=== PATIENT | male | born 1975 | race Caucasian/White ===

== ENCOUNTER 2021-02-13 12:45 | Outpatient (REF) | payer MEDICAID, SELFPAY ==
[2021-02-13 13:20] VITALS: BP 121/62; PULSE 74; RESP 16; TEMP 36.4; O2SAT 99
[2021-02-13 13:32] VITALS: BMI 30.4
[2021-02-13 14:06] VITALS: BP 120/64; PULSE 72; RESP 16; O2SAT 99
== END 2021-02-13 12:46 | disposition home or self-care (01) ==
LOC: HO.MS 12:45
PROVIDERS: PCP Internal Medicine; Visit Provider Ophthalmology
PROC: (CPT 67840; principal; 2021-02-13 17:40)
DX: D23.112 Other benign neoplasm of skin of right lower eyelid, including canthus (principal); H40.013 Open angle with borderline findings, low risk, bilateral; H44.23 Degenerative myopia, bilateral; Q12.0 Congenital cataract; Z79.899 Other long term (current) drug therapy
CPT/HCPCS: 67840; 88305

== ENCOUNTER → 2021-03-20 14:50 | Outpatient (BNVA) | payer MEDICAID, SELFPAY | PROVIDERS: PCP Internal Medicine; Referring Provider Internal Medicine; Visit Provider Nurse Practitioner Family | DX: K58.9 Irritable bowel syndrome, unspecified (principal); K21.9 Gastro-esophageal reflux disease without esophagitis | CPT/HCPCS: 99212 ==

== ENCOUNTER → 2021-12-22 10:18 | Outpatient (BNVA) | payer MEDICAID, SELFPAY | PROVIDERS: PCP Internal Medicine; Referring Provider Internal Medicine; Visit Provider Nurse Practitioner Family | DX: K58.2 Mixed irritable bowel syndrome (principal); K21.9 Gastro-esophageal reflux disease without esophagitis | CPT/HCPCS: 99212 ==

== ENCOUNTER → 2022-08-15 13:28 | Outpatient (BNVA) | payer MEDICAID, SELFPAY | PROVIDERS: PCP Internal Medicine; Visit Provider Nurse Practitioner Family | DX: K21.9 Gastro-esophageal reflux disease without esophagitis (principal); K58.2 Mixed irritable bowel syndrome | CPT/HCPCS: 99212 ==

== ENCOUNTER 2023-01-04 12:42 | Outpatient (REF) | payer MEDICAID, SELFPAY ==
[2023-01-04 14:36] LABS: Estimated Average Glucose 126 mg/dL
[2023-01-04 14:58] LABS: Lipase 38 U/L (8-78)
== END 2023-01-04 12:43 | disposition home or self-care (01) ==
LOC: HO.LAB 12:42
PROVIDERS: PCP Internal Medicine; Visit Provider Nurse Practitioner Family
DX: K21.9 Gastro-esophageal reflux disease without esophagitis (principal); K58.2 Mixed irritable bowel syndrome; K61.1 Rectal abscess; R10.9 Unspecified abdominal pain; E11.9 Type 2 diabetes mellitus without complications
CPT/HCPCS: 36415; 83036; 83690; 99212

== ENCOUNTER 2023-01-09 20:51 | Outpatient (REF) | payer MEDICAID, SELFPAY ==
[2023-01-20 01:23] LABS: Pancreatic Elastase-1 >500 mcg/g
== END 2023-01-09 20:52 | disposition home or self-care (01) ==
LOC: HO.LNP 20:51
PROVIDERS: Visit Provider Nurse Practitioner Family
DX: R10.9 Unspecified abdominal pain (principal)
CPT/HCPCS: 82656

== ENCOUNTER → 2023-02-15 09:44 | Outpatient (BNVA) | payer MEDICAID, SELFPAY | PROVIDERS: PCP Internal Medicine; Referring Provider Nurse Practitioner Family; Visit Provider Surgery | DX: L05.91 Pilonidal cyst without abscess (principal) | CPT/HCPCS: 99202 ==

== ENCOUNTER 2023-02-27 05:49 | Day surgery (SDC) | payer MEDICAID, SELFPAY ==
[2023-02-25 10:15] VITALS: BMI 23.6
--- NOTE | 2023-02-26 10:12 | HO.ANESPROP2 ---
HPI - Anesthesia Eval Consult details Narrative: 47yo M for Pilonidal Cystectomy PMFSH Active Problems Active Problems: All Active Problems (Updated 02/15/23 @ 10:46 by Kevin Tafoya MD) Pilonidal cyst of blessing cleft (Acute) Irritable bowel syndrome (Acute) Gastroesophageal reflux disease (Acute) Past Medical History Medical History Gastroesophageal reflux disease Hemiplegic migraine Interstitial cystitis Irritable bowel syndrome Family History Family History Father COPD (chronic obstructive pulmonary disease) Stroke COVID-19 Paternal Grandmother Cancer of unknown origin Surgical History Surgical History H/O colonoscopy H/O removal of cyst History of esophagogastroduodenoscopy (EGD) History of excision of pilonidal cyst (02/27/23) History of vasectomy Hx of cystoscopy Social History Social History Household Members: Family Alcohol intake: current Alcohol intake frequency: holidays/special occasions only Patient Tobacco Use Status: Current everyday Tobacco user Tobacco use type: Cigarette Cigarettes Per Day: 30 Meds Allergies Allergy/AdvReac Type Severity Reaction Status Date / Time esomeprazole Allergy Mild urinating Verified 02/27/23 06:04 trouble Home Medications Medication Instructions Recorded Confirmed Last Taken Type pentosan polysulfate sodium 100 mg 100 mg PO TID 03/20/21 02/25/23 Unknown History capsule (Elmiron) verapamil 80 mg tablet 80 mg PO DAILY 03/20/21 02/27/23 02/27/23 05:15 History dutasteride 0.5 mg capsule 0.5 mg PO DAILY 02/27/23 02/27/23 02/27/23 05:15 History (Avodart) Exam Exam Date and Time: February 26, 2023 1012 Height,Weight and Vital Signs: Height 5 ft 8 in Weight 70.307 kg Assessment and Plan Assessment Anesthesia Assessment: Chart Reviewed
[2023-02-27 06:09] VITALS: BMI 23.9
[2023-02-27 06:27] VITALS: BP 113/70; PULSE 75; RESP 15; TEMP 36.6; O2SAT 97
[2023-02-27] MEDS: Lactated Ringers 1,000 ML 100 ML IVCONT (06:41)
--- NOTE | 2023-02-27 07:17 | P.CONAN_ITS ---
[facility], [facility] Active Problems Active Problems: All Active Problems (Updated 02/27/23 @ 06:07 by Ghislaine Monreal RN) Pilonidal cyst of blessing cleft (Acute) Irritable bowel syndrome (Acute) Gastroesophageal reflux disease (Acute) Past Medical History Medical History Gastroesophageal reflux disease Hemiplegic migraine Interstitial cystitis Irritable bowel syndrome Family History Family History Father COPD (chronic obstructive pulmonary disease) Stroke COVID-19 Paternal Grandmother Cancer of unknown origin Family history of problems with anesthesia: No Surgical History Surgical History H/O colonoscopy H/O removal of cyst History of esophagogastroduodenoscopy (EGD) History of vasectomy Hx of cystoscopy Social History Social History Household Members: Family Alcohol intake: current Alcohol intake frequency: holidays/special occasions only Patient Tobacco Use Status: Current everyday Tobacco user Tobacco use type: Cigarette Cigarettes Per Day: 30 Use of substances other than those prescribed or required for medical reasons: No Are you DNR?: No Advance Directives: No Advance Directives Information Provided: Yes Meds Allergies Allergy/AdvReac Type Severity Reaction Status Date / Time esomeprazole Allergy Mild urinating Verified 02/27/23 06:04 trouble Active Medications: Current Medications Lactated Ringer's (Lr) 1,000 mls @ 100 mls/hr IVCONT .Q10H ARCHANA Last Admin: 02/27/23 06:41 Dose: 100 mls/hr Home Medications Medication Instructions Recorded Confirmed Last Taken Type pentosan polysulfate sodium 100 mg 100 mg PO TID 03/20/21 02/25/23 Unknown History capsule (Elmiron) verapamil 80 mg tablet 80 mg PO DAILY 03/20/21 02/25/23 Unknown History dutasteride 0.5 mg capsule 0.5 mg PO DAILY 02/27/23 02/27/23 02/27/23 05:15 History (Avodart) Exam Exam Date and Time: February 27, [id number] Height,Weight and Vital Signs: Height 5 ft 8 in Weight 71.214 kg Last Vital Signs Temp 97.9 F 02/27/23 06:27 Pulse 75 02/27/23 06:27 Resp 15 02/27/23 06:27 BP 113/70 02/27/23 06:27 Pulse Ox 97 02/27/23 06:27 O2 Del Method Room Air 02/27/23 06:27 Airway Mallampati Class: II TM Dist: >3cm Neck ROM: Full Heart: RRR Lungs: CTA Assessment and Plan Final Anesthetic Review Family History of Problems with Anesthesia: No ASA Class: II Final Preanesthetic Review: Meds/Allgs Chart Reviewed, Consent Obtained/Reviewed and Anes Risks/Benef Reviewed Patient Risk: Intermediate Procedure Risk: Low Anesthetic Plan Anesthetic Plan: GA Disposition: Standard PACU
--- NOTE | 2023-02-27 07:18 | MHC.SHP ---
Pre-Procedural Eval Section A Date of Service: 02/27/23 The patient is an INPATIENT: No Changes since office visit: Yes Patient answered all questions; No Cold of Flu in the past 2 weeks, No New Medical Problems and No Changes in Medication The History & Physical has been completed within 30 days and I have reviewed it.: Yes Section B Chief Complaint: Pilonidal cyst without abscess Allergies: Allergies Allergy/AdvReac Type Severity Reaction Status Date / Time esomeprazole Allergy Mild urinating Verified 02/27/23 06:04 trouble Plan Diagnosis/Plan: Unchanged I have reviewed the history and physical and performed a pertinent physical examination on my patient. No changes have occurred unless specified. Time Spent With Patient Time: Total time managing care of this patient today ____ minutes.
--- NOTE | 2023-02-27 07:21 | P.OP_ITS ---
Operative Note Operative Note Date of Service: 02/27/23 Narrative: Preoperative diagnosis: pilonidal cyst Postoperative diagnosis: same Procedure: pilonidal cystectomy Surgeon: Kevin Tafoya MD [employer]form[employer] Developer: Layne Dumont PA-C Anesthesia: general endotracheal Indications for procedure: 47-year-old male patient with history of multiple infections of pilonidal cyst with previous drainage procedures presenting today for final cystectomy Operative findings: pilonidal cyst without active infection Specimen: pilonidal cyst Estimated blood loss: less than 2 mL Complications: none Procedure details: patient was brought to the OR placed in a supine position. After administering general anesthesia he was placed in a prone position. Patient's perianal skin was prepped with Betadine and draped in a sterile fashion. A surgical time-out was called and the consent confirmed. Patient received preoperative antibiotics and Venodyne boots were in place. Local anesthesia was infiltrated around the pilonidal cyst. A pilonidal cyst excision was then performed using a 15 blade scalpel. The area of excision measured approximately 4 cm x 2 cm. Elliptical incision was created in the midline carried out through subcutaneous tissue presacral fascia. This was then excised off the fascia with the scalpel. Hemostasis was assured using electrocautery. The specimen was passed off the table and sent to pathology for further examination. Deep fascial tissue was then reapproximated using interrupted 3-0 Polysorb sutures. Superficial subcutaneous tissue was reapproximated using interrupted 3-0 Polysorb sutures. Dermis was reapproximated using interrupted 3-0 Polysorb sutures. Skin was closed using interrupted 2-0 nylon sutures in a mattress formation. Sterile dressings consisting of 4 x 4 gauze and paper tape were then applied. The patient was returned to a supine position and awoken from anesthesia. Patient tolerated procedure well. Sponge, instrument, and needle counts reported as correct. Patient was transferred to PACU in stable condition.
[2023-02-27 08:32] VITALS: BP 128/76; PULSE 91; RESP 16; TEMP 36.4; O2SAT 99
[2023-02-27 08:37] VITALS: BP 121/70; PULSE 85; RESP 20; O2SAT 100
[2023-02-27] MEDS: ondansetron HCL 4 MG/2 ML VIAL IVPUSH (08:41)
[2023-02-27 08:42] VITALS: BP 153/53; PULSE 87; RESP 17; O2SAT 100
[2023-02-27 08:47] VITALS: BP 135/88; PULSE 79; RESP 17; O2SAT 99
[2023-02-27 09:02] VITALS: BP 128/78; PULSE 88; RESP 19; TEMP 36.4; O2SAT 99
== END 2023-02-27 09:51 | disposition home or self-care (01) ==
PROVIDERS: PCP Internal Medicine; Visit Provider Surgery
PROC: (CPT 11771; principal; 2023-02-27 07:30)
DX: L05.91 Pilonidal cyst without abscess (principal); K58.9 Irritable bowel syndrome, unspecified; K21.9 Gastro-esophageal reflux disease without esophagitis; N30.10 Interstitial cystitis (chronic) without hematuria; Z79.899 Other long term (current) drug therapy; Z88.8 Allergy status to other drugs, medicaments and biological substances; F17.210 Nicotine dependence, cigarettes, uncomplicated
CPT/HCPCS: 11771; 88304; J1100; J2250; J2405; J3010

== ENCOUNTER → 2023-03-08 10:25 | Outpatient (BNVA) | payer MEDICAID, SELFPAY | PROVIDERS: PCP Internal Medicine; Visit Provider Surgery | DX: Z48.817 Encounter for surgical aftercare following surgery on the skin and subcutaneous tissue (principal); Z87.2 Personal history of diseases of the skin and subcutaneous tissue | CPT/HCPCS: 99212 ==

== ENCOUNTER → 2023-03-20 08:45 | Outpatient (BNVA) | payer MEDICAID, SELFPAY | PROVIDERS: PCP Internal Medicine; Visit Provider Surgery | DX: Z48.02 Encounter for removal of sutures (principal); L05.91 Pilonidal cyst without abscess | CPT/HCPCS: 99211 ==

== ENCOUNTER → 2023-05-24 15:37 | Outpatient (AMB) | payer OTHER, SELFPAY ==
--- NOTE | 2023-05-24 15:43 | A.OFFVIS_ITS ---
Intake Vital Signs 05/24/23 15:44 Height 5 ft 8 in Weight 152 lb 8.958 oz BMI 23.2 BP 113/59 L Blood Pressure Location Lt brachial Position Sitting Pulse 79 Intake Visit Reasons: abdominal pain Intake Note: Rosas presents in office as a est.patient for a f/u for abdominal pain. 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 Patient states that he change lot of the food that he is eating and he is feeling better. Occasional flare ups with cramping and loose stools. Patient states that he is trying to control that with loperamide. Symptoms do not last long only couple days. Gastroesophageal reflux disease Continue current treatment with Nexium. Patient was encouraged to avoid dietary triggers and late night snacking. Staying upright for minimal 3 hours after meals discussed with patient. Rectal abscess 2.5 cm rectal abscess with 0.4 mm open c enter area that is draining. Area examined with storekeeper helper in the room. There is no erythema induration about 2.5 cm,o no tenderness to palpation, no fluctuance. Lateral right of the open center hard to touch without pain. No signs and symptoms of cellulitis. Patient was encouraged to soak in warm water and Epsom salts, apply warm compresses to help drain. Patient would like to get refer to get this abscess removed. Patient was referred to general surgery. Patient was also encouraged to go to ER if he will have fever, increase in size, redness or tenderness. I will see him in 6 months, sooner on as needed basis. Patient is agreeable to this plan and verbalizes understanding of instructions. He was given the opportunity to ask questions and all questions answered. Plan Orders Orders Pancreatic Elastase-1 Today R10.9 Lipase Today R10.9 Hemoglobin A1c Today E11.9 Referrals General Surgery Referral K61.1 Medications Changed From Nexium (esomeprazole magnesium) Take one capsule by mouth twice a day, dispense BRAND NAME ONLY 40 mg PO BID 30 days 180 caps 3RF NS K21.9 To Nexium (esomeprazole magnesium) Take one capsule by mouth twice a day, dispense BRAND NAME ONLY 40 mg PO BID 90 days 180 caps 3RF NS K21.9 From sucralfate (Carafate) Take one tablet on an empty stomach by mouth twice a day 1 g PO BID 30 days 180 tabs 2RF K58.9 To sucralfate (Carafate) Take one tablet on an empty stomach by mouth twice a day 1 g PO BID 90 days 180 tabs 2RF K58.9 TODAY'S VISIT Patient is here today for follow-up. Patient reports that he had hard time getting Nexium. States that genetics will work for him. Long history of taking Nexium and nothing of works. Patient changed his insurance and was unable to get medications for sometimes. Patient reports that he had suffered with epigastric discomfort dyspepsia with occasional dysphagia without odynophagia. Patient states that he has postprandial abdominal bloating. Left lower quadrant cramping. Patient denies melena, hematochezia, unintentional weight loss or ribbon like stools. Patient denies any nausea or vomiting. [facility] Medical History Gastroesophageal reflux disease Hemiplegic migraine Interstitial cystitis Irritable bowel syndrome Surgical History H/O colonoscopy H/O removal of cyst History of esophagogastroduodenoscopy (EGD) History of excision of pilonidal cyst (02/27/23) History of vasectomy Hx of cystoscopy Family History Father COPD (chronic obstructive pulmonary disease) Stroke COVID-19 Paternal Grandmother Cancer of unknown origin Social History Household Members: Family Alcohol intake: current Alcohol intake frequency: holidays/special occasions only Patient Tobacco Use Status: Current everyday Tobacco user Tobacco use type: Cigarette Cigarettes Per Day: 30 Review of Systems Const Denies weight gain and Denies weight loss ENT Reports no additional complaints, Denies dysphagia and Denies odynophagia Card Reports no additional complaints Resp Reports no additional complaints GI Denies abdominal pain, Denies belching, Denies melena, Denies bloating, Denies change in bowel habits, Denies dysphagia, Denies excessive flatus, Denies dyspepsia, Reports heartburn, Denies diarrhea, Reports loose stools, Denies nausea, Denies odynophagia and Denies vomiting Reports no additional complaints Musc Reports no additional complaints Neuro Reports no additional complaints Psych Reports no additional complaints Endo Reports no additional complaints Physical Exam Vital Signs: Last Vital Signs Pulse 79 05/24/23 15:44 BP 113/59 L 05/24/23 15:44 BMI result Body Mass Index 23.2 Const General: healthy appearing, no acute distress and well developed Nutritional Appearance: well nourished Orientation/consciousness: patient oriented x3 HEENT Head: Yes normal to inspection, Yes normocephalic and Yes atraumatic Face and sinus: Yes normal facial exam Mouth: Normal oral and palatal mucosa present Throat: Yes posterior oropharynx normal, Yes tonsils normal and Yes uvula midline Eyes General: appearance normal, both eyes and all related structures Neck Neck: Yes normal visual inspection, Yes full ROM and Yes trachea midline Thyroid: Thyroid normal Resp Effort & Inspection: normal respiratory effort, able to speak in complete sen tences, no tracheal deviation and symmetric chest movement Auscultation: clear to auscultation bilaterally Cardio Jugular venous distension: no JVD Rate: regular rate Heart sounds: S1 normal heart sound present, S2 normal heart sound present, no gallops and no murmurs GI Inspection: Yes normal to inspection and No distended Palpation (GI): Soft to palpation, not firm, nontender and No hepatosplenomegaly present Auscultation: normal bowel sounds General: Yes no CVA tenderness Back/Spine/Pelvis Back: no CVA tenderness Skin General skin exam: elasticity normal, turgor normal and dry skin Neuro General: patient oriented x3 Psych Appearance: grossly normal Mental Status: mental status grossly normal Speech and movement: Normal speech and movement present Assessment & Plan Assessment & Plan (1) Irritable bowel syndrome: Code(s): K58.9 - Irritable bowel syndrome without diarrhea Qualifiers: Irritable bowel syndrome type: with both diarrhea and constipation Qualified Code(s): K58.2 - Mixed irritable bowel syndrome Plan: Discussed with patient will FODMAP diet. List of food recommended as well as is the food to avoid given to patient (2) Gastroesophageal reflux disease: Code(s): K21.9 - Gastro-esophageal reflux disease without esophagitis Qualifiers: Esophagitis presence: esophagitis presence not specified Qualified Code(s): K21.9 - Gastro-esophageal reflux disease without esophagitis Plan: Patient was encouraged to continue Nexium and sucralfate. Avoid dietary triggers in late night snacking. Staying upright for minimum 3 hours after meals discussed with patient. I will see patient in 3 months so we can discuss colonoscopy and possible upper endoscopy. Patient is agreeable to this plan and verbalizes understanding of instructions. He was given the opportunity to ask questions and all questions answered. Thank you for allowing me to participate in his care Coding Level of Care Code Est Pt Level 3 (85383) Diagnoses Irritable bowel syndrome with both constipation and diarrhea K58.2 Irritable bowel syndrome type: with both diarrhea and constipation Gastroesophageal reflux disease, unspecified whether esophagitis present K21.9 Esophagitis presence: esophagitis presence not specified Time Spent (min) 30 Comment 20 minutes spent with patient and additional 10 minutes spent reviewing his records
[2023-05-24 15:44] VITALS: BP 113/59; PULSE 79; BMI 23.2
== END ==
PROVIDERS: PCP Internal Medicine; Visit Provider Nurse Practitioner Family
DX: K58.2 Mixed irritable bowel syndrome (principal); K21.9 Gastro-esophageal reflux disease without esophagitis
CPT/HCPCS: 99213

== ENCOUNTER → 2023-05-24 15:37 | Outpatient (BNVA) | payer OTHER, SELFPAY | PROVIDERS: PCP Internal Medicine; Visit Provider Nurse Practitioner Family ==

== ENCOUNTER 2023-05-31 10:42 | Outpatient (AMB) | payer OTHER, SELFPAY ==
--- NOTE | 2023-05-31 10:45 | MHC.OFFVIS ---
Intake Vital Signs 05/31/23 10:52 Height 5 ft 8 in Weight 154 lb 6 oz BMI 23.5 BP 135/62 Blood Pressure Location Lt brachial Position Sitting Pulse 77 Intake Visit Reasons: pain at yasmeen exc site (s/p exc in February Intake Note: Patient is seen in office for wound check, post excision of pilonidal cyst in February. 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 Accompanied by: Self / Same As Patient Allergies esomeprazole Allergy (Mild, Verified 05/31/23 10:52) urinating trouble Medication List - Last Reconciled 05/31/23 by Kevin Tafoya MD dutasteride (Avodart) 0.5 mg PO DAILY loperamide 2 mg PO Q6H PRN Nexium (esomeprazole magnesium) 40 mg PO BID 90 days NS pentosan polysulfate sodium (Elmiron) 100 mg PO TID sucralfate (Carafate) 1 g PO BID 90 days verapamil 80 mg PO DAILY HPI HPI Comments History of Present Illness Details 48-year-old male patient status post pilonidal cystectomy in February 2023 returning today with complaints of pain from the site over the past week. He denied any redness or discharge from the wound was concerned about a recurrent infection. He also reports a hard lump at the upper portion of the incision. He returns today for wound examination. He denies fever or chills. PFSH Medical History Gastroesophageal reflux disease Hemiplegic migraine Interstitial cystitis Irritable bowel syndrome Surgical History H/O colonoscopy H/O removal of cyst History of esophagogastroduodenoscopy (EGD) History of excision of pilonidal cyst (02/27/23) History of vasectomy Hx of cystoscopy Family History Father COPD (chronic obstructive pulmonary disease) Stroke COVID-19 Paternal Grandmother Cancer of unknown origin Social History Household Members: Family Alcohol intake: current Alcohol intake frequency: holidays/special occasions only Patient Tobacco Use Status: Current everyday Tobacco user Tobacco use type: Cigarette Cigarettes Per Day: 30 Review of Systems Const All systems reviewed & are unremarkable except as noted in HPI and below Physical Exam Vital Signs: Last Vital Signs Pulse 77 05/31/23 10:52 BP 135/62 05/31/23 10:52 BMI result Body Mass Index 23.5 Const General: no acute distress and well developed Nutritional Appearance: well nourished Orientation/consciousness: patient oriented x3 Resp Effort & Inspection: normal respiratory effort GI Inspection: Yes normal to inspection Palpation (GI): Soft to palpation, nontender and no guarding Back/Spine/Pelvis Other: Well-healed pilonidal cyst incision in the midline with no bleeding, discharge, abscess, erythema, or wound separation. Scar tissue is noted in the midline incision which is normal. No evidence of a recurrent pilonidal cyst. Neuro General: patient oriented x3 Extrem General: Yes normal to inspection Assessment & Plan Assessment & Plan (1) Pilonidal cyst of blessing cleft: Code(s): L05.91 - Pilonidal cyst without abscess Plan Patient returns for a wound check of his pilonidal cystectomy incision. Wounds are found to be clean and intact without evidence of recurrent infections. He should follow up as needed. Coding Level of Care Code Est Pt Level 3 (10897) Diagnoses Pilonidal cyst of cleft L05.91
[2023-05-31 10:52] VITALS: BP 135/62; PULSE 77; BMI 23.5
== END 2023-05-31 11:18 | disposition home or self-care (01) ==
PROVIDERS: PCP Internal Medicine; Visit Provider Surgery
DX: L05.91 Pilonidal cyst without abscess (principal)
CPT/HCPCS: 99213

== ENCOUNTER → 2023-05-31 10:42 | Outpatient (BNVA) | payer OTHER, SELFPAY | PROVIDERS: PCP Internal Medicine; Visit Provider Surgery ==

== ENCOUNTER 2023-08-09 10:37 | Outpatient (AMB) | payer OTHER, SELFPAY ==
--- NOTE | 2023-08-09 10:51 | A.OFFVIS_ITS ---
Intake Vital Signs 08/09/23 10:55 Height 5 ft 8 in Weight 154 lb BMI 23.4 BP 100/55 L Blood Pressure Location Lt brachial Position Sitting Pulse 71 Pulse Oximetry (%) 97 Oxygen Delivery Method Room Air Intake Visit Reasons: pre-procedure visit Intake Note: Patient follow up for 2nd pre colonoscopy and EGD screening. Patient denies any GI issues. Phlebotomy Coordinator Required: No Accompanied by: Self / Same As Patient Allergies esomeprazole Allergy (Mild, Verified 08/09/23 10:51) urinating trouble HPI pre-procedure visit HPI Details LAST VISIT Irritable bowel syndrome Discussed with patient will FODMAP diet. List of food recommended as well as is the food to avoid given to patient Gastroesophageal reflux disease Patient was encouraged to continue Nexium and sucralfate. Avoid dietary triggers in late night snacking. Staying upright for minimum 3 hours after meals discussed with patient. I will see patient in 3 months so we can discuss colonoscopy and possible upper endoscopy. Patient is agreeable to this plan and verbalizes understanding of instructions. He was given the opportunity to ask questions and all questions answered. ? TODAY'S VISIT Patient is here today for follow-up and to discuss going for colonoscopy. Patient had colonoscopy in 2010 in May for symptoms of rectal bleed. He had normal colonoscopy then. Patient currently denies any melena, hematochezia, unintentional weight loss or ribbon like stools. Denies any issues with anesthesia in the past. No history of sleep apnea. Denies any infectious diseases in the past or present. Not on any anticoagulation therapy. Patient reports that he is taking Nexium and sucralfate and symptoms of acid reflux are suppressed. Patient reports that he is trying to avoid dietary triggers. Patient also has a history of interstitial cystitis so he is on a restricted diet. [facility], [facility] Medical History Gastroesophageal reflux disease Hemiplegic migraine Interstitial cystitis Irritable bowel syndrome Surgical History History of excision of pilonidal cyst (02/27/23) History of esophagogastroduodenoscopy (EGD) H/O colonoscopy Hx of cystoscopy History of vasectomy H/O removal of cyst Family History Father COPD (chronic obstructive pulmonary disease) Stroke COVID-19 Paternal Grandmother Cancer of unknown origin Household Members: Family Alcohol intake: current Alcohol intake frequency: holidays/special occasions only Patient Tobacco Use Status: Current everyday Tobacco user Tobacco use type: Cigarette Cigarettes Per Day: 30 Review of Systems Const Denies weight gain and Denies weight loss ENT Reports no additional complaints, Denies dysphagia and Denies odynophagia Card Reports no additional complaints Resp Reports no additional complaints GI Denies abdominal pain, Denies belching, Denies melena, Denies bloating, Denies change in bowel habits, Denies dysphagia, Denies excessive flatus, Denies dyspepsia, Denies heartburn, Denies diarrhea, Denies loose stools, Denies nausea, Denies odynophagia and Denies vomiting Reports no additional complaints Musc Reports no additional complaints Neuro Reports no additional complaints Psych Reports no additional complaints Endo Reports no additional complaints Physical Exam Vital Signs: Last Vital Signs Pulse 71 08/09/23 10:55 BP 100/55 L 08/09/23 10:55 Pulse Ox 97 08/09/23 10:55 Oxygen Delivery Method Room Air 08/09/23 10:55 BMI result Body Mass Index 23.4 Const General: healthy appearing, no acute distress and well developed Nutritional Appearance: well nourished Orientation/consciousness: patient oriented x3 HEENT Head: Yes normal to inspection, Yes normocephalic and Yes atraumatic Face and sinus: Yes normal facial exam Mouth: Normal oral and palatal mucosa present Throat: Yes posterior oropharynx normal, Yes tonsils normal and Yes uvula midline Eyes General: appearance normal, both eyes and all related structures Neck Neck: Yes normal visual inspection, Yes full ROM and Yes trachea midline Thyroid: Thyroid normal Resp Effort & Inspection: normal respiratory effort, able to speak in complete sentences, no tracheal deviation and symmetric chest movement Auscultation: clear to auscultation bilaterally Cardio Rate: regular rate Heart sounds: S1 normal heart sound present and S2 normal heart sound present GI Inspection: Yes normal to inspection and No distended Palpation (GI): Soft to palpation, not firm, nontender and No hepatosplenomegaly present Auscultation: normal bowel sounds General: Yes no CVA tenderness Back/Spine/Pelvis Back: no CVA tenderness Skin General skin exam: elasticity normal, turgor normal and dry skin Neuro General: patient oriented x3 Psych Appearance: grossly normal Mental Status: mental status grossly normal Affect: normal affect Assessment & Plan Assessment & Plan (1) Irritable bowel syndrome: Code(s): K58.9 - Irritable bowel syndrome without diarrhea Qualifiers: Irritable bowel syndrome type: with both diarrhea and constipation Qualified Code(s): K58.2 - Mixed irritable bowel syndrome (2) Gastroesophageal reflux disease: Code(s): K21.9 - Gastro-esophageal reflux disease without esophagitis Qualifiers: Esophagitis presence: esophagitis presence not specified Qualified Code(s): K21.9 - Gastro-esophageal reflux disease without esophagitis (3) Screen for colon cancer: Code(s): Z12.11 - Encounter for screening for malignant neoplasm of colon Plan Continue current treatment with Nexium and sucralfate. Discussed with patient to continue avoiding dietary triggers in late night snacking. Patient will be scheduled today for colonoscopy and upper endoscopy. Patient denies any issues with anesthesia in the past. No history of sleep apnea. Not on any anticoagulation medication. Patient denies any family history of colorectal cancer. What to expect before during and after the procedure discussed with patient. The importance of clear liquid diet and good bowel prep day before procedure discussed with patient. I will see patient after the procedure, sooner on as needed basis. Patient is agreeable to this plan and verbalizes understanding of instructions. He was given the opportunity to ask questions and all questions answered. Thank you for allowing me to participate in his care Medications: New bisacodyl (Dulcolax (bisacodyl)) take 4 tabs at noon the day before your colonoscopy 20 mg (4 x 5 mg) PO ONCE 4 tabs 0RF 1 day Z12.11 - Encounter for screening for malignant neoplasm of colon polyethylene glycol 3350 (Miralax) As directed by gastroenterology department at [facility] 238 grams PO ONCE 238 grams 0RF Z12.11 - Encounter for screening for malignant neoplasm of colon Coding Level of Care Code Est Pt Level 3 (68826) Diagnoses Irritable bowel syndrome with both constipation and diarrhea K58.2 Irritable bowel syndrome type: with both diarrhea and constipation Gastroesophageal reflux disease, unspecified whether esophagitis present K21.9 Esophagitis presence: esophagitis presence not specified Screen for colon cancer Z12.11 Time Spent (min) 30 Comment 20 minutes spent with patient and additional 10 minutes spent reviewing his records
[2023-08-09 10:55] VITALS: BP 100/55; PULSE 71; O2SAT 97; BMI 23.4
== END 2023-08-09 11:20 | disposition home or self-care (01) ==
PROVIDERS: PCP Internal Medicine; Visit Provider Nurse Practitioner Family
DX: K58.2 Mixed irritable bowel syndrome (principal); K21.9 Gastro-esophageal reflux disease without esophagitis; Z12.11 Encounter for screening for malignant neoplasm of colon
CPT/HCPCS: 99213

== ENCOUNTER → 2023-08-09 10:37 | Outpatient (BNVA) | payer OTHER, SELFPAY | PROVIDERS: PCP Internal Medicine; Visit Provider Nurse Practitioner Family ==

== ENCOUNTER 2023-09-06 07:31 | Day surgery (SDC) | payer OTHER, SELFPAY ==
--- NOTE | 2023-09-05 14:04 | HO.ANESPROP2 ---
Documented by User: Estefanía López NP 09/05/23 14:05 HPI - Anesthesia Eval Consult details Narrative: 48yo M for Upper Endoscopy and Colonoscopy PMF Active Problems Active Problems: All Active Problems (Updated 02/27/23 @ 06:07 by Ghislaine Monreal RN) Pilonidal cyst of cleft (Acute) Irritable bowel syndrome (Acute) Gastroesophageal reflux disease (Acute) Past Medical History Medical History Gastroesophageal reflux disease Hemiplegic migraine Interstitial cystitis Irritable bowel syndrome Family History Family History Father COPD (chronic obstructive pulmonary disease) Stroke COVID-19 Paternal Grandmother Cancer of unknown origin Family history of problems with anesthesia: No Surgical History Surgical History History of excision of pilonidal cyst (02/27/23) History of esophagogastroduodenoscopy (EGD) H/O colonoscopy Hx of cystoscopy History of vasectomy H/O removal of cyst Social History Social History Household Members: Family Alcohol intake: current Alcohol intake frequency: 0-2 drinks per day Patient Tobacco Use Status: Current everyday Tobacco user Tobacco use type: Cigarette Cigarettes Per Day: 10 Use of substances other than those prescribed or required for medical reasons: No Are you DNR?: No Advance Directives: No Advance Directives Information Provided: Yes Meds Allergies Allergy/AdvReac Type Severity Reaction Status Date / Time esomeprazole Allergy Mild urinating Verified 08/09/23 10:51 trouble Home Medications Medication Instructions Recorded Confirmed Last Taken Type pentosan polysulfate sodium 100 mg 100 mg PO TID 03/20/21 05/31/23 Unknown History capsule (Elmiron) verapamil 80 mg tablet 80 mg PO DAILY 03/20/21 05/31/23 02/27/23 05:15 History dutasteride 0.5 mg capsule 0.5 mg PO DAILY 02/27/23 05/31/23 02/27/23 05:15 History (Avodart) Assessment and Plan Assessment Anesthesia Assessment: Chart Reviewed Final Anesthetic Review Family History of Problems with Anesthesia: No Documented by User: Jeri Silva MD 09/06/23 07:54 PMFSH Past Medical History Medical History Gastroesophageal reflux disease Hemiplegic migraine Interstitial cystitis Irritable bowel syndrome Functional capacity: uses cane/walker Family History Family History Father COPD (chronic obstructive pulmonary disease) Stroke COVID-19 Paternal Grandmother Cancer of unknown origin Surgical History Surgical History History of excision of pilonidal cyst (02/27/23) History of esophagogastroduodenoscopy (EGD) H/O colonoscopy Hx of cystoscopy History of vasectomy H/O removal of cyst History of Problems with Anesthesia: No Social History Social History Household Members: Family Alcohol intake: current Alcohol intake frequency: 0-2 drinks per day Patient Tobacco Use Status: Current everyday Tobacco user Tobacco use type: Cigarette Cigarettes Per Day: 10 Use of substances other than those prescribed or required for medical reasons: No Are you DNR?: No Advance Directives: No Advance Directives Information Provided: Yes Meds Allergies Allergy/AdvReac Type Severity Reaction Status Date / Time esomeprazole Allergy Mild urinating Verified 08/09/23 10:51 trouble Home Medications Medication Instructions Recorded Confirmed Last Taken Type pentosan polysulfate sodium 100 mg 100 mg PO TID 03/20/21 05/31/23 Unknown History capsule (Elmiron) verapamil 80 mg tablet 80 mg PO DAILY 03/20/21 05/31/23 02/27/23 05:15 History dutasteride 0.5 mg capsule 0.5 mg PO DAILY 02/27/23 05/31/23 02/27/23 05:15 History (Avodart) Exam Airway Mallampati Class: II (missing multiple teeth) TM Dist: >3cm Neck ROM: Full Heart: rrr Lungs: cta Assessment and Plan Assessment Anesthesia Assessment: Anesthesia Plan Discussed Final Anesthetic Review History of Problems with Anesthesia: No NPO: Yes ASA Class: III Final Preanesthetic Review: No Changes in Pt Med Stat, Meds/Allgs Chart Reviewed and Consent Obtained/Reviewed Patient Risk: Intermediate Procedure Risk: Intermediate Anesthetic Plan Anesthetic Plan: MAC: Disposition: Standard PACU
[2023-09-06 07:40] VITALS: BMI 23.7
--- NOTE | 2023-09-06 07:47 | MHC.SHP ---
Pre-Procedural Eval Section A Date of Service: 09/06/23 The patient is an INPATIENT: No Changes since office visit: Yes Patient answered all questions; No Cold of Flu in the past 2 weeks, No New Medical Problems and No Changes in Medication The History & Physical has been completed within 30 days and I have reviewed it.: Yes Section B Chief Complaint: IBS with diarrhea and constipation, GERD Present Medications: see Short Stay Collaborative assessment Allergies: Allergies Allergy/AdvReac Type Severity Reaction Status Date / Time esomeprazole Allergy Mild urinating Verified 08/09/23 10:51 trouble Exam Surgical H&P Exam: Normal: Heart, Normal: Lungs, Normal: Extremities and Normal: Abdomen Plan Diagnosis/Plan: Unchanged I have reviewed the history and physical and performed a pertinent physical examination on my patient. No changes have occurred unless specified. Time Spent With Patient Time: Total time managing care of this patient today ____ minutes.
[2023-09-06 07:58] VITALS: BP 127/70; PULSE 83; RESP 16; TEMP 36.2; O2SAT 98
[2023-09-06 08:01] VITALS: BMI 23.7
[2023-09-06] MEDS: Lactated Ringers 1,000 ML 100 ML IVCONT (08:03)
--- NOTE | 2023-09-06 08:31 | W.PM.OPN ---
Operative Note Operative Note Date of Service: 09/06/23 Narrative: FLEXIBLE TRANSORAL UPPER GASTROINTESTINAL ENDOSCOPY WITH BIOPSIES AND COLONOSCOPY TILL CECUM WITH BIOPSIES, SNARE POLYPECTOMY, SUBMUCOSAL INJECTION AND HEMOCLIP PLACEMENT Pre-op diagnosis: Colon cancer screening, IBS with diarrhea and constipation, GERD Post-op diagnosis: GERD, Gastritis, gastric ulcer,?Gastric Polyps, Colon Polyps, Hemorrhoids Endoscopist:? Stefanie Draper MD Anesthesia:?MAC UPPER ENDOSCOPY Consent: Indications for the procedure and potential complications of bleeding, perforation, reaction to medications and missed diagnosis were discussed with the patient and informed consent was obtained. Instrument: Olympus GIF H 190 mid size upper endoscope Monitoring: Vital signs and clinical assessment, continuous EKG monitoring, Pulse oximetry, Carbon Dioxide monitoring and blood pressure monitoring were done throughout the procedure. Procedure: The patient was placed in the left lateral decubitis position and pre-procedure medications were administered and a bite block was placed. The endoscope was inserted into the mouth and advanced under direct vision to the third part of duodenum. A careful inspection was made as the upper endoscope was withdrawn including a retroflexed examination of the proximal stomach; Findings and interventions are described below. Findings: Larynx: Edema of arytenoid cartilages Esophagus: GE junction at 40 cms. No esophagitis or Marks's. Stomach: Moderate diffuse gastric erythema with nodular appearing gastric mucosa in the body. Biopsies were obtained from the body and antrum. A focal area of edema, erythema and ulcerations in the distal stomach from 45 to 48 cms - biopsies were obtained. Grade 2 flap valve on retroflexed examination of the cardia. Duodenum: Normal bulb and descending duodenum. Biopsies were obtained from 3rd part of duodenum to check for celiac sprue Intervention: Biopsies as noted above COLONOSCOPY PROCEDURE NOTE Consent: Indications for the procedure and potential complications of bleeding, perforation, reaction to medications and missed diagnosis were discussed with the patient and informed consent was obtained. Instrument: Olympus CF H 190 L variable stiffness adult colonoscope Monitoring: Vital signs and clinical assessment, intermittent blood pressure monitoring, continuous EKG monitoring, Pulse oximetry and Carbon Dioxide monitoring were done throughout the procedure. Colon withdrawl time was 21 minutes. Procedure: The patient was placed in the left lateral decubitis position and pre-procedure medications were administered. After a digital rectal examination of the ano-rectum, the video colonoscope was inserted into the rectum and advanced through the colon to the cecum. The colonoscope was slowly withdrawn in a retrograde panoramic fashion and the colon mucosa was carefully examined including a retroflexed view of the rectum. Findings and interventions are described below. Procedure Difficulty: : Without difficulty Findings: Terminal Ileum: Not evaluated Cecum: Normal Ascending Colon: A 2 x 2 cms flat polyp in mid AC at 80 cms. Polyp was raised with 6 cc of Eleview and removed with a hot stiff snare. Polypectomy site was closed with 2 hemoclips and marked with Candice ink Friable mucosa with focal areas of nodularity throughout the colon Transverse Colon: Two 4-5 mm sessile polyps in the proximal transverse colon- removed with a cold biopsy Friable mucosa with focal areas of nodularity throughout the colon Descending Colon: Friable mucosa with focal areas of nodularity throughout the colon Sigmoid Colon: Friable mucosa with focal areas of nodularity throughout the colon Rectum: Normal Ano-rectum: Small internal hemorrhoids Colon preparation: Good Impression and Post Procedure Diagnosis: Endoscopy Findings: STOMACH: Moderate diffuse gastric erythema with nodular appearing gastric mucosa in the body. Biopsies were obtained from the body and antrum. A focal area of edema, erythema and ulcerations in the distal stomach - likely related to NSAID use DUODENUM: Normal - biopsies were obtained from 3rd part of the duodenum to check for celiac sprue Colonoscopy Findings: Two small and one medium sized polyps removed Friable mucosa with focal areas of nodularity throughout the colon - random biopsies were obtained from right and left colon Small hemorrhoids on retroflexed exam. Plan: Await pathology results Patient has an appointment on 09/20/23 in the GI Clinic with Mary Harrison FNP-BC. Repeat Colonoscopy interval based on path results - in 1 year if AC polyps is adenomatous and 10 years if polyps are hyperplastic. Above findings were reviewed with the patient and his sister and colon polyps and handouts were given in the discharge area. Pt admitted to taking NSAIDS daily and was advised to switch to acetaminophen.
[2023-09-06 09:20] VITALS: BP 115/69; PULSE 97; RESP 16; TEMP 36.6; O2SAT 99
[2023-09-06 09:35] VITALS: BP 106/72; PULSE 97; RESP 16; O2SAT 99
[2023-09-06 09:50] VITALS: BP 120/72; PULSE 77; RESP 16; TEMP 36.7; O2SAT 99
== END 2023-09-06 10:30 | disposition home or self-care (01) ==
PROVIDERS: PCP Internal Medicine; Visit Provider Internal Medicine Gastroenterology
PROC: (CPT 45385; principal; 2023-09-06 08:30)
DX: Z12.11 Encounter for screening for malignant neoplasm of colon (principal); K58.2 Mixed irritable bowel syndrome; D12.2 Benign neoplasm of ascending colon; D12.3 Benign neoplasm of transverse colon; K64.8 Other hemorrhoids; K21.9 Gastro-esophageal reflux disease without esophagitis; K31.7 Polyp of stomach and duodenum; K29.70 Gastritis, unspecified, without bleeding; K25.9 Gastric ulcer, unspecified as acute or chronic, without hemorrhage or perforation; G43.409 Hemiplegic migraine, not intractable, without status migrainosus; N30.10 Interstitial cystitis (chronic) without hematuria; Z79.1 Long term (current) use of non-steroidal anti-inflammatories (NSAID); Z79.899 Other long term (current) drug therapy; Z88.8 Allergy status to other drugs, medicaments and biological substances; Z98.52 Vasectomy status; F17.210 Nicotine dependence, cigarettes, uncomplicated
CPT/HCPCS: 45385; 45380; 45381; 43239; 88305; 88342; J2704

== ENCOUNTER → 2023-09-06 07:31 | Outpatient (BNV) | payer OTHER, SELFPAY | PROVIDERS: PCP Internal Medicine; Visit Provider Internal Medicine Gastroenterology | DX: Z12.11 Encounter for screening for malignant neoplasm of colon (principal); K58.2 Mixed irritable bowel syndrome; D12.3 Benign neoplasm of transverse colon; D12.2 Benign neoplasm of ascending colon; K21.9 Gastro-esophageal reflux disease without esophagitis; K29.70 Gastritis, unspecified, without bleeding; K31.7 Polyp of stomach and duodenum; K25.9 Gastric ulcer, unspecified as acute or chronic, without hemorrhage or perforation | CPT/HCPCS: 43239; 45380; 45381; 45385 ==

== ENCOUNTER 2023-09-20 10:35 | Outpatient (AMB) | payer OTHER, SELFPAY ==
[2023-09-20 10:43] VITALS: BP 121/73; PULSE 77; BMI 24.9
--- NOTE | 2023-09-20 10:43 | A.OFFVIS_ITS ---
Intake Vital Signs 09/20/23 10:43 Height 5 ft 8 in Weight 163 lb 9.328 oz BMI 24.9 BP 121/73 Blood Pressure Location Rt brachial Position Sitting Pulse 77 Pulse Source Pulse Oximeter Intake Visit Reasons: S/P Double; Dr. Draper Intake Note: Pt presents to the office today for a S/P colonoscopy, EGD. Pt states he is feeling okay. Pt states he did have blood in his stool and in the toilet after his procedure that same day. Since then pt has not had any more issues with that. Pt denies any throat pain, N/V/D. Allergies esomeprazole Allergy (Mild, Verified 09/20/23 10:43) urinating trouble HPI S/P Double; Dr. Draper HPI Details LAST VISIT: Irritable bowel syndrome Gastroesophageal reflux disease Screen for colon cancer Plan Continue current treatment with Nexium and sucralfate. Discussed with patient to continue avoiding dietary triggers in late night snacking. Patient will be scheduled today for colonoscopy and upper endoscopy. Patient denies any issues with anesthesia in the past. No history of sleep apnea. Not on any anticoagulation medication. Patient denies any family history of colorectal cancer. What to expect before during and after the procedure discussed with patient. The importance of clear liquid diet and good bowel prep day before procedure discussed with patient. I will see patient after the procedure, sooner on as needed basis. Patient is agreeable to this plan and verbalizes understanding of instructions. He was given the opportunity to ask questions and all questions answered. ? Thank you for allowing me to participate in his care Medications New bisacodyl (Dulcolax (bisacodyl)) take 4 tabs at noon the day before your colonoscopy 20 mg (4 x 5 mg) PO ONCE 4 tabs 0RF 1 da y Z12.11 polyethylene glycol 3350 (Miralax) As directed by gastroenterology department at [facility] 238 grams PO ONCE 238 grams 0RF Z12.11 UPPER ENDOSCOPY AND COLONOSCOPY Endoscopy Findings: Larynx: Edema of arytenoid cartilages Esophagus: GE junction at 40 cms. No esophagitis or Marks's. Stomach: Moderate diffuse gastric erythema with nodular appearing gastric mucosa in the body. Biopsies were obtained from the body and antrum. A focal area of edema, erythema and ulcerations in the distal stomach from 45 to 48 cms - biopsies were obtained. Grade 2 flap valve on retroflexed examination of the cardia. Duodenum: Normal bulb and descending duodenum. Biopsies were obtained from 3rd part of duodenum to check for celiac sprue Intervention: Biopsies as noted above Colonoscopy Findings: Terminal Ileum: Not evaluated Cecum: Normal Ascending Colon: A 2 x 2 cms flat polyp in mid AC at 80 cms. Polyp was raised with 6 cc of Eleview and removed with a hot stiff snare. Polypectomy site was closed with 2 hemoclips and marked with Candice ink Friable mucosa with focal areas of nodularity throughout the colon Transverse Colon: Two 4-5 mm sessile polyps in the proximal transverse colon- removed with a cold biopsy Friable mucosa with focal areas of nodularity throughout the colon Descending Colon: Friable mucosa with focal areas of nodularity throughout the colon Sigmoid Colon: Friable mucosa with focal areas of nodularity throughout the colon Rectum: Normal Ano-rectum: Small internal hemorrhoids Colon preparation: Good Impression and Post Procedure Diagnosis: Endoscopy Findings: STOMACH: Moderate diffuse gastric erythema with nodular appearing gastric mucosa in the body. Biopsies were obtained from the body and antrum. A focal area of edema, erythema and ulcerations in the distal stomach - likely related to NSAID use DUODENUM: Normal - biopsies were obtained from 3rd part of the duodenum to check for celiac sprue Colonoscopy Findings: Two small and one medium sized polyps removed Friable mucosa with focal areas of nodularity throughout the colon - random biopsies were obtained from right and left colon Small hemorrhoids on retroflexed exam. Plan: Repeat Colonoscopy interval based on path results - in 1 year if AC polyps is adenomatous and 10 years if polyps are hyperplastic. Above findings were reviewed with the patient and his sister and colon polyps and handouts were given in the discharge area. Pt admitted to taking NSAIDS daily and was advised to switch to acetaminophen. PATHOLOGY RESULTS Diagnosis A. Small bowel, biopsy: Duodenal mucosa within normal limits; preserved villous architecture and no increase in intraepithelial lymphocytes. B. Stomach, antrum, biopsy: Gastric antral mucosa within normal limits; negative for Helicobacter pylori, intestinal metaplasia and dysplasia. C. Stomach, ulcer, biopsy: Gastric antral mucosa with reactive gastropathy and surface hyperplastic changes in keeping with changes adjacent to ulcer; negative for Helicobacter pylori, intestinal metaplasia and dysplasia. D. Stomach, body, biopsy: Gastric body mucosa with mild PPI effect; negative for Helicobacter pylori, intestinal metaplasia and dysplasia. E. Colon, transverse, polypectomy x2: Tubular adenoma (1); negative for high- grade dysplasia. F. Colon, ascending, 85 cm, polypectomy: Tubular adenoma, multiple fragments; negative for high- grade dysplasia. G. Colon, random right, biopsy: Colonic mucosa with mild architectural distortion, foamy histiocytes and reactive changes; separate fragment with tubular adenoma (may represent carryov er from prior specimen) (see comment). H. Colon, random left, biopsy: Colonic mucosa with mild architectural distortion, foamy histiocytes and reactive changes (see comment). COMMENT (G & H): The histologic findings are suggestive of chronic resolving injury. No granulomas are seen. No evidence of active inflammation or microscopic colitis are identified. Clinical correlation is advised TODAY'S VISIT Patient is here today for follow-up and to discuss colonoscopy and upper endos copy results. Patient was found to have 3 polyps one 2 x 2 cm polyps retrieved in pieces from ascending colon. Tubular adenoma found in all polyps retrieved on colonoscopy and recommendation was made to repeat colonoscopy in 1 year. Upper endoscopy results discussed with patient as well as colonoscopy results. Patient reports that he has been doing well after the procedure. Denies any ill effects from the prep, anesthesia or procedure itself, however mild bleeding after colonoscopy the same day. No bleeding since. Patient denies any melena, hematochezia, unintentional weight loss or ribbon like stools. Patient denies any dyspepsia, dysphagia or odynophagia. Occasional postprandial loose stools. Reports that Imodium helps. Patient is taking Nexium twice a day and sucralfate twice a day and reports that his symptoms are suppressed. [facility] Medical History (Updated 10/06/23 @ 16:35 by SINA Johnson-GERMAINE) Tubular adenoma Hemiplegic migraine Interstitial cystitis Irritable bowel syndrome Gastroesophageal reflux disease Surgical History History of excision of pilonidal cyst (02/27/23) History of esophagogastroduodenoscopy (EGD) H/O colonoscopy Hx of cystoscopy History of vasectomy H/O removal of cyst Family History Father COPD (chronic obstructive pulmonary disease) Stroke COVID-19 Paternal Grandmother Cancer of unknown origin Social History (Updated 09/20/23 @ 10:55 by Apple Will MA) Household Members: Family Alcohol intake: current Alcohol intake frequency: a few times a week Patient Tobacco Use Status: Current everyday Tobacco user Tobacco use type: Cigarette Cigarettes Per Day: 10 Review of Systems Const Denies weight gain and Denies weight loss ENT Reports no additional complaints, Denies dysphagia and Denies odynophagia Card Reports no additional complaints Resp Reports no additional complaints GI Denies abdominal pain, Denies belching, Denies melena, Denies bloating, Denies change in bowel habits, Denies dysphagia, Denies excessive flatus, Denies dyspepsia, Denies heartburn, Denies diarrhea, Denies loose stools, Denies nausea, Denies odynophagia and Denies vomiting Reports no additional complaints Musc Reports no additional complaints Neuro Reports no additional complaints Psych Reports no additional complaints Endo Reports no additional complaints Physical Exam Vital Signs: Last Vital Signs Pulse 77 09/20/23 10:43 BP 121/73 09/20/23 10:43 BMI result Body Mass Index 24.9 Const General: healthy appearing, no acute distress and well developed Nutritional Appearance: well nourished Orientation/consciousness: patient oriented x3 HEENT Head: Yes normal to inspection, Yes normocephalic and Yes atraumatic Face and sinus: Yes normal facial exam Mouth: Normal oral and palatal mucosa present Throat: Yes posterior oropharynx normal, Yes tonsils normal and Yes uvula midline Eyes General: appearance normal, both eyes and all related structures Neck Neck: Yes normal visual inspection, Yes full ROM and Yes trachea midline Thyroid: Thyroid normal Resp Effort & Inspection: normal respiratory effort, able to speak in complete sentences, no tracheal deviation and symmetric chest movement Auscultation: clear to auscultation bilaterally Cardio Rate: regular rate GI Inspection: Yes normal to inspection and No distended Palpation (GI): Soft to palpation, not firm, nontender and No hepatosplenomegaly present Auscultation: normal bowel sounds General: Yes no CVA tenderness Back/Spine/Pelvis Back: no CVA tenderness Skin General skin exam: elasticity normal, turgor normal and dry skin Neuro General: patient oriented x3 Psych Appearance: grossly normal Mental Status: mental status grossly normal Affect: normal affect Assessment & Plan Assessment & Plan (1) Irritable bowel syndrome: Code(s): K58.9 - Irritable bowel syndrome without diarrhea Qualifiers: Irritable bowel syndrome type: with both diarrhea and constipation Qualified Code(s): K58.2 - Mixed irritable bowel syndrome (2) Gastroesophageal reflux disease: Code(s): K21.9 - Gastro-esophageal reflux disease without esophagitis Qualifiers: Esophagitis presence: esophagitis presence not specified Qualified Code(s): K21.9 - Gastro-esophageal reflux disease without esophagitis (3) Tubular adenoma: Code(s): D36.9 - Benign neoplasm, unspecified site Plan Continue Nexium twice a day. Continue avoiding dietary triggers. Sucralfate as ordered once or twice a day. Avoid NSAIDs. May use Imodium on as needed basis, however patient should try to avoid if constipated. Increase fiber. Patient would return in 8 months so we can discuss going for colonoscopy again and re- evaluate. Patient will call us sooner if he will have any GI concerning symptoms. Patient is agreeable to this plan and verbalizes understanding of instructions. He was given the opportunity to ask questions and all questions answered. Thank you for allowing me to participate in his care Medications: New Nexium (esomeprazole magnesium) 40 mg PO BID 180 caps 3RF NS Refilled loperamide 2 mg PO Q6H PRN 120 caps 3RF for diarrhea K58.9 - Irritable bowel syndrome without diarrhea sucralfate (Carafate) Take one tablet on an empty stomach by mouth twice a day 1 g PO BID 180 tabs 2RF 90 days K58.9 - Irritable bowel syndrome without diarrhea Coding Level of Care Code Est Pt Level 3 (61820) Diagnoses Irritable bowel syndrome with both constipation and diarrhea K58.2 Irritable bowel syndrome type: with both diarrhea and constipation Gastroesophageal reflux disease, unspecified whether esophagitis present K21.9 Esophagitis presence: esophagitis presence not specified Tubular adenoma D36.9 Time Spent (min) 30 Comment 20 minutes spent with patient and additional 10 minutes spent reviewing his records
== END 2023-09-20 13:05 | disposition home or self-care (01) ==
PROVIDERS: PCP Internal Medicine; Visit Provider Nurse Practitioner Family
DX: K58.2 Mixed irritable bowel syndrome (principal); K21.9 Gastro-esophageal reflux disease without esophagitis; D36.9 Benign neoplasm, unspecified site
CPT/HCPCS: 99213

== ENCOUNTER → 2023-09-20 10:35 | Outpatient (BNVA) | payer OTHER, SELFPAY | PROVIDERS: PCP Internal Medicine; Visit Provider Nurse Practitioner Family ==

== ENCOUNTER 2023-11-12 14:50 | Outpatient (AMB) | payer OTHER, SELFPAY ==
--- NOTE | 2023-11-12 15:59 | MHC.OFFVIS ---
Intake Vital Signs 11/12/23 16:02 Height 5 ft 8 in Weight 161 lb BMI 24.5 BP 129/58 L Blood Pressure Location Lt brachial Position Sitting Pulse 81 Intake Visit Reasons: Abdominal Pain, Diarrhea Intake Note: Patient follow up for diarrhea, abdominal discomfort Patient cc: sound on his left side of abdominal, abdominal pain with bloating and discomfort, and change of color of stool. Windows Systems Administrator Required: No Accompanied by: Self / Same As Patient Allergies esomeprazole Allergy (Mild, Verified 11/12/23 15:59) urinating trouble HPI Abdominal Pain, Diarrhea HPI Details LAST VISIT: Irritable bowel syndrome Gastroesophageal reflux disease Tubular adenoma Plan Continue Nexium twice a day. Continue avoiding dietary triggers. Sucralfate as ordered once or twice a day. Avoid NSAIDs. May use Imodium on as needed basis, however patient should try to avoid if constipated. Increase fiber. Patient would return in 8 months so we can discuss going for colonoscopy again and re-evaluate. Patient will call us sooner if he will have any GI concerning symptoms. Patient is agreeable to this plan and verbalizes understanding of instructions. He was given the opportunity to ask questions and all questions answered. ? Thank you for allowing me to participate in his care Medications New Nexium (esomeprazole magnesium) 40 mg PO BID 180 caps 3RF NS Refilled loperamide 2 mg PO Q6H PRN 120 caps 3RF for diarrhea K58.9 sucralfate (Carafate) Take one tablet on an empty stomach by mouth twice a day 1 g PO BID 180 tabs 2RF 90 days K58.9 TODAY'S VISIT: Patient is here today for requested visit. Patient reports postprandial abdominal bloating and epigastric discomfort. Patient also reports postprandial loose stools. Patient spoke to a nurse couple days ago, was given low FODMAP diet information. Patient reports that he was not aware of this. Patient does admit that sometimes what he eats may not agree with him and now that had aggravate his system it will take time for him to get better. Patient denies any nausea or vomiting. Denies any melena, hematochezia, unintentional weight loss or ribbon like stools. Patient reports upper abdominal pain and sometimes left upper quadrant pain. Patient denies any fever or chills. Denies watery stools. His stools are usually soft sometimes he noticed mucus. Patient does not believe being around someone who had similar symptoms. Symptoms started couple weeks ago. [facility] Medical History (Updated 10/06/23 @ 16:35 by Mary Harrison [facility]) Tubular adenoma Hemiplegic migraine Interstitial cystitis Irritable bowel syndrome Gastroesophageal reflux disease Surgical History History of excision of pilonidal cyst (02/27/23) History of esophagogastroduodenoscopy (EGD) H/O colonoscopy Hx of cystoscopy History of vasectomy H/O removal of cyst Family History Father COPD (chronic obstructive pulmonary disease) Stroke COVID-19 Paternal Grandmother Cancer of unknown origin Social History Household Members: Family Alcohol intake: current Alcohol intake frequency: a few times a week Patient Tobacco Use Status: Current everyday Tobacco user Tobacco use type: Cigarette Cigarettes Per Day: 10 Review of Systems Const Denies weight gain and Denies weight loss ENT Reports no additional complaints, Denies dysphagia and Denies odynophagia Card Reports no additional complaints Resp Reports no additional complaints GI Reports abdominal pain, Denies belching, Denies melena, Reports bloating, Denies change in bowel habits, Denies dysphagia, Denies excessive flatus, Reports dyspepsia, Reports heartburn, Denies diarrhea, Reports loose stools, Denies nausea, Denies odynophagia and Denies vomiting Reports no additional complaints Musc Reports no additional complaints Neuro Reports no additional complaints Psych Reports no additional complaints Endo Reports no additional complaints Physical Exam Vital Signs: Last Vital Signs Pulse 81 11/12/23 16:02 BP 129/58 L 11/12/23 16:02 BMI result Body Mass Index 24.5 Const General: healthy appearing, no acute distress and well developed Nutritional Appearance: well nourished Orientation/consciousness: patient oriented x3 Resp Effort & Inspection: normal respiratory effort, able to speak in complete sentences, no tracheal deviation and symmetric chest movement Auscultation: clear to auscultation bilaterally Cardio Rate: regular rate GI Inspection: Yes normal to inspection and No distended Palpation (GI): Soft to palpation, not firm, nontender and No hepatosplenomegaly present Auscultation: normal bowel sounds General: Yes no CVA tenderness Back/Spine/Pelvis Back: no CVA tenderness Skin General skin exam: elasticity normal, turgor normal and dry skin Neuro General: patient oriented x3 Psych Appearance: grossly normal Mental Status: mental status grossly normal Assessment & Plan Assessment & Plan (1) Irritable bowel syndrome: Code(s): K58.9 - Irritable bowel syndrome without diarrhea Qualifiers: Irritable bowel syndrome type: with both diarrhea and constipation Qualified Code(s): K58.2 - Mixed irritable bowel syndrome (2) Gastroesophageal reflux disease: Code(s): K21.9 - Gastro-esophageal reflux disease without esophagitis Qualifiers: Esophagitis presence: esophagitis presence not specified Qualified Code(s): K21.9 - Gastro-esophageal reflux disease without esophagitis (3) Postprandial abdominal bloating: Code(s): R14.0 - Abdominal distension (gaseous) Plan Will check lipase, liver panel. Will send him to check GI peroneal to lower viral component. Patient was not on any antibiotics will hold off on checking for C diff. His stools are formed for the most part. We will send him for CT scan to rule out diverticulitis versus colitis. Patient will continue taking Nexium as ordered. Low FODMAP diet stressed with patient. List of food recommended and list of food to avoid discussed with patient. Patient can also do elimination diet. I will see patient in 2 months, sooner on as needed basis. Patient is agreeable to this plan and verbalizes understanding of instructions. He was given the opportunity to ask questions all questions answered. Orders: Orders Lipase 11/12/23 R10.9 - Unspecified abdominal pain GI Panel 11/12/23 R19.7 - Diarrhea, unspecified Blood Urea Nitrogen 11/12/23 R10.11 - Right upper quadrant pain Liver Panel 11/12/23 R74.01 - Elevation of levels of liver transaminase levels CT abdomen pelvis w IV con 11/12/23 R10.9 - Unspecified abdominal pain Creatinine 11/12/23 R10.11 - Right upper quadrant pain Coding Level of Care Code Est Pt Level 4 (65669) Diagnoses Irritable bowel syndrome with both constipation and diarrhea K58.2 Irritable bowel syndrome type: with both diarrhea and constipation Gastroesophageal reflux disease, unspecified whether esophagitis present K21.9 Esophagitis presence: esophagitis presence not specified Postprandial abdominal bloating R14.0 Time Spent (min) 35 Comment 25 minutes spent with patient and additional 10 minutes spent reviewing his records
[2023-11-12 16:02] VITALS: BP 129/58; PULSE 81; BMI 24.5
== END 2023-11-12 16:36 | disposition home or self-care (01) ==
PROVIDERS: PCP Internal Medicine; Visit Provider Nurse Practitioner Family
DX: K58.2 Mixed irritable bowel syndrome (principal); K21.9 Gastro-esophageal reflux disease without esophagitis; R14.0 Abdominal distension (gaseous)
CPT/HCPCS: 99214

== ENCOUNTER → 2023-11-12 14:50 | Outpatient (BNVA) | payer OTHER, SELFPAY | PROVIDERS: PCP Internal Medicine; Visit Provider Nurse Practitioner Family ==

== ENCOUNTER 2023-11-27 16:00 | Outpatient (REF) | payer OTHER, SELFPAY ==
[2023-11-27 17:26] LABS: Alanine Aminotransferase 30 U/L (0-40); Albumin Level 4.1 g/dL (3.5-5.0); Alkaline Phosphatase 57 U/L (39-117); Aspartate Amino Transferase 20 U/L (5-37); Bilirubin Direct 0.2 mg/dL (0.0-0.5); Bilirubin Total 0.4 mg/dL (0.0-1.0); Blood Urea Nitrogen 8 mg/dL (9-16); Estimated Glomerular Filt Rate > 60; Lipase 44 U/L (8-78); Total Protein 6.7 g/dL (6.5-8.0)
== END 2023-11-27 16:01 | disposition home or self-care (01) ==
LOC: HO.LAB 16:00
PROVIDERS: PCP Internal Medicine; Visit Provider Nurse Practitioner Family
DX: R10.11 Right upper quadrant pain (principal); R74.01 Elevation of levels of liver transaminase levels
CPT/HCPCS: 36415; 80076; 82565; 83690; 84520

== ENCOUNTER 2023-12-26 08:20 | Outpatient (REF) | payer OTHER, SELFPAY ==
--- NOTE | ~2023-12-26 | CT_ITS ---
EXAMINATION: CT ABDOMEN AND PELVIS WITH CONTRAST CLINICAL INFORMATION: Unspecified abdominal pain. COMPARISON: None available. TECHNIQUE: Multidetector volumetric images were obtained from the superior aspect of the liver through the pubic symphysis following administration 85 mL of Omnipaque 350 intravenous contrast. Sagittal and coronal reformatted images were obtained on the technologist's workstation. Oral contrast: No This CT examination was performed using dose optimization techniques as appropriate, variously including the following: *Automated exposure control *Adjustment of mA and/or kV according to patient size (this includes techniques or standardized protocols for targeted exams where dose is matched to indication/reason for exam; i.e. extremities or head) *Use of iterative reconstruction technique DLP: 466 mGy-cm FINDINGS: LUNG BASES: The lung bases are clear. LIVER, GALLBLADDER, AND BILIARY TREE: The liver is normal in size, shape, and attenuation. No focal hepatic lesion or biliary ductal dilatation is present. The gallbladder is unremarkable with no evidence of radiopaque gallstones, gallbladder wall thickening, or obvious pericholecystic inflammatory changes. PANCREAS: Unremarkable. SPLEEN: Unremarkable. ADRENAL GLANDS: Unremarkable. KIDNEYS AND URETERS: The kidneys are normal in size, shape, and attenuation. There is a 5 mm hypodensity likely cyst mid to lower pole cortex left kidney. No hydronephrosis, hydroureter, or calculi seen. No perinephric stranding. BLADDER: Unremarkable. GASTROINTESTINAL TRACT: There is a large amount of stool and oral contrast seen throughout the ascending and transverse colon with mild distention. The descending colon is of normal caliber. No pericolonic stranding seen. There is no pneumatosis. The small bowel loops are normal caliber. No free air or free fluid seen. ABDOMINAL WALL: No significant hernia is appreciated. LYMPH NODES: Normal. VASCULAR: Unremarkable. PELVIC VISCERA: Unremarkable. OSSEOUS STRUCTURES: No aggressive lytic or sclerotic process seen. As mild degenerative disc changes L5-S1 and L1-L2 disc levels. CT/CT abdomen pelvis w IV con IMPRESSION: 1. Moderate to significant distention of ascending and transverse colon, question colonic ileus. The descending colon is normal.. No pneumatosis, free air or free fluid seen. 2. No radiopaque urolith or hydroureteronephrosis. Fleischner guidelines were followed.
[2023-12-26] MEDS: iohexoL 350 MG/ML 100 ML INFUS..BTL IV (12:54)
== END 2023-12-26 08:21 | disposition home or self-care (01) ==
LOC: HO.CT 08:20
PROVIDERS: PCP Internal Medicine; Visit Provider Nurse Practitioner Family
DX: R10.9 Unspecified abdominal pain (principal)
CPT/HCPCS: 74177; Q9967

== ENCOUNTER 2024-01-16 10:34 | Outpatient (AMB) | payer OTHER, SELFPAY ==
--- NOTE | 2024-01-16 10:40 | MHC.OFFVIS ---
Intake Vital Signs 01/16/24 10:42 Height 5 ft 8 in Weight 171 lb 8.314 oz BMI 26.1 BP 135/64 Blood Pressure Location Lt brachial Position Sitting Pulse 75 Intake Visit Reasons: Follow up 2 months Intake Note: Rosas returns in 2 month follow up of labs and CT scan. CC: Patient reports that after doing the CT scan with IV contrast his gallbladder was acting up, because it was producing to much bile and he was having diarrhea that had a greenish color. He states he continues having abdominal discomfort and bloating. 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 Will send him to check GI peroneal to lower viral component. Patient was not on any antibiotics will hold off on checking for C diff. His stools are formed for the most part. We will send him for CT scan to rule out diverticulitis versus colitis. Patient will continue taking Nexium as ordered. Low FODMAP diet stressed with patient. List of food recommended and list of food to avoid discussed with patient. Patient can also do elimination diet. I will see patient in 2 months, sooner on as needed basis. Patient is agreeable to this plan and verbalizes understanding of instructions. He was given the opportunity to ask questions all questions answered. Orders Orders Lipase 11/12/23 R10.9 GI Panel 11/12/23 R19.7 Blood Urea Nitrogen 11/12/23 R10.11 Liver Panel 11/12/[address] abdomen pelvis w IV con 11/12/23 R10.9 Creatinine 11/12/23 R10.11 TODAY'S VISIT: Patient is here today for follow-up as well as to discuss lab results and CT scan results. Patient reports that after the test he had diarrhea. Lab results and CT scan results discussed with patient. Patient had large amount of stool that was seen in the colon. Patient reports that he is not constipated. He states that he moves his bowels well. Diarrhea had subsided however he is moving his bowels move regularly. Continues to be taking Nexium as ordered. Continues to have abdominal bloating. Patient describes as significant amount of GERD going in left upper quadrant and bloating. Patient denies having abdominal pain or discomfort. Patient reports that he does not eat too many vegetables or fiber. He continues to smoke cigarettes daily. Reports having history of anemia. States that he is feeling tired late be. Denies any nausea or vomiting. Denies any melena, hematochezia, unintentional weight loss or ribbon like stools. Patient denies any dyspepsia, dysphagia or odynophagia. [facility]LY [facility] Medical History Tubular adenoma Hemiplegic migraine Interstitial cystitis Irritable bowel syndrome Gastroesophageal reflux disease Surgical History History of excision of pilonidal cyst (02/27/23) History of esophagogastroduodenoscopy (EGD) H/O colonoscopy Hx of cystoscopy History of vasectomy H/O removal of cyst Family History Father COPD (chronic obstructive pulmonary disease) Stroke COVID-19 Paternal Grandmother Cancer of unknown origin Social History Household Members: Family Alcohol intake: current Alcohol intake frequency: a few times a week Patient Tobacco Use Status: Current everyday Tobacco user Tobacco use type: Cigarette Cigarettes Per Day: 10 Review of Systems Const Denies weight gain and Denies weight loss ENT Reports no additional complaints, Denies dysphagia and Denies odynophagia Card Reports no additional complaints Resp Reports no additional complaints GI Denies abdominal pain, Denies belching, Denies melena, Reports bloating, Denies change in bowel habits, Denies dysphagia, Denies excessive flatus, Denies dyspepsia, Denies heartburn, Denies diarrhea, Reports loose stools, Denies nausea, Denies odynophagia and Denies vomiting Reports no additional complaints Musc Reports no additional complaints Neuro Reports no additional complaints Psych Reports no additional complaints Endo Reports no additional complaints Physical Exam Vital Signs: Last Vital Signs Pulse 75 01/16/24 10:42 BP 135/64 01/16/24 10:42 BMI result Body Mass Index 26.1 Const General: healthy appearing, no acute distress and well developed Nutritional Appearance: well nourished Orientation/consciousness: patient oriented x3 Resp Effort & Inspection: normal respiratory effort, able to speak in complete sentences, no tracheal deviation and symmetric chest movement Auscultation: clear to auscultation bilaterally Cardio Rate: regular rate GI Inspection: Yes normal to inspection and No distended Palpation (GI): Soft to palpation, not firm, nontender and No hepatosplenomegaly present Auscultation: normal bowel sounds General: Yes no CVA tenderness Back/Spine/Pelvis Back: no CVA tenderness Skin General skin exam: elasticity normal, turgor normal and dry skin Neuro General: patient oriented x3 Psych Appearance: grossly normal Results Reviewed Results Reviewed: ABD. CT SCAN 11/27/2023 FINDINGS: LUNG BASES: The lung bases are clear. LIVER, GALLBLADDER, AND BILIARY TREE: The liver is normal in size, shape, and attenuation. No focal hepatic lesion or biliary ductal dilatation is present. The gallbladder is unremarkable with no evidence of radiopaque gallstones, gallbladder wall thickening, or obvious pericholecystic inflammatory changes. PANCREAS: Unremarkable. SPLEEN: Unremarkable. ADRENAL GLANDS: Unremarkable. KIDNEYS AND URETERS: The kidneys are normal in size, shape, and attenuation. There is a 5 mm hypodensity likely cyst mid to lower pole cortex left kidney. No hydronephrosis, hydroureter, or calculi seen. No perinephric stranding. BLADDER: Unremarkable. GASTROINTESTINAL TRACT: There is a large amount of stool and oral contrast seen throughout the ascending and transverse colon with mild distention. The descending colon is of normal caliber. No pericolonic stranding seen. There is no pneumatosis. The small bowel loops are normal caliber. No free air or free fluid seen. ABDOMINAL WALL: No significant hernia is appreciated. LYMPH NODES: Normal. VASCULAR: Unremarkable. PELVIC VISCERA: Unremarkable. OSSEOUS STRUCTURES: No aggressive lytic or sclerotic process seen. As mild degenerative disc changes L5-S1 and L1-L2 disc levels. CT/CT abdomen pelvis w IV con IMPRESSION: 1. Moderate to significant distention of ascending and transverse colon, question colonic ileus. The descending colon is normal.. No pneumatosis, free air or free fluid seen. 2. No radiopaque urolith or hydroureteronephrosis. Assessment & Plan Assessment & Plan (1) Gastroesophageal reflux disease: Code(s): K21.9 - Gastro-esophageal reflux disease without esophagitis Qualifiers: Esophagitis presence: esophagitis presence not specified Qualified Code(s): K21.9 - Gastro-esophageal reflux disease without esophagitis (2) Irritable bowel syndrome: Code(s): K58.9 - Irritable bowel syndrome without diarrhea Qualifiers: Irritable bowel syndrome type: with both diarrhea and constipation Qualified Code(s): K58.2 - Mixed irritable bowel syndrome (3) Postprandial abdominal bloating: Code(s): R14.0 - Abdominal distension (gaseous) Plan Continue current treatment with Nexium. Discussed with patient avoiding dietary triggers and late night snacking. Patient will try to follow FODMAP diet. Continues with abdominal bloating. Patient denies being constipated advised him to take fiber. Will check vitamin D, B12 and folate. Patient has a history of anemia in the past will recheck his blood work today check iron profile and ferritin. He will return in the office in 6 months, sooner on as needed basis. He is agreeable to this plan and verbalizes understanding of instructions. He was given the opportunity to ask questions and all questions answered Thank you for allowing me to participate in his care Orders: Orders Vitamin D 25-OH (D2 and D3) Today E55.9 - Vitamin D deficiency, unspecified Vitamin B12 and Folate Today R19.7 - Diarrhea, unspecified IRON PROFILE Today D64.9 - Anemia, unspecified Complete Blood Count no Diff Today K21.9 - Gastro-esophageal reflux disease without esophagitis Ferritin Today D64.9 - Anemia, unspecified, K21.9 - Gastro-esophageal reflux disease without esophagitis Coding Level of Care Code Est Pt Level 4 (63836) Diagnoses Gastroesophageal reflux disease, unspecified whether esophagitis present K21.9 Esophagitis presence: esophagitis presence not specified Irritable bowel syndrome with both constipation and diarrhea K58.2 Irritable bowel syndrome type: with both diarrhea and constipation Postprandial abdominal bloating R14.0 Time Spent (min) 35 Comment 20 minutes spent with patient and additional 15 minutes spent reviewing his records
[2024-01-16 10:42] VITALS: BP 135/64; PULSE 75; BMI 26.1
== END 2024-01-16 11:29 | disposition home or self-care (01) ==
PROVIDERS: PCP Internal Medicine; Visit Provider Nurse Practitioner Family
DX: K21.9 Gastro-esophageal reflux disease without esophagitis (principal); K58.2 Mixed irritable bowel syndrome; R14.0 Abdominal distension (gaseous)
CPT/HCPCS: 99214

== ENCOUNTER 2024-01-16 10:34 | Outpatient (REF) | payer OTHER, SELFPAY ==
[2024-01-16 11:51] LABS: Hematocrit 25.7 % (42.0-52.0); Mean Corpuscular HGB Conc 25.7 g/dl (31.0-36.0); Mean Corpuscular Hemoglobin 15.6 pg (27.0-33.0); Mean Platelet Volume 9.3 fL (9.4-12.4); PLT CLUMP 1; Red Blood Count 4.24 X10*6/uL (4.60-5.80); Red Cell Distribution Width 21.7 % (11.0-16.0)
[2024-01-16 11:56] LABS: Hemoglobin 6.6 g/dl (14.0-18.0); Mean Corpuscular Volume 60.6 fL (80.0-98.0)
[2024-01-16 12:12] LABS: White Blood Count 5.5 X10*3/uL (4.8-10.8)
[2024-01-16 12:13] LABS: Platelet Count 251 X10*3/uL (160-400)
[2024-01-16 12:30] LABS: Iron 13 mcg/dL (45-160); Percent Iron Saturation 3 % (15-50); Total Iron Binding Capacity 513 mcg/dL (228-428); Unsaturated Iron Binding > 500 ug/dL
[2024-01-16 12:39] LABS: Ferritin 7 ng/mL (20-250)
[2024-01-16 12:51] LABS: Folate 2.7 ng/mL (> or = 4.0); Vitamin B12 419 pg/mL (200-900)
[2024-01-20 15:18] LABS: Vitamin D 25-OH, D2 <4 ng/mL; Vitamin D 25-OH, D3 13 ng/mL; Vitamin D 25-OH, Total 13 ng/mL (30-100)
== END 2024-01-16 10:35 | disposition home or self-care (01) ==
LOC: HO.LAB 10:34
PROVIDERS: PCP Internal Medicine; Visit Provider Nurse Practitioner Family
DX: D64.9 Anemia, unspecified (principal); E55.9 Vitamin D deficiency, unspecified; R19.7 Diarrhea, unspecified; K21.9 Gastro-esophageal reflux disease without esophagitis
CPT/HCPCS: 36415; 82306; 82607; 82728; 82746; 83540; 85027

== ENCOUNTER 2024-01-16 12:11 | Emergency (ER) | payer OTHER, SELFPAY ==
[2024-01-16 12:19] VITALS: BP 146/59; PULSE 81; RESP 17; TEMP 36.6; O2SAT 100; BMI 25.2
--- NOTE | 2024-01-16 12:19 | ED.RECABL ---
HPI - Recheck/Abnormal Lab/Rx General Chief Complaint: General Medical Stated Complaint: Sent by for transfusion Time Seen by Provider: 01/16/24 14:53 Source: patient Mode of arrival: ambulatory History of Present Illness HPI narrative: 48-year-old male who was sent in for low hemoglobin. Patient denies any hematemesis and has stopped taking NSAIDs, he denies any melena or hematochezia, he is unclear about family history of bleeding disorders but states that his sister has had heavy menstrual cycles her whole life. Related Data Home Medications ?Medication ?Instructions ?Recorded ?Confirmed pentosan polysulfate sodium 100 mg 100 mg PO TID 03/20/21 05/31/23 capsule (Elmiron) verapamil 80 mg tablet 80 mg PO DAILY 03/20/21 05/31/23 dutasteride 0.5 mg capsule 0.5 mg PO DAILY 02/27/23 05/31/23 (Avodart) Previous Rx's ?Medication ?Instructions ?Recorded Nexium 40 mg capsule,delayed 40 mg PO BID #180 caps 09/20/23 release (esomeprazole magnesium) loperamide 2 mg capsule 2 mg PO Q6H PRN for diarrhea #120 09/20/23 caps sucralfate 1 gram tablet (Carafate) 1 g PO BID 90 days #180 tabs 09/20/23 Allergies Allergy/AdvReac Type Severity Reaction Status Date / Time esomeprazole Allergy Mild urinating Verified 01/16/24 12:22 trouble Review of Systems Review of Systems: Pertinent positives and negatives as stated in HPI [facility] Past Medical History Source: nursing notes reviewed Medical History Tubular adenoma Hemiplegic migraine Interstitial cystitis Irritable bowel syndrome Gastroesophageal reflux disease Surgical History History of excision of pilonidal cyst (02/27/23) History of esophagogastroduodenoscopy (EGD) H/O colonoscopy Hx of cystoscopy History of vasectomy H/O removal of cyst Family History Family History Father COPD (chronic obstructive pulmonary disease) Stroke COVID-19 Paternal Grandmother Cancer of unknown origin Social History Social History Household Members: Family Alcohol intake: current Alcohol intake frequency: a few times a week Patient Tobacco Use Status: Current everyday Tobacco user Tobacco use type: Cigarette Cigarettes Per Day: 10 Smoked in Last 30 Days: Yes Advance Directives: No Advance Directives Information Provided: No Physical Exam Vital Signs: Vital Signs: Last Vital Signs Temp 98.3 F 01/16/24 19:13 Pulse 68 01/16/24 19:13 Resp 16 01/16/24 19:13 BP 105/60 01/16/24 19:13 Pulse Ox 98 01/16/24 19:13 O2 Del Method Room Air 01/16/24 19:13 BMI result Body Mass Index 25.2 VITAL SIGNS: Reviewed. GENERAL: Well developed, well nourished, in no acute distress. HEAD: Normocephalic/atraumatic EYES: PERRLA, EOMI, pale sclera EARS: Ext canals without abnormality NOSE: Nares patent bilateral OROPHARYNX: no oral lesions noted, posterior pharynx clear NECK: Supple, no adenopathy LUNGS: Normal breath sounds. No adventitious sounds or accessory muscle use. SpO2<100> CARDIOVASCULAR: Regular rate and rhythm without noted murmurs, no JVD or lower extremity edema. ABDOMEN: Soft, non-tender, non-distended with bowel sounds. ANORECTAL: No obvious external or internal hemorrhoids, rectal vault essentially empty, there is insufficient sample and do not expect enough for appropriate guaiac. MUSCULOSKELETAL: No tenderness, deformities, or effusions noted on gross inspection. EXTREMITIES: No cyanosis, clubbing or edema. SKIN: Inspection of the skin reveals no rashes NEUROLOGIC: Alert and oriented x 4. Strength and sensation to light touch were grossly intact x 4. Course Course Course Narrative: This is a Rapid Medical Examination (RME) in triage, full HPI, ROS, assessment and plan per primary provider in the Main ED. 48 yo male with history of irritable bowel syndrome, GERD adn interstitial cystitis presents to the ER for evaluation of hemoglobin of 6.6 on routine labs today. He reports history of mild anemia in the past where his counts were 7 or 9 but he never needed a blood transfusion. Denies melena, BRBPR, hematuria. No SOB, chest pain, dizziness or weakness. Plan: repeat labs, type and screen, stool occult Medications Administered Discontinued Medications Generic Name Dose Route Start Last Admin Trade Name Homero PRN Reason Stop Dose Admin Sodium Chloride 100 mls @ 100 mls/hr 01/16/24 15:28 01/16/24 18:42 Ns IV 01/16/24 16:27 Infused ONCE ONE Infusion Omeprazole 40 mg 01/16/24 16:43 01/16/24 17:13 Omeprazole 40 Mg Capsule.Dr TATE 01/16/24 16:44 Not Given ONCE ONE Medical Decision Making Medical Decision Making MDM Narrative: 48-year-old male with history and clinical presentation consistent with microcytic anemia that on comparison to labs from 2018 is a significant change but since that time patient is also had bleeding secondary to NSAID use. Patient has had a recent colonoscopy in which 3 polyps were removed, he denies any melena/hematochezia and has had intermittent abdominal discomfort which he has attributed to his underlying IBS diagnosis. Patient denies any dizziness/shortness of breath or palpitations so is otherwise asymptomatic. Urinalysis negative for UTI. Guaiac is negative. I reviewed all repeat investigations and hematologic indices confirm the absence of leukocytosis but obvious microcytic anemia without thrombocytopenia. Chemistry indices are negative for SABI or electrolyte/liver enzyme derangements. 1643: Patient placed in physician observation because the patient needed more time for medication to work and to see be H and be evaluated for the need for psych admission. At the time observation was started the patient's vital signs were stable, patient is alert and oriented, neuro: Nonfocal, CV RRR, lungs clear 194: Physician observation has ended, dispo is home, patient is otherwise hemodynamically stable, lungs are clear, 1 unit of PRBCs has been transfused without adverse reaction, patient states feeling improved. Differential Diagnosis Differential Diagnoses: The differential diagnosis associated with the presentation includes Please see the discussion above Admission/Observation Consideration of admission/observation: Escalation of care including admission/observation considered Please see the discussion above Lab Data [facility] Lab Attestation statement: I reviewed the patient's lab results. Please see the discussion above 01/16/24 13:39 01/16/24 13:39 Labs: Lab Results 01/16/24 01/16/24 01/16/24 Range/Units 13:39 15:16 15:21 WBC 5.7 (4.8-10.8) X10*3/uL RBC 4.19 L (4.60-5.80) X10*6/uL Hgb 6.6 L* (14.0-18.0) g/dl Hct 25.5 L (42.0-52.0) % MCV 60.9 L (80.0-98.0) fL MCH 15.8 L (27.0-33.0) pg MCHC 25.9 L (31.0-36.0) g/dl RDW 21.7 H (11.0-16.0) % Plt Count 258 (160-400) X10*3/uL MPV 9.7 (9.4-12.4) fL Immature Gran % (Auto) 0.2 (0.0-0.4) % Neut % (Auto) 47.2 (45-73) % Lymph % (Auto) 40.5 H (20-40) % [place] % (Auto) 8.2 (2-11) % Eos % (Auto) 2.3 (0-4) % Baso % (Auto) 1.6 (0-2) % Lymph # (Auto) 2.3 (1.2-4.9) X10*3/uL [place] # (Auto) 0.5 (0.1-1.2) X10*3/uL Eos # (Auto) 0.1 (0.0-0.4) X10*3/uL Baso # (Auto) 0.1 (0.0-0.2) X10*3/uL Abs Immat Gran (auto) 0.01 (0.00-0.03) X10*3/uL Absolute Neuts (auto) 2.7 (2.0-8.3) x10*3/uL Absolute Nucleated RBC 0.000 (0.0-0.012) X10*3/uL Nucleated RBC % (auto) 0.0 (0.0-0.2) /100WBC Smear Tech's Comments VERIFIED Absolute Retic 0.031 (0.026-0.095) X10*6/uL Percent Retic 0.8 (0.5-1.8) % Immature Retic Fraction 18.3 H (2.3-13.4) % Retic Hgb Equivalent 14.2 L (30.0-35.0) pg Sodium 138 (135-145) mmol/L Potassium 4.6 (3.3-5.1) mmol/L Chloride 108 (96-108) mmol/L Carbon Dioxide 25 (22-29) mmol/L Anion Gap 10 L (12-20) BUN 7 L (9-16) mg/dL Creatinine 0.80 (0.5-1.4) mg/dL Estim Creat Clear Calc 112.9 Estimated GFR > 60 Random Glucose 97 (60-115) mg/dL Calcium 9.3 (8.4-10.2) mg/dL Magnesium 1.8 (1.6-2.6) mg/dL Total Bilirubin 0.4 (0.0-1.0) mg/dL Direct Bilirubin 0.2 (0.0-0.5) mg/dL AST 19 (5-37) U/L ALT 43 H (0-40) U/L Alkaline Phosphatase 72 (39-117) U/L Lactate Dehydrogenase 139 (118-273) U/L Total Protein 7.0 (6.5-8.0) g/dL Albumin 4.2 (3.5-5.0) g/dL Urine Color Yellow Urine Appearance Clear Urine pH 6.5 (5.0-9.0) Ur Specific [place] 1.010 (1.005-1.025) Urine Protein Negative (Neg-Trace) mg/dL Urine Glucose (UA) Negative (Negative) mg/dL Urine Ketones Negative (Negative) mg/dL Urine Blood Negative (Negative) Urine Nitrite Negative (Negative) Ur Leukocyte Esterase Small (1+) H (Negative) Urine RBC 0-2 (0-2) /HPF Urine WBC 11-20 H (0-5) /HPF Ur Squamous Epith Cells 0-2 (0-2) /HPF Urine Bacteria None Seen (None Seen) Hyaline Casts 0-2 (0-2) /LPF Stool Occult Blood NEGATIVE (NEGATIVE) Blood Type A Positive Antibody Screen NEGATIVE Crossmatch See Detail External Record Review External record reviewed: Outpatient record, Prior outpatient labs and Prior outpatient radiology Critical Care Time Critical Care Time Critical Care Time: Yes Total Critical Care Time: 60 Attestation: I personally attest to this time spent taking care of the patient. Discharge Plan Discharge Clinical Impression: Microcytic anemia Patient Disposition: Home, Self-Care Instructions: Iron Rich Diet (ED), Anemia (ED) Additional Instructions: 1. Resume all home medications as prescribed. 2. Please call the office of Hematology in the morning and set up an appointment for re-evaluation. Return to the ER for any worsening symptoms. Prescriptions: No Action dutasteride [Avodart] 0.5 mg capsule 0.5 mg PO DAILY verapamil 80 mg tablet 80 mg PO DAILY Elmiron 100 mg capsule 100 mg PO TID loperamide 2 mg capsule 2 mg PO Q6H PRN (Reason: for diarrhea) Qty: 120 3RF esomeprazole magnesium [Nexium] 40 mg capsule,delayed release(DR/EC) 40 mg PO BID Qty: 180 3RF sucralfate [Carafate] 1 gram tablet 1 g PO BID 90 Days Qty: 180 2RF Rx Instructions: Take one tablet on an empty stomach by mouth twice a day Referrals: Patricia Damon MD [Primary Care Provider] - Giulia Mendoza MD [Physician] - Print Language: Armenian
[2024-01-16 13:53] LABS: Basophils Absolute Auto 0.1 X10*3/uL (0.0-0.2); Basophils Percent Auto 1.6 % (0-2); Eosinophils Absolute Auto 0.1 X10*3/uL (0.0-0.4); Eosinophils Percent Auto 2.3 % (0-4); Hematocrit 25.5 % (42.0-52.0); Imm Gran Abs Auto 0.01 X10*3/uL (0.00-0.03); Imm Gran Pct Auto 0.2 % (0.0-0.4); Immature Retic Fraction 18.3 % (2.3-13.4); Lymphocytes Absolute Auto 2.3 X10*3/uL (1.2-4.9); Lymphocytes Percent Auto 40.5 % (20-40); MANUAL DIFF FLAG SCAN; Mean Corpuscular HGB Conc 25.9 g/dl (31.0-36.0); Mean Corpuscular Hemoglobin 15.8 pg (27.0-33.0); Mean Platelet Volume 9.7 fL (9.4-12.4); Monocytes Absolute Auto 0.5 X10*3/uL (0.1-1.2); Monocytes Percent Auto 8.2 % (2-11); Neutrophils Absolute Auto 2.7 x10*3/uL (2.0-8.3); Neutrophils Percent Auto 47.2 % (45-73); PLT CLUMP 1; Red Blood Count 4.19 X10*6/uL (4.60-5.80); Red Cell Distribution Width 21.7 % (11.0-16.0); Retic HGB Equivalent 14.2 pg (30.0-35.0); Reticulocyte Percent 0.8 % (0.5-1.8); Reticulocytes Absolute 0.031 X10*6/uL (0.026-0.095); SCAN SMEAR FLAG 1
[2024-01-16 13:55] LABS: Hemoglobin 6.6 g/dl (14.0-18.0); Mean Corpuscular Volume 60.9 fL (80.0-98.0); White Blood Count 5.7 X10*3/uL (4.8-10.8)
[2024-01-16 14:07] LABS: Alanine Aminotransferase 43 U/L (0-40); Albumin Level 4.2 g/dL (3.5-5.0); Alkaline Phosphatase 72 U/L (39-117); Anion Gap 10 (12-20); Aspartate Amino Transferase 19 U/L (5-37); Bilirubin Direct 0.2 mg/dL (0.0-0.5); Bilirubin Total 0.4 mg/dL (0.0-1.0); Blood Urea Nitrogen 7 mg/dL (9-16); Calcium 9.3 mg/dL (8.4-10.2); Carbon Dioxide 25 mmol/L (22-29); Chloride 108 mmol/L (96-108); Creatinine Clr Calc Pharmacy 112.9; Estimated Glomerular Filt Rate > 60; Glucose Random 97 mg/dL (60-115); Lactate Dehydrogenase 139 U/L (118-273); Magnesium 1.8 mg/dL (1.6-2.6); Potassium 4.6 mmol/L (3.3-5.1); Sodium 138 mmol/L (135-145)
[2024-01-16 14:22] LABS: Platelet Count 258 X10*3/uL (160-400); SLIDE REVIEW VERIFIED
--- NOTE | 2024-01-16 15:20 | PC.NURSE ---
IV established, type and screen obtained and sent. provider at bedside for rectal exam
[2024-01-16 15:28] VITALS: BP 120/68; PULSE 82; RESP 16; TEMP 36.6; O2SAT 100
[2024-01-16 15:30] LABS: Appearance Urine Clear; Color Urine Yellow; Glucose Urine UA Negative (Negative); Leukocyte Esterase Urine Small (1+) (Negative); Nitrite Urine Negative (Negative); OBS Int Ctl Valid YES; OBS1 NEGATIVE (NEGATIVE); PH 6.5 (5.0-9.0); UMIC TRIGGER UACC YES; Urine Blood Negative (Negative); Urine Ketones Negative (Negative); Urine Protein Negative (Neg-Trace)
[2024-01-16 15:33] LABS: Bacteria Urine None Seen (None Seen); Hyaline Casts Urine 0-2 /LPF (0-2); RBC Urine 0-2 /HPF (0-2); Squamous Epithelial Cell Urine 0-2 /HPF (0-2); UACC Culture Trigger YES
[2024-01-16 16:37] VITALS: BP 108/50; PULSE 88; RESP 16; TEMP 36.8
--- NOTE | 2024-01-16 16:45 | PC.NURSE ---
patient receiving first unit of blood at this time. plan for transfusion and discharge pending patient's dispo.
[2024-01-16 16:58] VITALS: BP 102/53; PULSE 77; RESP 16; TEMP 36.7
[2024-01-16 19:13] VITALS: BP 105/60; PULSE 68; RESP 16; TEMP 36.8; O2SAT 98
[2024-01-16 19:53] VITALS: BP 116/72; PULSE 74; RESP 16; TEMP 36.8; O2SAT 100
== END 2024-01-16 19:55 | disposition home or self-care (01) ==
PROVIDERS: Physician Assistant; Emergency Provider Student in an Organized Health Care Education/Training Program; PCP Internal Medicine
DX: D50.9 Iron deficiency anemia, unspecified (principal); R79.89 Other specified abnormal findings of blood chemistry; R11.0 Nausea; F17.210 Nicotine dependence, cigarettes, uncomplicated; Z79.899 Other long term (current) drug therapy
CPT/HCPCS: 36415; 51798; 80048; 80076; 81001; 82272; 83615; 83735; 85025; 85045; 86850; 86900; 86901; 86923; 87086; 96360; 96361; 99284; 99285; P9016

== ENCOUNTER → 2024-01-23 14:37 | Outpatient (BNV) | payer OTHER, SELFPAY | PROVIDERS: PCP Internal Medicine; Referring Provider Nurse Practitioner Family; Visit Provider Internal Medicine Medical Oncology | DX: D64.9 Anemia, unspecified (principal) | CPT/HCPCS: 99204; 99213 ==

== ENCOUNTER 2024-01-28 14:18 | Outpatient (AMB) | payer OTHER, SELFPAY ==
[2024-01-28 14:31] VITALS: BP 137/64; PULSE 82; BMI 25.8
--- NOTE | 2024-01-28 14:31 | A.OFFVIS_ITS ---
Vital Signs 01/28/24 14:31 Height 5 ft 8 in Weight 169 lb 12.095 oz BMI 25.8 BP 137/64 Blood Pressure Location Rt brachial Position Sitting Pulse 82 Intake Visit Reasons: f/u ED Intake Note: Patient in office today in follow up of labs. CC: Patient was seen in the ED on 01/15 for low hemoglobin and underwent blood transfussion. 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 Discussed with patient avoiding dietary triggers and late night snacking. Patient will try to follow FODMAP diet. Continues with abdominal bloating. Patient denies being constipated advised him to take fiber. Will check vitamin D, B12 and folate. Patient has a history of anemia in the past will recheck his blood work today check iron profile and ferritin. He will return in the office in 6 months, sooner on as needed basis. He is agreeable to this plan and verbalizes understanding of instructions. He was given the opportunity to ask questions and all questions answered ? Thank you for allowing me to participate in his care Orders Orders Vitamin D 25-OH (D2 and D3) Today E55.9 Vitamin B12 and Folate Today R19.7 IRON PROFILE Today D64.9 Complete Blood Count no Diff Today K21.9 Ferritin Today D64.9, K21.9 TODAY'S VISIT: Patient is here today for follow-up after ED visit. Patient was seen on the by me, CBC showed significant anemia and patient was sent to ED. in the ED patient received 1 unit of packed RBCs. Send home. I have ordered additional blood work, ferritin and iron profile. Patient's iron level and ferritin very low. Referral was made to oncologist. Patient had upper endoscopy and colonoscopy in September of 2023. Was found to have erosions in his stomach due to frequent use of ibuprofen. Patient since stopped the ibuprofen and has not been taking any. Patient denies melena, hematochezia, unintentional weight loss or ribbon like stools. Patient has postprandial diarrhea which he has been using loperamide from time to time. Patient was placed on oral iron supplements and will be going for iron infusions. Patient will need to go for capsule to rule out small bleed in the small intestine, ulcer, AVM. Patient denies any nausea or vomiting. [facility] Medical History Tubular adenoma Hemiplegic migraine Interstitial cystitis Irritable bowel syndrome Gastroesophageal reflux disease Surgical History History of excision of pilonidal cyst (02/27/23) History of esophagogastroduodenoscopy (EGD) H/O colonoscopy Hx of cystoscopy History of vasectomy H/O removal of cyst Family History Father COPD (chronic obstructive pulmonary disease) Stroke COVID-19 Paternal Grandmother Cancer of unknown origin Social History Household Members: Family Alcohol intake: current Alcohol intake frequency: a few times a week Patient Tobacco Use Status: Current everyday Tobacco user Tobacco use type: Cigarette service: No Current occupational status: employed Review of Systems Const Denies weight gain and Denies weight loss ENT Reports no additional complaints, Denies dysphagia and Denies odynophagia Card Reports no additional complaints Resp Reports no additional complaints GI Denies abdominal pain, Denies belching, Denies melena, Denies bloating, Denies change in bowel habits, Denies dysphagia, Denies excessive flatus, Denies dyspepsia, Denies heartburn, Denies diarrhea, Denies loose stools, Denies nausea, Denies odynophagia and Denies vomiting Reports no additional complaints Musc Reports no additional complaints Neuro Reports no additional complaints Psych Reports no additional complaints Endo Reports no additional complaints Physical Exam Vital Signs: BMI result Body Mass Index 25.8 Const General: healthy appearing, no acute distress and well developed Nutritional Appearance: well nourished Orientation/consciousness: patient oriented x3 Resp Effort & Inspection: normal respiratory effort, able to speak in complete sentences, no tracheal deviation and symmetric chest movement Auscultation: clear to auscultation bilaterally Cardio Rate: regular rate GI Inspection: Yes normal to inspection and No distended Palpation (GI): Soft to palpation, not firm, nontender and No hepatosplenomegaly present Auscultation: normal bowel sounds General: Yes no CVA tenderness Back/Spine/Pelvis Back: no CVA tenderness Skin General skin exam: elasticity normal, turgor normal and dry skin Neuro General: patient oriented x3 Psych Appearance: grossly normal Mental Status: mental status grossly normal Results Reviewed Results Reviewed: Laboratory Tests 01/16/24 01/16/24 01/23/24 11:41 13:39 15:31 RBC 4.19 L Hgb 6.6 L* Vitamin B12 419 25-OH Vitamin D Total 13 L Folate 2.7 L Tiss Transglutamin IgA <1.0 Assessment & Plan Assessment & Plan (1) Microcytic anemia: Code(s): D50.9 - Iron deficiency anemia, unspecified Category: Medical (2) Tubular adenoma: Code(s): D36.9 - Benign neoplasm, unspecified site Category: Medical (3) Gastroesophageal reflux disease: Code(s): K21.9 - Gastro-esophageal reflux disease without esophagitis Category: Medical Qualifiers: Esophagitis presence: esophagitis presence not specified Qualified Code(s): K21.9 - Gastro-esophageal reflux disease without esophagitis (4) Irritable bowel syndrome: Code(s): K58.9 - Irritable bowel syndrome without diarrhea Category: Medical Qualifiers: Irritable bowel syndrome type: with both diarrhea and constipation Qualified Code(s): K58.2 - Mixed irritable bowel syndrome (5) Postprandial abdominal bloating: Code(s): R14.0 - Abdominal distension (gaseous) Plan Most likely might prostatic anemia due to iron deficiency, however patient will need to rule out any bleed. Will be set up for capsule. Will repeat CBC is. Patient is following up with oncologist. Set up for iron infusions starting next week. Patient will call the office if he will have any GI concerning symptoms. Patient will return in the office in 3 months, sooner on as needed basis. Patient is agreeable to this plan and verbalizes understanding of instructions. He was given the opportunity to ask questions and all questions answered. Thank you for allowing me to participate in his care Coding Level of Care Code Est Pt Level 4 (26585) Diagnoses Microcytic anemia D50.9 Tubular adenoma D36.9 Gastroesophageal reflux disease, unspecified whether esophagitis present K21.9 Esophagitis presence: esophagitis presence not specified Irritable bowel syndrome with both constipation and diarrhea K58.2 Irritable bowel syndrome type: with both diarrhea and constipation Postprandial abdominal bloating R14.0 Time Spent (min) 35 Comment 20 minutes spent with patient and additional 15 minutes spent reviewing his records
== END 2024-01-28 15:06 | disposition home or self-care (01) ==
PROVIDERS: PCP Internal Medicine; Visit Provider Nurse Practitioner Family
DX: D50.9 Iron deficiency anemia, unspecified (principal); D36.9 Benign neoplasm, unspecified site; K21.9 Gastro-esophageal reflux disease without esophagitis; K58.2 Mixed irritable bowel syndrome; R14.0 Abdominal distension (gaseous)
CPT/HCPCS: 99214

== ENCOUNTER → 2024-01-28 14:18 | Outpatient (BNVA) | payer OTHER, SELFPAY | PROVIDERS: PCP Internal Medicine; Visit Provider Nurse Practitioner Family ==

== ENCOUNTER 2024-04-07 11:28 | Outpatient (AMB) | payer OTHER, SELFPAY ==
--- NOTE | 2024-04-07 11:40 | MHC.OFFVIS ---
Intake Visit Reasons: pilonidal cyst recurrence Intake Note: Patient is seen in office for recurrent pilonidal cyst. Pt c/o: reports he had irritation and he put a cream and it went away, reports pain. 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 Accompanied by: Self / Same As Patient Allergies esomeprazole Allergy (Mild, Verified 04/07/24 11:44) urinating trouble Medication List - Last Reconciled 04/07/24 by Kevin Tafoya MD ascorbic acid (vitamin C) (Vitamin C) 500 mg (2 x 250 mg) PO DAILY dutasteride (Avodart) 0.5 mg PO DAILY ferrous sulfate 325 mg PO BID loperamide 2 mg PO Q6H PRN Nexium (esomeprazole magnesium) 40 mg PO BID NS pentosan polysulfate sodium (Elmiron) 100 mg PO TID sucralfate (Carafate) 1 g PO BID 90 days verapamil 80 mg PO DAILY HPI Comments Details: 49-year-old male patient with a prior history of a pilonidal cyst abscess, status post pilonidal cystectomy on 02/27/2023. He noted some irritation a proximally 1 month ago with associated pain and subsequently applied a topical antibiotic. This has subsequently subsided a denies any pain but presents today for wound check. He denies any fever, chills, bleeding or discharge. He does have back pain which shoots up from his leg the left side. He was told he had a bunion but does not feel the pain is coming from the bunion. He is also being treated for iron deficiency anemia and underwent an iron infusion today. He is being followed by Dr. Mesa for this. [facility] Medical History Tubular adenoma Hemiplegic migraine Interstitial cystitis Irritable bowel syndrome Gastroesophageal reflux disease Surgical History History of excision of pilonidal cyst (02/27/23) History of esophagogastroduodenoscopy (EGD) H/O colonoscopy Hx of cystoscopy History of vasectomy H/O removal of cyst Family History Father COPD (chronic obstructive pulmonary disease) Stroke COVID-19 Paternal Grandmother Cancer of unknown origin Social History Household Members: Family Alcohol intake: current Alcohol intake frequency: a few times a week Patient Tobacco Use Status: Current everyday Tobacco user Tobacco use type: Cigarette service: No Current occupational status: employed Review of Systems Const All systems reviewed & are unremarkable except as noted in HPI and below Physical Exam Const General: no acute distress and well developed Nutritional Appearance: well nourished Orientation/consciousness: patient oriented x3 Resp Effort & Inspection: normal respiratory effort GI Inspection: Yes normal to inspection Palpation (GI): Soft to palpation, nontender and no guarding Back/Spine/Pelvis Other: Well-healed pilonidal cyst incision in the midline with no bleeding, discharge, abscess, erythema, or wound separation. Scar tissue is noted in the midline incision which is normal. No evidence of a recurrent pilonidal cyst. Neuro General: patient oriented x3 Extrem General: Yes normal to inspection Assessment & Plan Assessment & Plan (1) Pilonidal cyst of blsesing cleft: Code(s): L05.91 - Pilonidal cyst without abscess Category: Medical Plan Patient returns for a wound check of his pilonidal cystectomy incision. Wounds are found to be clean and intact without evidence of recurrent infections. He should follow up as needed. Coding Level of Care Code Est Pt Level 3 (87376) Diagnoses Pilonidal cyst of cleft L05.91
== END 2024-04-07 11:52 | disposition home or self-care (01) ==
PROVIDERS: PCP Internal Medicine; Visit Provider Surgery
DX: L05.91 Pilonidal cyst without abscess (principal)
CPT/HCPCS: 99213

== ENCOUNTER → 2024-04-07 11:28 | Outpatient (BNVA) | payer OTHER, SELFPAY | PROVIDERS: PCP Internal Medicine; Visit Provider Surgery ==

== ENCOUNTER 2024-04-14 10:30 | Outpatient (RCR) | payer OTHER, SELFPAY ==
[2024-02-04 08:58] VITALS: BP 126/61; PULSE 79; RESP 16; TEMP 37.3; O2SAT 98
[2024-02-04] MEDS: 0.9 % Sodium Chloride Flush 10 ML SYRINGE 5 ML IVFLUSH (09:14)
[2024-02-04] MEDS: Iron Sucrose Complex 200 MG in 0.9 % Sodium Chloride 100 ML 440 MG IV (09:14)
[2024-02-11 09:39] VITALS: BMI 25.8
[2024-02-11 09:55] VITALS: BP 122/55; PULSE 74; RESP 16; TEMP 36.9; O2SAT 99
[2024-02-11] MEDS: Iron Sucrose Complex 200 MG in 0.9 % Sodium Chloride 100 ML 440 MG IV (10:02)
[2024-02-11] MEDS: 0.9 % Sodium Chloride Flush 10 ML SYRINGE 5 ML IVFLUSH (10:03)
[2024-02-18 10:45] VITALS: BP 117/61; PULSE 78; RESP 16; TEMP 36.8; O2SAT 99
[2024-02-18] MEDS: Iron Sucrose Complex 200 MG in 0.9 % Sodium Chloride 100 ML 440 MG IV (10:59)
[2024-02-25 10:34] VITALS: BP 110/65; PULSE 71; RESP 16; TEMP 36.9; O2SAT 98
[2024-02-25] MEDS: 0.9 % Sodium Chloride Flush 10 ML SYRINGE 5 ML IVFLUSH (10:40)
[2024-02-25] MEDS: Iron Sucrose Complex 200 MG in 0.9 % Sodium Chloride 100 ML 440 MG IV (10:42)
--- NOTE | 2024-02-25 11:00 | HO.INF ---
phlebotomy at bedside
[2024-02-25 11:04] LABS: MANUAL DIFF FLAG NO
[2024-02-25 11:17] LABS: Basophils Absolute Auto 0.1 X10*3/uL (0.0-0.2); Basophils Percent Auto 1.3 % (0-2); Eosinophils Absolute Auto 0.1 X10*3/uL (0.0-0.4); Eosinophils Percent Auto 1.9 % (0-4); Hematocrit 34.8 % (42.0-52.0); Hemoglobin 9.6 g/dl (14.0-18.0); Imm Gran Abs Auto 0.01 X10*3/uL (0.00-0.03); Imm Gran Pct Auto 0.2 % (0.0-0.4); Lymphocytes Absolute Auto 1.2 X10*3/uL (1.2-4.9); Lymphocytes Percent Auto 25.5 % (20-40); Mean Corpuscular HGB Conc 27.6 g/dl (31.0-36.0); Mean Corpuscular Hemoglobin 19.5 pg (27.0-33.0); Mean Corpuscular Volume 70.6 fL (80.0-98.0); Monocytes Absolute Auto 0.3 X10*3/uL (0.1-1.2); Monocytes Percent Auto 6.8 % (2-11); Neutrophils Percent Auto 64.3 % (45-73); Platelet Count 224 X10*3/uL (160-400); Red Blood Count 4.93 X10*6/uL (4.60-5.80); Red Cell Distribution Width 30.5 % (11.0-16.0); White Blood Count 4.7 X10*3/uL (4.8-10.8)
[2024-02-25 11:55] LABS: Ferritin 84 ng/mL (20-250)
[2024-02-25 12:09] LABS: TSH reflex Free T4 0.13 uIU/mL (0.32-4.0)
[2024-02-25 13:07] LABS: Free T4 (Free Thyroxine) 0.82 ng/dL (0.71-1.85)
[2024-03-03 10:41] VITALS: BP 104/69; PULSE 70; RESP 16; TEMP 37.1; O2SAT 98
[2024-03-03] MEDS: Iron Sucrose Complex 200 MG in 0.9 % Sodium Chloride 100 ML 440 MG IV (10:47)
[2024-03-17 10:38] VITALS: BP 110/64; PULSE 67; RESP 16; TEMP 36.6; O2SAT 97
[2024-03-17] MEDS: Iron Sucrose Complex 200 MG in 0.9 % Sodium Chloride 100 ML 440 MG IV (10:47)
[2024-03-17] MEDS: 0.9 % Sodium Chloride Flush 10 ML SYRINGE 5 ML IVFLUSH (11:04)
[2024-04-07 10:44] VITALS: BP 112/75; PULSE 70; RESP 16; TEMP 36.6; O2SAT 98
[2024-04-07] MEDS: Iron Sucrose Complex 200 MG in 0.9 % Sodium Chloride 100 ML 440 MG IV (10:59)
[2024-04-14 11:41] VITALS: BP 118/68; PULSE 64; RESP 16; TEMP 36.8; O2SAT 96
[2024-04-14] MEDS: Iron Sucrose Complex 200 MG in 0.9 % Sodium Chloride 100 ML 440 MG IV (12:01)
[2024-04-14] MEDS: 0.9 % Sodium Chloride Flush 10 ML SYRINGE 5 ML IVFLUSH (12:23)
== END 2024-04-21 07:57 | disposition home or self-care (01) ==
LOC: HO.INF 10:30
PROVIDERS: Visit Provider Internal Medicine Medical Oncology
DX: D50.9 Iron deficiency anemia, unspecified (principal)
CPT/HCPCS: 36415; 82728; 84439; 84443; 85025; 96365; 96374; J1756

== ENCOUNTER 2024-04-28 12:35 | Outpatient (AMB) | payer OTHER, SELFPAY ==
--- NOTE | 2024-04-28 13:07 | MHC.OFFVIS ---
Vital Signs 04/28/24 13:13 Height 5 ft 8 in Weight 175 lb 0.752 oz BMI 26.6 BP 136/78 Blood Pressure Location Rt brachial Position Sitting Pulse 80 Pulse Source Pulse Oximeter Pulse Oximetry (%) 98 Oxygen Delivery Method Room Air Intake Visit Reasons: 3 month follow up Intake Note: Rosas presents in office today for a scheduled 3 mos FUV. CC; Pt has a NM Study scheduled for 05/08/2024. No new meds or labs at last visit. Pt reports that they are still dealing with chronic sx, no new changes or concerns. 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 Will be set up for capsule. Will repeat CBC is. Patient is following up with oncologist. Set up for iron infusions starting next week. Patient will call the office if he will have any GI concerning symptoms. Patient will return in the office in 3 months, sooner on as needed basis. Patient is agreeable to this plan and verbalizes understanding of instructions. He was given the opportunity to ask questions and all questions answered. ? TODAY'S VISIT: Patient is here today for follow-up. Patient reports that he has been feeling the same. Continues to have occasional loose stools postprandially. Depending on what he eats. Patient denies any nausea or vomiting. Denies any melena, hematochezia, unintentional weight loss or ribbon like stools. Patient reports that he has 1 more iron infusion and should be all done with them. Patient still does not want to go for colonoscopy. States that last time he did colonoscopy it really messed up his system. He is talking about the prep. Currently he has loose stools sometimes green. Has HIDA scan scheduled for the beginning of May. Patient is taking sucralfate in the afternoon and at bedtime and Nexium twice a day. [facility] Medical History Tubular adenoma Hemiplegic migraine Interstitial cystitis Irritable bowel syndrome Gastroesophageal reflux disease Surgical History History of excision of pilonidal cyst (02/27/23) History of esophagogastroduodenoscopy (EGD) H/O colonoscopy Hx of cystoscopy History of vasectomy H/O removal of cyst Family History Father COPD (chronic obstructive pulmonary disease) Stroke COVID-19 Paternal Grandmother Cancer of unknown origin Social History Household Members: Family Alcohol intake: current Alcohol intake frequency: a few times a week Patient Tobacco Use Status: Current everyday Tobacco user Tobacco use type: Cigarette service: No Current occupational status: employed Review of Systems Const Denies weight gain and Denies weight loss ENT Reports no additional complaints, Denies dysphagia and Denies odynophagia Card Reports no additional complaints Resp Reports no additional complaints GI Denies abdominal pain, Denies belching, Denies melena, Reports bloating, Denies change in bowel habits, Denies dysphagia, Denies excessive flatus, Denies dyspepsia, Reports heartburn (Occasional), Denies diarrhea, Reports loose stools, Denies nausea, Denies odynophagia and Denies vomiting Reports no additional complaints Musc Reports no additional complaints Neuro Reports no additional complaints Psych Reports no additional complaints Endo Reports no additional complaints Physical Exam Vital Signs: Last Vital Signs Pulse 80 04/28/24 13:13 BP 136/78 04/28/24 13:13 Pulse Ox 98 04/28/24 13:13 Oxygen Delivery Method Room Air 04/28/24 13:13 BMI result Body Mass Index 26.6 Const General: healthy appearing, no acute distress and well developed Nutritional Appearance: well nourished Orientation/consciousness: patient oriented x3 Resp Effort & Inspection: normal respiratory effort, able to speak in complete sentences, no tracheal deviation and symmetric chest movement Auscultation: clear to auscultation bilaterally Cardio Rate: regular rate GI Inspection: Yes normal to inspection and No distended Palpation (GI): Soft to palpation, not firm, nontender and No hepatosplenomegaly present Auscultation: normal bowel sounds General: Yes no CVA tenderness Back/Spine/Pelvis Back: no CVA tenderness Skin General skin exam: elasticity normal, turgor normal and dry skin Neuro General: patient oriented x3 Psych Appearance: grossly normal Mental Status: mental status grossly normal Assessment & Plan Assessment & Plan (1) Gastroesophageal reflux disease: Code(s): K21.9 - Gastro-esophageal reflux disease without esophagitis Category: Medical Qualifiers: Esophagitis presence: esophagitis presence not specified Qualified Code(s): K21.9 - Gastro-esophageal reflux disease without esophagitis (2) Irritable bowel syndrome: Code(s): K58.9 - Irritable bowel syndrome without diarrhea Category: Medical Qualifiers: Irritable bowel syndrome type: with both diarrhea and constipation Qualified Code(s): K58.2 - Mixed irritable bowel syndrome (3) Postprandial abdominal bloating: Code(s): R14.0 - Abdominal distension (gaseous) (4) Postprandial diarrhea: Code(s): K52.9 - Noninfective gastroenteritis and colitis, unspecified Plan Continue Nexium twice a day. Avoid dietary triggers and late night snacking. Continue sucralfate. Patient can take Imodium to help him with diarrhea. Will call patient after his results from HIDA scan are back. Patient has an appointment in July. Patient will call our office if he will continue to have loose stools or will develop any other GI concerning symptoms. Patient is agreeable to this plan and verbalizes understanding of instructions. He was given the opportunity to ask questions and all questions answered. Thank you for allowing me to participate in his care Medications: Refilled Nexium (esomeprazole magnesium) 40 mg PO BID 180 caps 3RF NS loperamide 2 mg PO Q6H PRN 120 caps 3RF for diarrhea K58.9 - Irritable bowel syndrome without diarrhea sucralfate (Carafate) Take one tablet on an empty stomach by mouth twice a day 1 g PO BID 180 tabs 2RF 90 days K58.9 - Irritable bowel syndrome without diarrhea Coding Level of Care Code Est Pt Level 3 (75797) Diagnoses Gastroesophageal reflux disease, unspecified whether esophagitis present K21.9 Esophagitis presence: esophagitis presence not specified Irritable bowel syndrome with both constipation and diarrhea K58.2 Irritable bowel syndrome type: with both diarrhea and constipation Postprandial abdominal bloating R14.0 Postprandial diarrhea K52.9 Time Spent (min) 30 Comment 20 minutes spent with patient and additional 10 minutes spent reviewing his records
[2024-04-28 13:13] VITALS: BP 136/78; PULSE 80; O2SAT 98; BMI 26.6
== END 2024-04-28 14:35 | disposition home or self-care (01) ==
PROVIDERS: PCP Internal Medicine; Visit Provider Nurse Practitioner Family
DX: K21.9 Gastro-esophageal reflux disease without esophagitis (principal); K58.2 Mixed irritable bowel syndrome; R14.0 Abdominal distension (gaseous)
CPT/HCPCS: 99213

== ENCOUNTER → 2024-04-28 12:35 | Outpatient (BNVA) | payer OTHER, SELFPAY | PROVIDERS: PCP Internal Medicine; Visit Provider Nurse Practitioner Family ==

== ENCOUNTER → 2024-05-08 10:28 | Outpatient (REF) | payer OTHER, SELFPAY ==
--- NOTE | ~2024-05-08 | NM_ITS ---
EXAMINATION: BILIARY TRACT IMAGING STUDY WITH CCK CLINICAL INFORMATION: Right upper quadrant abdominal pain. COMPARISON: CT of the abdomen and pelvis done on 12/26/2023 and HIDA scan done on 04/20/2013.. TECHNIQUE: Serial gamma scintillation camera images were obtained over the abdomen for a total observation period of 60 minutes following the intravenous administration of 5.0 mCi Tc-99m mebrofenin. FINDINGS: There is good concentration of activity in the liver by 5 minutes post injection. Biliary activity is visualized by 10 minutes. The gallbladder is well visualized by 30 minutes. Small bowel is well visualized by 70 minutes. At 60 minutes post radiopharmaceutical injection, a 30-minute infusion of 1.6 micrograms Sincalide was then begun and an additional 40 minutes of images were obtained. There is rapid emptying of the gallbladder. By the end of the study there is good clearance of activity from the liver and visualization of diffuse small bowel activity. The calculated gallbladder ejection fraction is 92%, previously 99% on the study dated 04/20/2013. (Normal range of gallbladder ejection fraction is between 35-80%; GBEF <35% is considered biliary hypokinesia and >80% is considered biliary hyperkinesia; Ref. #1-Clinical Journal of Gastroenterology (2020) 14:1308?1317; Ref.#2-[email or web address]). NM/NM hepatobiliary w pharm IMPRESSION: 1. Visualization of the gallbladder is evidence of a patent cystic duct and strong evidence against the diagnosis of acute cholecystitis. The common bile duct is patent. Gallbladder emptying and ejection fraction are abnormal. Liver function appears normal. 2. No significant change since the prior HIDA scan done on 04/20/2013.
== END ==
LOC: HO.NUCMED 10:28
PROVIDERS: PCP Internal Medicine; Visit Provider Nurse Practitioner Family
DX: R10.11 Right upper quadrant pain (principal)
CPT/HCPCS: 78227; A9537; J2805

== ENCOUNTER 2024-06-14 10:23 | Emergency (ER) | payer OTHER, SELFPAY ==
[2024-06-14 10:28] VITALS: BP 141/75; PULSE 85; RESP 18; TEMP 36.6; O2SAT 97; BMI 26.6
--- NOTE | 2024-06-14 11:17 | ED.GENADULT ---
HPI - General Adult General Chief complaint: Wound/Laceration Stated complaint: Swollen finger Time Seen by Provider: 06/14/24 10:44 Source: patient, RN notes reviewed and old records reviewed Mode of arrival: ambulatory History of Present Illness ED Provider: Idania Dumont PA-C HPI narrative: 49-year-old male with a past medical history of IBS, pilonidal cyst, anemia, GERD, presenting to the ED complaining of right middle finger erythema, swelling, and pus accumulation x few days. Denies known injury/trauma or fall, drainage, fever, hang nail Related Data Home Medications ?Medication ?Instructions ?Recorded ?Confirmed pentosan polysulfate sodium 100 mg 100 mg PO TID 03/20/21 04/23/24 capsule (Elmiron) verapamil 80 mg tablet 80 mg PO DAILY 03/20/21 04/23/24 dutasteride 0.5 mg capsule 0.5 mg PO DAILY 02/27/23 04/23/24 (Avodart) Previous Rx's ?Medication ?Instructions ?Recorded ascorbic acid (vitamin C) 250 mg 500 mg (2 x 250 mg) PO DAILY #90 01/23/24 tablet (Vitamin C) tabs ferrous sulfate 325 mg (65 mg 325 mg PO BID #60 tabs 01/23/24 iron) tablet Nexium 40 mg capsule,delayed 40 mg PO BID #180 caps 04/28/24 release (esomeprazole magnesium) loperamide 2 mg capsule 2 mg PO Q6H PRN for diarrhea #120 04/28/24 caps sucralfate 1 gram tablet (Carafate) 1 g PO BID 90 days #180 tabs 04/28/24 cholecalciferol (vitamin D3) 50 50 mcg PO DAILY #90 caps 05/08/24 mcg (2,000 unit) capsule Allergies Allergy/AdvReac Type Severity Reaction Status Date / Time esomeprazole Allergy Mild urinating Verified 06/14/24 10:31 trouble Review of Systems Review of Systems: Yes all other systems are reviewed and are negative Constitutional: Constitutional: Reports as per [facility] Past Medical History Attestation statement: The following information was validated with the patient. Source: old records reviewed Medical History Tubular adenoma Hemiplegic migraine Interstitial cystitis Irritable bowel syndrome Gastroesophageal reflux disease Surgical History History of excision of pilonidal cyst (02/27/23) History of esophagogastroduodenoscopy (EGD) H/O colonoscopy Hx of cystoscopy History of vasectomy H/O removal of cyst Family History Family History Father COPD (chronic obstructive pulmonary disease) Stroke COVID-19 Paternal Grandmother Cancer of unknown origin Social History Social History Household Members: Family Alcohol intake: current Alcohol intake frequency: a few times a week Patient Tobacco Use Status: Current everyday Tobacco user Tobacco use type: Cigarette Advance Directives: No Advance Directives Information Provided: Yes Do you have a plan to hurt others: No Plan service: No Current occupational status: employed Physical Exam ED Vital Signs: Vital Signs - 24 hr 06/14/24 10:28 06/14/24 11:34 Temperature 97.8 F 97.8 F Pulse Rate 85 85 Respiratory Rate 18 18 Blood Pressure 141/75 H 141/75 H Pulse Oximetry 97 97 Oxygen Delivery Method Room Air Room Air BMI result Body Mass Index 26.6 Const General: cooperative, healthy appearing and no acute distress Orientation/consciousness: patient oriented x3 Limitations: no limitations HENMT Head: Yes normal to inspection and Yes atraumatic Ears: hearing grossly normal bilaterally General nose exam: Normal external nose present Face and sinus: Yes normal facial exam Eyes General: appearance normal, both eyes and all related structures EOM: EOMs intact bilaterally Neck Neck: Yes normal visual inspection and Yes no meningeal signs Resp Effort & Inspection: normal respiratory effort and no respiratory distress Cardio Rate: regular rate Skin Rashes: no rashes Wounds: no wounds Neuro General: patient oriented x3, tone normal and no meningeal signs Cranial nerves: Yes CN's II-XII intact bilaterally Gait exam (Neuro): Normal gait present Extrem Other: + paronychia noted to right distal 3rd digit with fluctuance and erythema. Tender to palpation. Medications Administered Discontinued Medications Generic Name Dose Route Start Last Admin Trade Name Freq PRN Reason Stop Dose Admin Acetaminophen 975 mg 06/14/24 11:13 06/14/24 11:19 Acetaminophen 325 Mg Tablet PO 06/14/24 11:14 975 mg ONCE ONE Administration Procedures Abscess I/D Site: hand Side (if applicable): right Technique: incised with blade Sent for culture/gram staining?: No Irrigation: No Packing used?: none Medical Decision Making Medical Decision Making MDM Narrative: 49-year-old male with a past medical history of IBS, pilonidal cyst, anemia, GERD, presenting to the ED complaining of right middle finger erythema, swelling, and pus accumulation x few days. On exam vital signs stable, NAD, paronychia noted to right middle finger. I&D performed in the ED with moderate pus drainage. Antibiotics recommended/offered however patient declined. Recommended warm soaks and gentle massage at home with close follow-up. No evidence of septic joint. Low suspicion for fracture or osteo Please refer to course for remaining clinical decision making, interpretation of labs/imaging results, and discussions with consultants and/or family members. Results discussed with patient including worrisome signs and symptoms and strict return precautions, and when to return to the emergency department. They verbalized understanding and feel safe for discharge at this time. Differential Diagnosis Differential Diagnoses: The differential diagnosis associated with the presentation includes As above External Record Review External record reviewed: Inpatient record, Office record, Outpatient record, Prior outpatient labs, Prior outpatient radiology, Primary care record and Outside ED record Tests considered The following testing was considered but not selected: As above Prescription Management I considered prescription management with: Pain Medication and Antibiotic Chronic Conditions Patient?s care impacted by: Other (IBS) Discharge Plan Discharge Clinical Impression: Acute paronychia of finger Patient Disposition: Home, Self-Care Instructions: Paronychia (ED) Additional Instructions: Your paronychia was drained in the emergency department Please practice warm soaks at home 3 times daily as discussed Gentle massage to express more pus/blood Follow-up with her doctor If redness, pus drainage, swelling persists or worsens or you develop fever, decreased range of motion return to the ED immediately Prescriptions: No Action cholecalciferol (vitamin D3) 50 mcg (2,000 unit) capsule 50 mcg PO DAILY Qty: 90 3RF dutasteride [Avodart] 0.5 mg capsule 0.5 mg PO DAILY ferrous sulfate 325 mg (65 mg iron) Tablet 325 mg PO BID Qty: 60 3RF ascorbic acid (vitamin C) [Vitamin C] 250 mg Tablet 500 mg PO DAILY Qty: 90 3RF verapamil 80 mg tablet 80 mg PO DAILY Elmiron 100 mg capsule 100 mg PO TID esomeprazole magnesium [Nexium] 40 mg capsule,delayed release(DR/EC) 40 mg PO BID Qty: 180 3RF sucralfate [Carafate] 1 gram tablet 1 g PO BID 90 Days Qty: 180 2RF Rx Instructions: Take one tablet on an empty stomach by mouth twice a day loperamide 2 mg capsule 2 mg PO Q6H PRN (Reason: for diarrhea) Qty: 120 3RF Referrals: Patricia Damon MD [Primary Care Provider] - 5 days Stand Alone Forms: Work/School Release Interventions: ED Discharge Assessment Last Done: 06/14/24 11:34 Discharge Date/Time: 06/14/24 11:35 Print Language: Georgian
[2024-06-14] MEDS: Acetaminophen 325 MG TABLET 975 MG PO (11:19)
[2024-06-14 11:34] VITALS: BP 141/75; PULSE 85; RESP 18; TEMP 36.6; O2SAT 97
== END 2024-06-14 11:35 | disposition home or self-care (01) ==
PROVIDERS: Emergency Provider Emergency Medicine Emergency Medical Services; PCP Internal Medicine
DX: L03.011 Cellulitis of right finger (principal); F17.210 Nicotine dependence, cigarettes, uncomplicated; Z79.899 Other long term (current) drug therapy
CPT/HCPCS: 10060; 99283; 99284

== ENCOUNTER 2024-06-30 08:21 | Outpatient (AMB) | payer OTHER, SELFPAY ==
[2024-06-30 08:22] VITALS: BP 128/76; PULSE 80; O2SAT 97; BMI 26.9
--- NOTE | 2024-06-30 08:22 | MHC.OFFVIS ---
Vital Signs 06/30/24 08:22 Height 5 ft 8 in Weight 176 lb 12.972 oz BMI 26.9 BP 128/76 Blood Pressure Location Rt brachial Position Sitting Pulse 80 Pulse Source Pulse Oximeter Pulse Oximetry (%) 97 Oxygen Delivery Method Room Air Intake Visit Reasons: 2 mos FUV, discuss gallbladder concerns Intake Note: Rosas presents in office today for a scheduled 2 mos FUV. CC; Pt is also here today to discuss gallbladder concerns. Pt reports that they have remained stable since their last visit. Pt did have some concerns regarding their gallbladder. Pt denies any pain, however; pt was concerned with the color of their stool. Pt also had some constipation recently which they believed to be a result of their recent diet changes. Pt states that this has since resolved. Clinical Services Consultant Required: No Allergies esomeprazole Allergy (Mild, Verified 06/30/24 08:23) urinating trouble HPI HPI 2 mos FUV, discuss gallbladder concerns: Details: LAST VISIT Gastroesophageal reflux disease Irritable bowel syndrome Postprandial abdominal bloating Postprandial diarrhea Plan Continue Nexium twice a day. Avoid dietary triggers and late night snacking. Continue sucralfate. Patient can take Imodium to help him with diarrhea. Will call patient after his results from HIDA scan are back. Patient has an appointment in July. Patient will call our office if he will continue to have loose stools or will develop any other GI concerning symptoms. Patient is agreeable to this plan and verbalizes understanding of instructions. He was given the opportunity to ask questions and all questions answered. ? Thank you for allowing me to participate in his care Medications Refilled Nexium (esomeprazole magnesium) 40 mg PO BID 180 caps 3RF NS loperamide 2 mg PO Q6H PRN 120 caps 3RF for diarrhea K58.9 sucralfate (Carafate) Take one tablet on an empty stomach by mouth twice a day 1 g PO BID 180 tabs 2RF 90 days K58.9 TODAY'S VISIT Patient is here today for follow-up and to discuss ultrasound results. Hyperkinetic gallbladder, otherwise normal. No real change since the study in 2012. Patient continues to have occasional postprandial diarrhea. Couple episodes of constipation. Patient is using loperamide on as-needed basis. Patient is taking Nexium and sucralfate. Offered patient cholestyramine to see if that will help. Patient is not taking fiber. Patient is not following up any particular diet. Patient admits to eating lactose and spicy food. Denies any melena, hematochezia. We did discussed last visit patient going for capsule, however patient does not want to do the prep and still wants to think about it. [facility] Medical History Tubular adenoma Hemiplegic migraine Interstitial cystitis Irritable bowel syndrome Gastroesophageal reflux disease Surgical History History of excision of pilonidal cyst (02/27/23) History of esophagogastroduodenoscopy (EGD) H/O colonoscopy Hx of cystoscopy History of vasectomy H/O removal of cyst Family History Father COPD (chronic obstructive pulmonary disease) Stroke COVID-19 Paternal Grandmother Cancer of unknown origin Social History Household Members: Family Alcohol intake: current Alcohol intake frequency: a few times a week Patient Tobacco Use Status: Current everyday Tobacco user Tobacco use type: Cigarette service: No Current occupational status: employed Review of Systems Const Denies weight gain and Denies weight loss ENT Reports no additional complaints, Denies dysphagia and Denies odynophagia Card Reports no additional complaints Resp Reports no additional complaints GI Denies abdominal pain, Denies belching, Denies melena, Reports bloating, Denies change in bowel habits, Reports constipation, Denies dysphagia, Denies excessive flatus, Denies dyspepsia, Reports heartburn (Occasional), Denies diarrhea, Reports loose stools, Denies nausea, Denies odynophagia and Denies vomiting Reports no additional complaints Musc Reports no additional complaints Neuro Reports no additional complaints Psych Reports no additional complaints Endo Reports no additional complaints Physical Exam Vital Signs: Last Vital Signs Pulse 80 06/30/24 08:22 BP 128/76 09/24/24 08:22 Pulse Ox 97 06/30/24 08:22 Oxygen Delivery Method Room Air 06/30/24 08:22 BMI result Body Mass Index 26.9 Const General: healthy appearing, no acute distress and well developed Nutritional Appearance: well nourished Orientation/consciousness: patient oriented x3 Resp Effort & Inspection: normal respiratory effort, able to speak in complete sentences, no tracheal deviation and symmetric chest movement Auscultation: clear to auscultation bilaterally Cardio Rate: regular rate GI Inspection: Yes normal to inspection and No distended Palpation (GI): Soft to palpation, not firm, nontender and No hepatosplenomegaly present Auscultation: normal bowel sounds General: Yes no CVA tenderness Back/Spine/Pelvis Back: no CVA tenderness Skin General skin exam: elasticity normal, turgor normal and dry skin Neuro General: patient oriented x3 Psych Appearance: grossly normal Mental Status: mental status grossly normal Results Reviewed Results Reviewed: HIDA SCAN FINDINGS: There is good concentration of activity in the liver by 5 minutes post injection. Biliary activity is visualized by 10 minutes. The gallbladder is well visualized by 30 minutes. Small bowel is well visualized by 70 minutes. At 60 minutes post radiopharmaceutical injection, a 30-minute infusion of 1.6 micrograms Sincalide was then begun and an additional 40 minutes of images were obtained. There is rapid emptying of the gallbladder. By the end of the study there is good clearance of activity from the liver and visualization of diffuse small bowel activity. The calculated gallbladder ejection fraction is 92%, previously 99% on the study dated 04/20/2013. (Normal range of gallbladder ejection fraction is between 35-80%; GBEF <35% is considered biliary hypokinesia and >80% is considered biliary hyperkinesia; Ref. #1-Clinical Journal of Gastroenterology (2020) 14:1308?1317; Ref.#2-[email or web address]). NM/NM hepatobiliary w pharm IMPRESSION: 1. Visualization of the gallbladder is evidence of a patent cystic duct and strong evidence against the diagnosis of acute cholecystitis. The common bile duct is patent. Gallbladder emptying and ejection fraction are abnormal. Liver function appears normal. 2. No significant change since the prior HIDA scan done on 04/20/2013. Assessment & Plan Assessment & Plan (1) Gastroesophageal reflux disease: Code(s): K21.9 - Gastro-esophageal reflux disease without esophagitis Category: Medical Qualifiers: Esophagitis presence: esophagitis presence not specified Qualified Code(s): K21.9 - Gastro-esophageal reflux disease without esophagitis (2) Irritable bowel syndrome: Code(s): K58.9 - Irritable bowel syndrome without diarrhea Category: Medical Qualifiers: Irritable bowel syndrome type: with both diarrhea and constipation Qualified Code(s): K58.2 - Mixed irritable bowel syndrome (3) Postprandial abdominal bloating: Code(s): R14.0 - Abdominal distension (gaseous) (4) Postprandial diarrhea: Code(s): K52.9 - Noninfective gastroenteritis and colitis, unspecified Plan Long discussion with patient about changing his diet. List of food recommended as well as list of food to avoid given to patient. Avoid lactose. Patient has been having those symptoms for very long time, feels like more frequent after colonoscopy. Patient was encouraged to increase fiber. Wants to stay on sucralfate for now, does not want to switch to cholestyramine. Wants to hold off on taking Citrucel even though discussed with patient the importance of fiber in his diet. Patient will follow-up in 2-3 months, sooner on as needed basis. He is agreeable to this plan and verbalizes understanding of instructions. He was given the opportunity to ask questions and all questions answered. Thank you for allowing me to participate in his care Medications: Refilled loperamide 2 mg PO Q6H PRN 120 caps 3RF for diarrhea K58.9 - Irritable bowel syndrome without diarrhea Nexium (esomeprazole magnesium) 40 mg PO BID 180 caps 3RF NS sucralfate (Carafate) Take one tablet on an empty stomach by mouth twice a day 1 g PO BID 180 tabs 2RF 90 days K58.9 - Irritable bowel syndrome without diarrhea Coding Level of Care Code Est Pt Level 4 (80350) Diagnoses Gastroesophageal reflux disease, unspecified whether esophagitis present K21.9 Esophagitis presence: esophagitis presence not specified Irritable bowel syndrome with both constipation and diarrhea K58.2 Irritable bowel syndrome type: with both diarrhea and constipation Postprandial abdominal bloating R14.0 Postprandial diarrhea K52.9 Time Spent (min) 35 Comment 20 minutes spent with patient and additional 15 minutes spent reviewing his records
== END 2024-06-30 09:16 | disposition home or self-care (01) ==
PROVIDERS: PCP Internal Medicine; Visit Provider Nurse Practitioner Family
DX: K21.9 Gastro-esophageal reflux disease without esophagitis (principal); K58.2 Mixed irritable bowel syndrome
CPT/HCPCS: 99214

== ENCOUNTER → 2024-06-30 08:21 | Outpatient (BNVA) | payer OTHER, SELFPAY | PROVIDERS: PCP Internal Medicine; Visit Provider Nurse Practitioner Family ==

== ENCOUNTER 2024-08-25 10:54 | Outpatient (AMB) | payer OTHER, SELFPAY ==
[2024-08-25 11:13] VITALS: BP 142/84; PULSE 86; O2SAT 97; BMI 28.0
--- NOTE | 2024-08-25 11:13 | A.OFFVIS_ITS ---
Vital Signs 08/25/24 11:13 Height 5 ft 8 in Weight 183 lb 13.848 oz BMI 28.0 BP 142/84 H Blood Pressure Location Rt brachial Position Sitting Pulse 86 Pulse Source Pulse Oximeter Pulse Oximetry (%) 97 Oxygen Delivery Method Room Air Intake Visit Reasons: 2 month follow up Intake Note: PRESCRIPTIONS LAST GENERATED loperamide 2 mg capsule?2 mg PO Q6H PRN 120 caps 3RF Hunter,Mary D 06/30/24 09:06 (Transmitted) sucralfate 1 gram tablet?(Carafate)?1 g PO BID 180 tabs 2RF 90 days Hunter,Mary D 06/30/24 09:06 (Transmitted) Nexium 40 mg capsule,delayed release?(esomeprazole magnesium)?40 mg PO BID 180 caps 3RF NS Hunter,Mary D 06/30/24 09:06 (Transmitted) Pt still taking all of the above medications. Relevant Flags or Indicators ? Requires Flight Engineer Inspector? Swetha Pillai presents in office today for a scheduled 2 mos FUV. CC; No recent labs, diagnostics placed. ?Pt reports that they received labs per Dr. Mesa. Relevant GI Sx as reported per pt? * Bloody sputum * Epistaxis (idiopathic) ? Nausea ? Bloating * Pt having difficulties with gas pockets and passing gas. Pt has been monitoring dietary intake in hopes of mitigating sx without much success. ? Hx of any recent surgeries? None Flight Engineer Inspector Required: No Allergies esomeprazole Allergy (Mild, Verified 08/25/24 11:13) urinating trouble HPI HPI 2 month follow up: Details: LAST VISIT: Gastroesophageal reflux disease Irritable bowel syndrome Postprandial abdominal bloating Postprandial diarrhea Plan Long discussion with patient about changing his diet. List of food recommended as well as list of food to avoid given to patient. Avoid lactose. Patient has been having those symptoms for very long time, feels like more frequent after colonoscopy. Patient was encouraged to increase fiber. Wants to stay on sucralfate for now, does not want to switch to cholestyramine. Wants to hold off on taking Citrucel even though discussed with patient the importance of fiber in his diet. Patient will follow-up in 2-3 months, sooner on as needed basis. He is agreeable to this plan and verbalizes understanding of instructions. He was given the opportunity to ask questions and all questions answered. ? Thank you for allowing me to participate in his care Medications Refilled loperamide 2 mg PO Q6H PRN 120 caps 3RF for diarrhea K58.9 Nexium (esomeprazole magnesium) 40 mg PO BID 180 caps 3RF NS sucralfate (Carafate) Take one tablet on an empty stomach by mouth twice a day 1 g PO BID 180 tabs 2RF 90 days K58.9 * TODAY'S VISIT Patient is here today for follow-up. Patient states that he continues to take Nexium twice a day as well as sucralfate. Patient continues to have postprandial abdominal bloating and loose stools. Uses loperamide as needed. Patient denies being constipated. Denies any melena, hematochezia. Patient had his blood work done yesterday and no anemia. Patient is not taking any iron at this time. He is not taking any vitamin-D supplements. Patient reports that he ate hot dog last week and vomited with blood. Patient was feeling little nauseous with some epigastric discomfort. Patient continues to voice concerned that he went for colonoscopy and since then his symptoms have been worse. Mickie ent is not following any diet. Does not follow low FODMAP diet. Currently patient denies any nausea or vomiting. Denies any unintentional weight loss. Besides having postprandial loose stools, patient is moving his bowels without any issues. He does not believe that he is constipated. [facility] Medical History Tubular adenoma Hemiplegic migraine Interstitial cystitis Irritable bowel syndrome Gastroesophageal reflux disease Surgical History History of excision of pilonidal cyst (02/27/23) History of esophagogastroduodenoscopy (EGD) H/O colonoscopy Hx of cystoscopy History of vasectomy H/O removal of cyst Family History Father COPD (chronic obstructive pulmonary disease) Stroke COVID-19 Paternal Grandmother Cancer of unknown origin Social History Household Members: Family Alcohol intake: current Alcohol intake frequency: a few times a week Patient Tobacco Use Status: Current everyday Tobacco user Tobacco use type: Cigarette service: No Current occupational status: employed Review of Systems Const Denies weight gain and Denies weight loss ENT Reports no additional complaints, Denies dysphagia and Denies odynophagia Card Reports no additional complaints Resp Reports no additional complaints GI Denies abdominal pain, Denies belching, Denies melena, Reports bloating, Denies change in bowel habits, Denies constipation, Denies dysphagia, Denies excessive flatus, Denies dyspepsia, Reports heartburn (Occasional), Denies diarrhea, Reports loose stools, Denies nausea, Denies odynophagia and Denies vomiting Reports no additional complaints Musc Reports no additional complaints Neuro Reports no additional complaints Psych Reports no additional complaints Endo Reports no additional complaints Physical Exam Vital Signs: Last Vital Signs Pulse 86 08/25/24 11:13 BP 142/84 H 08/25/24 11:13 Pulse Ox 97 08/25/24 11:13 Oxygen Delivery Method Room Air 08/25/24 11:13 BMI result Body Mass Index 28.0 Const General: healthy appearing, no acute distress and well developed Nutritional Appearance: well nourished Orientation/consciousness: patient oriented x3 Resp Effort & Inspection: normal respiratory effort, able to speak in complete sentences, no tracheal deviation and symmetric chest movement Auscultation: clear to auscultation bilaterally Cardio Rate: regular rate GI Inspection: Yes normal to inspection and No distended Palpation (GI): Soft to palpation, not firm, nontender and No hepatosplenomegaly present Auscultation: normal bowel sounds General: Yes no CVA tenderness Back/Spine/Pelvis Back: no CVA tenderness Skin General skin exam: elasticity normal, turgor normal and dry skin Neuro General: patient oriented x3 Psych Appearance: grossly normal Mental Status: mental status grossly normal Assessment & Plan Assessment & Plan (1) Gastroesophageal reflux disease: Code(s): K21.9 - Gastro-esophageal reflux disease without esophagitis Category: Medical Qualifiers: Esophagitis presence: esophagitis presence not specified Qualified Code(s): K21.9 - Gastro-esophageal reflux disease without esophagitis (2) Irritable bowel syndrome: Code(s): K58.9 - Irritable bowel syndrome, unspecified Category: Medical Qualifiers: Irritable bowel syndrome type: with both diarrhea and constipation Qualified Code(s): K58.2 - Mixed irritable bowel syndrome (3) Postprandial abdominal bloating: Code(s): R14.0 - Abdominal distension (gaseous) (4) Postprandial diarrhea: Code(s): K52.9 - Noninfective gastroenteritis and colitis, unspecified Plan We will recheck vitamin levels. Patient was encouraged to take PPI as prescribed. Patient was also encouraged to follow low FODMAP diet. Take probiotic and fiber daily. Increase fluid intake and activity to promote better bowel motility. Patient will follow-up in the office in 6 months. He will call us if he will have any GI concerning symptoms. Patient is agreeable to current plan of care and verbalizes understanding of instructions. He was given the opportunity to ask questions and all questions answered. Thank you for allowing me participate in his care Orders: Orders Vitamin D 25-OH (D2 and D3) 08/25/24 E55.9 - Vitamin D deficiency, unspecified Vitamin B12 and Folate 08/25/24 R19.7 - Diarrhea, unspecified TSH reflex Free T4 08/25/24 K59.00 - Constipation, unspecified Coding Level of Care Code Est Pt Level 4 (66940) Complex EM visit Add On G2211 Diagnoses Gastroesophageal reflux disease, unspecified whether esophagitis present K21.9 Esophagitis presence: esophagitis presence not specified Irritable bowel syndrome with both constipation and diarrhea K58.2 Irritable bowel syndrome type: with both diarrhea and constipation Postprandial abdominal bloating R14.0 Postprandial diarrhea K52.9 Time Spent (min) 35 Comment 25 minutes spent with patient and additional 10 minutes spent reviewing his records
== END 2024-08-25 11:44 | disposition home or self-care (01) ==
PROVIDERS: PCP Internal Medicine; Visit Provider Nurse Practitioner Family
DX: K21.9 Gastro-esophageal reflux disease without esophagitis (principal); K58.2 Mixed irritable bowel syndrome
CPT/HCPCS: 99214; G2211

== ENCOUNTER 2024-08-25 10:54 | Outpatient (REF) | payer OTHER, SELFPAY ==
[2024-08-25 14:34] LABS: TSH reflex Free T4 0.28 uIU/mL (0.32-4.0)
[2024-08-25 14:50] LABS: Folate 5.2 ng/mL (> or = 4.0); Vitamin B12 365 pg/mL (200-900)
[2024-08-30 16:28] LABS: Vitamin D 25-OH, D2 <4 ng/mL; Vitamin D 25-OH, D3 20 ng/mL; Vitamin D 25-OH, Total 20 ng/mL (30-100)
== END 2024-08-25 10:55 | disposition home or self-care (01) ==
LOC: HO.LAB 10:54
PROVIDERS: PCP Internal Medicine; Visit Provider Nurse Practitioner Family
DX: E55.9 Vitamin D deficiency, unspecified (principal); R19.7 Diarrhea, unspecified; K59.00 Constipation, unspecified
CPT/HCPCS: 36415; 82306; 82607; 82746; 84439; 84443

== ENCOUNTER 2024-10-10 15:07 | Emergency (ER) | payer OTHER, SELFPAY ==
[2024-10-10 15:29] VITALS: BP 115/67; PULSE 73; RESP 16; TEMP 36.4; O2SAT 98; BMI 27.3
--- NOTE | 2024-10-10 15:29 | ED_ITS ---
HPI - General Adult General Chief complaint: General Medical Stated complaint: tiredness,? abnormal labs Time Seen by Provider: 10/10/24 16:16 Related Data Home Medications ?Medication ?Instructions ?Recorded ?Confirmed pentosan polysulfate sodium 100 mg 100 mg PO TID 03/20/21 08/24/24 capsule (Elmiron) verapamil 80 mg tablet 80 mg PO DAILY 03/20/21 08/24/24 dutasteride 0.5 mg capsule 0.5 mg PO DAILY 02/27/23 08/24/24 (Avodart) Previous Rx's ?Medication ?Instructions ?Recorded ascorbic acid (vitamin C) 250 mg 500 mg (2 x 250 mg) PO DAILY #90 01/23/24 tablet (Vitamin C) tabs ferrous sulfate 325 mg (65 mg 325 mg PO BID #60 tabs 01/23/24 iron) tablet cholecalciferol (vitamin D3) 50 50 mcg PO DAILY #90 caps 05/08/24 mcg (2,000 unit) capsule Nexium 40 mg capsule,delayed 40 mg PO BID #180 caps 06/30/24 release (esomeprazole magnesium) loperamide 2 mg capsule 2 mg PO Q6H PRN for diarrhea #120 06/30/24 caps sucralfate 1 gram tablet (Carafate) 1 g PO BID 90 days #180 tabs 06/30/24 Allergies Allergy/AdvReac Type Severity Reaction Status Date / Time esomeprazole Allergy Mild urinating Verified 10/10/24 15:30 trouble PMFSH Past Medical History Medical History Tubular adenoma Hemiplegic migraine Interstitial cystitis Irritable bowel syndrome Gastroesophageal reflux disease Surgical History History of excision of pilonidal cyst (02/27/23) History of esophagogastroduodenoscopy (EGD) H/O colonoscopy Hx of cystoscopy History of vasectomy H/O removal of cyst Family History Family History Father COPD (chronic obstructive pulmonary disease) Stroke COVID-19 Paternal Grandmother Cancer of unknown origin Social History Social History Household Members: Family Alcohol intake: current Alcohol intake frequency: a few times a week Patient Tobacco Use Status: Current everyday Tobacco user Tobacco use type: Cigarette Smoked in Last 30 Days: Yes Use of substances other than those prescribed or required for medical reasons: No Advance Directives: No Advance Directives Information Provided: No Do you have a plan to hurt others: No Plan service: No Current occupational status: employed Physical Exam ED Vital Signs: Vital Signs - 24 hr 10/10/24 15:29 10/10/24 16:18 10/10/24 16:32 Temperature 97.6 F 97.6 F 97.7 F Pulse Rate 73 68 68 Respiratory Rate 16 14 18 Blood Pressure 115/67 114/68 118/66 Pulse Oximetry 98 97 97 Oxygen Delivery Method Room Air Room Air Room Air 10/10/24 18:00 Temperature 97.9 F Pulse Rate 84 Respiratory Rate 16 Blood Pressure 130/84 Pulse Oximetry 98 Oxygen Delivery Method Room Air BMI result Body Mass Index 27.3 Course Course Course Narrative: This is a Rapid Medical Exam performed in triage by Idania Dumont PA-C. Full HPI, ROS and PE to be performed by primary ED provider. 49 yo M w/PMHx IBS, GERD, Microcytic anemia presenting to the ED c/o I think my iron levels are low again, c/o fatigue, shakiness x today. Admits to iron infusions in the past, last was in ?July, w/Dr. Mesa PE: mildly pale, nontoxic appearing Plan: Labs, viral testing Medical Decision Making Lab Data 10/10/24 15:53 10/10/24 15:53 Labs: Lab Results 10/10/24 Range/Units 15:53 WBC 6.2 (4.8-10.8) X10*3/uL RBC 4.75 (4.60-5.80) X10*6/uL Hgb 12.8 L (14.0-18.0) g/dl Hct 38.6 L (42.0-52.0) % MCV 81.3 (80.0-98.0) fL MCH 26.9 L (27.0-33.0) pg MCHC 33.2 (31.0-36.0) g/dl RDW 14.5 (11.0-16.0) % Plt Count 168 (160-400) X10*3/uL MPV 10.7 (9.4-12.4) fL Immature Gran % (Auto) 0.2 (0.0-0.4) % Neut % (Auto) 54.2 (45-73) % Lymph % (Auto) 36.0 (20-40) % [place] % (Auto) 7.7 (2-11) % Eos % (Auto) 1.4 (0-4) % Baso % (Auto) 0.5 (0-2) % Lymph # (Auto) 2.2 (1.2-4.9) X10*3/uL [place] # (Auto) 0.5 (0.1-1.2) X10*3/uL Eos # (Auto) 0.1 (0.0-0.4) X10*3/uL Baso # (Auto) 0.0 (0.0-0.2) X10*3/uL Abs Immat Gran (auto) 0.01 (0.00-0.03) X10*3/uL Absolute Neuts (auto) 3.4 (2.0-8.3) x10*3/uL Absolute Nucleated RBC 0.000 (0.0-0.012) X10*3/uL Nucleated RBC % (auto) 0.0 (0.0-0.2) /100WBC PT 11.2 (10.9-12.4) SEC INR 1.0 (0.9-1.1) Sodium 139 (135-145) mmol/L Potassium 4.4 (3.3-5.1) mmol/L Chloride 109 H (96-108) mmol/L Carbon Dioxide 24 (22-29) mmol/L Anion Gap 10 L (12-20) BUN 8 L (9-16) mg/dL Creatinine 0.83 (0.5-1.4) mg/dL Estim Creat Clear Calc 107.6 Estimated GFR > 60 Random Glucose 101 (60-115) mg/dL Calcium 8.9 (8.4-10.2) mg/dL Magnesium 1.8 (1.6-2.6) mg/dL Total Bilirubin 0.3 (0.0-1.0) mg/dL Direct Bilirubin 0.1 (0.0-0.5) mg/dL AST 38 H (5-37) U/L ALT 44 H (0-40) U/L Alkaline Phosphatase 87 (39-117) U/L Total Protein 6.7 (6.5-8.0) g/dL Albumin 3.8 (3.5-5.0) g/dL TSH 0.18 L (0.32-4.0) uIU/mL Influenza Type A (PCR) NEGATIVE (Negative) Influenza Type B (PCR) NEGATIVE (Negative) RSV RNA Qual (PCR) NEGATIVE (Negative) SARS-CoV-2 RNA (RT-PCR) NEGATIVE (Negative) Discharge Plan Discharge Clinical Impression: Feeling tired Patient Disposition: Home, Self-Care Instructions: Fatigue (ED) Prescriptions: No Action cholecalciferol (vitamin D3) 50 mcg (2,000 unit) capsule 50 mcg PO DAILY Qty: 90 3RF dutasteride [Avodart] 0.5 mg capsule 0.5 mg PO DAILY ferrous sulfate 325 mg (65 mg iron) Tablet 325 mg PO BID Qty: 60 3RF ascorbic acid (vitamin C) [Vitamin C] 250 mg Tablet 500 mg PO DAILY Qty: 90 3RF verapamil 80 mg tablet 80 mg PO DAILY Elmiron 100 mg capsule 100 mg PO TID esomeprazole magnesium [Nexium] 40 mg capsule,delayed release(DR/EC) 40 mg PO BID Qty: 180 3RF loperamide 2 mg capsule 2 mg PO Q6H PRN (Reason: for diarrhea) Qty: 120 3RF sucralfate [Carafate] 1 gram tablet 1 g PO BID 90 Days Qty: 180 2RF Rx Instructions: Take one tablet on an empty stomach by mouth twice a day Referrals: Patricia Damon MD [Primary Care Provider] - 10/13/24 Print Language: Sami
[2024-10-10 15:59] LABS: Basophils Percent Auto 0.5 % (0-2); Eosinophils Absolute Auto 0.1 X10*3/uL (0.0-0.4); Eosinophils Percent Auto 1.4 % (0-4); Hematocrit 38.6 % (42.0-52.0); Hemoglobin 12.8 g/dl (14.0-18.0); Imm Gran Abs Auto 0.01 X10*3/uL (0.00-0.03); Imm Gran Pct Auto 0.2 % (0.0-0.4); Lymphocytes Absolute Auto 2.2 X10*3/uL (1.2-4.9); MANUAL DIFF FLAG NO; Mean Corpuscular HGB Conc 33.2 g/dl (31.0-36.0); Mean Corpuscular Hemoglobin 26.9 pg (27.0-33.0); Mean Corpuscular Volume 81.3 fL (80.0-98.0); Mean Platelet Volume 10.7 fL (9.4-12.4); Monocytes Absolute Auto 0.5 X10*3/uL (0.1-1.2); Monocytes Percent Auto 7.7 % (2-11); Neutrophils Absolute Auto 3.4 x10*3/uL (2.0-8.3); Neutrophils Percent Auto 54.2 % (45-73); Platelet Count 168 X10*3/uL (160-400); Red Blood Count 4.75 X10*6/uL (4.60-5.80); Red Cell Distribution Width 14.5 % (11.0-16.0); White Blood Count 6.2 X10*3/uL (4.8-10.8)
[2024-10-10 16:05] LABS: Prothrombin Time 11.2 SEC (10.9-12.4)
[2024-10-10 16:18] VITALS: BP 114/68; PULSE 68; RESP 14; TEMP 36.4; O2SAT 97
[2024-10-10 16:20] LABS: Alanine Aminotransferase 44 U/L (0-40); Albumin Level 3.8 g/dL (3.5-5.0); Anion Gap 10 (12-20); Aspartate Amino Transferase 38 U/L (5-37); Bilirubin Direct 0.1 mg/dL (0.0-0.5); Bilirubin Total 0.3 mg/dL (0.0-1.0); Blood Urea Nitrogen 8 mg/dL (9-16); Calcium 8.9 mg/dL (8.4-10.2); Carbon Dioxide 24 mmol/L (22-29); Chloride 109 mmol/L (96-108); Creatinine Clr Calc Pharmacy 107.6; Estimated Glomerular Filt Rate > 60; Glucose Random 101 mg/dL (60-115); Magnesium 1.8 mg/dL (1.6-2.6); Potassium 4.4 mmol/L (3.3-5.1); Sodium 139 mmol/L (135-145); Total Protein 6.7 g/dL (6.5-8.0)
[2024-10-10 16:32] VITALS: BP 118/66; PULSE 68; RESP 18; TEMP 36.5; O2SAT 97
[2024-10-10 16:35] LABS: Influenza A PCR NEGATIVE (Negative); Influenza B PCR NEGATIVE (Negative); Resp Syncy Virus RNA Qual PCR NEGATIVE (Negative); SARS COV2 PCR INHOUSE NEGATIVE (Negative)
[2024-10-10 16:36] LABS: Alkaline Phosphatase 87 U/L (39-117)
--- NOTE | 2024-10-10 17:41 | ECG_ITS ---
Test Reason : WEAKNESS Blood Pressure : / mmHG Vent. Rate : 067 BPM Atrial Rate : 067 BPM P-R Int : 182 ms QRS Dur : 090 ms QT Int : 380 ms P-R-T Axes : 067 053 050 degrees QTc Int : 401 ms Normal sinus rhythm Normal ECG When compared with ECG of 03-AUG-2008 20:55, No significant change was found Referred By: Beata Simmons Electronically Signed By:KRISTINA ACOSTA MD
--- NOTE | 2024-10-10 17:43 | ED_ITS ---
HPI - General Adult General Chief complaint: General Medical Stated complaint: tiredness,? abnormal labs Time Seen by Provider: 10/10/24 16:16 History of Present Illness HPI narrative: Patient is a 49-year-old male presents today with a history of iron deficiency anemia. Patient felt generalized malaise. It has been ongoing. There is no chest pain is no diaphoresis. It had iron infusions in the past. There is no bloody stool. There was no coughing or congestion or upper respiratory symptoms. There is no fever there is no abdominal pain. There is no vomiting. Is no diarrhea. Patient is from home. Generally feels weak. Sleeping a little more than usual. Did not notice any bloody stool. Related Data Home Medications ?Medication ?Instructions ?Recorded ?Confirmed pentosan polysulfate sodium 100 mg 100 mg PO TID 03/20/21 08/24/24 capsule (Elmiron) verapamil 80 mg tablet 80 mg PO DAILY 03/20/21 08/24/24 dutasteride 0.5 mg capsule 0.5 mg PO DAILY 02/27/23 08/24/24 (Avodart) Previous Rx's ?Medication ?Instructions ?Recorded ascorbic acid (vitamin C) 250 mg 500 mg (2 x 250 mg) PO DAILY #90 01/23/24 tablet (Vitamin C) tabs ferrous sulfate 325 mg (65 mg 325 mg PO BID #60 tabs 01/23/24 iron) tablet cholecalciferol (vitamin D3) 50 50 mcg PO DAILY #90 caps 05/08/24 mcg (2,000 unit) capsule Nexium 40 mg capsule,delayed 40 mg PO BID #180 caps 06/30/24 release (esomeprazole magnesium) loperamide 2 mg capsule 2 mg PO Q6H PRN for diarrhea #120 06/30/24 caps sucralfate 1 gram tablet (Carafate) 1 g PO BID 90 days #180 tabs 06/30/24 Allergies Allergy/AdvReac Type Severity Reaction Status Date / Time esomeprazole Allergy Mild urinating Verified 10/10/24 15:30 trouble Review of Systems 2 Review of Systems: Positive history of anemia Yes all other systems are reviewed and are negative PMFSH Past Medical History Attestation statement: The following information was validated with the patient. Medical History Tubular adenoma Hemiplegic migraine Interstitial cystitis Irritable bowel syndrome Gastroesophageal reflux disease Surgical History History of excision of pilonidal cyst (02/27/23) History of esophagogastroduodenoscopy (EGD) H/O colonoscopy Hx of cystoscopy History of vasectomy H/O removal of cyst Family History Family History Father COPD (chronic obstructive pulmonary disease) Stroke COVID-19 Paternal Grandmother Cancer of unknown origin Social History Social History Household Members: Family Alcohol intake: current Alcohol intake frequency: a few times a week Patient Tobacco Use Status: Current everyday Tobacco user Tobacco use type: Cigarette Smoked in Last 30 Days: Yes Use of substances other than those prescribed or required for medical reasons: No Advance Directives: No Advance Directives Information Provided: No Do you have a plan to hurt others: No Plan service: No Current occupational status: employed Physical Exam ED Vital Signs: Vital Signs - 24 hr 10/10/24 15:29 10/10/24 16:18 10/10/24 16:32 Temperature 97.6 F 97.6 F 97.7 F Pulse Rate 73 68 68 Respiratory Rate 16 14 18 Blood Pressure 115/67 114/68 118/66 Pulse Oximetry 98 97 97 Oxygen Delivery Method Room Air Room Air Room Air 10/10/24 18:00 Temperature 97.9 F Pulse Rate 84 Respiratory Rate 16 Blood Pressure 130/84 Pulse Oximetry 98 Oxygen Delivery Method Room Air BMI result Body Mass Index 27.3 Appearance: Alert. Oriented X3. No acute distress. Eyes: Pupils equal, round and reactive to light. ENT: Pharynx normal. Neck: Normal inspection. Neck supple. No lymph nodes noted. No crepitus CVS: Normal heart rate and rhythm. Pulses normal. Normal S1 and S2 Respiratory: No respiratory distress. Breath sounds normal. No Wheezing. No rales Abdomen: Soft and nontender. No rigidity. No distention. good BS x4 Skin: Skin warm and dry. Normal skin color. Normal skin turgor. Extremities: No lower extremity edema. Neurovascular intact to all extremities. No Lacerations. No Rash Neuro: Oriented X 3. No motor deficit. No sensory deficit. Moving all extermities. No slurred speech Medical Decision Making Medical Decision Making [facility] Narrative: Patient well appearing no acute distress. Hemoglobin is actually 12. Patient's MCV was normal. There is no evidence for gross iron deficiency anemia at this time. Will require follow-up on an outpatient basis. We will get an EKG and also check thyroid prior to discharge. Patient's TSH is slightly low most likely patient has T4 is normal but will have patient follow-up on an outpatient basis. There is no evidence for anemia. He is well-appearing. Differential Diagnosis Differential Diagnoses: The differential diagnosis associated with the presentation includes Hypothyroid, arrhythmia, anemia, infection Admission/Observation Consideration of admission/observation: Escalation of care including admission/observation considered Lab Data [facility] Lab Attestation statement: I reviewed the patient's lab results. 10/10/24 15:53 10/10/24 15:53 Labs: Lab Results 10/10/24 Range/Units 15:53 WBC 6.2 (4.8-10.8) X10*3/uL RBC 4.75 (4.60-5.80) X10*6/uL Hgb 12.8 L (14.0-18.0) g/dl Hct 38.6 L (42.0-52.0) % MCV 81.3 (80.0-98.0) fL MCH 26.9 L (27.0-33.0) pg MCHC 33.2 (31.0-36.0) g/dl RDW 14.5 (11.0-16.0) % Plt Count 168 (160-400) X10*3/uL MPV 10.7 (9.4-12.4) fL Immature Gran % (Auto) 0.2 (0.0-0.4) % Neut % (Auto) 54.2 (45-73) % Lymph % (Auto) 36.0 (20-40) % [place] % (Auto) 7.7 (2-11) % Eos % (Auto) 1.4 (0-4) % Baso % (Auto) 0.5 (0-2) % Lymph # (Auto) 2.2 (1.2-4.9) X10*3/uL [place] # (Auto) 0.5 (0.1-1.2) X10*3/uL Eos # (Auto) 0.1 (0.0-0.4) X10*3/uL Baso # (Auto) 0.0 (0.0-0.2) X10*3/uL Abs Immat Gran (auto) 0.01 (0.00-0.03) X10*3/uL Absolute Neuts (auto) 3.4 (2.0-8.3) x10*3/uL Absolute Nucleated RBC 0.000 (0.0-0.012) X10*3/uL Nucleated RBC % (auto) 0.0 (0.0-0.2) /100WBC PT 11.2 (10.9-12.4) SEC INR 1.0 (0.9-1.1) Sodium 139 (135-145) mmol/L Potassium 4.4 (3.3-5.1) mmol/L Chloride 109 H (96-108) mmol/L Carbon Dioxide 24 (22-29) mmol/L Anion Gap 10 L (12-20) BUN 8 L (9-16) mg/dL Creatinine 0.83 (0.5-1.4) mg/dL Estim Creat Clear Calc 107.6 Estimated GFR > 60 Random Glucose 101 (60-115) mg/dL Calcium 8.9 (8.4-10.2) mg/dL Magnesium 1.8 (1.6-2.6) mg/dL Total Bilirubin 0.3 (0.0-1.0) mg/dL Direct Bilirubin 0.1 (0.0-0.5) mg/dL AST 38 H (5-37) U/L ALT 44 H (0-40) U/L Alkaline Phosphatase 87 (39-117) U/L Total Protein 6.7 (6.5-8.0) g/dL Albumin 3.8 (3.5-5.0) g/dL TSH 0.18 L (0.32-4.0) uIU/mL Influenza Type A (PCR) NEGATIVE (Negative) Influenza Type B (PCR) NEGATIVE (Negative) RSV RNA Qual (PCR) NEGATIVE (Negative) SARS-CoV-2 RNA (RT-PCR) NEGATIVE (Negative) Independent Interpretation I performed an independent interpretation of an: EKG (My interpretation of patient's EKG showed a sinus rhythm heart rate was 70 [place] QRS QTC normal there is significant evidence for LVH.) Chronic Conditions History of anemia Discharge Plan Discharge Clinical Impression: Feeling tired Patient Disposition: Home, Self-Care Instructions: Fatigue (ED) Prescriptions: No Action cholecalciferol (vitamin D3) 50 mcg (2,000 unit) capsule 50 mcg PO DAILY Qty: 90 3RF dutasteride [Avodart] 0.5 mg capsule 0.5 mg PO DAILY ferrous sulfate 325 mg (65 mg iron) Tablet 325 mg PO BID Qty: 60 3RF ascorbic acid (vitamin C) [Vitamin C] 250 mg Tablet 500 mg PO DAILY Qty: 90 3RF verapamil 80 mg tablet 80 mg PO DAILY Elmiron 100 mg capsule 100 mg PO TID esomeprazole magnesium [Nexium] 40 mg capsule,delayed release(DR/EC) 40 mg PO BID Qty: 180 3RF loperamide 2 mg capsule 2 mg PO Q6H PRN (Reason: for diarrhea) Qty: 120 3RF sucralfate [Carafate] 1 gram tablet 1 g PO BID 90 Days Qty: 180 2RF Rx Instructions: Take one tablet on an empty stomach by mouth twice a day Referrals: Patricia Damon MD [Primary Care Provider] - 10/13/24 Print Language: British
[2024-10-10 18:00] VITALS: BP 130/84; PULSE 84; RESP 16; TEMP 36.6; O2SAT 98
[2024-10-10 18:35] LABS: Thyroid Stimulating Hormone 0.18 uIU/mL (0.32-4.0)
--- NOTE | 2024-10-10 19:36 | PC.NURSE ---
Took over care from KEVIN Nixon at 19:00, plan is for pt to discharge home.
[2024-10-10 19:38] VITALS: BP 132/75; PULSE 75; RESP 16; TEMP 36.8; O2SAT 97
[2024-10-10 19:41] VITALS: BP 132/75; PULSE 75; RESP 16; TEMP 36.8; O2SAT 97
--- NOTE | 2024-10-10 19:42 | PC.NURSE ---
Reviewed discharge instruction with pt, pt verbalized understanding, no sign of distress, steady gait upon discharge.
== END 2024-10-10 19:43 | disposition home or self-care (01) ==
PROVIDERS: Physician Assistant; Emergency Provider Emergency Medicine Emergency Medical Services; PCP Internal Medicine
DX: R53.83 Other fatigue (principal); R53.1 Weakness; D50.9 Iron deficiency anemia, unspecified; F17.210 Nicotine dependence, cigarettes, uncomplicated; Z03.818 Encounter for observation for suspected exposure to other biological agents ruled out
CPT/HCPCS: 0241U; 36415; 80048; 80076; 83735; 84443; 85025; 85610; 93005; 99283; 99284

== ENCOUNTER → 2024-10-10 17:41 | Outpatient (BNV) | payer OTHER, SELFPAY | PROVIDERS: Emergency Provider Emergency Medicine Emergency Medical Services; PCP Internal Medicine; Visit Provider Internal Medicine Cardiovascular Disease | DX: R53.1 Weakness (principal) | CPT/HCPCS: 93010 ==

== ENCOUNTER 2024-11-02 15:14 | Outpatient (REF) | payer OTHER, SELFPAY ==
[2024-11-02 16:46] LABS: Estimated Average Glucose 120 mg/dL; Hemoglobin A1C 135.9293 umol/L; Hemoglobin A1c % 5.8 % (<6.0); Total Hemoglobin (HGBA1C) 3374.5025 umol/L
[2024-11-02 16:57] LABS: Alanine Aminotransferase 82 U/L (0-40); Albumin Level 3.9 g/dL (3.5-5.0); Alkaline Phosphatase 91 U/L (39-117); Anion Gap 9 (12-20); Aspartate Amino Transferase 68 U/L (5-37); Bilirubin Total 0.3 mg/dL (0.0-1.0); Blood Urea Nitrogen 6 mg/dL (9-16); Calcium 8.9 mg/dL (8.4-10.2); Carbon Dioxide 21 mmol/L (22-29); Chloride 111 mmol/L (96-108); Cholesterol 209 mg/dL (<200); Estimated Glomerular Filt Rate > 60; Glucose Random 121 mg/dL (60-115); HDL Cholesterol 43 mg/dL (>40); LDL Cholesterol Calculated 139 mg/dL (<100); Potassium 4.2 mmol/L (3.3-5.1); Sodium 137 mmol/L (135-145); Triglycerides 139 mg/dL (<150)
[2024-11-02 17:06] LABS: TSH reflex Free T4 0.21 uIU/mL (0.32-4.0); Vitamin D 25-OH Total 30.8 ng/mL (>30)
[2024-11-02 17:28] LABS: Folate 6.8 ng/mL (> or = 4.0); Vitamin B12 275 pg/mL (200-900)
[2024-11-02 17:59] LABS: Free T4 (Free Thyroxine) 0.92 ng/dL (0.71-1.85)
--- OUTSIDE RECORDS SUMMARY | 2024-11-02 19:20 | XMS_ITS | Encounter Summary ---
Author Organization [employer] Address [address] [place] [address] [address] [place] [address] Care Team Providers Care Oim Consultant Name Role Phone Patricia Damon MD Primary Care Provide r Encounter Details Date Type Department Care Team (Late st Contact Info) Description 09/21/2022 Orders Only [facility] MEDICINE [address] [place] [address] [phone] Maya Hernandez MD [address] [place] [address] [phone] Bunion of left foot (Primary Dx) Social History Tobacco Use Types Packs/Day Years Used Date Smoking Tobacco: Never Assessed Sex and Gender Information Value Date Recorded Sex Assigned at Male 08/06/2022 10:15 AM EDT Legal Sex Male 10:15 AM EDT Gender Identity Male 08/06/2022 10:15 AM EDT Sexual Orientation Choose not to disclose 2021 10:15 AM EDT documented as of this encounter Plan of Treatment Upcoming Encounters Date Type Department Care Team (Late st Contact Info) Description 11/19/2024 1:00 PM EST Telemedicine [facility] MEDICINE [address] [place] [address] [phone] Patricia Damon MD [address] [place], [place] [phone] documented as of this encounter Procedures Procedure Name Priority Date/Time Associated Diagnosis Comments GROSS AND MICROSCOPIC LEVEL 3 Routine 02/27/2023 8:08 AM EDT Bunion of left foot PANCREATIC ELASTASE, FECAL Routine 01/09/2023 8:51 PM EDT Bunion of left foot LIPASE Routine 01/04/2023 2:04 PM EDT Bunion of left foot HEMOGLOBIN A1C Routine 01/04/2023 2:04 PM EDT Bunion of left foot documented in this encounter Results * Gross and Microscopic Level 3 (02/27/2023 8:08 AM EDT) 02/27/2023 8:08 AM EDT 02/27/2023 9:45 AM EDT [facility] - 03/01/2023 2:17 PM EDT ----- ------- Name: Rosas Francisco ?Age/Sex: 47/M ? : 1975 Unit#: [id number] ?? Attend Dr: Kevin Tafoya MD ?Re02/27/23 ?Status: DEP MIC ? Location: HO.SSS ?Disch: ? ----- ------- SPEC : [id number] ? RECD: 02/27/23 ? STATUS: ??SOUT ? REQ NUM: [id number] ? JAZMYN: 02/27/23 ? SUBM DR: Kevin Tafoya MD ? ENTERED: ??02/27/23 ?SP TYPE: Surgical ? OTHR DR: Patricia Damon MD ? ORDERED: ??Gross Micro L3 ? Diagnosis ?? Skin, pilonidal cyst , excision: ??Pilonidal cyst with abscess formation. ?Clinical History Pilonidal cyst without abscess ?Microscopic Description Microscopic sections reviewed. ? Material Received ?? Pilonidal cyst ? Gross Description Received in formalin labeled ?pilonidal cyst? is a 3.8 x 1.0 cm ellipse of puckered and retracted flower skin and subcutaneous tissue excised to a maximum depth of 0.9 cm. ??The skin surface displays a central 1.6 x 0.6 cm focally firm puckered and retracted flower- white linear crease. ??The margins are inked and the specimen is serially sectioned to reveal homogeneous, dense, preston-white fibrous dermal tissue with a 0.7 x 0.5 x 0.45 cm somewhat fleshy, pale, flower-pink focus which closely approaches the peripheral soft tissue margin and is located 0.6 cm from the nearest tip margin. ??Cross-sections through the width of the specimen, to include the entire lesion, are submitted in cassettes A1 and A2. ??The tip portions are retained in formalin. CEDS Copies To: ?? Patricia Damon MD ?? [address] [facility] ?? [place] [address] ?? [phone] ?? Kevin Tafoya MD ?? [address] [facility]. ?? [place] [address] ?? [phone] ? CONTINUED ON NEXT PAGE ----- ------- Name: Rosas Francisco ?Age/Sex: 47/M ? : 1975 Unit#: [id number] ?? Attend Dr: Kevin Tafoya MD ?Re02/27/23 ?Status: DEP SDC ? Location: HO.SSS ?Disch: ? ----- ------- SPEC : [id number] ? RECD: 02/27/23 ? STATUS: ??SOUT ? REQ NUM: [id number] ? JAZMYN: 02/27/23 ? SUBM DR: Kevin Tafoya MD ? ENTERED: ??02/27/23 ?SP TYPE: Surgical ? OTHR : Patricia Damon MD ? ORDERED: ??Gross Micro L3 ? ----- ------- Signed (signature on file) Tereso Mejias MD 03/01/23 1417 ? ----- ------- ? END OF REPORT ? us [facility] External Provider LAB CYT OLOGY ORDERABLES Final Result Performing Organization Address [facility]/ZIP Co de Phone Number [facility] [address] [place] [address] [phone] * Pancreatic elastase, fecal (01/09/2023 8:51 PM EDT) Pancreatic Elastase 1 >500 mcg/g [facility] Comment:Adult and Pediatric Reference Ranges for Pancreatic Elastase-1: Normal: >200 mcg/gModerate Pancreatic Insufficiency: 100-200 mcg/g Severe Pancreatic Insufficiency: <100 mcg/gElastase-1 (E-1) assay results are expressedin mcg/g, which represent mcg E1/g feces.It is not necessary to interrupt enzymesubstitution therapy.THIS TEST WAS PERFORMED AT:[employer] [id number] [facility] [place] [phone] SHERIDAN MD,PHD,MACHELLE 01/09/2023 8:51 PM EDT 01/11/2023 8:52 AM EDT [facility] Exter nal Provider LAB BODY FLUIDS AND STOOLS ORDERABLES Final Result Performing Organization Address [facility] Co de Phone Number [facility] [address] [place] [phone] * Lipase (01/04/2023 2:04 PM EDT) Lipase 38 8 - 78 U/L [facility] 01/04/2023 2:04 PM EDT 01/04/2023 2:04 PM EDT [facility] External Provider LAB BLO OD ORDERABLES Final Result Performing Organization Address City/[facility]/ZIP Co de Phone Number [facility] [address] [place] [address] [phone] * Hemoglobin A1c (01/04/2023 2:04 PM EDT) Hemoglobin A1c 6.0 % [facility] Comment:Hemoglobin A1C Refer ence Range Adults: 4.8 - 6.0 % Non diabetic: < 6.0 % Goal: < 7.0 %Additional Action Suggested: > 8.0 %Note: Hemoglobin A1c results are invalid for patients with abnormal amounts of HbF. Blood transfusions may impact the HbA1c concentration in the patient sample. Estimated Average Glucose 126 mg/dL [facility] Comment:eAG = Estimated ave rage glucose which is %A1C expressed asaverage glucose, using the formula of the W1T-KrsdouxPtlclha Glucose study (ADAG), Diabetes Care, Vol.31,#8,May. 2007 01/04/2023 2:04 PM EDT 01/04/2023 2:04 PM EDT [facility] External Provider LAB BLO OD ORDERABLES Final Result Performing Organization Address City/State/[facility] Co de Phone Number [facility] [address] [place] [phone] documented in this encounter Visit Diagnoses Diagnosis Bunion of left foot- Primary Bunion documented in this encounter Care Teams Oim Consultant Relationship Specialty Start Date End Date Patricia Damon MD [address] [place] [phone] PCP - General Family Medicine 05/24/20 documented as of this encounter
--- OUTSIDE RECORDS SUMMARY | 2024-11-02 19:20 | XMS_ITS | Clinical Summary ---
Author Organization [address] [facility] Address [address] [place] [address] Phone Care Team Providers Care Finance And Administration Manager Name Role Phone Patricia Damon MD Primary Care Provide r Social History Tobacco Use Types Packs/Day Years Used Date Smoking Tobacco: Never Assessed Sex and Gender Information Value Date Recorded Sex Assigned at Not on file Gender Identity Not on file Sexual Orientation Not on file Job Start Date Occupation Industry Not on file Not on file Not on file Plan of Treatment Upcoming Encounters Date Type Department Care Team ([facility] Contact Info) Description 12/17/2024 10:45 AM EDT Consult Orthopedic Surgery - [place] [address] [phone] Jose Luis Phelps, DPM [address] [phone] Health Maintenance Due Date Last Done Comments DTaP,Tdap,and Td Vaccines (1 - Tdap) 1994 Hepatitis B Vaccines (1 of 3 - 19+ 3-dose series) 1994 COVID-19 Vaccine ( - 2023-2 5 season) 2024 Influenza Vaccine (#1) 2024 Cholesterol Screening (Lipid Panel) 10/30/2024 Colorectal Cancer Screening: Colonoscopy 10/30/2024 Depression Screening 10/30/2024 HIV Screening 10/30/2024 Hepatitis C Screening 10/30/2024 Social Influencers of Health Screening 10/30/2024 HIB Vaccines Aged Out No longer eligi ble based on patient's age to complete this topic HPV Vaccines Aged Out No longer eligi ble based on patient's age to complete this topic Hepatitis A Vaccines Aged Out No long er eligible based on patient's age to complete this topic IPV Vaccines Aged Out No longer eligi ble based on patient's age to complete this topic MMR Vaccines Aged Out No longer eligi ble based on patient's age to complete this topic Meningococcal ACWY Vaccine Aged Out N o longer eligible based on patient's age to complete this topic Pneumococcal Vaccine: Pediat rics (0 to 5 Years) and At-Risk Patients (6 to 64 Years) Aged Out No longer eligible b ased on patient's age to complete this topic RSV Immunization Patients Un maninder 20 months Aged Out No longer eligible b ased on patient's age to complete this topic Varicella Vaccines Aged Out No longer eligible based on patient's age to complete this topic Care Teams Finance And Administration Manager Relationship Specialty Start Date End Date Patricia Damon MD [address] [place] [phone] PCP - General Internal Medicine 10/29/24
--- OUTSIDE RECORDS SUMMARY | 2024-11-02 19:20 | XMS_ITS | Clinical Summary ---
Author Organization [employer] Address [address] [place] [address] [address] [place] [address] Care Team Providers Care Air Intercept Controller Supervisor Name Role Phone Patricia Damon MD Primary Care Provide r Allergies No known active allergies Medications esomeprazole (NexIUM) [address] capsuleIndicati ons:Gastroesoph ageal reflux disease, unspecified whether esophagitis present Take 1 capsule (40 mg) by mouth 2 times daily. Do not open capsule. 60 capsule 1 3 Active NexIUM 40 MG packetIndicatio ns:Gastroesopha geal reflux disease, unspecified whether esophagitis present Take 40 mg by mouth 2 times daily. Nexium only. No substitutions 7200 mg 3 Active pentosan polysulfate (Elmiron) 100 MG capsuleIndicati ons:Bladder pain TAKE 2 CAPSULES BY MOUTH TWICE DAILY 120 capsule 3 4 Active Avodart 0.5 MG capsuleIndicati ons:Benign prostatic hyperplasia, unspecified whether lower urinary tract symptoms present TAKE 1 CAPSULE BY MOUTH EVERY DAY IN THE MORNING 30 capsule 5 4 Active verapamil (Calan) 80 MG tablet TAKE 1 TABLET BY MOUTH AT BEDTIME 90 tablet 4 Active Active Problems Problem Noted Date Diagnosed Date Bunion of left foot 09/29/2024 Numbness and tingling of foot 09/29/2024 Chronic pain of left knee 09/29/2024 Dysfunction of right eustachian tube 05/05/2024 Assessment & Plan (05/05/2024 7:24 PM EDT): No visible infection, however symptoms suggest either resolving infection, eustatian tube dysfunction or other etiology, referral to ent Bunion 10/11/2023 10/11/2023 Folliculitis 10/11/2023 10/11/2023 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 10/11/19 Foot pain 10/11/2023 10/11/2023 Iron deficiency anemia 10/11/2023 Assessment & Plan (09/29/2024 2:07 PM EST): He is now being follow by hematology, he is receiving session of IV iron Hypercholesterolemia 09/24/2018 10/11/2023 Subclinical hyperthyroidism 09/24/201802/2024 Vitamin D deficiency 09/24/2018 10/11/2023 Benign prostatic hyperplasia 07/29/201802/2024 OAB (overactive bladder) 07/29/2018 024 Chronic interstitial cystitis 10/14/2012 Allergic rhinitis 03/25/2012 10/11/2023 Assessment & Plan (05/05/2024 7:24 PM EDT): Trial topical nasal spray, may discontinue for side effects Gastroesophageal reflux disease 03/25/2012 10/11/2023 Assessment & Plan (09/29/2024 2:07 PM EST): I advise patient to avoid NSAIDs, spicy and acid food, I advise to eat at the same time every day, I advise to elevate the head of the bed and take medications as prescribe Continue to follow with GI, he had recently EGD done work up for severe iron deficiency anemia done Tobacco dependence syndrome 03/25/201202/2024 Encounters Date Type Department Care Team Description 11/02/2024 Orders Only [facility] [address] [place] [address] Patricia Damon MD 10/10/2024 Orders Only GENERIC EXTERNAL DATA DEPARTMENT Provider, Generic External Data 09/29/2024 11:45 AM EST Office Visit [facility] [address] [place] [address] Patricia Damon MD Subclinical hyperthyroidism (Primary Dx); Iron deficiency anemia, unspecified iron deficiency anemia type; Gastroesophageal reflux disease, unspecified whether esophagitis present; Bunion of left foot; Numbness and tingling of foot; Chronic pain of left knee 09/29/[address] [address] Patricia Damon MD insurance 09/29/2024 Travel 09/28/[address] [address] Patricia Damon MD 09/18/2024 Patient Outreach [address] [address] Patricia Damon MD Pre-visit Planning ((Unable to reach for PVP screening, LVM)) 08/25/2024 Orders Only GENERIC EXTERNAL DATA DEPARTMENT Provider, Generic External Data 08/14/[address] [phone] Patricia Damon MD telephone call from Last 3 Months Social History Tobacco Use Types Packs/Day Years Used Date Smoking Tobacco: Every Day Cigarettes Passive Smoke Exposure: Current Smokeless Tobacco: Never Tobacco Cessation:Ready to Q uit: Not Asked; Counseling Given: Not Answered Alcohol Use Standard Drinks/Week Comments Yes 1 (1 standard drink = 0.6 oz pur e alcohol) oc once a week Depression Answer Date Recorded Patient Health Questionnaire-9 Score 0 09/29/2024 Patient Health Questionnaire-9 Score 0 09/29/2024 Last PHQ-9: Questionnaire Data Not on file 1 11/30/2023 Depression Answer Date Recorded Patient Health Questionnaire-2 Score 0 09/29/2024 Sex and Gender Information Value Date Recorded Sex Assigned at Male 08/06/2022 10:15 AM EDT Legal Sex Male 10:15 AM EDT Gender Identity Male 08/06/2022 10:15 AM EDT Sexual Orientation Choose not to disclose 2021 10:15 AM EDT Last Filed Vital Signs Vital Sign Reading Time Taken Comments Blood Pressure 136/77 09/29/2024 11:49 AM EST Pulse 87 09/29/2024 11:49 AM EST Temperature 36.3 ??C (97.4 ??F) 09/29/2024 11:[address] Respiratory Rate 20 09/29/2024 11:49 AM EST Oxygen Saturation 98% 09/29/2024 11:49 AM EST Inhaled Oxygen Concentration - - Weight 85.5 kg (188 lb 9.6 oz) 09/29/2024 11:49 AM EST Height 172.7 cm (5' 8 ) 09/29/2024 11:49 AM EST Body Mass Index 28.68 09/29/2024 11:49 AM EST Plan of Treatment Upcoming Encounters Date Type Department Care Team (Late st Contact Info) Description 11/19/2024 1:00 PM EST Telemedicine [facility] [address] [place], [place] [phone] Patricia Damon MD [address] [place] [address] Health Maintenance Due Date Last Done Comments CT Colonography 1975 Colonoscopy 1975 Colorectal Cancer Screening 1975 FIT DNA/Cologuard 1975 FIT 1975 FOBT 1975 HIV Screening 1975 SDOH Screening 1975 Sigmoidoscopy 1975 Alcohol/Substance Use Screening 1987 Family Planning (PISQ) 1990 Hepatitis C Screening 1993 DTaP/Tdap/Td Vaccines (1 - Tdap) 1994 Hepatitis A Vaccines (1 of 2 - Risk 2-dose series) 1994 Hepatitis B Vaccines (1 of 3 - 19+ 3-dose series) 1994 Influenza Vaccine (#1) 2024 07/19/2023, 2021 Zoster Vaccines (1 of 2) 2025 Depression Screening 09/29/2025 09/29/2024, 09/29/20 Tobacco Screening 09/29/2025 09/29/2024 Diabetes: Hemoglobin A1C 11/02/2025 025, 01/04/2023, 08/09/2020 Lipid Panel 11/02/2029 11/02/2024 RSV Patients and Patients Aged 60 years or older (1 - 1-dose 75+ series) 2050 COVID-19 Vaccine Completed 08/01/2024, 07/2023, 07/18/2022, Additional history exists Pneumococcal Vaccine: Pediatrics (0 to 5 Years) and At-Risk Patients (6 to 64 Years) Completed 08/01/2024 HIB Vaccines Aged Out No longer eligi ble based on patient's age to complete this topic HPV Vaccines Aged Out No longer eligi ble based on patient's age to complete this topic IPV Vaccines Aged Out No longer eligi ble based on patient's age to complete this topic Meningococcal Vaccine Aged Out No phong trice eligible based on patient's age to complete this topic RSV under 20 months Aged Out No longe r eligible based on patient's age to complete this topic Rotavirus Vaccines Aged Out No longer eligible based on patient's age to complete this topic Procedures Procedure Name Priority Date/Time Associated Diagnosis Comments T4, FREE Routine 11/02/2024 3:18 PM EST VITAMIN B12/FOLATE, SERUM PANEL Routine 11/02/2024 3:18 PM EST Numbness and tingling of foot TSH W/REFLEX TO FT4 Routine 11/02/2024 3 :18 PM EST Subclinical hyperthyroidism VITAMIN D,25-OH,TOTAL,IA Routine 11/02/2024 3:18 PM EST Subclinical hyperthyroidism LIPID PANEL, STANDARD Routine 11/02/2024 3:18 PM EST Subclinical hyperthyroidism HEMOGLOBIN A1C Routine 11/02/2024 3:18 PM EST Subclinical hyperthyroidism COMPREHENSIVE METABOLIC PANEL Routine 11/02/2024 3:18 PM EST Subclinical hyperthyroidism TSH Routine 10/10/2024 3:53 PM EST MAGNESIUM Routine 10/10/2024 3:53 PM EST BASIC METABOLIC PANEL Routine 10/10/2024 3:53 PM EST HEPATIC FUNCTION PANEL Routine 10/10/2024 3:53 PM EST PROTHROMBIN TIME-INR Routine 10/10/2024 3:53 PM EST CBC WITH AUTO DIFFERENTIAL Routine 10/10/2024 3:53 PM EST SARS COV2/INFLUENZA A/B AND RSV RNA QL NAAT Routine 10/10/2024 3:53 PM EST VITAMIN D 25-OH (D2 AND D3) Routine 08/25/2024 12:09 PM EST T4, FREE Routine 08/25/2024 12:09 PM EST VITAMIN B12/FOLATE, SERUM PANEL Routine 08/25/2024 12:09 PM EST TSH W/REFLEX TO FT4 Routine 08/25/2024 1 2:09 PM EST from Last 3 Months Results * Vitamin D, 25-Hydroxy, Total, Immunoassay (11/02/2024 3:18 PM EST) [facility] Vitamin D 25-OH Total 30.8 >30 ng/mL [facility] Comment:Health Based Referen ce Values*< 20 ng/mL [id number] ng/mL Insufficient> 30 ng/mL Sufficient*Artur MAS. N Engl J Med. 2007;357:266-280Care must be taken in interpreting Vitamin D results fromdifferent laboratories and methodologies. Published datademonstrated that results from patients undergoinghemodialysis may show a negative bias when tested withvarious automated 25-OH vitamin D assays when compared toLC-MS/MS.When testing samples from patients whose predominant form ofVitamin D is Vitamin D2, such as patients receiving VitaminD2 supplementation, results that are subtherapeutic shouldbe confirmed with another method such as LC-MS/MS. Blood Venous blood specimen / Unknown 11/02/2024 3:18 PM EST 11/02/2024 4:23 PM EST Patricia Storm MD LAB BLOOD ORDERABLES Final Result Performing Organization Address City/[facility]/ZIP Co de Phone Number [facility] [address] [place] [address] [phone] * Vitamin B12/Folate, Serum Panel (11/02/2024 3:18 PM EST) Only the most recent of2 resultswithin the time period is included. Vitamin B12 275 200 - 900 pg/mL [facility] Comment:NORMAL 200-900 PG/ML INDETERMINATE 160-199 PG/ML DEFICIENT < 160 PG/ML Folate 6.8 > or = 4.0 ng/mL [facility] Comment:Reference Values:> o r = 4.0 ng/mL< 4.0 ng/mL suggests folate deficiency Methotrexate, aminopterin and folinic acid(leucovorin) are chemotherapeutic agents whose molecularstructures are similar to folate; therefore, the Architectfolate assay cannot be used for patients using these drugs. Blood Venous blood specimen / Unknown 11/02/2024 3:18 PM EST 11/02/2024 4:23 PM EST Patricia Storm MD LAB BLOOD ORDERABLES Final Result Performing Organization Address [facility] Co de Phone Number [facility] [address] [place] [phone] * (ABNORMAL) TSH with Reflex to Free T4 (11/02/2024 3:18 PM EST) Only the most recent of2 resultswithin the time period is included. TSH reflex Free T4 0.21(L) 0.32 - 4.0 uIU/mL [facility] Blood Venous blood specimen / Unknown 11/02/2024 3:18 PM EST 11/02/2024 4:23 PM EST Patricia Storm MD LAB BLOOD ORDERABLES Final Result Performing Organization Address City/[facility]/ZIP Co de Phone Number [facility] [address] [place] [phone] * T4, Free (11/02/2024 3:18 PM EST) Only the most recent of2 resultswithin the time period is included. Free T4 (Free Thyroxine) 0.92 0.71 - 1.85 ng/dL [facility] 11/02/2024 3:18 PM EST 11/02/2024 4:23 PM EST Patricia Storm MD LAB BLOOD ORDERABLES Final Result Performing Organization Address [facility] Co de Phone Number [facility] [address] [place] [phone] * Hemoglobin A1c (11/02/2024 3:18 PM EST) Hemoglobin A1c 5.8 <6.0 % [facility] Comment:Hemoglobin A1C Refer ence Range Adults: 4.8 - 6.0 % Non diabetic: < 6.0 % Goal: < 7.0 %Additional Action Suggested: > 8.0 %Note: Hemoglobin A1c results are invalid for patients with abnormal amounts of HbF. Blood transfusions may impact the HbA1c concentration in the patient sample. Estimated Average Glucose 120 mg/dL [facility] Comment:eAG = Estimated ave rage glucose which is %A1C expressed asaverage glucose, using the formula of the [id number] Glucose study (ADAG), Diabetes Care, Vol.31,#8,May. 2007 Blood Venous blood specimen / Unknown 11/02/2024 3:18 PM EST 11/02/2024 4:23 PM EST Patricia Storm MD LAB BLOOD ORDERABLES Final Result [facility] [address] [place] [phone] * (ABNORMAL) Lipid Panel, Standard (11/02/2024 3:18 PM EST) Triglycerides 139 <150 mg/dL [facility] Comment:Desirable Triglyceri de: less than 150 mg/dLBorderline High Triglyceride 150-199 mg/dLHigh Triglyceride: 200-499 mg/dLVery High Triglyceride: greater than or equal to 5OO mg/dL Cholesterol 209(H) <200 mg/dL [facility] Comment:Desirable Cholestero l: less than 200 mg/dLBorderline High Cholesterol: 200-239 mg/dLHigh Cholesterol: greater than 239 mg/dL LDL Cholesterol Calculated 139(H) <100 mg/dL [facility] Comment:Desirable LDL: less than 100 mg/dLNear Optimal/Above Optimal LDL: 110- 129 mg/dLBorderline High LDL: 130-159 mg/dLHigh LDL: 160-189 mg/dLVery High LDL: greater than or equal to 190 mg/dL HDL Cholesterol 43 >40 mg/dL [facility] Comment:Desirable HDL: great er than 40 mg/dL Note: This HDL assay may give artificially low results in patients with liver disease. Blood Venous blood specimen / Unknown 11/02/2024 3:18 PM EST 11/02/2024 4:23 PM EST Patricia Storm MD LAB BLOOD ORDERABLES Final Result [facility] [address], [place] [phone] * (ABNORMAL) Comprehensive Metabolic Panel (11/02/2024 3:18 PM EST) Sodium 137 135 - 145 mmol/L [facility] Potassium 4.2 3.3 - 5.1 mmol/L [facility] Chloride 111(H) 96 - 108 mmol/L [facility] Carbon Dioxide 21(L) 22 - 29 mmol/L [facility] Anion Gap 9(L) 12 - 20 [facility] Urea Nitrogen (BUN) 6(L) 9 - 16 mg/dL [facility] Creatinine, Serum 0.79 0.5 - 1.4 mg/dL [facility] Estimated Glomerular Filt Rate >60 [facility] Comment:Chronic Kidney Disea se: Estimated GFR < 60 mL/min/[id number] Kidney Disease: Estimated GFR < 15 mL/min/1.73m2 Glucose 121(H) 60 - 115 mg/dL [facility] Calcium 8.9 8.4 - 10.2 mg/dL [facility] Bilirubin, Total 0.3 0.0 - 1.0 mg/dL [facility] Aspartate Amino Transferase 68(H) 5 - 37 U/L [facility] Alanine Aminotransferase 82(H) 0 - 40 U/L [facility] Total Protein 7.0 6.5 - 8.0 g/dL [facility] Albumin Level 3.9 3.5 - 5.0 g/dL [facility] Alkaline Phosphatase 91 39 - 117 U/L [facility] Blood Venous blood specimen / Unknown 11/02/2024 3:18 PM EST 11/02/2024 4:23 PM EST us Patricia Storm MD LAB BLOOD ORDERABLES Final Result [facility] [address] [place] [phone] * SARS-CoV-2 RNA, Influenza A/B, and RSV RNA, Ql NAAT (10/10/2024 3:53 PM EST) Influenza A PCR NEGATIVE Negative [facility] Influenza B PCR NEGATIVE Negative [facility] Resp Syncy Virus RNA Qual PCR NEGATIVE Negative [facility] SARS COV2 PCR NEGATIVE Negative [facility] Comment:All test results mus t be correlated with clinical findings.Negative results do not preclude SARS-CoV2, influenza Avirus, influenza B virus and/or RSV infectionand should not be used as the sole basis for treatment orother patient management decisions. Negative results must becombined with clinical observations, patient history, andepidemiological information.This test has not been evaluated for monitoring treatment ofinfection.This test has been authorized by the FDA under an EmergencyUse Authorization (EUA) for use by authorized laboratories.Testing performed on the [employer] GeneXpert utilizingreal-time RT-PCR.All SARS CoV2 and positive influenza A/B results arereported to [facility]. 10/10/2024 3:53 PM EST 10/10/2024 3:56 PM EST us Generic External Data Provider LAB MICROBIOLOGY - GENERAL ORDERABLES Final Result [facility] [address] [place] [phone] * (ABNORMAL) CBC auto differential (10/10/2024 3:53 PM EST) White Blood Count 6.2 4.8 - 10.8 X10*3/uL [facility] Red Blood Count 4.75 4.60 - 5.80 X10*6/uL [facility] Hemoglobin 12.8(L) 14.0 - 18.0 g/dl [facility] Hematocrit 38.6(L) 42.0 - 52.0 % [facility] Mean Corpuscular Volume 81.3 80.0 - 98.0 fL [facility] Mean Corpuscular Hemoglobin 26.9(L) 27.0 - 33.0 pg [facility] Mean Corpuscular HGB Conc 33.2 31.0 - 36.0 g/dl [facility] Red Cell Distribution Width 14.5 11.0 - 16.0 % [facility] Platelet Count 168 160 - 400 X10*3/uL [facility] Mean Platelet Volume 10.7 9.4 - 12.4 fL [facility] Neutrophils Percent Auto 54.2 45 - 73 % [facility] Imm Gran Pct Auto 0.2 0.0 - 0.4 % [facility] Lymphocytes Percent Auto 36.0 20 - 40 % [facility] Monocytes Percent Auto 7.7 2 - 11 % [facility] Eosinophils Percent Auto 1.4 0 - 4 % [facility] Basophils Percent Auto 0.5 0 - 2 % [facility] NRBC Pct Auto 0.0 0.0 - 0.2 /100WBC [facility] Neutrophils Absolute Auto 3.4 2.0 - 8.3 x10*3/uL [facility] Imm Gran Abs Auto 0.01 0.00 - 0.03 X10*3/uL [facility] Lymphocytes Absolute Auto 2.2 1.2 - 4.9 X10*3/uL [facility] Monocytes Absolute Auto 0.5 0.1 - 1.2 X10*3/uL [facility] Eosinophils Absolute Auto 0.1 0.0 - 0.4 X10*3/uL [facility] Basophils Absolute Auto 0.0 0.0 - 0.2 X10*3/uL [facility] NRBC Abs Auto 0.000 0.0 - 0.012 X10*3/uL [facility] 10/10/2024 3:53 PM EST 10/10/2024 3:56 PM EST us Generic External Data Provider LAB BLOOD ORDERAB LES Final Result Performing Organization Address City/State/[facility] Co de Phone Number [facility] [address] [place] [phone] * Prothrombin Time-INR (10/10/2024 3:53 PM EST) Prothrombin Time 11.2 10.9 - 12.4 SEC [facility] INTERNATIONAL NORM RATIO 1.0 0.9 - 1.1 [facility] Comment:INTERNATIONAL NORMAL IZED RATIO (INR) REFERENCE RANGES Reference RangeFor patients not on anticoagulant therapy: 0.9 - 1.1INR ranges for oral anticoagulanttherapy:For prevention and treatment of venous thrombosis and pulmonary embolism: 2.0 - 3.0For acute myocardial infarction with aspirin therapy: 2.0 - 3.0For acute myocardial infarction without aspirin therapy: 3.0 - 4.0For patients with mechanical prosthetic heart valves: 2.5 - 3.5 10/10/2024 3:53 PM EST 10/10/2024 3:56 PM EST us Generic External Data Provider LAB BLOOD ORDERAB LES Final Result Performing Organization Address [facility] Co de Phone Number [facility] [address] [place] [phone] * (ABNORMAL) TSH (10/10/2024 3:53 PM EST) Thyroid Stimulating Hormone 0.18(L) 0.32 - 4.0 uIU/mL [facility] Comment:TSH 3rd Generation ( [facility]) 10/10/2024 3:53 PM EST 10/10/2024 3:56 PM EST us Generic External Data Provider LAB BLOOD ORDERAB LES Final Result Performing Organization Address [facility] Co ri Phone Number [facility] [address] [place] [phone] * Magnesium (10/10/2024 3:53 PM EST) Magnesium 1.8 1.6 - 2.6 mg/dL [facility] 10/10/2024 3:53 PM EST 10/10/2024 3:56 PM EST us Generic External Data Provider LAB BLOOD ORDERAB LES Final Result Performing Organization Address [facility] Co de Phone Number [facility] [address] [place] [phone] * (ABNORMAL) Hepatic Function Panel (10/10/2024 3:53 PM EST) Bilirubin, Total 0.3 0.0 - 1.0 mg/dL [facility] Bilirubin, Direct 0.1 0.0 - 0.5 mg/dL [facility] Aspartate Amino Transferase 38(H) 5 - 37 U/L [facility] Alanine Aminotransferase 44(H) 0 - 40 U/L [facility] Total Protein 6.7 6.5 - 8.0 g/dL [facility] Albumin Level 3.8 3.5 - 5.0 g/dL [facility] Alkaline Phosphatase 87 39 - 117 U/L [facility] 10/10/2024 3:53 PM EST 10/10/2024 3:56 PM EST us Generic External Data Provider LAB BLOOD ORDERAB LES Final Result [facility] [address] [place] [phone] * (ABNORMAL) Basic Metabolic Panel (10/10/2024 3:53 PM EST) Sodium 139 135 - 145 mmol/L [facility] Potassium 4.4 3.3 - 5.1 mmol/L [facility] Chloride 109(H) 96 - 108 mmol/L [facility] Carbon Dioxide 24 22 - 29 mmol/L [facility] Anion Gap 10(L) 12 - 20 [facility] Urea Nitrogen (BUN) 8(L) 9 - 16 mg/dL [facility] Creatinine, Serum 0.83 0.5 - 1.4 mg/dL [facility] Creatinine Clr Calc Pharmacy 107.6 [facility] Comment:eGFR (calculated fro m the MDRD study equation) and eCrCl(calculated from the Cockcroft-Gault equation) are based ondifferent parameters and may not yield comparable results.If eCrCl result is absurd, please check patient'sheight/weight. Estimated Glomerular Filt Rate >60 [facility] Comment:Chronic Kidney Disea se: Estimated GFR < 60 mL/min/[id number] Kidney Disease: Estimated GFR < 15 mL/min/1.73m2 Glucose 101 60 - 115 mg/dL [facility] Calcium 8.9 8.4 - 10.2 mg/dL [facility] 10/10/2024 3:53 PM EST 10/10/2024 3:56 PM EST us Generic External Data Provider LAB BLOOD ORDERAB LES Final Result [facility] [address] [place] [phone] * (ABNORMAL) VITAMIN D 25-OH (D2 AND D3) (08/25/2024 12:09 PM EST) Vitamin D, 25-OH, D2 <4 ng/mL [facility] Comment:This test was develo ped and its analytical performancecharacteristics have been determined by [employer] [place], [place]. It hasnot been cleared or approved by the U.S. Food and DrugAdministration. This assay has been validated pursuantto the CLIA regulations and is used for clinicalpurposes.THIS TEST WAS PERFORMED AT:[facility] [id number] [place] [id number] RIBERA MD,PHD Vitamin D, 25-OH, D3 20 ng/mL [facility] Comment:This test was develo ped and its analytical performancecharacteristics have been determined by [employer] [place], [place]. It hasnot been cleared or approved by the U.S. Food and DrugAdministration. This assay has been validated pursuantto the CLIA regulations and is used for clinicalpurposes. Vitamin D, 25-OH, Total 20(A) 30 - 100 ng/mL [facility] Comment:Vitamin D, 25-Hydrox y reports concentrations of twocommon forms, 25-OHD2 and 25-OHD3. 25-OHD3 indicatesboth endogenous production and supplementation.25-OHD2 is an indicator of exogenous sources such asdiet or supplementation. Therapy is based onmeasurement of Total 25-OHD, with levels <20 ng/mLindicative of Vitamin D deficiency, while levelsbetween 20 ng/mL and 30 ng/mL suggest insufficiency.Optimal levels are > or = 30 ng/mL.For additional information, please refer tohttp://education.[employer]/faq/KLX384(This link is being provided for informational/educational purposes only.) 08/25/2024 12:0 9 PM EST 08/25/2024 12:09 PM EST us Generic External Data Provider LAB BLOOD ORDERAB LES Final Result Performing Organization Address City/State/[facility] Co de Phone Number [facility] [address] [place] [phone] [phone] from Last 3 Months Insurance Care Teams Air Intercept Controller Supervisor Relationship Specialty Start Date End Date Patricia Damon MD [address] [place] [phone] PCP - General Family Medicine 05/24/20
--- OUTSIDE RECORDS SUMMARY | 2024-11-02 19:20 | XMS_ITS | Encounter Summary ---
Author Organization [employer] Address [address] [place] [address] [place] [address] Care Team Providers Care Stoneworking Belt Sander Name Role Phone Patricia Damon MD Primary Care Provide r Encounter Details Date Type Department Care Team (Late st Contact Info) Description 10/10/2024 Orders Only GENERIC EXTERNAL DATA DEPARTMENT Provider, Generic External Data Social History Tobacco Use Types Packs/Day Years Used Date Smoking Tobacco: Every Day Cigarettes Passive Smoke Exposure: Current Smokeless Tobacco: Never Alcohol Use Standard Drinks/Week Comments Yes 1 [...] Info) Description 11/19/2024 1:00 PM EST Telemedicine [facility] [address], [place] [phone] Patricia Damon MD [address], [place] [phone] documented as of this encounter Procedures Procedure Name Priority Date/Time Associated Diagnosis Comments SARS COV2/INFLUENZA A/B AND RSV RNA QL NAAT Routine 10/10/2024 3:53 PM EST CBC WITH AUTO DIFFERENTIAL Routine 10/10/2024 3:53 PM EST PROTHROMBIN TIME-INR Routine 10/10/2024 3:53 PM EST TSH Routine 10/10/2024 3:53 PM EST MAGNESIUM Routine 10/10/2024 3:53 PM EST HEPATIC FUNCTION PANEL Routine 10/10/2024 3:53 PM EST BASIC METABOLIC PANEL Routine 10/10/2024 3:53 PM EST documented in this encounter Results * (ABNORMAL) TSH (10/10/2024 3:53 PM EST) Thyroid Stimulating Hormone 0.18(L) 0.32 - 4.0 uIU/mL [facility] Comment:TSH 3rd Generation ( [facility]) 10/10/2024 3:53 PM EST 10/10/2024 3:56 PM EST us Generic External Data Provider LAB BLOOD ORDERAB LES Final Result [facility] [address] [place] [phone] * SARS-CoV-2 RNA, Influenza A/B, and RSV RNA, Ql NAAT (10/10/2024 3:53 PM EST) Pathologist [facility] Influenza A PCR NEGATIVE Negative [facility] Influenza B PCR NEGATIVE Negative [facility] Resp Syncy Virus RNA Qual PCR NEGATIVE Negative [facility] SARS COV2 PCR NEGATIVE Negative [facility] Comment:All test results mus t be [...] use by authorized laboratories.Testing performed on the [employer] GeneXpert utilizingreal-time RT-PCR.All SARS CoV2 and positive influenza A/B results arereported to [facility]. 10/10/2024 3:53 PM EST 10/10/2024 3:56 PM EST Generic External Data Provider LAB MICROBIOLOGY - GENERAL ORDERABLES Final Result Performing Organization Address [facility]/ZIP Co de Phone Number [facility] [address] [place] [phone] * Magnesium (10/10/2024 3:53 PM EST) Pathologist [facility] Magnesium 1.8 1.6 - 2.6 mg/dL [facility] 10/10/2024 3:53 PM EST 10/10/2024 3:56 PM EST Generic External Data Provider LAB BLOOD ORDERAB LES Final Result Performing Organization Address [facility] de Phone Number [facility] [address] [place] [phone] * (ABNORMAL) Basic Metabolic Panel (10/10/2024 3:53 PM EST) Sodium 139 135 - 145 mmol/L [facility] Potassium 4.4 3.3 - 5.1 mmol/L [facility] Chloride 109(H) 96 - 108 mmol/L [facility] Carbon Dioxide 24 22 - 29 mmol/L [facility] Anion Gap 10(L) 12 - 20 [facility] Urea Nitrogen (BUN) 8(L) 9 - 16 mg/dL [facility] Creatinine, Serum 0.83 0.5 - 1.4 mg/dL [facility] Creatinine Clr Calc Pharmacy 107.6 [facility] Comment:eGFR (calculated fro m the MDRD study equation) and eCrCl(calculated from the Cockcroft-Gault equation) are based ondifferent parameters and may not yield comparable results.If eCrCl result is absurd, please check patient'sheight/weight. Estimated Glomerular Filt Rate >60 [facility] Comment:Chronic Kidney Disea se: Estimated GFR < 60 mL/min/1.06v5Vvnrza Kidney Disease: Estimated GFR < 15 mL/min/1.73m2 Glucose 101 60 - 115 mg/dL [facility] Calcium 8.9 8.4 - 10.2 mg/dL [facility] 10/10/2024 3:53 PM EST 10/10/2024 3:56 PM EST us Generic External Data Provider LAB BLOOD ORDERAB LES Final Result Performing Organization Address [facility] Co de Phone Number [facility] [address] [place] [phone] * (ABNORMAL) Hepatic Function Panel (10/10/2024 3:53 PM EST) Bilirubin, Total 0.3 0.0 - 1.0 mg/dL [facility] Bilirubin, Direct 0.1 0.0 - 0.5 mg/dL [facility] Aspartate Amino Transferase 38(H) 5 - 37 U/L [facility] Alanine Aminotransferase 44(H) 0 - 40 U/L [facility] Total Protein 6.7 6.5 - 8.0 g/dL [facility] Albumin Level 3.8 3.5 - 5.0 g/dL [facility] Alkaline Phosphatase 87 39 - 117 U/L [facility] 10/10/2024 3:53 PM EST 10/10/2024 3:56 PM EST us Generic External Data Provider LAB BLOOD ORDERAB LES Final Result Performing Organization Address [facility] Co de Phone Number [facility] [address] [place] [address] [phone] * Prothrombin Time-INR (10/10/2024 3:53 PM EST) [facility] Prothrombin Time 11.2 10.9 - 12.4 SEC [facility] INTERNATIONAL NORM RATIO 1.0 0.9 - 1.1 [facility] Comment:INTERNATIONAL NORMAL IZED RATIO (INR) [...] 3:53 PM EST 10/10/2024 3:56 PM EST Generic External Data Provider LAB BLOOD ORDERAB LES Final Result Performing Organization Address [facility] de Phone Number [facility] [address] [place] [phone] * (ABNORMAL) CBC auto differential (10/10/2024 3:53 PM EST) [facility] White Blood Count 6.2 4.8 - 10.8 X10*3/uL [facility] Red Blood Count 4.75 4.60 - 5.80 X10*6/uL [facility] Hemoglobin 12.8(L) 14.0 - 18.0 g/dl [facility] Hematocrit 38.6(L) 42.0 - 52.0 % [facility] Mean Corpuscular Volume 81.3 80.0 - 98.0 fL [facility] Mean Corpuscular Hemoglobin 26.9(L) 27.0 - 33.0 pg [facility] Mean Corpuscular HGB Conc 33.2 31.0 - 36.0 g/dl [facility] Red Cell Distribution Width 14.5 11.0 - 16.0 % [facility] Platelet Count 168 160 - 400 X10*3/uL [facility] Mean Platelet Volume 10.7 9.4 - 12.4 fL [facility] Neutrophils Percent Auto 54.2 45 - 73 % [facility] Imm Gran Pct Auto 0.2 0.0 - 0.4 % [facility] Lymphocytes Percent Auto 36.0 20 - 40 % [facility] Monocytes Percent Auto 7.7 2 - 11 % [facility] Eosinophils Percent Auto 1.4 0 - 4 % [facility] Basophils Percent Auto 0.5 0 - 2 % [facility] NRBC Pct Auto 0.0 0.0 - 0.2 /100WBC [facility] Neutrophils Absolute Auto 3.4 2.0 - 8.3 x10*3/uL [facility] Imm Gran Abs Auto 0.01 0.00 - 0.03 X10*3/uL [facility] Lymphocytes Absolute Auto 2.2 1.2 - 4.9 X10*3/uL [facility] Monocytes Absolute Auto 0.5 0.1 - 1.2 X10*3/uL [facility] Eosinophils Absolute Auto 0.1 0.0 - 0.4 X10*3/uL [facility] Basophils Absolute Auto 0.0 0.0 - 0.2 X10*3/uL [facility] NRBC Abs Auto 0.000 0.0 - 0.012 X10*3/uL [facility] 10/10/2024 3:53 PM EST 10/10/2024 3:56 PM EST us Generic External Data Provider LAB BLOOD ORDERAB LES Final Result [facility] [address] [place] [phone] documented in this encounter Visit Diagnoses Not on filedocumented in this encounter Additional Health Concerns Assessment Noted Time PHQ-9 Depression Total Score: 0 09/29/20 24 11:50 AM EST documented as of this encounter Care Teams Stoneworking Belt Sander Relationship Specialty Start Date End Date Patricia Damon MD [address] [place] [phone] PCP - General Family Medicine 05/24/20 documented as of this encounter
[2024-11-03 08:23] LABS: HIV AB/AG Nonreactive (Nonreactive); ~HepC Num1 0.15 S/CO (0.00-0.79); ~Hepatitis C Antibody Nonreactive (Nonreactive)
== END 2024-11-02 15:15 | disposition home or self-care (01) ==
LOC: HO.HHCL 15:14
PROVIDERS: Visit Provider Internal Medicine
DX: Z11.4 Encounter for screening for human immunodeficiency virus [HIV] (principal); E05.90 Thyrotoxicosis, unspecified without thyrotoxic crisis or storm; R20.0 Anesthesia of skin; R20.2 Paresthesia of skin
CPT/HCPCS: 36415; 80053; 80061; 82306; 82607; 82746; 83036; 84439; 84443; 86803; 87389

== ENCOUNTER 2024-11-03 12:36 | Outpatient (AMB) | payer OTHER, SELFPAY ==
[2024-11-03 12:50] VITALS: BP 140/78; PULSE 76; O2SAT 97; BMI 28.0
--- NOTE | 2024-11-03 12:50 | A.OFFVIS_ITS ---
Vital Signs 11/03/24 12:50 Height 5 ft 8 in Weight 184 lb 4.903 oz BMI 28.0 BP 140/78 H Blood Pressure Location Rt brachial Position Sitting Pulse 76 Pulse Source Pulse Oximeter Pulse Oximetry (%) 97 Oxygen Delivery Method Room Air Intake Visit Reasons: f/u gallbladder concern Intake Note: ESTABLISHED PATIENT, Reason; 2 mos FUV. Changes/concerns? Difficulties following diet with regard to interstitial cystitis. Also reports mucus in stool, loose stools, bloating + nausea. Pt would like to discuss gallbladder function. No other GI concerns. Artist Mannequin Coloring Required: No Accompanied by: Self / Same As Patient Allergies esomeprazole Adverse Reaction (Mild, Verified 11/03/24 13:02) urinating trouble HPI HPI f/u gallbladder concern: Details: LAST VISIT Gastroesophageal reflux disease Irritable bowel syndrome Postprandial abdominal bloating Postprandial diarrhea Plan We will recheck vitamin levels. Patient was encouraged to take PPI as prescribed. Patient was also encouraged to follow low FODMAP diet. Take probiotic and fiber daily. Increase fluid intake and activity to promote better bowel motility. Patient will follow-up in the office in 6 months. He will call us if he will have any GI concerning symptoms. Patient is agreeable to current plan of care and verbalizes understanding of instructions. He was given the opportunity to ask questions and all questions answered. ? Thank you for allowing me participate in his care Orders Orders Vitamin D 25-OH (D2 and D3) 08/25/24 E55.9 Vitamin B12 and Folate 08/25/24 R19.7 TSH reflex Free T4 08/25/24 K59.00 TODAY'S VISIT Patient is here today for follow-up. Patient continues to have frequent bowel movements and abdominal bloating. Patient has not followed low FODMAP diet. Patient reports that he needs visual. Patient is frustrated and upset. Patient just recently found out that his uncle was diagnosed with leukemia. Patient is scared and nervous and will check with his admission specialist on his next appointment. Patient continues to refuse to take fiber as he believes that that will make him go more. Long discussion with patient about fiber therapy and working as a bulking agent versus causing diarrhea. Patient is upset that he had to go for colonoscopy and had to do the prep to clean out and he is insisting that that is because of this patient is feeling that way. Patient denies any melena, h ematochezia. Symptoms of acid reflux are currently suppressed with PPI and sucralfate. COUNT INCLUDES [facility] Medical History Tubular adenoma Hemiplegic migraine Interstitial cystitis Irritable bowel syndrome Gastroesophageal reflux disease Surgical History History of excision of pilonidal cyst (02/27/23) History of esophagogastroduodenoscopy (EGD) H/O colonoscopy Hx of cystoscopy History of vasectomy H/O removal of cyst Family History Father COPD (chronic obstructive pulmonary disease) Stroke COVID-19 Paternal Grandmother Cancer of unknown origin Social History Household Members: Family Alcohol intake: current Alcohol intake frequency: a few times a week Patient Tobacco Use Status: Current everyday Tobacco user Tobacco use type: Cigarette service: No Current occupational status: employed Review of Systems Const Denies weight gain and Denies weight loss ENT Reports no additional complaints, Denies dysphagia and Denies odynophagia Card Reports no additional complaints Resp Reports no additional complaints GI Denies abdominal pain, Denies belching, Denies melena, Reports bloating, Denies change in bowel habits, Denies dysphagia, Denies excessive flatus, Denies dyspepsia, Denies heartburn, Denies diarrhea, Reports loose stools, Denies nausea, Denies odynophagia and Denies vomiting Reports no additional complaints Musc Reports no additional complaints Neuro Reports no additional complaints Psych Reports no additional complaints Endo Reports no additional complaints Physical Exam Vital Signs: Last Vital Signs Pulse 76 11/03/24 12:50 BP 140/78 H 11/03/24 12:50 Pulse Ox 97 11/03/24 12:50 Oxygen Delivery Method Room Air 11/03/24 12:50 BMI result Body Mass Index 28.0 Const General: healthy appearing, no acute distress and well developed Nutritional Appearance: well nourished Orientation/consciousness: patient oriented x3 Resp Effort & Inspection: normal respiratory effort, able to speak in complete sentences, no tracheal deviation and symmetric chest movement Auscultation: clear to auscultation bilaterally Cardio Rate: regular rate GI Inspection: Yes normal to inspection and No distended Palpation (GI): Soft to palpation, not firm, nontender and No hepatosplenomegaly present Auscultation: normal bowel sounds General: Yes no CVA tenderness Back/Spine/Pelvis Back: no CVA tenderness Skin General skin exam: elasticity normal, turgor normal and dry skin Neuro General: patient oriented x3 Psych Appearance: grossly normal Mental Status: mental status grossly normal Assessment & Plan Assessment & Plan (1) Gastroesophageal reflux disease: Code(s): K21.9 - Gastro-esophageal reflux disease without esophagitis Category: Medical Qualifiers: Esophagitis presence: esophagitis presence not specified Qualified Code(s): K21.9 - Gastro-esophageal reflux disease without esophagitis (2) Irritable bowel syndrome: Code(s): K58.9 - Irritable bowel syndrome, unspecified Category: Medical Qualifiers: Irritable bowel syndrome type: with both diarrhea and constipation Qualified Code(s): K58.2 - Mixed irritable bowel syndrome (3) Postprandial abdominal bloating: Code(s): R14.0 - Abdominal distension (gaseous) (4) Postprandial diarrhea: Code(s): K52.9 - Noninfective gastroenteritis and colitis, unspecified Plan Long discussion with patient about fiber, education provided. Increase fluid intake and activity to promote better bowel motility. Emotional support given to patient. Continue low FODMAP diet. The list that patient was recommended last visit. Patient will follow-up in 3 months, sooner on as needed basis. He is agreeable to this plan and verbalizes understanding of instructions he was given the opportunity to ask questions and all questions answered. Thank you for allowing me to participate in his care Coding Level of Care Code Est Pt Level 4 (55040) Complex EM visit Add On G2211 Diagnoses Gastroesophageal reflux disease, unspecified whether esophagitis present K21.9 Esophagitis presence: esophagitis presence not specified Irritable bowel syndrome with both constipation and diarrhea K58.2 Irritable bowel syndrome type: with both diarrhea and constipation Postprandial abdominal bloating R14.0 Postprandial diarrhea K52.9 Time Spent (min) 35 Comment 25 minutes spent with patient and additional 10 minutes spent reviewing his records
--- OUTSIDE RECORDS SUMMARY | 2024-11-03 13:30 | XMS_ITS | Encounter Summary ---
Author Organization [employer] Address [address] [place] [address] 7 [place] [address] Care Team Providers Care Section Supervisor Name Role Phone Patricia Damon MD Primary Care Provide r Encounter Details Date Type Department Care Team (Late Contact Info) Description 11/02/2024 Orders Only [facility] [address] [place] [address] [phone] Patricia Damon MD [address] [place] [address] [phone] Social History Tobacco Use Types Packs/Day Years [...] Info) Description 11/19/2024 1:00 PM EST Telemedicine [facility] [address] [place] [phone] Patricia Damon MD [address] [place] [address] documented as of this encounter Procedures Procedure Name Priority Date/Time Associated Diagnosis Comments T4, FREE Routine 11/02/2024 3:18 PM EST documented in this encounter Results * T4, Free (11/02/2024 3:18 PM EST) Free T4 (Free Thyroxine) 0.92 0.71 - 1.85 ng/dL [facility] 11/02/2024 3:1 8 PM EST 11/02/2024 4:23 PM EST us Patricia Storm MD LAB BLOOD ORDERABLES Final Result [facility] [address] [place] [phone] documented in this encounter Visit Diagnoses Not on filedocumented in this encounter Additional Health Concerns Assessment Noted Time PHQ-9 Depression Total Score: 0 09/29/20 24 11:50 AM EST documented as of this encounter Care Teams Section Supervisor Relationship Specialty Start Date End Date Patricia Damon MD [address] [place] [address] PCP - General Family Medicine 05/24/20 documented as of this encounter
--- OUTSIDE RECORDS SUMMARY | 2024-11-03 13:31 | XMS_ITS | Clinical Summary ---
Author Organization [employer] Address [address] [place] [address] [address] [place] [address] Care Team Providers Care Tube Backer Name Role Phone Patricia Damon MD Primary [...] Department Care Team Description 11/02/2024 Orders Only [facility] MEDICINE [address] [place] [address] Patricia Damon MD 10/10/2024 Orders Only GENERIC EXTERNAL DATA DEPARTMENT Provider, Generic External Data 09/29/2024 11:45 AM EST Office Visit [facility] MEDICINE [address] [place] [address] Patricia Damon MD Subclinical hyperthyroidism (Primary Dx); Iron deficiency anemia, unspecified iron deficiency anemia type; Gastroesophageal reflux disease, unspecified whether esophagitis present; Bunion of left foot; Numbness and tingling of foot; Chronic pain of left knee 09/29/[address] [address] Patricia Damon MD insurance 09/29/2024 Travel 09/28/[address] [address] Patricia Damon MD 09/18/2024 Patient Outreach [address] [address] Patricia Damon MD Pre-visit Planning ((Unable to reach for PVP screening, LVM)) 08/25/2024 Orders Only GENERIC EXTERNAL DATA DEPARTMENT Provider, Generic External Data 08/14/[address] [phone] Patricia Damon MD telephone call from Last [...] 11/19/2024 1:00 PM EST Telemedicine [facility] MEDICINE [address], [place] [phone] Patricia Damon MD [address] [place], [place] [phone] Health Maintenance Due Date Last Done Comments CT Colonography 1975 Colonoscopy 1975 Colorectal Cancer Screening 1975 FIT DNA/Cologuard 1975 FIT 1975 FOBT 1975 SDOH Screening 1975 Sigmoidoscopy 1975 Alcohol/Substance Use Screening 1987 Family Planning (PISQ) 1990 DTaP/Tdap/Td Vaccines (1 - Tdap) 1994 Hepatitis [...] Patients (6 to 64 Years) Completed 08/01/2024 HIV Screening Completed 11/02/2024 Hepatitis C Screening Completed 11/02/2024 HIB Vaccines Aged Out No longer eligi [...] Routine 11/02/2024 3:18 PM EST Subclinical hyperthyroidism HEPATITIS C AB W/REFL TO HCV RNA, QN, PCR Routine 11/02/2024 3:18 PM EST Subclinical hyperthyroidism HIV 1/2 ANTIGEN/ANTIBODY, FOURTH GENERATION W/RFL Routine 11/02/2024 3:18 PM EST Subclinical hyperthyroidism [...] 25-Hydroxy, Total, Immunoassay (11/02/2024 3:18 PM EST) Vitamin D 25-OH Total 30.8 >30 ng/mL [facility] Comment:Health Based Referen ce Values*< 20 ng/mL Thqazenxo16-28 ng/mL Insufficient> 30 ng/mL Sufficient*Artur MAS. N [...] BLOOD ORDERABLES Final Result Performing Organization Address City/[facility]/ZIP Co de Phone Number [facility] [address] [place] [phone] * Vitamin B12/Folate, Serum Panel (11/02/2024 3:18 PM EST) Only the most recent of2 resultswithin the time period is included. Vitamin B12 275 200 - 900 pg/mL [facility] Comment:NORMAL 200-900 PG/ML INDETERMINATE 160-199 PG/ML DEFICIENT < 160 PG/ML Folate 6.8 > or = 4.0 ng/mL [facility] Comment:Reference Values:> o r = 4.0 [...] BLOOD ORDERABLES Final Result Performing Organization Address [facility] Co de Phone Number [facility] [address] [place] [phone] * (ABNORMAL) TSH with Reflex to Free T4 (11/02/2024 3:18 PM EST) Only the most recent of2 resultswithin the time period is included. TSH reflex Free T4 0.21(L) 0.32 - 4.0 uIU/mL [facility] Blood Venous blood specimen / Unknown 11/02/2024 3:18 PM EST 11/02/2024 4:23 PM EST Patricia Storm MD LAB BLOOD ORDERABLES Final Result Performing Organization Address [facility]/ZIP Co de Phone Number [facility] [address] [place] [address] [phone] * Hepatitis C Antibody with Reflex to HCV, RNA, Quantitative, Real-Time PCR (11/02/2024 3:18 PM EST) Hepatitis C Antibody Nonreactive Nonreactive [facility] Comment:Antibodies to HCV no t detected; does not exclude early acuteHCV infection. Blood Venous blood specimen / Unknown 11/02/2024 3:18 PM EST 11/02/2024 4:23 PM EST Patricia Storm MD LAB BLOOD ORDERABLES Final Result Performing Organization Address [facility] Co de Phone Number [facility] [address] [place] [phone] * HIV-1/2 Antigen and Antibodies, Fourth Generation, with Reflexes (11/02/2024 3:18 PM EST) HIV AB/AG Nonreactive Nonreactive [facility] Comment:HIV-1 p24 Ag and/or HIV-1/HIV-2 Ab not detected.A test result that is nonreactive does not exclude thepossibility of exposure to or infection with HIV-1 and/orHIV-2. Nonreactive results in this assay for individualswith prior exposure to HIV-1 and/or HIV-2 may be due toantigen and antibody levels that are below the limit ofdetection of this assay.The [employer] HIV Ag/Ab Combo assay result andsupplemental assay results should be interpreted inconjunction with the patient's clinical presentation,history and other laboratory results. If the results areinconsistent with clinical evidence, additional testing issuggested to confirm the result. Blood Venous blood specimen / Unknown 11/02/2024 3:18 PM EST 11/02/2024 4:23 PM EST us Patricia Storm MD LAB BLOOD ORDERABLES Final Result Performing Organization Address [facility] Co de Phone Number [facility] [address] [place] [phone] * T4, Free (11/02/2024 3:18 PM EST) Only the most recent of2 resultswithin the time period is included. Free T4 (Free Thyroxine) 0.92 0.71 - 1.85 ng/dL [facility] 11/02/2024 3:18 PM EST 11/02/2024 4:23 PM EST Patricia Storm MD LAB BLOOD ORDERABLES Final Result Performing Organization Address [facility] de Phone Number [facility] [address] [place] [phone] * Hemoglobin A1c (11/02/2024 3:18 PM EST) Hemoglobin A1c 5.8 <6.0 % [facility] Comment:Hemoglobin A1C Refer ence Range Adults: 4.8 - 6.0 % Non diabetic: < 6.0 % Goal: < 7.0 %Additional Action Suggested: > 8.0 %Note: Hemoglobin A1c results are invalid for patients with abnormal amounts of HbF. Blood transfusions may impact the HbA1c concentration in the patient sample. Estimated Average Glucose 120 mg/dL [facility] Comment:eAG = Estimated ave rage glucose which is %A1C expressed asaverage glucose, using the formula of the [id number]-AjfsjxmDexlmuy Glucose study (ADAG), Diabetes Care, Vol.31,#8,May. 2007 Blood Venous blood specimen / Unknown 11/02/2024 3:18 PM EST 11/02/2024 4:23 PM EST us Patricia Storm MD LAB BLOOD ORDERABLES Final Result [facility] [address] [place] [phone] * (ABNORMAL) Lipid Panel, Standard (11/02/2024 3:18 PM EST) Triglycerides 139 <150 mg/dL [facility] Comment:Desirable Triglyceri de: less than 150 mg/dLBorderline High Triglyceride 150-199 mg/dLHigh Triglyceride: 200-499 mg/dLVery High Triglyceride: greater than or equal to 5OO mg/dL Cholesterol 209(H) <200 mg/dL [facility] Comment:Desirable Cholestero l: less than 200 mg/dLBorderline High Cholesterol: 200-239 mg/dLHigh Cholesterol: greater than 239 mg/dL LDL Cholesterol Calculated 139(H) <100 mg/dL [facility] Comment:Desirable LDL: less than 100 mg/dLNear Optimal/Above Optimal LDL: 110- 129 mg/dLBorderline High LDL: 130-159 mg/dLHigh LDL: 160-189 mg/dLVery High LDL: greater than or equal to 190 mg/dL HDL Cholesterol 43 >40 mg/dL [facility] Comment:Desirable HDL: great er than 40 mg/dL Note: This HDL assay may give artificially low results in patients with liver disease. Blood Venous blood specimen / Unknown 11/02/2024 3:18 PM EST 11/02/2024 4:23 PM EST us Patricia Storm MD LAB BLOOD ORDERABLES Final Result [facility] [address] [place] [phone] * (ABNORMAL) Comprehensive Metabolic Panel (11/02/2024 3:18 PM EST) Sodium 137 135 - 145 mmol/L [facility] Potassium 4.2 3.3 - 5.1 mmol/L [facility] Chloride 111(H) 96 - 108 mmol/L [facility] Carbon Dioxide 21(L) 22 - 29 mmol/L [facility] Anion Gap 9(L) 12 - 20 [facility] Urea Nitrogen (BUN) 6(L) 9 - 16 mg/dL [facility] Creatinine, Serum 0.79 0.5 - 1.4 mg/dL [facility] Estimated Glomerular Filt Rate >60 [facility] Comment:Chronic Kidney Disea se: Estimated GFR < 60 mL/min/1.50d2Adoplu Kidney Disease: Estimated GFR < 15 mL/min/1.73m2 Glucose 121(H) 60 - 115 mg/dL [facility] Calcium 8.9 8.4 - 10.2 mg/dL [facility] Bilirubin, Total 0.3 0.0 - 1.0 mg/dL [facility] Aspartate Amino Transferase 68(H) 5 - 37 U/L [facility] Alanine Aminotransferase 82(H) 0 - 40 U/L [facility] Total Protein 7.0 6.5 - 8.0 g/dL [facility] Albumin Level 3.9 3.5 - 5.0 g/dL [facility] Alkaline Phosphatase 91 39 - 117 U/L [facility] Blood Venous blood specimen / Unknown 11/02/2024 3:18 PM EST 11/02/2024 4:23 PM EST us Patricia Storm MD LAB BLOOD ORDERABLES Final Result [facility] [address] [place] [phone] * SARS-CoV-2 RNA, Influenza A/B, and RSV RNA, Ql NAAT (10/10/2024 3:53 PM EST) Influenza A PCR NEGATIVE Negative [facility] Influenza B PCR NEGATIVE Negative [facility] Resp Syncy Virus RNA Qual PCR NEGATIVE Negative [facility] SARS COV2 PCR NEGATIVE Negative [facility] Comment:All test results mus t [...] use by authorized laboratories.Testing performed on the [employer] GeneXpert utilizingreal-time RT-PCR.All SARS CoV2 and positive influenza A/B results arereported to [facility]. 10/10/2024 3:53 PM EST 10/10/2024 3:56 PM EST us Generic External Data Provider LAB MICROBIOLOGY - GENERAL ORDERABLES Final Result [facility] [address] [place] [phone] * (ABNORMAL) CBC auto differential (10/10/2024 3:53 PM EST) White Blood Count 6.2 4.8 - 10.8 X10*3/uL [facility] Red Blood Count 4.75 4.60 - 5.80 X10*6/uL [facility] Hemoglobin 12.8(L) 14.0 - 18.0 g/dl [facility] Hematocrit 38.6(L) 42.0 - 52.0 % [facility] Mean Corpuscular Volume 81.3 80.0 - 98.0 fL [facility] Mean Corpuscular Hemoglobin 26.9(L) 27.0 - 33.0 pg [facility] Mean Corpuscular HGB Conc 33.2 31.0 - 36.0 g/dl [facility] Red Cell Distribution Width 14.5 11.0 - 16.0 % [facility] Platelet Count 168 160 - 400 X10*3/uL [facility] Mean Platelet Volume 10.7 9.4 - 12.4 fL [facility] Neutrophils Percent Auto 54.2 45 - 73 % [facility] Imm Gran Pct Auto 0.2 0.0 - 0.4 % [facility] Lymphocytes Percent Auto 36.0 20 - 40 % [facility] Monocytes Percent Auto 7.7 2 - 11 % [facility] Eosinophils Percent Auto 1.4 0 - 4 % [facility] Basophils Percent Auto 0.5 0 - 2 % [facility] NRBC Pct Auto 0.0 0.0 - 0.2 /100WBC [facility] Neutrophils Absolute Auto 3.4 2.0 - 8.3 x10*3/uL [facility] Imm Gran Abs Auto 0.01 0.00 - 0.03 X10*3/uL [facility] Lymphocytes Absolute Auto 2.2 1.2 - 4.9 X10*3/uL [facility] Monocytes Absolute Auto 0.5 0.1 - 1.2 X10*3/uL [facility] Eosinophils Absolute Auto 0.1 0.0 - 0.4 X10*3/uL [facility] Basophils Absolute Auto 0.0 0.0 - 0.2 X10*3/uL [facility] NRBC Abs Auto 0.000 0.0 - 0.012 X10*3/uL [facility] 10/10/2024 3:53 PM EST 10/10/2024 3:56 PM EST us Generic External Data Provider LAB BLOOD ORDERAB LES Final Result Performing Organization Address City/State/[facility] Co de Phone Number [facility] [address] [place] [phone] * Prothrombin Time-INR (10/10/2024 3:53 PM EST) Prothrombin Time 11.2 10.9 - 12.4 SEC [facility] INTERNATIONAL NORM RATIO 1.0 0.9 - 1.1 [facility] Comment:INTERNATIONAL NORMAL IZED RATIO (INR) REFERENCE [...] ORDERAB LES Final Result Performing Organization Address [facility] Co de Phone Number [facility] [address] [place] [phone] * (ABNORMAL) TSH (10/10/2024 3:53 PM EST) Thyroid Stimulating Hormone 0.18(L) 0.32 - 4.0 uIU/mL [facility] Comment:TSH 3rd Generation ( [facility]) 10/10/2024 3:53 PM EST 10/10/2024 3:56 PM EST Generic External Data Provider LAB BLOOD ORDERAB LES Final Result Performing Organization Address [facility] de Phone Number [facility] [address] [place] [phone] * Magnesium (10/10/2024 3:53 PM EST) Magnesium 1.8 1.6 - 2.6 mg/dL [facility] 10/10/2024 3:53 PM EST 10/10/2024 3:56 PM EST Generic External Data Provider LAB BLOOD ORDERAB LES Final Result Performing Organization Address [facility] Phone Number [facility] [address] [place] [phone] * (ABNORMAL) Hepatic Function Panel (10/10/2024 3:53 PM EST) Bilirubin, Total 0.3 0.0 - 1.0 mg/dL [facility] Bilirubin, Direct 0.1 0.0 - 0.5 mg/dL [facility] Aspartate Amino Transferase 38(H) 5 - 37 U/L [facility] Alanine Aminotransferase 44(H) 0 - 40 U/L [facility] Total Protein 6.7 6.5 - 8.0 g/dL [facility] Albumin Level 3.8 3.5 - 5.0 g/dL [facility] Alkaline Phosphatase 87 39 - 117 U/L [facility] 10/10/2024 3:53 PM EST 10/10/2024 3:56 PM EST us Generic External Data Provider LAB BLOOD ORDERAB LES Final Result Performing Organization Address City/State/[facility] Co de Phone Number [facility] [address] [place] [phone] * (ABNORMAL) Basic Metabolic Panel (10/10/2024 3:53 PM EST) Pathologist [facility] Sodium 139 135 - 145 mmol/L [facility] Potassium 4.4 3.3 - 5.1 mmol/L [facility] Chloride 109(H) 96 - 108 mmol/L [facility] Carbon Dioxide 24 22 - 29 mmol/L [facility] Anion Gap 10(L) 12 - 20 [facility] Urea Nitrogen (BUN) 8(L) 9 - 16 mg/dL [facility] Creatinine, Serum 0.83 0.5 - 1.4 mg/dL [facility] Creatinine Clr Calc Pharmacy 107.6 [facility] Comment:eGFR (calculated fro m the MDRD study equation) and eCrCl(calculated from the Cockcroft-Gault equation) are based ondifferent parameters and may not yield comparable results.If eCrCl result is absurd, please check patient'sheight/weight. Estimated Glomerular Filt Rate >60 [facility] Comment:Chronic Kidney Disea se: Estimated GFR < 60 mL/min/1.45e0Abdeja Kidney Disease: Estimated GFR < 15 mL/min/1.73m2 Glucose 101 60 - 115 mg/dL [facility] Calcium 8.9 8.4 - 10.2 mg/dL [facility] 10/10/2024 3:53 PM EST 10/10/2024 3:56 PM EST us Generic External Data Provider LAB BLOOD ORDERAB LES Final Result [facility] [address] [place] [phone] * (ABNORMAL) VITAMIN D 25-OH (D2 AND D3) (08/25/2024 12:09 PM EST) Vitamin D, 25-OH, D2 <4 ng/mL [facility] Comment:This test was develo ped and its analytical performancecharacteristics have been determined by [employer] [place], [place]. It hasnot been cleared or approved by the U.S. Food and DrugAdministration. This assay has been validated pursuantto the CLIA regulations and is used for clinicalpurposes.THIS TEST WAS PERFORMED AT:[id number] [place] [id number] RIBERA MD,PHD Vitamin D, 25-OH, D3 20 ng/mL [facility] Comment:This test was develo ped and its analytical performancecharacteristics have been determined by [employer] [place], [place]. It hasnot been cleared or approved by the U.S. Food and DrugAdministration. This assay has been validated pursuantto the CLIA regulations and is used for clinicalpurposes. Vitamin D, 25-OH, Total 20(A) 30 - 100 ng/mL [facility] Comment:Vitamin D, 25-Hydrox y reports concentrations [...] = 30 ng/mL.For additional information, please refer tohttp://education.[employer]/faq/PSX633(This link is being provided for informational/educational purposes only.) 08/25/2024 12:0 9 PM EST 08/25/2024 12:09 PM EST us Generic External Data Provider LAB BLOOD ORDERAB LES Final Result Performing Organization Address City/State/[facility] Co de Phone Number [facility] [address] [place] [phone] from Last 3 Months Insurance Care Teams Tube Backer Relationship Specialty Start Date End Date Patricia Damon MD [address] [place] [address] PCP - General Family Medicine 05/24/20
--- OUTSIDE RECORDS SUMMARY | 2024-11-03 13:31 | XMS_ITS | Encounter Summary ---
Author Organization [employer] Address [address] [place] [address] [place] [address] Care Team Providers Care Model And Pattern Supervisor Name Role Phone Patricia Damon MD [...] Info) Description 11/19/2024 1:00 PM EST Telemedicine [facility] [address] [place], [place] [phone] Patricia Damon MD [address] [place], [place] [phone] documented as of this encounter Procedures Procedure [...] Stimulating Hormone 0.18(L) 0.32 - 4.0 uIU/mL [facility] Comment:TSH 3rd Generation ( [facility]) 10/10/2024 3:53 PM EST 10/10/2024 3:56 PM EST us Generic External Data Provider LAB BLOOD ORDERAB LES Final Result [facility] [address] [place] [phone] * SARS-CoV-2 RNA, Influenza A/B, and RSV RNA, Ql NAAT (10/10/2024 3:53 PM EST) Pathologist [facility] Influenza A PCR NEGATIVE Negative [facility] Influenza B PCR NEGATIVE Negative [facility] Resp Syncy Virus RNA Qual PCR NEGATIVE Negative [facility] SARS COV2 PCR NEGATIVE Negative [facility] Comment:All test results mus t [...] use by authorized laboratories.Testing performed on the IActive GeneXpert utilizingreal-time RT-PCR.All SARS CoV2 and positive influenza A/B results arereported to [facility]. 10/10/2024 3:53 PM EST 10/10/2024 3:56 PM EST Generic External Data Provider LAB MICROBIOLOGY - GENERAL ORDERABLES Final Result Performing Organization Address [facility]/ZIP Co de Phone Number [facility] [address] [place] [phone] * Magnesium (10/10/2024 3:53 PM EST) Pathologist [facility] Magnesium 1.8 1.6 - 2.6 mg/dL [facility] 10/10/2024 3:53 PM EST 10/10/2024 3:56 PM EST Generic External Data Provider LAB BLOOD ORDERAB LES Final Result Performing Organization Address [facility] de Phone Number [facility] [address] [place] [phone] * (ABNORMAL) Basic Metabolic Panel (10/10/2024 3:53 PM EST) Sodium 139 135 - 145 mmol/L [facility] Potassium 4.4 3.3 - 5.1 mmol/L [facility] Chloride 109(H) 96 - 108 mmol/L [facility] Carbon Dioxide 24 22 - 29 mmol/L [facility] Anion Gap 10(L) 12 - 20 [facility] Urea Nitrogen (BUN) 8(L) 9 - 16 mg/dL [facility] Creatinine, Serum 0.83 0.5 - 1.4 mg/dL [facility] Creatinine Clr Calc Pharmacy 107.6 [facility] Comment:eGFR (calculated fro m the MDRD study equation) and eCrCl(calculated from the Cockcroft-Gault equation) are based ondifferent parameters and may not yield comparable results.If eCrCl result is absurd, please check patient'sheight/weight. Estimated Glomerular Filt Rate >60 [facility] Comment:Chronic Kidney Disea se: Estimated GFR < 60 mL/min/1.34y7Rcgttb Kidney Disease: Estimated GFR < 15 mL/min/1.73m2 Glucose 101 60 - 115 mg/dL [facility] Calcium 8.9 8.4 - 10.2 mg/dL [facility] 10/10/2024 3:53 PM EST 10/10/2024 3:56 PM EST us Generic External Data Provider LAB BLOOD ORDERAB LES Final Result Performing Organization Address [facility] Co de Phone Number [facility] [address] [place] [address] [phone] * (ABNORMAL) Hepatic Function Panel (10/10/2024 3:53 PM EST) Bilirubin, Total 0.3 0.0 - 1.0 mg/dL [facility] Bilirubin, Direct 0.1 0.0 - 0.5 mg/dL [facility] Aspartate Amino Transferase 38(H) 5 - 37 U/L [facility] Alanine Aminotransferase 44(H) 0 - 40 U/L [facility] Total Protein 6.7 6.5 - 8.0 g/dL [facility] Albumin Level 3.8 3.5 - 5.0 g/dL [facility] Alkaline Phosphatase 87 39 - 117 U/L [facility] 10/10/2024 3:53 PM EST 10/10/2024 3:56 PM EST us Generic External Data Provider LAB BLOOD ORDERAB LES Final Result Performing Organization Address [facility] Co de Phone Number [facility] [address] [place] [phone] * Prothrombin Time-INR (10/10/2024 3:53 PM EST) [facility] Prothrombin Time 11.2 10.9 - 12.4 SEC [facility] INTERNATIONAL NORM RATIO 1.0 0.9 - 1.1 [facility] Comment:INTERNATIONAL NORMAL IZED RATIO (INR) [...] ORDERAB LES Final Result Performing Organization Address [facility] de Phone Number [facility] [address] [place] [phone] * (ABNORMAL) CBC auto differential (10/10/2024 3:53 PM EST) [facility] White Blood Count 6.2 4.8 - 10.8 X10*3/uL [facility] Red Blood Count 4.75 4.60 - 5.80 X10*6/uL [facility] Hemoglobin 12.8(L) 14.0 - 18.0 g/dl [facility] Hematocrit 38.6(L) 42.0 - 52.0 % [facility] Mean Corpuscular Volume 81.3 80.0 - 98.0 fL [facility] Mean Corpuscular Hemoglobin 26.9(L) 27.0 - 33.0 pg [facility] Mean Corpuscular HGB Conc 33.2 31.0 - 36.0 g/dl [facility] Red Cell Distribution Width 14.5 11.0 - 16.0 % [facility] Platelet Count 168 160 - 400 X10*3/uL [facility] Mean Platelet Volume 10.7 9.4 - 12.4 fL [facility] Neutrophils Percent Auto 54.2 45 - 73 % [facility] Imm Gran Pct Auto 0.2 0.0 - 0.4 % [facility] Lymphocytes Percent Auto 36.0 20 - 40 % [facility] Monocytes Percent Auto 7.7 2 - 11 % [facility] Eosinophils Percent Auto 1.4 0 - 4 % [facility] Basophils Percent Auto 0.5 0 - 2 % [facility] NRBC Pct Auto 0.0 0.0 - 0.2 /100WBC [facility] Neutrophils Absolute Auto 3.4 2.0 - 8.3 x10*3/uL [facility] Imm Gran Abs Auto 0.01 0.00 - 0.03 X10*3/uL [facility] Lymphocytes Absolute Auto 2.2 1.2 - 4.9 X10*3/uL [facility] Monocytes Absolute Auto 0.5 0.1 - 1.2 X10*3/uL [facility] Eosinophils Absolute Auto 0.1 0.0 - 0.4 X10*3/uL [facility] Basophils Absolute Auto 0.0 0.0 - 0.2 X10*3/uL [facility] NRBC Abs Auto 0.000 0.0 - 0.012 X10*3/uL [facility] 10/10/2024 3:53 PM EST 10/10/2024 3:56 PM EST us Generic External Data Provider LAB BLOOD ORDERAB LES Final Result [facility] [address] [place] [phone] documented in this encounter Visit Diagnoses Not on filedocumented in this encounter Additional Health Concerns Assessment Noted Time PHQ-9 Depression Total Score: 0 09/29/20 24 11:50 AM EST documented as of this encounter Care Teams Model And Pattern Supervisor Relationship Specialty Start Date End Date Patricia Damon MD [address] [place] [phone] PCP - General Family Medicine 05/24/20 documented as of this encounter
--- OUTSIDE RECORDS SUMMARY | 2024-11-03 13:31 | XMS_ITS | Clinical Summary ---
Author Organization [facility] Address [address] [place] [phone] Phone Care Team Providers Care Waxing Machine Operator Name Role Phone Patricia Damon MD Primary [...] Upcoming Encounters Date Type Department Care Team ([facility] Contact Info) Description 12/17/2024 10:45 AM EDT Consult Orthopedic Surgery - [place] [phone] [phone] Jose Luis Phelps, DPM [address] [address] Health Maintenance Due Date Last Done Comments [...] age to complete this topic Care Teams Waxing Machine Operator Relationship Specialty Start Date End Date Patricia Damon MD [address] [place] [phone] PCP - General Internal Medicine 10/29/24
--- OUTSIDE RECORDS SUMMARY | 2024-11-03 13:31 | XMS_ITS | Encounter Summary ---
Author Organization [employer] Address [address] [place] [address] [address] [place] [address] Care Team Providers Care Sleep Tech Name Role Phone Patricia Damon MD Primary Care Provide r Encounter Details Date Type Department Care Team (Late st Contact Info) Description 09/21/2022 Orders Only [facility] [address] [place] [address] [phone] Maya Hernandez MD [address] [place] [address] [phone] Bunion of left foot (Primary Dx) Social [...] Info) Description 11/19/2024 1:00 PM EST Telemedicine [facility] [address] [place] [address] [phone] Patricia Damon MD [address] [place], [place] [phone] documented as of this encounter Procedures Procedure [...] 8:08 AM EDT 02/27/2023 9:45 AM EDT [facility] - 03/01/2023 2:17 PM EDT ----- ------- Name: Rosas Francisco ?Age/Sex: 47/M ? : 1975 Unit#: [id number] ?? Attend Dr: Kevin Tafoya MD ?Re02/27/23 ?Status: DEP DEC ? Location: HO.SSS ?Disch: ? ----- ------- SPEC : [id number] ? RECD: 02/27/23 ? STATUS: ??SOUT ? REQ NUM: [id number] ? JAZMYN: 02/27/23 ? SUBM DR: Kevin [...] To: ?? Patricia Damon MD ?? [address] [facility] ?? [place] [address] ?? [phone] ?? Kevin Tafoya MD ?? [address] [facility]. ?? [place] [address] ?? [phone] ? CONTINUED ON NEXT PAGE ----- ------- Name: Rosas Francisco ?Age/Sex: 47/M ? : 1975 Unit#: [id number] ?? Attend Dr: Kevin Tafoya MD ?Re02/27/23 ?Status: DEP SDC ? Location: HO.SSS ?Disch: ? ----- ------- SPEC : [id number] ? RECD: 02/27/23 ? STATUS: ??SOUT ? REQ NUM: [id number] ? JAZMYN: 02/27/23 ? SUBM DR: Kevin Tafoya MD ? ENTERED: ??02/27/23 ?SP TYPE: Surgical ? OTHR : Patricia Damon MD ? ORDERED: ??G[employer] L3 ? ----- ------- Signed (signature on file) Tereso Mejias MD 03/01/23 1417 ? ----- ------- ? END OF REPORT ? us [facility] External Provider LAB CYT OLOGY ORDERABLES Final Result Performing Organization Address [facility]/ZIP Co de Phone Number [facility] [address] [place] [address] [phone] * Pancreatic elastase, fecal (01/09/2023 8:51 PM EDT) Pancreatic Elastase 1 >500 mcg/g [facility] Comment:Adult and Pediatric Reference Ranges for Pancreatic Elastase-1: Normal: >200 mcg/gModerate Pancreatic Insufficiency: 100-200 mcg/g Severe Pancreatic Insufficiency: <100 mcg/gElastase-1 (E-1) assay results are expressedin mcg/g, which represent mcg E1/g feces.It is not necessary to interrupt enzymesubstitution therapy.THIS TEST WAS PERFORMED AT:[facility]/[id number] [place] [phone] SHERIDAN MD,PHD,MACHELLE 01/09/2023 8:51 PM EDT 01/11/2023 8:52 AM EDT [facility] Exter nal Provider LAB BODY FLUIDS AND STOOLS ORDERABLES Final Result Performing Organization Address [facility] Co de Phone Number [facility] [address] [place] [phone] * Lipase (01/04/2023 2:04 PM EDT) Lipase 38 8 - 78 U/L [facility] 01/04/2023 2:04 PM EDT 01/04/2023 2:04 PM EDT [facility] External Provider LAB BLO OD ORDERABLES Final Result Performing Organization Address City/[facility]/ZIP Co de Phone Number [facility] [address] [place] [phone] [phone] * Hemoglobin A1c (01/04/2023 2:04 PM EDT) Hemoglobin A1c 6.0 % [facility] Comment:Hemoglobin A1C Refer ence Range Adults: 4.8 - 6.0 % Non diabetic: < 6.0 % Goal: < 7.0 %Additional Action Suggested: > 8.0 %Note: Hemoglobin A1c results are invalid for patients with abnormal amounts of HbF. Blood transfusions may impact the HbA1c concentration in the patient sample. Estimated Average Glucose 126 mg/dL [facility] Comment:eAG = Estimated ave rage glucose which is %A1C expressed asaverage glucose, using the formula of the Q4W-LppubyvJtmkbrk Glucose study (ADAG), Diabetes Care, Vol.31,#8,May. 2007 01/04/2023 2:04 PM EDT 01/04/2023 2:04 PM EDT [facility] External Provider LAB BLO OD ORDERABLES Final Result Performing Organization Address City/State/[facility] Co de Phone Number [facility] [address] [place] [phone] documented in this encounter Visit Diagnoses Diagnosis Bunion of left foot- Primary Bunion documented in this encounter Care Teams Sleep Tech Relationship Specialty Start Date End Date Patricia Damon MD [address] [place] [phone] PCP - General Family Medicine 05/24/20 documented as of this encounter
== END 2024-11-03 13:42 | disposition home or self-care (01) ==
PROVIDERS: PCP Internal Medicine; Visit Provider Nurse Practitioner Family
DX: K21.9 Gastro-esophageal reflux disease without esophagitis (principal); K58.2 Mixed irritable bowel syndrome; R14.0 Abdominal distension (gaseous)
CPT/HCPCS: 99214; G2211

== ENCOUNTER → 2024-11-03 12:36 | Outpatient (BNVA) | payer OTHER, SELFPAY | PROVIDERS: PCP Internal Medicine; Visit Provider Nurse Practitioner Family | DX: K58.2 Mixed irritable bowel syndrome (principal); R14.0 Abdominal distension (gaseous); K52.9 Noninfective gastroenteritis and colitis, unspecified; K21.9 Gastro-esophageal reflux disease without esophagitis | CPT/HCPCS: 99212 ==

== ENCOUNTER 2025-01-02 15:38 | Emergency (ER) | payer OTHER, SELFPAY ==
--- NOTE | ~2025-01-02 | XR_ITS ---
CLINICAL HISTORY: left sided chest pain Single view of the chest with left rib films. COMPARISON: None FINDINGS: Normal heart and mediastinal contours. No consolidation. Calcified granuloma in the left lung base. No pleural effusion or pneumothorax. No fracture identified. IMPRESSION: 1. No acute cardiopulmonary abnormality. 2. No rib fracture identified. This document has been electronically signed by: Martin Hobbs MD on 01/02/2025 16:39:22
--- NOTE | 2025-01-02 16:07 | ED_ITS ---
HPI - General Adult General Chief complaint: General Medical Stated complaint: rib pain Time Seen by Provider: 01/02/25 16:13 Source: patient History of Present Illness HPI narrative: 49-year-old male presents for evaluation of left-sided chest pain. Patient stat es several months ago he tripped over his ottaman and fell, landing on the left side of his chest. He reports having pain to an area of his ribs at that time. Over the past several months it has gradually improved. Yesterday, the patient got up out of his recliner quickly, twisted and felt a popping sensation to the left side of his chest. He denies any shortness of breath. He does worsening symptoms with movement and deep breathing. He has tried [id number] medication with minimal relief. His symptoms exacerbated today while working and therefore presents to the emergency department. He does repetitive movements and heavy lifting. No dyspnea on exertion or orthopnea. Related Data Home Medications ?Medication ?Instructions ?Recorded ?Confirmed pentosan polysulfate sodium 100 mg 100 mg PO TID 03/20/21 11/24/24 capsule (Elmiron) verapamil 80 mg tablet 80 mg PO DAILY 03/20/21 11/24/24 dutasteride 0.5 mg capsule 0.5 mg PO DAILY 02/27/23 11/24/24 (Avodart) Previous Rx's ?Medication ?Instructions ?Recorded ascorbic acid (vitamin C) 250 mg 500 mg (2 x 250 mg) PO DAILY #90 01/23/24 tablet (Vitamin C) tabs ferrous sulfate 325 mg (65 mg 325 mg PO BID #60 tabs 01/23/24 iron) tablet cholecalciferol (vitamin D3) 50 50 mcg PO DAILY #90 caps 05/08/24 mcg (2,000 unit) capsule Nexium 40 mg capsule,delayed 40 mg PO BID #180 caps 06/30/24 release (esomeprazole magnesium) sucralfate 1 gram tablet (Carafate) 1 g PO BID 90 days #180 tabs 06/30/24 loperamide 2 mg capsule 2 mg PO Q6H PRN for diarrhea #120 11/26/24 caps lidocaine 5 % topical patch 1 patch topical DAILY #15 ea 01/02/25 Allergies Allergy/AdvReac Type Severity Reaction Status Date / Time esomeprazole AdvReac Mild urinating Verified 01/02/25 16:10 trouble Review of Systems Cardiovascular: Cardiovascular: Reports chest pain Respiratory: Respiratory: Denies cough Gastrointestinal: Gastrointestinal: Denies abdominal pain [facility] Past Medical History Medical History Tubular adenoma Hemiplegic migraine Interstitial cystitis Irritable bowel syndrome Gastroesophageal reflux disease Surgical History History of excision of pilonidal cyst (02/27/23) History of esophagogastroduodenoscopy (EGD) H/O colonoscopy Hx of cystoscopy History of vasectomy H/O removal of cyst Family History Family History (Updated 11/24/24 @ 13:19 by Devora Barragan) Father COVID-19 COPD (chronic obstructive pulmonary disease) Stroke Paternal Grandmother Cancer of unknown origin Sister MGUS (monoclonal gammopathy of unknown significance) Social History Social History Household Members: Family Alcohol intake: current Alcohol intake frequency: a few times a week Patient Tobacco Use Status: Current everyday Tobacco user Tobacco use type: Cigarette Advance Directives: No Advance Directives Information Provided: No service: No Current occupational status: employed Physical Exam ED Vital Signs: Vital Signs - 24 hr 01/02/25 16:08 Temperature 97.8 F Pulse Rate 77 Respiratory Rate 18 Blood Pressure 120/62 Pulse Oximetry 98 Oxygen Delivery Method Room Air BMI result Body Mass Index 30.7 Const General: cooperative, alert and awake Chest Other: Mild diffuse tenderness along the left intercostal region between the areas of T4 without any crepitus or flail chest. No ecchymosis noted. Resp Effort & Inspection: normal respiratory effort and no cough Auscultation: clear to auscultation bilaterally Cardio Rate: regular rate Rhythm: regular rhythm Back/Spine/Pelvis Other: Full range of motion of the upper extremities. Mild left subscapular tenderness. No cervical muscle spasm. Course Course Course Narrative: Reviewed x-ray results with the patient, no acute process. Patient feels comfortable with discharge plan home. He will continue to take Tylenol and ibuprofen as directed, available [id number]. In addition he has declined any additional analgesia or muscle relaxers. He is agreeable to lidocaine patches. He expresses understanding of all discharge instructions and has no further questions at this time. Medical Decision Making Medical Decision Making MDM Narrative: 49-year-old male with left-sided rib, chest pain, status post quick movement. Lung sounds are clear at this time. Patient does not have risk factors for PE. Positive tobacco use. Check chest x-ray and ribs. Hemodynamically stable and afebrile. Differential Diagnosis Differential Diagnoses: The differential diagnosis associated with the presentation includes Pneumothorax Rib fracture Rib contusion Chest wall muscle strength Radiology Impression Discussion of test interpretation with radiology: I have reviewed the radiologist's reading. Radiologist Impression: [address] [address] XRay Report Signed Patient: Rosas Francisco MR#: [id number] : 1975 Acct:[id number] Age/Sex: 49 / M ADM Date: 01/02/25 Loc: .ED Attending Dr: Ordering Physician: Rosas Green Date of Service: 01/02/25 Procedure(s): XR ribs LT min 3V w CXR1V Accession Number(s): [id number] cc: Patricia Damon MD; Rosas Green~ CLINICAL HISTORY: left sided chest pain Single view of the chest with left rib films. COMPARISON: None FINDINGS: Normal heart and mediastinal contours. No consolidation. Calcified granuloma in the left lung base. No pleural effusion or pneumothorax. No fracture identified. IMPRESSION: 1. No acute cardiopulmonary abnormality. 2. No rib fracture identified. This document has been electronically signed by: Martin Hobbs MD on 01/02/2025 16:39:22 Dictated By: Martin Hobbs MD Signed By: <Electronically signed by Martin Hobbs MD in OV> 01/02/25 1639 DD/ 1639 TD/TT: 01/02/25 1639 Bowling Floor Desk Clerk: Discharge Plan Discharge Clinical Impression: Rib pain Patient Disposition: Home, Self-Care Instructions: Chest Wall Pain (ED) Additional Instructions: Rest. Avoid strenuous activity. Continue Tylenol or ibuprofen as directed for pain. Lidocaine patches to the affected area. Follow-up with your primary care provider. Call this week to schedule a follow- up appointment. Return to the emergency department if you have any worsening of symptoms, or any concerns. Get well soon! Prescriptions: New lidocaine 5 % adhesive patch,medicated 1 patch topical DAILY Qty: 15 0RF Rx Instructions: leave on most painful area for up to 12 hrs No Action cholecalciferol (vitamin D3) 50 mcg (2,000 unit) capsule 50 mcg PO DAILY Qty: 90 3RF loperamide 2 mg capsule 2 mg PO Q6H PRN (Reason: for diarrhea) Qty: 120 3RF dutasteride [Avodart] 0.5 mg capsule 0.5 mg PO DAILY ferrous sulfate 325 mg (65 mg iron) Tablet 325 mg PO BID Qty: 60 3RF ascorbic acid (vitamin C) [Vitamin C] 250 mg Tablet 500 mg PO DAILY Qty: 90 3RF verapamil 80 mg tablet 80 mg PO DAILY Elmiron 100 mg capsule 100 mg PO TID esomeprazole magnesium [Nexium] 40 mg capsule,delayed release(DR/EC) 40 mg PO BID Qty: 180 3RF sucralfate [Carafate] 1 gram tablet 1 g PO BID 90 Days Qty: 180 2RF Rx Instructions: Take one tablet on an empty stomach by mouth twice a day Stand Alone Forms: Work/School Release Print Language: Qatari
[2025-01-02 16:08] VITALS: BP 120/62; PULSE 77; RESP 18; TEMP 36.6; O2SAT 98; BMI 30.7
[2025-01-02 17:22] VITALS: BP 120/62; PULSE 77; RESP 18; TEMP 36.6; O2SAT 98
== END 2025-01-02 17:23 | disposition home or self-care (01) ==
PROVIDERS: Emergency Provider Internal Medicine; PCP Internal Medicine
DX: R07.81 Pleurodynia (principal); Z79.899 Other long term (current) drug therapy
CPT/HCPCS: 71101; 99282; 99283

== ENCOUNTER → 2025-01-02 16:08 | Outpatient (BNV) | payer OTHER, SELFPAY | PROVIDERS: PCP Internal Medicine; Visit Provider Radiology Diagnostic Radiology | DX: R07.9 Chest pain, unspecified (principal) | CPT/HCPCS: 71101 ==

== ENCOUNTER 2025-02-09 10:38 | Outpatient (REF) | payer OTHER, SELFPAY ==
--- NOTE | ~2025-02-09 | US_ITS ---
CLINICAL HISTORY: persistently elevated LFTS US abdomen complete with color Doppler Comparison: CT/AK/SR - CT ABDOMEN PELVIS W IV CON - 12/26/23 11:[address] - CT ABDOMEN PELVIS W IV CON - 12/26/23 11:53 EDT Findings: The visualized pancreas, aorta, and inferior vena cava are unremarkable. Liver normal size and echotexture. Right lobe 15.0 cm length. No focal hepatic masses. Common duct 6.0 mm diameter. Physiologic distention of the gallbladder. No gallstones or sludge. No gallbladder wall thickening. No pericholecystic fluid. No sonographic Diaz sign. Right kidney normal size, 11.4 cm in length. Normal cortical width and echotexture. No solid or cystic renal masses. No nephrolithiasis. No hydronephrosis. Left kidney normal, 10.1 cm in length. Normal cortical width and echotexture. No solid or cystic renal masses. No nephrolithiasis. No hydronephrosis. Spleen measures 12.0 cm. No splenic masses. No ascites. No lymphadenopathy. Impression: 1. Borderline splenomegaly no hepatomegaly or focal hepatic lesions. This document has been electronically signed by: Bimal Senior MD on 02/10/2025 06:44:17
--- OUTSIDE RECORDS SUMMARY | 2025-02-09 12:15 | XMS_ITS | Encounter Summary ---
Author Organization [employer] Address [address] [place] [address] [address] [place] [address] Care Team Providers Care Marketing Campaign Analyst Name Role Phone Patricia Damon MD Primary Care Provide r Encounter Details Date Type Department Care Team (Late st Contact Info) Description 09/21/2022 Orders Only [facility] [address] [place], [place] [phone] Maya Hernandez MD [address] [place] [address] Bunion of left foot (Primary Dx) Social [...] as of this encounter Plan of Treatment Not on file documented as of this encounter Procedures Procedure [...] 8:08 AM EDT 02/27/2023 9:45 AM EDT [facility] - 03/01/2023 2:17 PM EDT ----- ------- Name: Rosas Francisco ?Age/Sex: 47/M ? : 1975 Unit#: [id number] ?? Attend Dr: Kevin Tafoya MD ?Re02/27/23 ?Status: DEP SDC ? Location: HO.SSS ?Disch: ? ----- ------- SPEC : [id number] ? RECD: 02/27/23-944 ? STATUS: ??SOUT ? REQ NUM: [id number] ? JAZMYN: 02/27/23 ? SUBM DR: Kevin [...] To: ?? Patricia Damon MD ?? [address] ?? [place] [address] ?? [phone] ?? Kevin Tafoya MD ?? [address] [place] [address] Dr. ?? [place] [address] ?? [phone] ? CONTINUED ON NEXT PAGE ----- ------- Name: Rosas Francisco ?Age/Sex: 47/M ? : 1975 Unit#: [id number] ?? Attend Dr: Kevin Tafoya MD ?Re02/27/23 ?Status: DEP SDC ? Location: HO.SSS ?Disch: ? ----- ------- SPEC : [id number] ? RECD: 02/27/23 ? STATUS: ??SOUT ? REQ NUM: [id number] ? JAZMYN: 02/27/23 ? SUBM DR: Kevin Tafoya MD ? ENTERED: ??02/27/23-953 ?SP TYPE: Surgical ? OTHR DR: Patricia Damon MD ? ORDERED: ??Gross Micro L3 ? ----- ------- Signed (signature on file) Tereso Mejias MD 03/01/23 1417 ? ----- ------- ? END OF REPORT ? us [facility] External Provider LAB CYT OLOGY ORDERABLES Final Result [facility] [address] [place] [address] [phone] * Pancreatic elastase, fecal (01/09/2023 8:51 PM EDT) Pancreatic Elastase 1 >500 mcg/g [facility] Comment:Adult and Pediatric Reference Ranges for Pancreatic Elastase-1: Normal: >200 mcg/gModerate Pancreatic Insufficiency: 100-200 mcg/g Severe Pancreatic Insufficiency: <100 mcg/gElastase-1 (E-1) assay results are expressedin mcg/g, which represent mcg E1/g feces.It is not necessary to interrupt enzymesubstitution therapy.THIS TEST WAS PERFORMED AT:[employer] [id number] [place] [address]UPOMVJEANIE SHERIDAN MD,PHD,MACHELLE 01/09/2023 8:51 PM EDT 01/11/2023 8:52 AM EDT [facility] Exter nal Provider LAB BODY FLUIDS AND STOOLS ORDERABLES Final Result Performing Organization Address [facility] Co de Phone Number [facility] [address] [place] [phone] * Lipase (01/04/2023 2:04 PM EDT) Lipase 38 8 - 78 U/L [facility] 01/04/2023 2:04 PM EDT 01/04/2023 2:04 PM EDT [facility] External Provider LAB BLO OD ORDERABLES Final Result Performing Organization Address [facility] Co de Phone Number [facility] [address] [place] [phone] * Hemoglobin A1c (01/04/2023 2:04 PM EDT) Hemoglobin A1c 6.0 % [facility] Comment:Hemoglobin A1C Refer ence Range Adults: 4.8 - 6.0 % Non diabetic: < 6.0 % Goal: < 7.0 %Additional Action Suggested: > 8.0 %Note: Hemoglobin A1c results are invalid for patients with abnormal amounts of HbF. Blood transfusions may impact the HbA1c concentration in the patient sample. Estimated Average Glucose 126 mg/dL [facility] Comment:eAG = Estimated ave rage glucose which is %A1C expressed asaverage glucose, using the formula of the G8D-UaayywkMkygfxl Glucose study (ADAG), Diabetes Care, Vol.31,#8,May. 2007 01/04/2023 2:04 PM EDT 01/04/2023 2:04 PM EDT us [facility] External Provider LAB BLO OD ORDERABLES Final Result [facility] [address] [place] [phone] documented in this encounter Visit Diagnoses Diagnosis Bunion of left foot- Primary Bunion documented in this encounter Care Teams Marketing Campaign Analyst Relationship Specialty Start Date End Date Patricia Damon MD [address] [place] [address] PCP - General Family Medicine 05/24/20 documented as of this encounter
--- OUTSIDE RECORDS SUMMARY | 2025-02-09 12:15 | XMS_ITS | Clinical Summary ---
Author Organization [address] [facility] Address [address] [place] [address] Phone Care Team Providers Care Psychotherapist Social Worker Name Role Phone Patricia Damon MD Primary Care Provide r Allergies No known active allergies Medications Vitamin D3 50 mcg (2,000 unit) capsule Take 1 capsule (2,000 Units total) by mouth 1 (one) time each day. 09/14/2024 Active Avodart 0.5 mg capsule Take 1 capsule (0.5 mg total) by mouth 1 (one) time each day in the morning. 01/08/[address] capsule Take 1 capsule (40 mg total) by mouth 2 (two) times a day. 01/08/2025 Active loperamide (IMODIUM) 2 mg capsule TAKE 1 CAPSULE BY MOUTH EVERY 6 HOURS NEEDED FOR DIARRHEA 01/08/2025 Active neomycin-polymy marifer-hydrocortis one (CORTISPORIN) otic solution PLACE 3 DROPS IN THE RIGHT EAR THREE TIMES DAILY FOR 10 DAYS 05/05/2024 Active Elmiron 100 mg capsule Take 2 capsules (200 mg total) by mouth 2 (two) times a day. 01/08/2025 Active sucralfate (CARAFATE) 1 gram tablet TAKE 1 TABLET BY MOUTH TWICE DAILY ON AN EMPTY STOMACH 01/08/2025 Active verapamiL (CALAN) 80 mg tablet Take 1 tablet (80 mg total) by mouth. at bedtime. 10/01/2024 Active Active Problems Problem Noted Date Diagnosed Date Allergic rhinitis 02/04/2025 Benign prostatic hyperplasia 02/04/2025 Bunion 02/04/2025 Folliculitis 02/04/2025 Chronic interstitial cystitis 02/04/2025 Foot pain 02/04/2025 Hypercholesterolemia 02/04/2025 GERD (gastroesophageal reflux disease) Iron deficiency 02/04/2025 OAB (overactive bladder) 02/04/2025 Subclinical hyperthyroidism 02/04/2025 Vitamin D deficiency 02/04/2025 Dysfunction of right eustachian tube 02/04/2025 Neuropathy 02/04/2025 Chronic pain of left knee 02/04/2025 Bunion of left foot 02/04/2025 Encounters Date Type Department Care Team Description 02/04/2025 2:15 PM EDT Consult Orthopedic Surgery - [place] [address] [place] [phone] Jose Luis Phelps DPM Bunion of left foot (Primary Dx); Arthritis of first metatarsophalangeal (MTP) joint of left foot; Lumbosacral radiculopathy from Last 3 Months Social History Tobacco Use Types Packs/Day Years Used Date Smoking Tobacco: Never Assessed Sex and Gender Information Value Date Recorded Sex Assigned at Not on file Legal Sex Male 1:19 PM EST Gender Identity Not on file Sexual Orientation Not on file Last Filed Vital Signs Vital Sign Reading Time Taken Comments Blood Pressure - - Pulse - - Temperature - - Respiratory Rate - - Oxygen Saturation - - Inhaled Oxygen Concentration - - Weight 85.3 kg (188 lb) 02/04/2025 1:55 PM EDT Height 172.7 cm (5' 8 ) 02/04/2025 1:55 PM EDT Body Mass Index 28.59 02/04/2025 1:55 PM EDT Plan of Treatment Scheduled Procedures Name Priority Associated Diagnoses Date/Ti me BUNIONECTOMY Bunion of left foot Health Maintenance Due Date Last Done Comments DTaP,Tdap,and Td Vaccines (1 - Tdap) 1994 Hepatitis B Vaccines (1 of 3 - 19+ 3-dose series) 1994 Colorectal Cancer Screening: Colonoscopy 10/30/2024 Social Influencers of Health Screening 10/30/2024 Influenza Vaccine (Season Ended) 2025 07/19/2023, 07/18/2022 Depression Screening 09/29/2025 09/29/2024 Cholesterol Screening (Lipid Panel) 11/02/2029 11/02/2024 COVID-19 Vaccine Completed 08/01/2024, 07/2023, 07/18/2022, Additional history exists Pneumococcal Vaccine: Pediatrics (0 to 5 Years) and At-Risk Patients (6 to 64 Years) Aged Out 08/01/2024 No longer eligible based on patient's age to complete this topic HIV Screening Completed 11/02/2024 Hepatitis C Screening [...] patient's age to complete this topic Meningococcal B Vaccine Aged Out No l onger eligible based on patient's age to complete this topic RSV Immunization Patients Under 20 months Aged Out No longer eligible based on patient's age to complete this topic Varicella Vaccines Aged Out No longer eligible based on patient's age to complete this topic Insurance [facility] Care Teams Psychotherapist Social Worker Relationship Specialty Start Date End Date Patricia Damon MD [address] [place] [phone] PCP - General Internal Medicine 10/29/24
--- OUTSIDE RECORDS SUMMARY | 2025-02-09 12:15 | XMS_ITS | Encounter Summary ---
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 * Consultation (Routine) - Closed Specialty Diagnoses / Procedures Referred By Mildred padilla Referred To Contact Podiatry / Orthopaedic Surgery Diagnoses Bunion of left foot Anesthesia of skin Paresthesia of skin Patricia Damon MD [address] [phone] Phone: tel: fax: Jose Luis Phelps DPM [address] [address] Phone: tel: fax: Referral ID Status Reason Start Date Expiration Date V isits Requested Visits Authorized [id number] Closed Specialty Services Required 10/29/2024 10/29/2025 1 1 Encounter Details Date Type Department Care Team (Latest Contact Info) Description 02/04/2025 2:15 PM EDT Consult Orthopedic Surgery - [place] [address] [phone] Jose Luis Phelps DPM [address] [address] Bunion of left foot (Primary Dx); Arthritis of first metatarsophalangeal (MTP) joint of left foot; Lumbosacral radiculopathy Social History Tobacco Use Types Packs/Day Years Used Date Smoking Tobacco: Never Assessed Sex and Gender Information Value Date Recorded Sex Assigned at Not on file Legal Sex Male 1:19 PM EST Gender Identity Not on file Sexual Orientation Not on file documented as of this encounter Last Filed Vital Signs Vital Sign Reading Time Taken Comments Blood Pressure - - Pulse - - Temperature - - Respiratory Rate - - Oxygen Saturation - - Inhaled Oxygen Concentration - - Weight 85.3 kg (188 lb) 02/04/2025 1:55 PM EDT Height 172.7 cm (5' 8 ) 02/04/2025 1:55 PM EDT Body Mass Index 28.59 02/04/2025 1:55 PM EDT documented in this encounter Progress Notes * Jose Luis Phelps DPM - 02/04/2025 2:15 PM EDT Referring MD: Patricia Damon * Last PCP visit: 02/01/2025 IDENTIFIER: Maryam is a 49 y.o. year old male who presents for consultation. CC: Left foot pain HPI: 49-year-old male presents office chief complaint of left foot pain. Patient notes that he has a bony deformity which is causing increased pain in close toed shoes. Patient notes that he does have some redness and swelling from time to time. Patient notes that he has some pain radiating from the plantar aspect of the foot into the back of the leg and into his knee. Patient notes he has a history of lower back pathology. Patient is wearing proper shoe gear and offloading pads in order to limit pressure to the bony prominence. Patient is here for evaluation treatment ROS: GENERAL: Pt denies nausea, fever, vomiting, chills, or shortness of breath. Pt in NAD. CARDIOLOGY: pt denies chest pain, palpitations LUNGS: pt denies shortness of breath MUSCULOSKELETAL: See HPI, otherwise no joint pain or swelling, back pain, or muscle pain. SKIN: see HPI, otherwise no lesions, rash or itching NEURO: No persistent headache, weakness or numbness The remainder of the review of systems is noncontributory PAST MEDICAL HISTORY: Patient Active Problem List Diagnosis Allergic rhinitis Benign prostatic hyperplasia Bunion Folliculitis Chronic interstitial cystitis Foot pain Hypercholesterolemia GERD (gastroesophageal reflux disease) Iron deficiency OAB (overactive bladder) Subclinical hyperthyroidism Vitamin D deficiency Dysfunction of right eustachian tube Neuropathy Chronic pain of left knee SOCIAL HISTORY: Social History Tobacco Use Smoking status: Not on file Smokeless tobacco: Not on file Substance Use Topics Alcohol use: Not on file ACTIVE MEDICATIONS: Outpatient Medications Marked as Taking for the 02/04/25 encounter (Consult) with Jose Luis Phelps DPM Medication Sig Dispense Refill Avodart 0.5 mg capsule Take 1 capsule (0.5 mg total) by mouth 1 (one) time each day in the morning. Elmiron 100 mg capsule Take 2 capsules (200 mg total) by mouth 2 (two) times a day. loperamide (IMODIUM) 2 mg capsule TAKE 1 CAPSULE BY MOUTH EVERY 6 HOURS NEEDED FOR DIARRHEA grrmrtdq-svtrfyjai-oxcfccvfmslfee (CORTISPORIN) otic solution PLACE 3 DROPS IN THE RIGHT EAR THREE TIMES DAILY FOR 10 DAYS NexIUM [address] capsule Take 1 capsule (40 mg total) by mouth 2 (two) times a day. sucralfate (CARAFATE) 1 gram tablet TAKE 1 TABLET BY MOUTH TWICE DAILY ON AN EMPTY STOMACH verapamiL (CALAN) 80 mg tablet Take 1 tablet (80 mg total) by mouth. at bedtime. Vitamin D3 50 mcg (2,000 unit) capsule Take 1 capsule (2,000 Units total) by mouth 1 (one) time each day. ALLERGIES: @ALL@ PHYSICAL EXAM: Height 1.727 m (68 ), weight 85.3 kg (188 lb). PODIATRIC EXAMINATION: GENERAL: Patient appears well nourished, with NAD. VASCULAR: Dorsalis pedis pulses are 2/4 bilaterally and Posterior tibial pulses are 2/4 bilaterally. Capillary filling time within normal limits the digits. No pallor on elevation or rubor on dependency. Positive hair growth. No varicosities. Denies rest pain or claudication pain. NEUROLOGICAL: Sharp/dull sensation intact, protective sensation intact on [place]. Numbness throughout the left great toe to the touch. Radiating neuropathy throughout the feet bilaterally ORTHOPEDIC: Good muscle strength 5/5 of all flexors and extensors. Dorsi flexion of ankle ,10 degrees, plantar flexion WNL. No muscle atrophy. Moderate bunion deformity left foot with HAV deformity. Adequate range of motion of the first MPJ with pain range of motion pain. DERMATOLOGICAL:.No masses or skin lesions noted. Normal skin temperature, normal skin turgor. BIOMECHANICS: STJ ROM wnl, MTJ ROM wnl, 1st MPJ ROM wnl. IMAGING: No fractures or dislocations. HAV deformity with decrease in joint space of the first metatarsal phalangeal joint.. Increased 1-2 intermetatarsal angle. Increased talar head uncovering. Anterior break in the cyma line IMPRESSION: 1. Bunion of left foot 2. Arthritis of first metatarsophalangeal (MTP) joint of left foot 3. Lumbosacral radiculopathy PLAN: Pt was seen and examined, history reviewed. Patient was educated on conservative options to reduce the pain around the bunion deformity. Patient was educated on the use of proper shoe gear and wide set toe boxes. Patient was also educated on first metatarsal osteotomy versus first MPJ fusion based on possible arthritic changes of the first MTJ. Prolonged conversation was had with patient discussing his radiating pain within the foot and lowerback pathology. Patient was educated that fixing the bony deformity may not reduce the sharp shooting pain within the foot. Patient understands the difference between the 2 problems and noted that his biggest problem was the pain at the bony prominence at the medial aspect of the left foot. Patient would like to move forward with surgical intervention to the left foot. Surgical Planning visit: PLAN: During today???s visit we discussed at great length the etiology, prognosis, and treatment options for the patient???s condition. Risks and benefits of operative and non operative treatment options were discussed. Treatment options for left foot bunion correction were discussed, non-operative treatment would involve tapping, strapping, adjustments in shoe gear, orthotics insoles, rest, bracing and edema control. There is potential for the deformities to stabilize without surgery yet there may still be a needfor delayed surgery and joint distructive procedures. There is potential for non-union with surgery and non-operative care would avoid incision problems, fixation complications and anesthesia risks. Surgery has added risks including but not limited to infection, incision pain, neuritis or numbness reoccurance of deformity, scar tissue contracture, worsening of deformity and eventual need for removal of hardware. Left foot bunion versus first MPJ fusion healing was discussed in relation to operative treatment. Recovery and post operative immobilization was discussed based on the various treatment options. A decision was made to pursue left foot bunion versus first MPJ fusion surgery. Patient voices understanding of the risks and benefits and would like to proceed with surgery. Weight bearing status: Weightbearing as tolerated in surgical shoe for 6-12 weeks Work&Activity restrictions: Impact of undergoing surgery to work and daily activity was discussed today Pain management: Postoperative pain regiment were discussed in great detail with the patient. The patient was also encouraged to aggressively elevate and ice postoperatively to help with swelling andpain control. The patient was in agreement with this plan. The patient will be prescribed IbuprofenTylenol Oxycodone for postoperative pain management. VTE Risk assessment: Risk of DVT/ PE were discussed in relation to immobilization, inactivity, injury, surgery, medication and personal risk factors. Signs and symptoms of a blood clot were discussedincluding action plan if the patient experiences these signs or symptoms. Methods of prevention and risk reduction were explained. Mechanical prophylaxis including ROM and mobilization is encouraged as much as possible. The patient???s risk for deep vein thrombosis was also assessed today. In regards to major risk factors they: Do not have personal history of DVT Do not have known active cancer Do not have known clotting disorder Do not have family history of DVT Pending foot surgery and current level of immobilization are risk factors. Measure taken to decrease their risk of deep vein thrombosis will consist of detailed education, as well as lower extremity range of motion. Chemical prophylaxis is not recommended based on patients history, procedure and postoperative plan. We discussed ASA 325mg qd as a precautionary measure to further decrease potential for clot formation for as long as the postoperative offloading device is required Planned procedure(s): Left foot bunionectomy versus first MPJ fusion surgery WB status: Weightbearing as tolerated for 6 to 12 weeks in surgical shoe DVT Prophylaxis: 325 mg QD Pain medication: Ibuprofen Tylenol Oxycodone Jose Luis Phelps DPM cc: Patricia Damon * documented in this encounter Plan of Treatment Pending Results Name Type Priority Associated Diagnoses Date /Time XR Foot 3+ Views Left Imaging Routine Bunion of left foot 02/04/2025 2:25 PM EDT Scheduled Orders Name Type Priority Associated Diagnoses Orde r Schedule XR Foot 3+ Views Left Imaging Routine Bunion of left foot Expected: 02/04/2025, Expires: 02/04/2026 Scheduled Procedures Name Priority Associated Diagnoses Date/Ti me BUNIONECTOMY Bunion of left foot documented as of this encounter Visit Diagnoses Diagnosis Bunion of left foot- Primary Bunion Arthritis of first metatarsophalangeal (MTP) joint of left foot Lumbosacral radiculopathy Thoracic or lumbosacral neuritis or radiculitis, unspecified documented in this encounter Historical Medications * This list may reflect changes made after this encounter. verapamiL (CALAN) 80 mg tablet Take 1 tablet (80 mg total) by mouth. at bedtime. 10/01/2024 sucralfate (CARAFATE) 1 gram tablet TAKE 1 TABLET BY MOUTH TWICE DAILY ON AN EMPTY STOMACH 01/08/2025 Elmiron 100 mg capsule Take 2 capsules (200 mg total) by mouth 2 (two) times a day. 01/08/2025 neomycin-polymyxi n-hydrocortisone (CORTISPORIN) otic solution PLACE 3 DROPS IN THE RIGHT EAR THREE TIMES DAILY FOR 10 DAYS 05/05/2024 loperamide (IMODIUM) 2 mg capsule TAKE 1 CAPSULE BY MOUTH EVERY 6 HOURS NEEDED FOR DIARRHEA 01/08/[address] capsule Take 1 capsule (40 mg total) by mouth 2 (two) times a day. 01/08/2025 Avodart 0.5 mg capsule Take 1 capsule (0.5 mg total) by mouth 1 (one) time each day in the morning. 01/08/2025 Vitamin D3 50 mcg (2,000 unit) capsule Take 1 capsule (2,000 Units total) by mouth 1 (one) time each day. 09/14/2024 added in this encounter Orders Outpatient Referral Count Last Ordered Date Fir st Ordered Date AMB REFERRAL TO PODIATRY 1 02/04/2025 Case Request Count Last Ordered Date First Orde red Date CASE REQUEST OPERATING ROOM 1 02/04/2025 documented in this encounter Care Teams French Edge Operator Relationship Specialty Start Date End Date Patricia Damon MD [address] [place] [phone] PCP - General Internal Medicine 10/29/24 documented as of this encounter
--- OUTSIDE RECORDS SUMMARY | 2025-02-09 12:15 | XMS_ITS | Clinical Summary ---
Author Organization [employer] Address [address] [place] [address] [address] [place] [address] Care Team Providers Care Billing Services Manager Name Role Phone Patricia Damon MD Primary Care Provide r Allergies No known active allergies Medications esomeprazole (NexIUM) [address] capsuleIndicati ons:Gastroesoph ageal reflux disease, unspecified whether esophagitis present Take 1 capsule (40 mg) by mouth 2 times daily. Do not open capsule. 60 capsule 1 04/26/20 23 Active pentosan polysulfate (Elmiron) 100 MG capsuleIndicati ons:Bladder pain TAKE 2 CAPSULES BY MOUTH TWICE DAILY 120 capsule 3 11/06/19 25 Active verapamil (Calan) 80 MG tablet TAKE 1 TABLET BY MOUTH AT BEDTIME 90 tablet 1 12/24/19 25 Active Avodart 0.5 MG capsuleIndicati ons:Benign prostatic hyperplasia, unspecified whether lower urinary tract symptoms present TAKE 1 CAPSULE BY MOUTH EVERY MORNING 30 capsule 5 02/02/20 25 Active Avodart 0.5 MG capsuleIndicati ons:Benign prostatic hyperplasia, unspecified whether lower urinary tract symptoms present TAKE 1 CAPSULE BY MOUTH EVERY DAY IN THE MORNING 30 capsule 5 07/13/20 24 025 Discontinued Active Problems Problem Noted Date Diagnosed Date Low TSH level 11/19/2024 Elevated LFTs 11/19/2024 Assessment & Plan (11/19/2024 1:38 PM EST): Extensive counseling about healthy diet and cardiovascular exercise done today Abdominal ultrasound ordered, patient will be contacted with results Research And Development Technician referral done today Prediabetes 11/19/2024 Assessment & Plan (11/19/2024 1:39 PM EST): Extensive counseling about healthy diet, to avoid simple sugars and low quantities of carbs done today Weight reduction was advised Bunion of left foot 09/29/2024 Numbness and [...] iron Hypercholesterolemia 09/24/2018 10/11/2023 Subclinical hyperthyroidism 09/24/201802/2024 Assessment & Plan (11/19/2024 1:38 PM EST): I decided to refer patient to endocrinology for further evaluation and management Vitamin D deficiency 09/24/2018 10/11/2023 Benign prostatic [...] iron deficiency anemia done Tobacco dependence syndrome 03/25/20120 02/2024 Encounters Date Type Department Care Team Description 02/01/2025 Telephone [facility] [address] [place] [phone] Patricia Damon MD Prior Authorization ([facility] Request: Avodart 0.5 MG capsule) 01/31/2025 Refill [facility] [address] [place], [place] [phone] Patricia Damon MD Benign prostatic hyperplasia, unspecified whether lower urinary tract symptoms present 01/02/2025 Orders Only [facility] External Provider, [facility] 12/23/2024 Refill [facility] [address] [place], [place] [phone] Patricia Damon MD 11/20/2024 Telephone [facility] [address] [place] [phone] NUTRITION APPT REQUEST 11/19/2024 1:00 PM EST Telemedicine [facility] [address] [place], [place] [phone] Patricia Damon MD Low TSH level (Primary Dx); Subclinical hyperthyroidism; Elevated LFTs; Prediabetes 11/19/2024 Travel from Last 3 Months Social History Tobacco [...] 09/29/2024 11:49 AM EST Plan of Treatment Health Maintenance Due Date Last Done Comments CT Colonography 1975 Colonoscopy 1975 Colorectal Cancer Screening 1975 FIT DNA/Cologuard 1975 FIT 1975 FOBT 1975 SDOH Screening 1975 Sigmoidoscopy 1975 Alcohol/Substance Use Screening 1987 Family Planning (PISQ) 1990 DTaP/Tdap/Td Vaccines (1 - Tdap) 1994 Hepatitis B [...] 5 Years) and At-Risk Patients (6 to 49) Years) Completed 08/01/2024 HIV Screening Completed 11/02/2024 [...] Procedure Name Priority Date/Time Associated Diagnosis Comments XR RIBS 3 VIEWS LEFT W CHEST Routine 01/02/2025 4:39 PM EDT HEPATITIS C AB W/REFL TO HCV RNA, QN, PCR Routine 11/02/2024 3:18 PM EST Subclinical hyperthyroidism HIV 1/2 ANTIGEN/ANTIBODY, FOURTH GENERATION W/RFL Routine 11/02/2024 3:18 PM EST Subclinical hyperthyroidism HEMOGLOBIN A1C Routine 11/02/2024 3:18 PM EST Subclinical hyperthyroidism LIPID PANEL, STANDARD Routine 11/02/2024 3:18 PM EST Subclinical hyperthyroidism from Last 3 Months or Most Recently Relevant to Health Maintenance Results * XR Ribs 3 Views Left w/ Chest (01/02/2025 4:39 PM EDT) Anatomical Region Laterality Modality Radiographic Marcelle ging 01/02/2025 4:39 PM EDT Narrative 01/02/2025 4:40 PM EDT ? [facility] ?[address] ?[place] [address] ?XRay Report ? Signed ? Patient: Crochetiere,Rosas A ?MR#: [id number] ?? [id number] ? : 1975 ?Acct:[id number] ? Age/Sex: 49 / M ?ADM Date: 01/02/25 ? Loc: HO.ED ? Attending Dr: ? Ordering Physician: Rosas Green ?? Date of Service: 01/02/25 ?? Procedure(s): XR ribs LT min 3V w CXR1V ?? Accession Number(s): [id number] ? cc: Patricia Damon MD; Rosas Green ? CLINICAL HISTORY: left sided chest pain ? Single view of the chest with left rib films. ? COMPARISON: None ? FINDINGS: ?? Normal heart and mediastinal contours. ?? No consolidation. Calcified granuloma in the left lung base. ?? No pleural effusion or pneumothorax. ? No fracture identified. ? IMPRESSION: ?? 1. No acute cardiopulmonary abnormality. ?? 2. No rib fracture identified. ? This document has been electronically signed by: Martin Hobbs MD on ?? 01/02/2025 16:39:22 ? Dictated By: ?Martin Hobbs MD ? Signed By: ?<Electronically signed by Martin Hobbs MD in OV> ?01/02/25 1639 ? DD/ 1639 ? TD/TT: 01/02/251638 ? Job Site Superintendent: ? Procedure Note Terri, Shanelle - 01/02/2025 [place] [id number] XRay Report Signed Patient: Rosas Francisco [facility]#: [id number] : 1975Acct:[id number] Age/Sex: 49 / MADM Date: 01/02/25 Loc: HO.ED Attending Dr: Ordering Physician: Rosas Green Date of Service: 01/02/25 Procedure(s): XR ribs LT min 3V w CXR1V Accession Number(s): [id number] cc: Patricia Damon MD; Rosas Green CLINICAL HISTORY: left sided chest pain Single view of the chest with left rib films. COMPARISON: None FINDINGS: Normal heart and mediastinal contours. No consolidation. Calcified granuloma in the left lung base. No pleural effusion or pneumothorax. No fracture identified. IMPRESSION: 1. No acute cardiopulmonary abnormality. 2. No rib fracture identified. This document has been electronically signed by: Martin Hobbs MD on 01/02/2025 16:39:22 Dictated By: Martin Hobbs MD Signed By: <Electronically signed by Martin Hobbs MD in OV> 01/02/25 1639 DD/ 1639 TD/TT: 01/02/25 1639 Job Site Superintendent: [facility] External Provider IMG XR PROCEDURES Edited Result - Final * Hepatitis C Antibody with Reflex to HCV, RNA, Quantitative, Real-Time PCR (11/02/2024 3:18 PM EST) Pathologist [facility] Hepatitis C Antibody Nonreactive Nonreactive [facility] Comment:Antibodies to HCV no t detected; does not exclude early acuteHCV infection. Blood Venous blood specimen / Unknown 11/02/2024 3:18 PM EST 11/02/2024 4:23 PM EST Patricia Storm MD LAB BLOOD ORDERABLES Final Result [facility] [address] [place] [phone] * HIV-1/2 Antigen and Antibodies, Fourth Generation, with Reflexes (11/02/2024 3:18 PM EST) Pathologist [facility] HIV AB/AG Nonreactive Nonreactive [facility] Comment:HIV-1 p24 Ag and/or HIV-1/HIV-2 Ab not detected.A test result that is nonreactive does not exclude thepossibility of exposure to or infection with HIV-1 and/orHIV-2. Nonreactive results in this assay for individualswith prior exposure to HIV-1 and/or HIV-2 may be due toantigen and antibody levels that are below the limit ofdetection of this assay.The Mobeon HIV Ag/Ab Combo assay result andsupplemental assay results should be interpreted inconjunction with the patient's clinical presentation,history and other laboratory results. If the results areinconsistent with clinical evidence, additional testing issuggested to confirm the result. Blood Venous blood specimen / Unknown 11/02/2024 3:18 PM EST 11/02/2024 4:23 PM EST Patricia Storm MD LAB BLOOD ORDERABLES Final Result Performing Organization Address [facility] Co de Phone Number [facility] [address] [place] [phone] * Hemoglobin A1c (11/02/2024 3:18 PM EST) Hemoglobin A1c 5.8 <6.0 % [facility] Comment:Hemoglobin A1C Refer ence Range Adults: 4.8 - 6.0 % Non diabetic: < 6.0 % Goal: < 7.0 %Additional Action Suggested: > 8.0 %Note: Hemoglobin A1c results are invalid for patients with abnormal amounts of HbF. Blood transfusions may impact the HbA1c concentration in the patient sample. Estimated Average Glucose 120 mg/dL [facility] Comment:eAG = Estimated ave rage glucose which is %A1C expressed asaverage glucose, using the formula of the R0J-TigyclvNiggorm Glucose study (ADAG), Diabetes Care, Vol.31,#8,May. 2007 Blood Venous blood specimen / Unknown 11/02/2024 3:18 PM EST 11/02/2024 4:23 PM EST us Patricia Storm MD LAB BLOOD ORDERABLES Final Result Performing Organization Address [facility] Co de Phone Number [facility] [address] [place] [phone] * (ABNORMAL) Lipid Panel, Standard (11/02/2024 3:18 PM EST) Triglycerides 139 <150 mg/dL [facility] Comment:Desirable Triglyceri de: less than 150 mg/dLBorderline High Triglyceride 150-199 mg/dLHigh Triglyceride: 200-499 mg/dLVery High Triglyceride: greater than or equal to 5OO mg/dL Cholesterol 209(H) <200 mg/dL [facility] Comment:Desirable Cholestero l: less than 200 mg/dLBorderline High Cholesterol: 200-239 mg/dLHigh Cholesterol: greater than 239 mg/dL LDL Cholesterol Calculated 139(H) <100 mg/dL [facility] Comment:Desirable LDL: less than 100 mg/dLNear Optimal/Above Optimal LDL: 110- 129 mg/dLBorderline High LDL: 130-159 mg/dLHigh LDL: 160-189 mg/dLVery High LDL: greater than or equal to 190 mg/dL HDL Cholesterol 43 >40 mg/dL [facility] Comment:Desirable HDL: great er than 40 mg/dL Note: This HDL assay may give artificially low results in patients with liver disease. Blood Venous blood specimen / Unknown 11/02/2024 3:18 PM EST 11/02/2024 4:23 PM EST Patricia Storm MD LAB BLOOD ORDERABLES Final Result [facility] [address] [place] [phone] from Last 3 Months or Most Recently Relevant to Health Maintenance [place] [address] [place] [address] Care Teams Billing Services Manager Relationship Specialty Start Date End Date Patricia Damon MD [address] [place] [phone] PCP - General Family Medicine 05/24/20
== END 2025-02-09 10:39 | disposition home or self-care (01) ==
LOC: HO.US 10:38
PROVIDERS: PCP Internal Medicine; Visit Provider Internal Medicine
DX: R79.89 Other specified abnormal findings of blood chemistry (principal); R94.5 Abnormal results of liver function studies
CPT/HCPCS: 76700

== ENCOUNTER → 2025-02-09 10:41 | Outpatient (BNV) | payer OTHER, SELFPAY | PROVIDERS: PCP Internal Medicine; Visit Provider Radiology Diagnostic Radiology | DX: R74.01 Elevation of levels of liver transaminase levels (principal); R16.1 Splenomegaly, not elsewhere classified | CPT/HCPCS: 76700 ==

== ENCOUNTER 2025-03-23 09:21 | Outpatient (AMB) | payer OTHER, SELFPAY ==
[2025-03-23 09:25] VITALS: BP 124/64; PULSE 80; O2SAT 97; BMI 27.5
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
--- OUTSIDE RECORDS SUMMARY | 2025-03-23 10:03 | XMS_ITS | Clinical Summary ---
Author Organization [employer] Address [address] [place] [address] 7 [place] [address] Care Team Providers Care Test Kitchen Home Economist Name Role Phone Patricia Damon MD Primary Care Provide r Allergies No known active allergies Medications esomeprazole (NexIUM) [address] capsuleIndicati ons:Gastroesoph ageal reflux disease, unspecified whether esophagitis present Take 1 capsule (40 mg) by mouth 2 times daily. Do not open capsule. 60 capsule 1 04/26/20 23 Active verapamil (Calan) 80 MG tablet TAKE 1 TABLET BY MOUTH AT BEDTIME 90 tablet 1 12/24/19 25 Active Avodart 0.5 MG capsuleIndicati ons:Benign prostatic hyperplasia, unspecified whether lower urinary tract symptoms present TAKE 1 CAPSULE BY MOUTH EVERY MORNING 30 capsule 5 02/02/20 25 Active pentosan polysulfate (Elmiron) 100 MG capsuleIndicati ons:Bladder pain TAKE 2 CAPSULES BY MOUTH TWICE DAILY 120 capsule 3 02/23/20 25 Active pentosan polysulfate (Elmiron) 100 MG capsuleIndicati ons:Bladder pain TAKE 2 CAPSULES BY MOUTH TWICE DAILY 120 capsule 3 11/06/19 25 025 Discontinued Active Problems Problem Noted Date Diagnosed Date Low TSH level 11/19/2024 Elevated LFTs 11/19/2024 Assessment & Plan (11/19/2024 1:38 PM EST): Extensive counseling about healthy diet and cardiovascular exercise done today Abdominal ultrasound ordered, patient will be contacted with results Operations Vocational Instructor referral done today Prediabetes 11/19/2024 Assessment & [...] Encounters Date Type Department Care Team Description 03/12/2025 Telephone [facility] MEDICINE [address] [place] [phone] Patricia Damon MD 03/08/2025 Telephone [facility] MEDICINE [address] [place] [address] [phone] Patricia Damon MD telephone call 02/19/2025 Orders Only [facility] MEDICINE [address] [place] [phone] Patricia Damon MD 02/19/2025 Refill [facility] [address] [place], [place] [phone] Patricia Damon MD Bladder pain 02/12/2025 Telephone [facility] MEDICINE [address] [place] [phone] Patricia Damon MD Care Coordination; Medication Question 02/11/2025 Telephone [facility] MEDICINE [address] [place] [address] [phone] Patricia Damon MD Prior Authorization ([facility] Request: Avodart) 02/11/2025 Telephone [facility] MEDICINE [address] [place] [address] [phone] Patricia Damon MD Results 02/01/2025 Telephone [facility] MEDICINE [address] [place] [address] [phone] Patricia Damon MD Prior Authorization ([facility] Request: Avodart 0.5 MG capsule) 01/31/2025 Refill [facility] [address] [place], [place] [phone] Patricia Damon MD Benign prostatic hyperplasia, unspecified whether lower urinary tract symptoms present 01/02/2025 Orders Only [facility] External Provider, [facility] 12/23/2024 Refill [facility] MEDICINE [address] [place] [address] Patricia Damon MD from Last 3 Months Social History Tobacco [...] Care Team (Late st Contact Info) Description 04/13/2025 10:00 AM EDT Nutrition [facility] DIABETES/NUTRITION [address] [place] [address] Tata Woo, IAN [address] [place] [address] Health Maintenance Due Date Last Done Comments CT Colonography 1975 Colonoscopy 1975 Colorectal Cancer Screening 1975 FIT DNA/Cologuard 1975 FIT 1975 FOBT 1975 SDOH Screening 1975 Sigmoidoscopy 1975 Disability Screening 1975 Alcohol/Substance Use Screening 1987 Family Planning (PISQ) 1990 DTaP/Tdap/Td Vaccines (1 - Tdap) 1994 Hepatitis B Vaccines (1 of 3 - 19+ 3-dose series) 1994 Zoster Vaccines (1 of 2) 2025 Influenza Vaccine (Season Ended) 2025 07/19/2023, 07/18/2022 Depression Screening 09/29/2025 09/29/2024, 09/29/20 Tobacco Screening 09/29/2025 09/29/2024 Diabetes: Hemoglobin A1C 11/02/2025 025, 01/04/2023, 08/09/2020 Lipid Panel 11/02/2029 11/02/2024 RSV Patients and Patients Aged 60 years or older (1 - 1-dose 75+ series) 2050 COVID-19 Vaccine Completed 08/01/2024, 07/2023, 07/18/2022, Additional history exists Pneumococcal Vaccine: Pediatrics (0 to 5 Years) and At-Risk Patients (6 to 49) Years Completed 08/01/2024 HIV Screening Completed 11/02/2024 Hepatitis [...] Procedure Name Priority Date/Time Associated Diagnosis Comments US ABDOMEN COMPLETE Routine 02/10/2025 6:44 AM EDT Elevated LFTs XR RIBS 3 VIEWS LEFT W CHEST [...] Recently Relevant to Health Maintenance Results * US Abdomen Complete (02/10/2025 6:44 AM EDT) Anatomical Region Laterality Modality Abdomen Ultrasound 02/10/2025 6:44 AM EDT Narrative 02/10/2025 6:45 AM EDT ? [facility] ?[address] ?[place] [address] ? Ultrasound Report ? Signed ? Patient: Rosas Francisco ?MR#: [id number] ?? [id number] ? : 1975 ?Acct:[id number] ? Age/Sex: 49 / M ?ADM Date: 02/09/25 ? Loc: HO.US ? Attending Dr: Patricia Storm MD ? Ordering Physician: Patricia Damon MD ?? Date of Service: 02/09/25 ?? Procedure(s): US abdomen complete ?? Accession Number(s): [id number] ? cc: Patricia Damon MD ? CLINICAL HISTORY: persistently elevated LFTS ? US abdomen complete with color Doppler ? Comparison: CT/DE/SR - CT ABDOMEN PELVIS W IV CON - 12/26/23 11:55 EDT ?? CT - CT ABDOMEN PELVIS W IV CON - 12/26/23 11:53 EDT ? Findings: ?? The visualized pancreas, aorta, and inferior vena cava are unremarkable. ? Liver normal size and echotexture. Right lobe 15.0 cm length. No focal ?? hepatic masses. ?? Common duct 6.0 mm diameter. ?? Physiologic distention of the gallbladder. No gallstones or sludge. No ?? gallbladder wall thickening. No pericholecystic fluid. No sonographic ?? Diaz sign. ? Right kidney normal size, 11.4 cm in length. Normal cortical width and ?? echotexture. No solid or cystic renal masses. No nephrolithiasis. No ?? hydronephrosis. ?? Left kidney normal, 10.1 cm in length. Normal cortical width and ?? echotexture. No solid or cystic renal masses. No nephrolithiasis. No ?? hydronephrosis. ? Spleen measures 12.0 cm. No splenic masses. ? No ascites. No lymphadenopathy. ? Impression: ?? 1. Borderline splenomegaly no hepatomegaly or focal hepatic lesions. ? This document has been electronically signed by: Bimal Senior MD on ?? 02/10/2025 06:44:17 ? Dictated By: ?Bimal Senior MD ? Signed By: ?<Electronically signed by Bimal Senior MD in OV> ?02/10/2545 ? DD/ 3 ? TD/TT: 02/10/25643 ? Solar Applications Development Engineer: ? Procedure Note [place], Image - 02/10/2025 [place] [address] Ultrasound Report Signed Patient: Rosas Francisco AMR#: [id number] : 1975Acct:[id number] Age/Sex: 49 / MADM Date: 02/09/25 Loc: HO.US Attending Dr: Patricia Storm MD Ordering Physician: Patricia Damon MD Date of Service: 02/09/25 Procedure(s): US abdomen complete Accession Number(s): [id number] cc: Patricia Damon MD CLINICAL HISTORY: persistently elevated LFTS US abdomen complete with color Doppler Comparison: CT/DE/SR - CT ABDOMEN PELVIS W IV CON - 12/26/23 11:[address] - CT ABDOMEN PELVIS W IV CON - 12/26/23 11:53 EDT Findings: The visualized pancreas, aorta, and inferior vena cava are unremarkable. Liver normal size and echotexture. Right lobe 15.0 cm length. No focal hepatic masses. Common duct 6.0 mm diameter. Physiologic distention of the gallbladder. No gallstones or sludge. No gallbladder wall thickening. No pericholecystic fluid. No sonographic Diaz sign. Right kidney normal size, 11.4 cm in length. Normal cortical width and echotexture. No solid or cystic renal masses. No nephrolithiasis. No hydronephrosis. Left kidney normal, 10.1 cm in length. Normal cortical width and echotexture. No solid or cystic renal masses. No nephrolithiasis. No hydronephrosis. Spleen measures 12.0 cm. No splenic masses. No ascites. No lymphadenopathy. Impression: 1. Borderline splenomegaly no hepatomegaly or focal hepatic lesions. This document has been electronically signed by: Bimal Senior MD on 02/10/2025 06:44:17 Dictated By: Bimal Senior MD Signed By: <Electronically signed by Bimal Senior MD in OV> 02/10/25 0645 DD/ TD/TT: 02/10/2544 Solar Applications Development Engineer: us Patricia Storm MD IMG US PROCEDURES Fin al Result * XR Ribs 3 Views Left w/ Chest (01/02/2025 4:39 PM EDT) Anatomical Region Laterality Modality Radiographic Marcelle ging 01/02/2025 4:39 PM EDT Narrative 01/02/2025 4:40 PM EDT ? [facility] ?[address] ?[place] [address] ?XRay Report ? Signed ? Patient: Crochetiere,Rosas A ?MR#: [id number] ?? [id number] ? : 1975 ?Acct:[id number] ? Age/Sex: 49 / M ?ADM Date: 03/29/25 ? Loc: HO.ED ? Attending Dr: ? Ordering Physician: Rosas Green ?? Date of Service: 01/02/25 ?? Procedure(s): XR ribs LT min 3V w CXR1V ?? Accession Number(s): [id number] ? cc: Patricia Damon MD; Rosas Green [...] ?01/02/25 1639 ? DD/ 1639 ? TD/TT: 01/02/25 1639 ? Solar Applications Development Engineer: ? Procedure Note Shanelle Murray - 01/02/[address] [address] XRay Report Signed Patient: Rosas Francisco AMR#: [id number] : 1975Acct:[id number] Age/Sex: 49 / MADM Date: 01/02/25 Loc: HO.ED Attending Dr: Ordering Physician: Rosas Green Date of Service: 01/02/25 Procedure(s): XR ribs LT min 3V w CXR1V Accession Number(s): [id number] cc: Patricia Damon MD; Rosas Green CLINICAL [...] 01/02/25 1639 DD/ 1639 TD/TT: 01/02/25 1639 Solar Applications Development Engineer: [facility] External Provider IMG XR PROCEDURES Edited Result - Final * Hepatitis C Antibody with Reflex to HCV, RNA, Quantitative, Real-Time PCR (11/02/2024 3:18 PM EST) Hepatitis C Antibody Nonreactive Nonreactive [facility] Comment:Antibodies to HCV no t detected; does not exclude early acuteHCV infection. Blood Venous blood specimen / Unknown 11/02/2024 3:18 PM EST 11/02/2024 4:23 PM EST Patricia Storm MD LAB BLOOD ORDERABLES Final Result [facility] [address] [place] [phone] * HIV-1/2 Antigen and Antibodies, Fourth Generation, with Reflexes (11/02/2024 3:18 PM EST) HIV AB/AG Nonreactive Nonreactive [facility] Comment:HIV-1 p24 Ag and/or HIV-1/HIV-2 Ab not detected.A test result that is nonreactive does not exclude thepossibility of exposure to or infection with HIV-1 and/orHIV-2. Nonreactive results in this assay for individualswith prior exposure to HIV-1 and/or HIV-2 may be due toantigen and antibody levels that are below the limit ofdetection of this assay.The [employer] HIV Ag/Ab Combo assay result andsupplemental assay results should be interpreted inconjunction with the patient's clinical presentation,history and other laboratory results. If the results areinconsistent with clinical evidence, additional testing issuggested to confirm the result. Blood Venous blood specimen / Unknown 11/02/2024 3:18 PM EST 11/02/2024 4:23 PM EST us Patricia Storm MD LAB BLOOD ORDERABLES Final Result Performing Organization Address [facility]/ZIP Co de Phone Number [facility] [address] [place] [address] [phone] * Hemoglobin A1c (11/02/2024 3:18 PM EST) Hemoglobin A1c 5.8 <6.0 % [facility] Comment:Hemoglobin A1C Refer ence Range Adults: 4.8 - 6.0 % Non diabetic: < 6.0 % Goal: < 7.0 %Additional Action Suggested: > 8.0 %Note: Hemoglobin A1c results are invalid for patients with abnormal amounts of HbF. Blood transfusions may impact the HbA1c concentration in the patient sample. Estimated Average Glucose 120 mg/dL [facility] Comment:eAG = Estimated ave rage glucose which is %A1C expressed asaverage glucose, using the formula of the K5H-NghoywkNieyuwl Glucose study (ADAG), Diabetes Care, Vol.31,#8,May. 2007 Blood Venous blood specimen / Unknown 11/02/2024 3:18 PM EST 11/02/2024 4:23 PM EST us Patricia Storm MD LAB BLOOD ORDERABLES Final Result Performing Organization Address [facility] Co de Phone Number [facility] [address] [place] [phone] * (ABNORMAL) Lipid Panel, Standard (11/02/2024 3:18 PM EST) Triglycerides 139 <150 mg/dL [facility] Comment:Desirable Triglyceri de: less than 150 mg/dLBorderline High Triglyceride 150-199 mg/dLHigh Triglyceride: 200-499 mg/dLVery High Triglyceride: greater than or equal to 5OO mg/dL Cholesterol 209(H) <200 mg/dL [facility] Comment:Desirable Cholestero l: less than 200 mg/dLBorderline High Cholesterol: 200-239 mg/dLHigh Cholesterol: greater than 239 mg/dL LDL Cholesterol Calculated 139(H) <100 mg/dL [facility] Comment:Desirable LDL: less than 100 mg/dLNear Optimal/Above Optimal LDL: 110- 129 mg/dLBorderline High LDL: 130-159 mg/dLHigh LDL: 160-189 mg/dLVery High LDL: greater than or equal to 190 mg/dL HDL Cholesterol 43 >40 mg/dL [facility] Comment:Desirable HDL: great er than 40 mg/dL Note: This HDL assay may give artificially low results in patients with liver disease. Blood Venous blood specimen / Unknown 11/02/2024 3:18 PM EST 11/02/2024 4:23 PM EST us Patricia Storm MD LAB BLOOD ORDERABLES Final Result [facility] [address] [place] [phone] from Last 3 Months or Most Recently Relevant to Health Maintenance Insurance Care Teams Test Kitchen Home Economist Relationship Specialty Start Date End Date Patricia Damon MD [address] [place] [phone] PCP - General Family Medicine 05/24/20
== END 2025-03-23 10:14 | disposition home or self-care (01) ==
LOC: HO.ENCR 09:22
PROVIDERS: PCP Internal Medicine; Visit Provider Student in an Organized Health Care Education/Training Program
DX: E05.90 Thyrotoxicosis, unspecified without thyrotoxic crisis or storm (principal)
CPT/HCPCS: 99204

== ENCOUNTER 2025-03-23 09:21 | Outpatient (REF) | payer OTHER, SELFPAY ==
[2025-03-23 11:42] LABS: Free T4 (Free Thyroxine) 0.93 ng/dL (0.71-1.85); Thyroid Stimulating Hormone 0.24 uIU/mL (0.32-4.0)
[2025-03-24 07:08] LABS: Triiodothyronine T3 Total 139 ng/dL (76-181)
[2025-03-24 18:33] LABS: Thyroid Peroxidase Antibodies <1 IU/mL (<9)
[2025-03-26 21:53] LABS: Thyrotropin Receptor Antibody <1.00 IU/L (<=2.00)
[2025-03-29 15:43] LABS: Thyroid Stimulating Immunoglob <89 % baseline (<140)
== END 2025-03-23 09:22 | disposition home or self-care (01) ==
LOC: HO.LAB 09:21
PROVIDERS: PCP Internal Medicine; Visit Provider Student in an Organized Health Care Education/Training Program
DX: E05.90 Thyrotoxicosis, unspecified without thyrotoxic crisis or storm (principal)
CPT/HCPCS: 36415; 83520; 84439; 84443; 84445; 84480; 86376; 99202

== ENCOUNTER 2025-04-13 09:26 | Outpatient (AMB) | payer OTHER, SELFPAY ==
--- NOTE | 2025-04-13 09:40 | MHC.OFFVIS ---
Vital Signs 04/13/25 09:54 Height 5 ft 8 in Weight 171 lb 15.369 oz BMI 26.1 BP 121/64 Blood Pressure Location Lt brachial Position Sitting Pulse 76 Pulse Source Pulse Oximeter Pulse Oximetry (%) 98 Intake Visit Reasons: 2nd Opinion for Lilly Intake Note: Rosas presents in the office as a 2nd opinion. CC: States that he sees Lilly but he wants a second opinion. He is concerned because that everything started when he had a colonoscopy - he has conditions sensitive to his body - He states that last year he was okay but this year his symptoms came back. Chalky taste, nausea, loss of appetite. He states that he has soft stools he has issues with having a normal BM. He states he also feels like the weather is also a factor. Previously seen Dr. Beckwith. He feels Lilly did not listen as much. He feels like he does not secret his mucus correctly in his body and that the colo prep the last time reversed how far he came with this symptoms. Psychological Aide Required: No Allergies esomeprazole Adverse Reaction (Mild, Verified 04/13/25 09:55) urinating trouble HPI Comments Details: This is a 50-year-old gentleman with medical history of hyperthyroidism, history of polyps, interstitial cystitis, who presents to the office today for ?2nd opinion?. Patient reports years of GI symptoms. Reports that main symptoms are increased abdominal bloating, cramping in the lower abdomen with increased frequency of bowel movements. Does not notice blood in the bowel movement, but frequently has mucus passage. Endorses occasional tenesmus. Nighttime symptoms positive. EGD/colonoscopy 2022: With large ascending colon adenoma as well as to more tubular adenoma in transverse colon. Colon biopsies were not positive for definitive colitis, but did show architectural distortion with prominent histiocytes. Duodenum biopsies were normal. To note patient also has microcytic anemia with low ferritin And frequently low vitamin-D unless he takes active replacement. [facility] Medical History Subclinical hyperthyroidism Tubular adenoma Hemiplegic migraine Interstitial cystitis Irritable bowel syndrome Gastroesophageal reflux disease Surgical History History of excision of pilonidal cyst (02/27/23) History of esophagogastroduodenoscopy (EGD) H/O colonoscopy Hx of cystoscopy History of vasectomy H/O removal of cyst Family History Father COVID-19 COPD (chronic obstructive pulmonary disease) Stroke Paternal Grandmother Cancer of unknown origin Sister MGUS (monoclonal gammopathy of unknown significance) Social History Household Members: Family Alcohol intake: current Alcohol intake frequency: a few times a week Patient Tobacco Use Status: Current everyday Tobacco user Tobacco use type: Cigarette service: No Current occupational status: employed Review of Systems Const All systems reviewed & are unremarkable except as noted in HPI and below Physical Exam Vital Signs: Last Vital Signs Pulse 76 04/13/25 09:54 BP 121/64 04/13/25 09:54 Pulse Ox 98 04/13/25 09:54 BMI result Body Mass Index 26.1 No apparent distress Nonicteric Abdomen soft, nondistended, mild tenderness in RLQ and LLQ without guarding Alert and oriented x3, normal gait Assessment & Plan Assessment & Plan (1) Change in bowel habit: Code(s): R19.4 - Change in bowel habit Category: Medical (2) Microcytic anemia: Code(s): D50.9 - Iron deficiency anemia, unspecified Category: Medical (3) Abdominal pain: Code(s): R10.9 - Unspecified abdominal pain Plan Pt with chronic sx of abdominal pain, cramping, change in bowel habits alongside subtle changes on colon biopsies with nutrient deficiency - can not rule out Crohn's disease, especially of the small bowel. Other differentials would include autoimmune enteropathy versus CVID versus MCAS (luther given foamy histiocytes on bx). plan: - CTE - Repeat fecal piero - Labs as below - May need VCE vs repeat colo based on results Close follow up after CTE done Orders: Orders Tryptase 04/13/25 R19.4 - Change in bowel habit Calprotectin, Fecal 04/13/25 R19.4 - Change in bowel habit CT enterography 04/13/25 R19.4 - Change in bowel habit C Reactive Protein 04/13/25 R19.4 - Change in bowel habit Immunoglobulin G Subclasses 04/13/25 R19.4 - Change in bowel habit Immunoglobulins,IgG IgA IgM 04/13/25 R19.4 - Change in bowel habit Coding Level of Care Code Complex visit Add On G2211 Diagnoses Change in bowel habit R19.4 Microcytic anemia D50.9 Abdominal pain R10.9
--- OUTSIDE RECORDS SUMMARY | 2025-04-13 09:53 | XMS_ITS | Clinical Summary ---
Author Organization [employer] Address [address] [place] [address] [address] [place] [address] Care Team Providers Care Transfer Engineer Name Role Phone Patricia Damon MD Primary Care Provide r Allergies No known active allergies Medications esomeprazole (NexIUM) [address] capsuleIndicatio ns:Gastroesophag eal reflux disease, unspecified whether esophagitis present Take 1 capsule (40 mg) by mouth 2 times daily. Do not open capsule. 60 capsule 1 3 Active verapamil (Calan) 80 MG tablet TAKE 1 TABLET BY MOUTH AT BEDTIME 90 tablet 1 5 Active Avodart 0.5 MG capsuleIndicatio ns:Benign prostatic hyperplasia, unspecified whether lower urinary tract symptoms present TAKE 1 CAPSULE BY MOUTH EVERY MORNING 30 capsule 5 5 Active pentosan polysulfate (Elmiron) 100 MG capsuleIndicatio ns:Bladder pain TAKE 2 CAPSULES BY MOUTH TWICE DAILY 120 capsule 3 5 Active Active Problems Problem Noted Date Diagnosed Date Low TSH level 11/19/2024 Elevated LFTs 11/19/2024 Assessment & Plan (11/19/2024 1:38 PM EST): Extensive counseling about healthy diet and cardiovascular exercise done today Abdominal ultrasound ordered, patient will be contacted with results Dining Service Inspector referral done today Prediabetes 11/19/2024 Assessment & [...] iron deficiency anemia done Tobacco dependence syndrome 03/25/2012 01/0 02/2024 Encounters Date Type Department Care Team Description 03/23/2025 Orders Only GENERIC EXTERNAL DATA DEPARTMENT Provider, Generic External Data 03/12/[address] [address] Patricia Damon MD 03/08/[address] [address] Patricia Damon MD telephone call 02/19/2025 Orders Only [facility] MEDICINE [address] [place] [phone] Patricia Damon MD 02/19/2025 Refill [facility] [address] [place], [place] [phone] Patricia Damon MD Bladder pain 02/12/[address] [address] Patricia Damon MD Care Coordination; Medication Question 02/11/[address] [address] Patricia Damon MD Prior Authorization ([facility] Request: Avodart) 02/11/[address] [address] Patricia Damon MD Results 02/01/[address] [address] Patricia Damon MD Prior Authorization ([facility] Request: Avodart 0.5 MG capsule) 01/31/2025 Refill [facility] PEDS [address] [place] [address] Patricia Damon MD Benign prostatic hyperplasia, unspecified whether lower urinary tract symptoms present from Last 3 Months Social History Tobacco [...] 87 09/29/2024 11:49 AM EST Temperature 36.3 C (97.4 F) 09/29/2024 11:49 AM EST Respiratory Rate 20 09/29/2024 11:49 AM EST Oxygen Saturation 98% 09/29/2024 11:49 AM EST Inhaled Oxygen Concentration - - Weight 85.5 kg (188 lb 9.6 oz) 09/29/2024 11:49 AM EST Height 172.7 cm (5' 8 ) 09/29/2024 11:49 AM EST Body Mass Index 28.68 09/29/2024 11:49 AM EST Plan of Treatment Upcoming Encounters Date Type Department Care Team (Late st Contact Info) Description 05/11/2025 10:00 AM EDT Nutrition [facility] DIABETES/NUTRITION [address] [place] [address] [place] [address] Health Maintenance Due Date Last Done Comments [...] Vaccines (1 of 2) 2025 Influenza Vaccine (#1) 2025 07/19/2023, 2021 Depression Screening 09/29/2025 09/29/2024, 09/29/20 Tobacco Screening 09/29/2025 09/29/2024 Diabetes: Hemoglobin A1C 11/02/2025 025, 01/04/2023, 08/09/2020 Lipid Panel 11/02/2029 11/02/2024 RSV Patients and Patients Aged 60 years or older (1 - 1-dose 75+ series) 2050 COVID-19 Vaccine Completed 08/01/2024, 07/2023, 07/18/2022, Additional history exists Pneumococcal Vaccine: 50+ Years Completed 08/01/2024 HIV Screening Completed 11/02/2024 [...] Procedure Name Priority Date/Time Associated Diagnosis Comments TSI (THYROID STIMULATING IMMUNOGLOBULIN) Routine 03/23/2025 10:37 AM EDT TRAB (TSH RECEPTOR BINDING ANTIBODY) Routine 03/23/2025 10:37 AM EDT THYROID PEROXIDASE ANTIBODIES Routine 03/23/2025 10:37 AM EDT T3, TOTAL Routine 03/23/2025 10:37 AM EDT TSH Routine 03/23/2025 10:37 AM EDT T4, FREE Routine 03/23/2025 10:37 AM EDT US ABDOMEN COMPLETE Routine 02/10/2025 6 :44 AM EDT Elevated LFTs HEPATITIS C AB W/REFL TO HCV RNA, QN, PCR Routine 11/02/2024 3:18 PM EST Subclinical hyperthyroidism HIV 1/2 ANTIGEN/ANTIBODY, FOURTH GENERATION W/RFL Routine 11/02/2024 3:18 PM EST Subclinical hyperthyroidism HEMOGLOBIN A1C Routine 11/02/2024 3:18 PM EST Subclinical hyperthyroidism LIPID PANEL, STANDARD Routine 11/02/2024 3:18 PM EST Subclinical hyperthyroidism from Last 3 Months or Most Recently Relevant to Health Maintenance Results * Thyroid Peroxidase Antibodies (03/23/2025 10:37 AM EDT) Thyroid Peroxidase Antibodies <1 <9 IU/mL [facility] Comment:THIS TEST WAS PERFOR MED AT:[address] [place] [id number] JONES MD 03/23/2025 10:3 7 AM EDT 03/23/2025 10:37 AM EDT us Generic External Data Provider LAB BLOOD ORDERAB LES Final Result [facility] [address] [place] [phone] * TSI (Thyroid Stimulating Immunoglobulin) (03/23/2025 10:37 AM EDT) Thyroid Stimulating Immunoglobulin <89 <140 % baseline [facility] Comment: Thyroid stimulating immunoglobulins (TSI) can engagethe TSH receptors resulting in hyperthyroidism inGraves' disease patients. TSI levels can be useful inmonitoring the clinical outcome of Graves' disease aswell as assessing the potential for hyperthyroidismfrom maternal- transfer. TSI results greater thanor equal to (>=) 140% of the Reference Control areconsidered positive.NOTE:A serum TSH level greater than 350 micro-InternationalUnits/mL can interfere with the TSI bioassay andpotentially give false positive results.Patients who are and are suspected of havinghyperthyroidism should have both TSI and humanChorionic Gonadotropin(hCG) tests measured. A serumhCG level greater than 40,625 mIU/mL can interferewith the TSI bioassay and may give false negativeresults. In these patients it is recommended thata second TSI be obtained when the hCG concentrationfalls below 40,625 mIU/mL (usually after [id number]-lvauk gestation).The analytical performance characteristics of thisassay have been determined by [employer]. The modificationshave not been cleared or approved by the FDA. Thisassay has been validated pursuant to the CLIAregulations and is used for clinical purposes.THIS TEST WAS PERFORMED AT:[employer]/[id number] [place] [address]PFLHEGJKANWAL RIBERA MD,PHD 03/23/2025 10:3 7 AM EDT 03/23/2025 10:37 AM EDT us Generic External Data Provider LAB BLOOD ORDERAB LES Final Result [facility] [address] [place] [phone] * TRAb (TSH Receptor Binding Antibody) (03/23/2025 10:37 AM EDT) TRAb (TSH Receptor Binding Antibody) <1.00 <=2.00 IU/L [facility] Comment:This test was perfor med using the TRAb Antibody ELISAmethod which is standardized against the 1stInternational Standard 90/672 and is reported inInternational Units (IU/L). The reference rangereported was established specifically for this testmethod.THIS TEST WAS PERFORMED AT:[employer]/[id number] [place] [address]JGWXXURKANWAL RIBERA MD,PHD 03/23/2025 10:3 7 AM EDT 03/23/2025 10:37 AM EDT us Generic External Data Provider LAB BLOOD ORDERAB LES Final Result Performing Organization Address [facility]/ZIP Co de Phone Number [facility] [address] [place] [phone] * T3, Total (03/23/2025 10:37 AM EDT) Pathologist [facility] T3, Total 139 76 - 181 ng/dL [facility] Comment:THIS TEST WAS PERFOR MED AT:[employer] [address] [address]GKHPPISELA JONES MD 03/23/2025 10:3 7 AM EDT 03/23/2025 10:37 AM EDT us Generic External Data Provider LAB BLOOD ORDERAB LES Final Result Performing Organization Address [facility] de Phone Number [facility] [address] [place] [phone] * (ABNORMAL) TSH (03/23/2025 10:37 AM EDT) Pathologist [facility] Thyroid Stimulating Hormone 0.24(L) 0.32 - 4.0 uIU/mL [facility] Comment:TSH 3rd Generation ( [facility]) 03/23/2025 10:3 7 AM EDT 03/23/2025 10:37 AM EDT us Generic External Data Provider LAB BLOOD ORDERAB LES Final Result Performing Organization Address [facility]/ZIP Co de Phone Number [facility] [address] [place] [phone] * T4, Free (03/23/2025 10:37 AM EDT) Free T4 (Free Thyroxine) 0.93 0.71 - 1.85 ng/dL [facility] 03/23/2025 10:3 7 AM EDT 03/23/2025 10:37 AM EDT us Generic External Data Provider LAB BLOOD ORDERAB LES Final Result Performing Organization Address City/State/[facility] Co de Phone Number [facility] [address] [place] [phone] * US Abdomen Complete (02/10/2025 6:44 AM EDT) Anatomical Region Laterality Modality Abdomen Ultrasound 02/10/2025 6:44 AM EDT Narrative 02/10/2025 6:45 AM EDT [address] [address] Ultrasound Report Signed Patient: Rosas Francisco MR#: [id number] : 1975 Acct:[id number] Age/Sex: 49 / M ADM Date: 02/09/25 Loc: HO.US Attending Dr: Patricia Storm MD Ordering Physician: Patricia Damon MD Date of Service: 02/09/25 Procedure(s): US abdomen complete Accession Number(s): [id number] cc: Patricia Damon MD CLINICAL HISTORY: persistently elevated LFTS US abdomen complete with color Doppler Comparison: CT/MT/SR - CT ABDOMEN PELVIS W IV CON [...] signed by Bimal Senior MD in OV> 02/10/2545 DD/ 3 TD/TT: 02/10/25643 Pelletizer Operator: Procedure Note Donotuseinterpreter, Image - 02/10/2025 [place] [address] Ultrasound Report Signed Patient: Rosas Francisco AMR#: [id number] : 1975Acct:[id number] Age/Sex: 49 / MADM Date: 02/09/25 Loc: HO.US Attending Dr: Patricia Storm MD Ordering Physician: Patricia Damon MD Date of Service: 02/09/25 Procedure(s): US abdomen complete Accession Number(s): [id number] cc: Patricia Damon MD CLINICAL HISTORY: persistently elevated LFTS US abdomen complete with color Doppler Comparison: CT/MT/SR - CT ABDOMEN PELVIS W IV CON [...] signed by Bimal Senior MD in OV> 02/10/2545 DD/ 3 TD/TT: 02/10/25643 Pelletizer Operator: Patricia Storm MD IMG US PROCEDURES Fin al Result * Hepatitis C Antibody with Reflex to HCV, RNA, Quantitative, Real-Time PCR (11/02/2024 3:18 PM EST) Pathologist [facility] Hepatitis C Antibody Nonreactive Nonreactive [facility] Comment:Antibodies to HCV no t detected; does not exclude early acuteHCV infection. Blood Venous blood specimen / Unknown 11/02/2024 3:18 PM EST 11/02/2024 4:23 PM EST Patricia Storm MD LAB BLOOD ORDERABLES Final Result [facility] [address] [place] [phone] * HIV-1/2 Antigen and Antibodies, Fourth [...] below the limit ofdetection of this assay.The [employer] InternationalniCPUsage HIV Ag/Ab Combo assay result andsupplemental assay results should be interpreted inconjunction with the patient's clinical presentation,history and other laboratory results. If the results areinconsistent with clinical evidence, additional testing issuggested to confirm the result. Blood Venous blood specimen / Unknown 11/02/2024 3:18 PM EST 11/02/2024 4:23 PM EST us Patricia Storm MD LAB BLOOD ORDERABLES Final Result Performing Organization Address [facility] Co de Phone Number [facility] [address] [place] [phone] * Hemoglobin A1c (11/02/2024 3:18 PM EST) Hemoglobin A1c 5.8 <6.0 % [facility] Comment:Hemoglobin A1C Refer ence Range Adults: 4.8 - 6.0 % Non diabetic: < 6.0 % Goal: < 7.0 %Additional Action Suggested: > 8.0 %Note: Hemoglobin A1c results are invalid for patients with abnormal amounts of HbF. Blood transfusions may impact the HbA1c concentration in the patient sample. Estimated Average Glucose 120 mg/dL [facility] Comment:eAG = Estimated ave rage glucose which is %A1C expressed asaverage glucose, using the formula of the L2N-JyaxcbcRtdopwj Glucose study (ADAG), Diabetes Care, Vol.31,#8,May. 2007 Blood Venous blood specimen / Unknown 11/02/2024 3:18 PM EST 11/02/2024 4:23 PM EST us Patricia Storm MD LAB BLOOD ORDERABLES Final Result Performing Organization Address [facility] Co de Phone Number [facility] [address] [place] [phone] * (ABNORMAL) Lipid Panel, Standard (11/02/2024 3:18 PM EST) Triglycerides 139 <150 mg/dL [facility] Comment:Desirable Triglyceri de: less than 150 mg/dLBorderline High Triglyceride 150-199 mg/dLHigh Triglyceride: 200-499 mg/dLVery High Triglyceride: greater than or equal to 5OO mg/dL Cholesterol 209(H) <200 mg/dL [facility] Comment:Desirable Cholestero l: less than 200 mg/dLBorderline High Cholesterol: 200-239 mg/dLHigh Cholesterol: greater than 239 mg/dL LDL Cholesterol Calculated 139(H) <100 mg/dL [facility] Comment:Desirable LDL: less than 100 mg/dLNear Optimal/Above Optimal LDL: 110- 129 mg/dLBorderline High LDL: 130-159 mg/dLHigh LDL: 160-189 mg/dLVery High LDL: greater than or equal to 190 mg/dL HDL Cholesterol 43 >40 mg/dL [facility] Comment:Desirable HDL: great er than 40 mg/dL Note: This HDL assay may give artificially low results in patients with liver disease. Blood Venous blood specimen / Unknown 11/02/2024 3:18 PM EST 11/02/2024 4:23 PM EST us Patricia Storm MD LAB BLOOD ORDERABLES Final Result [facility] [address] [place] [phone] from Last 3 Months or Most Recently Relevant to Health Maintenance Insurance [facility] Care Teams Transfer Engineer Relationship Specialty Start Date End Date Patricia Damon MD [address] [place] [phone] PCP - General Family Medicine 05/24/20
--- OUTSIDE RECORDS SUMMARY | 2025-04-13 09:53 | XMS_ITS | Clinical Summary ---
Author Organization [facility] Address [address] [place] [address] Phone Care Team Providers Care Air Drill Operator Name Role Phone Patricia Damon MD [...] Encounters Date Type Department Care Team Description 03/26/2025 Telephone Orthopedic Surgery [place] [phone] [phone] Jose Luis Phelps DPM surgery 02/04/2025 2:15 PM EDT Consult Orthopedic Surgery [place] [address] [phone] Jose Luis Phelps DPM Bunion of left [...] 02/04/2025 1:55 PM EDT Plan of Treatment Upcoming Encounters Date Type Department Care Team (Latest Contact Info) Description 07/09/2025 9:30 AM EDT Hospital Encounter [facility] Main OR [address] [place] [phone] Jose Luis Phelps DPM [address] [address] 07/09/2025 9:30 AM EDT - 07/09/2025 11:[address] [facility] Main [place] [address] [place] [phone] Jose Luis Phelps, DPM [address] [address] BUNIONECTOMY LEFT [08769 (CPT )] Scheduled Procedures Name Priority Associated Diagnoses Date/Ti me BUNIONECTOMY Bunion of left foot 07/09/2025 9:30 AM EDT Health Maintenance Due Date Last Done Comments DTaP,Tdap,and Td Vaccines (1 - Tdap) 1994 Hepatitis B Vaccines (1 of 3 - 19+ 3-dose series) 1994 Colorectal Cancer Screening: Colonoscopy 10/30/2024 Social Influencers of Health Screening 10/30/2024 Zoster Vaccines (1 of 2) 2025 Influenza Vaccine (#1) 2025 07/19/2023, 2021 Depression Screening 09/29/2025 09/29/2024 Cholesterol Screening (Lipid [...] Name Priority Date/Time Associated Diagnosis Comments XR FOOT 3+ VIEWS LEFT Routine 02/04/2025 2:25 PM EDT Bunion of left foot from Last 3 Months Results * XR Foot 3+ Views Left (02/04/2025 2:25 PM EDT) Anatomical Region Laterality Modality Lower Extremities, Foot Left Computed Radiography Narrative 02/22/2025 9:32 PM EDT Left foot 3 views weightbearing: No fractures or dislocation. Bony mineralization within normal limits. 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 Increased tibial sesamoid position us Jose Luis Phelps DPM IMG XR PROCEDURES Final Res ult from Last 3 Months Insurance [facility] PUBLIC [employer] Care Teams Air Drill Operator Relationship Specialty Start Date End Date Patricia Damon MD [address] [place] [phone] PCP - General Internal Medicine 10/29/24
--- OUTSIDE RECORDS SUMMARY | 2025-04-13 09:53 | XMS_ITS | Patient Health Record ---
Author Organization [facility] Address [address] [place] [phone] Care Team Providers Care Machine Zipper Trimmer Name Role Phone Yimi Ulloa Unavailable [phone] Reason For Referral No Information Plan Of Treatment No Information
[2025-04-13 09:54] VITALS: BP 121/64; PULSE 76; O2SAT 98; BMI 26.1
== END 2025-04-13 10:41 | disposition home or self-care (01) ==
LOC: HO.HGI 09:26
PROVIDERS: PCP Internal Medicine; Visit Provider Internal Medicine
DX: R19.4 Change in bowel habit (principal); D50.9 Iron deficiency anemia, unspecified; R10.9 Unspecified abdominal pain
CPT/HCPCS: 99499

== ENCOUNTER 2025-05-04 13:22 | Outpatient (REF) | payer OTHER, SELFPAY ==
--- OUTSIDE RECORDS SUMMARY | 2025-05-04 14:12 | XMS_ITS | Clinical Summary ---
Author Organization [address] [facility] Address [address] [place] [address] Phone Care Team Providers Care Mold Hoister Name Role Phone Patricia Damon MD Primary [...] Care Team Description 03/26/2025 Telephone Orthopedic Surgery [place] [address] [phone] Jose Luis Phelps DPM surgery 02/04/2025 2:15 PM EDT Consult Orthopedic Surgery [place] [address] [phone] Jose Luis Phelps DPM Bunion of left [...] Description 07/09/2025 9:30 AM EDT Hospital Encounter [facility] Main OR [address] [place] [phone] Jose Luis Phelps DPM [address] [address] 07/09/2025 9:30 AM EDT - 07/09/2025 11:00 AM EDT Surgery [facility] Main OR [address] [place] [phone] Jose Luis Phelps, DPM [address] [address] BUNIONECTOMY LEFT [29859 (CPT )] Scheduled Procedures Name Priority Associated Diagnoses Date/Ti me BUNIONECTOMY Bunion of left foot 07/09/2025 9:30 AM EDT Health Maintenance Due Date Last Done Comments DTaP,Tdap,and Td Vaccines (1 - Tdap) 1994 Hepatitis B Vaccines (1 of 3 - 19+ 3-dose series) 1994 Depression Screening 10/07/2024 Colorectal Cancer Screening: Colonoscopy 10/30/2024 Social Influencers of Health Screening 10/30/2024 Zoster Vaccines (1 of 2) 2025 Influenza Vaccine (#1) 2025 07/19/2023, 2021 Cholesterol Screening (Lipid Panel) 11/02/2029 11/02/2024 COVID-19 [...] Res ult from Last [address] [place] [address] [place] [address] PUBLIC PLANS Care Teams Mold Hoister Relationship Specialty Start Date End Date Patricia Damon MD [address] [place] [phone] PCP - General Internal Medicine 10/29/24
--- OUTSIDE RECORDS SUMMARY | 2025-05-04 14:12 | XMS_ITS | Patient Health Record ---
Author Organization [facility] Address [address] [place] [phone] Care Team Providers Care Account Engineer Name Role Phone Yimi Ulloa Unavailable [phone] Reason For Referral No Information Plan Of Treatment No Information
[2025-05-05 16:58] LABS: Immunoglobulin G Subclass 1 428 mg/dL (382-929); Immunoglobulin G Subclass 2 259 mg/dL (241-700); Immunoglobulin G Subclass 3 48 mg/dL (22-178); Immunoglobulin G Subclass 4 58.4 mg/dL (4-86); Immunoglobulin G Total 801 mg/dL (600-1640)
== END 2025-05-04 13:23 | disposition home or self-care (01) ==
LOC: HO.LAB 13:22
PROVIDERS: PCP Internal Medicine; Visit Provider Internal Medicine
DX: Z01.84 Encounter for antibody response examination (principal); R19.4 Change in bowel habit
CPT/HCPCS: 36415; 82784; 83520; 86140

== ENCOUNTER 2025-06-22 07:53 | Outpatient (REF) | payer OTHER, SELFPAY ==
--- OUTSIDE RECORDS SUMMARY | 2025-06-22 07:59 | XMS_ITS | Patient Health Record ---
Author Organization [facility] Address [address] [place] [phone] Care Team Providers Care Liquor Maker Name Role Phone Yimi Ulloa Unavailable [phone] Reason For Referral No Information Plan Of Treatment No Information
--- OUTSIDE RECORDS SUMMARY | 2025-06-22 07:59 | XMS_ITS | Encounter Summary ---
Author Organization [employer] Address [address] [place] [address] [place] [address] Care Team Providers Care Materials Planning Manager Name Role Phone Patricia Damon MD Primary Care Provide r Encounter Details Date Type Department Care Team (Late st Contact Info) Description 09/21/2022 Orders Only [facility] MEDICINE [address] [place] [address] Maya Hernandez MD [address] [place] [address] Bunion of left foot (Primary Dx) Social [...] Care Team (Late st Contact Info) Description 07/06/2025 11:30 AM EDT Clinical Support [facility] DIABETES/NUTRITION [address] [place] [address] [place] [address] documented as of this encounter Procedures Procedure [...] 8:08 AM EDT 02/27/2023 9:45 AM EDT [facility] LABS - 03/01/2023 2:17 PM EDT ----- ------- Name: MaryamRosas Partha Age/Sex: 47/M : 1975 Unit#: [id number] Attend Dr: Kevin Tafoya MD Re02/27/23 Status: [facility] Location: [facility] Disch: ----- ------- SPEC : [id number] RECD: 02/27/23 STATUS: CARMEN ARREDONDO NUM: [id number] JAZMYN: 02/27/[address] [facility] [address]: Kevin Tafoya MD ENTERED: 02/27/23 SP TYPE: Surgical OTHR DR: Patricia Damon MD ORDERED: Gross Micro L3 Diagnosis Skin, pilonidal cyst , excision: Pilonidal cyst with abscess formation. Clinical History Pilonidal cyst without abscess Microscopic Description Microscopic sections reviewed. Material Received Pilonidal cyst Gross Description Received in formalin labeled pilonidal cyst is a 3.8 x 1.0 cm ellipse of puckered and retracted flower skin and subcutaneous tissue excised to a maximum depth of 0.9 cm. The skin surface displays a central 1.6 x 0.6 cm focally firm puckered and retracted flower- white linear crease. The margins are inked and the specimen is serially sectioned to reveal homogeneous, dense, preston-white fibrous dermal tissue with a 0.7 x 0.5 x 0.45 cm somewhat fleshy, pale, flower-pink focus which closely approaches the peripheral soft tissue margin and is located 0.6 cm from the nearest tip margin. Cross-sections through the width of the specimen, to include the entire lesion, are submitted in cassettes A1 and A2. The tip portions are retained in formalin. CEDS Copies To: Patricia Damon MD [address] [place] [id number] Kevin Tafoya MD [address] [place] [address] [place] [address] CONTINUED ON NEXT PAGE ----- ------- Name: Rosas Francisco Age/Sex: 47/M : 1975 Unit#: [id number] Attend Dr: Kevin Tafoya MD Re02/27/23 Status: [facility] Location: [facility] Disch: ----- ------- SPEC : [id number] RECD: 02/27/23 STATUS: CARMEN ARREDONDO NUM: [id number] JAZMYN: 02/27/[address] [facility] [address]: Kevin Tafoya MD ENTERED: 02/27/23 SP TYPE: Surgical OTHR DR: Patricia Damon MD ORDERED: Gross Micro L3 ----- ------- Signed (signature on file) Tereso Mejias MD 03/01/23 1417 ----- ------- END OF REPORT us [facility] External Provider LAB [facility] ORDERABLES Final Result [facility] [address] [place] [address] [phone] * Pancreatic elastase, fecal (01/09/2023 8:51 PM EDT) Pancreatic Elastase 1 >500 mcg/g [facility] Comment:Adult and Pediatric Reference Ranges for Pancreatic Elastase-1: Normal: >200 mcg/gModerate Pancreatic Insufficiency: 100-200 mcg/g Severe Pancreatic Insufficiency: <100 mcg/gElastase-1 (E-1) assay results are expressedin mcg/g, which represent mcg E1/g feces.It is not necessary to interrupt enzymesubstitution therapy.THIS TEST WAS PERFORMED AT:[employer] [id number] [place] [address]WYTYQJEANIE SHERIDAN MD,PHD,MACHELLE 01/09/2023 8:51 PM EDT 01/11/2023 8:52 AM EDT [facility] Exter nal Provider LAB BODY FLUIDS AND STOOLS ORDERABLES Final Result Performing Organization Address [facility]/ZIP Co de Phone Number [facility] [address] [place] [phone] * Lipase (01/04/2023 2:04 PM EDT) Lipase 38 8 - 78 U/L [facility] 01/04/2023 2:04 PM EDT 01/04/2023 2:04 PM EDT [facility] External Provider LAB BLO OD ORDERABLES Final Result Performing Organization Address [facility] Co de Phone Number [facility] [address] [place] [phone] * Hemoglobin A1c (01/04/2023 2:04 PM EDT) Hemoglobin A1c 6.0 % [facility] Comment:Hemoglobin A1C Refer ence Range Adults: 4.8 - 6.0 % Non diabetic: < 6.0 % Goal: < 7.0 %Additional Action Suggested: > 8.0 %Note: Hemoglobin A1c results are invalid for patients with abnormal amounts of HbF. Blood transfusions may impact the HbA1c concentration in the patient sample. Estimated Average Glucose 126 mg/dL [facility] Comment:eAG = Estimated ave rage glucose which is %A1C expressed asaverage glucose, using the formula of the G4R-NmfrklnHvinnqy Glucose study (ADAG), Diabetes Care, Vol.31,#8,2007 01/04/2023 2:04 PM EDT 01/04/2023 2:04 PM EDT [facility] External Provider LAB BLO OD ORDERABLES Final Result [facility] [address] [place] [address] [phone] documented in this encounter Visit Diagnoses Diagnosis Bunion of left foot- Primary Bunion documented in this encounter Care Teams Materials Planning Manager Relationship Specialty Start Date End Date Patricia Damon MD [address] [place] [phone] PCP - General Family Medicine 05/24/20 documented as of this encounter
--- OUTSIDE RECORDS SUMMARY | 2025-06-22 07:59 | XMS_ITS | Clinical Summary ---
Author Organization [employer] Address [address] [place] [address] 7 [place] [address] Care Team Providers Care Seam Checker Name Role Phone Patricia Damon MD Primary [...] TWICE DAILY 120 capsule 3 5 Active fluticasone (Flonase) 50 MCG/ACT nasal spray Administer 1-2 sprays into each nostril Once per day. Shake gently. Before first use, prime pump. After use, clean tip and replace cap. 16 g 2 5 05/17/20 26 Active amoxicillin (Amoxil) 875 MG tablet Take 1 tablet (875 mg) by mouth 2 times daily for 7 days. 14 tablet 5 05/24/20 25 Active Problems Problem Noted Date Diagnosed Date Chronic sinusitis of both maxillary sinuses 05/2025 Assessment & Plan (06/14/2025 11:38 AM EDT): Cough in adult patient 06/14/2025 Assessment & Plan (06/14/2025 11:38 AM EDT): Orders: Influenza A (ID NOW Rapid Molecular) Influenza B (ID NOW Rapid Molecular) POCT Rapid COVID Ag Right otitis media 05/17/2025 Assessment & Plan (06/18/2025 5:57 PM EDT): Rx for amox sent, monitor for worsening pain or failure to resolve Low TSH level 11/19/2024 Elevated LFTs 11/19/2024 Assessment & Plan (11/19/2024 1:38 PM EST): Extensive counseling about healthy diet and cardiovascular exercise done today Abdominal ultrasound ordered, patient will be contacted with results Asset Analyst referral done today Prediabetes 11/19/2024 Assessment & [...] Allergic rhinitis 03/25/2012 10/11/2023 Assessment & Plan (06/18/2025 5:56 PM EDT): Encouraged topical steroid Assessment & Plan (05/05/2024 7:24 PM EDT): [...] Encounters Date Type Department Care Team Description 06/14/2025 10:00 AM EDT Office Visit [facility] [address] [place] [phone] Rosi Verma NP Chronic sinusitis of both maxillary sinuses (Primary Dx); Cough in adult patient 06/14/2025 Travel 05/28/2025 Telephone [facility] MEDICINE [address] [place] [phone] Patricia Damon MD Referral 05/18/2025 10:00 AM EDT Nutrition [facility] DIABETES/NUTRITION [address] [place] [phone] Elevated LFTs 05/18/2025 Travel 05/17/2025 3:15 PM EDT Office Visit [facility] [address] [place] [address] Rosi Verma, FRANCES Other non-recurrent acute nonsuppurative otitis media of right ear (Primary Dx); Seasonal allergic rhinitis due to pollen 05/17/2025 Telephone [facility] [address] [place] [address] Rosi Verma NP 05/17/2025 Travel 05/14/2025 Telephone [facility] [address] [place] [address] Patricia Damon MD Care Coordination; Referral 05/10/2025 Telephone [facility] [address] [place] [address] Patricia Damon MD TELEPHONE CALL 05/04/2025 Orders Only GENERIC EXTERNAL DATA DEPARTMENT Provider, Generic External Data 03/23/2025 Orders Only GENERIC EXTERNAL DATA DEPARTMENT Provider, Generic External Data from Last 3 Months Social History Tobacco [...] Sign Reading Time Taken Comments Blood Pressure 118/76 06/14/2025 9:47 AM EDT Pulse 67 06/14/2025 9:47 AM EDT Temperature 36.8 C (98.3 F) 06/14/2025 9:47 AM EDT Respiratory Rate 18 06/14/2025 9:47 AM EDT Oxygen Saturation 99% 06/14/2025 9:47 AM EDT Inhaled Oxygen Concentration - - Weight 76.2 kg (168 lb) 06/14/2025 9:47 AM EDT Height 172.7 cm (5' 8 ) 05/18/2025 4:03 PM EDT Body Mass Index 25.54 05/18/2025 4:03 PM EDT Plan of Treatment Upcoming Encounters Date Type Department Care Team (Late st Contact Info) Description 07/06/2025 11:30 AM EDT Clinical Support [facility] DIABETES/NUTRITION [address] [place] [address] Tata Woo, RD [address] [place], [place] [phone] Health Maintenance Due Date Last Done Comments [...] 07/19/2023, 2021 Depression Screening 09/29/2025 09/29/2024, 09/29/20 24 Diabetes: Hemoglobin A1C 11/02/2025 025, 01/04/2023, 08/09/2020 Tobacco Screening 06/14/2026 06/14/2025 Lipid Panel 11/02/2029 11/02/2024 RSV Patients and [...] Procedure Name Priority Date/Time Associated Diagnosis Comments POCT INFLUENZA B (ID NOW RAPID MOLECULAR) Routine 06/14/2025 9:57 AM EDT Cough in adult patient POCT INFLUENZA A (ID NOW RAPID MOLECULAR) Routine 06/14/2025 9:57 AM EDT Cough in adult patient POCT RAPID COVID ANTIGEN Routine 06/14/2025 9:52 AM EDT Cough in adult patient TRYPTASE Routine 05/04/2025 1:34 PM EDT IMMUNOGLOBULIN G SUBCLASSES PANEL Routine 05/04/2025 1:34 PM EDT IMMUNOGLOBULINS, QUANTITATIVE, IGA, IGG, IGM Routine 05/04/2025 1:34 PM EDT C-REACTIVE PROTEIN Routine 05/04/2025 1: 34 PM EDT TSI (THYROID STIMULATING IMMUNOGLOBULIN) Routine 03/23/2025 10:37 AM EDT TRAB (TSH RECEPTOR BINDING ANTIBODY) Routine 03/23/2025 10:37 AM EDT THYROID PEROXIDASE ANTIBODIES Routine 03/23/2025 10:37 AM EDT T3, TOTAL Routine 03/23/2025 10:37 AM EDT TSH Routine 03/23/2025 10:37 AM EDT T4, FREE Routine 03/23/2025 10:37 AM EDT HEPATITIS C AB W/REFL TO HCV RNA, QN, PCR Routine 11/02/2024 3:18 PM EST Subclinical hyperthyroidism HIV 1/2 ANTIGEN/ANTIBODY, FOURTH GENERATION W/RFL Routine 11/02/2024 3:18 PM EST Subclinical hyperthyroidism HEMOGLOBIN A1C Routine 11/02/2024 3:18 PM EST Subclinical hyperthyroidism LIPID PANEL, STANDARD Routine 11/02/2024 3:18 PM EST Subclinical hyperthyroidism from Last 3 Months or Most Recently Relevant to Health Maintenance Results * Influenza B (ID NOW Rapid Molecular) (06/14/2025 9:57 AM EDT) Influenza B Negative Negative, Indeterminate [facility] Swab 06/14/2025 9:57 AM EDT Rosi Verma BATCH FREEZER OPERATOR POINT OF CARE TEST ENTER/EDIT OR DERABLES Final Result Performing Organization Address City/[facility]/ZIP Co de Phone Number [facility] [address] [place] [phone] * Influenza A (ID NOW Rapid Molecular) (06/14/2025 9:57 AM EDT) Influenza A Negative Negative, Indeterminate [facility] Swab 06/14/2025 9:5 7 AM EDT Rosi Verma BATCH FREEZER OPERATOR POINT OF CARE TEST ENTER/EDIT OR DERABLES Final Result Performing Organization Address [facility]/ZIP Co de Phone Number [facility] [address] [place] [phone] * POCT Rapid COVID Ag (06/14/2025 9:52 AM EDT) Pathologist [facility] Rapid COVID Ag Negative Swab 06/14/2025 9:52 AM EDT Rosi Verma NP POINT OF CARE TEST ENTER/EDIT OR DERABLES Final Result * Tryptase (05/04/2025 1:34 PM EDT) Pathologist [facility] Tryptase 5.9 <11.0 mcg/L [facility] Comment:The Tryptase test, f luorescent enzyme immunoassay(FEIA), measures both the Alpha and Beta forms ofTryptase. Measuring both forms of Tryptase increasessensitivity for the diagnosis of mastocytosis, andmast cell degranulation as a cause of anaphylaxis.THIS TEST WAS PERFORMED AT:[employer] [address] [address]VQFVMNATALIE JONES MD 05/04/2025 1:34 PM EDT 05/04/2025 1:34 PM EDT us Generic External Data Provider LAB BLOOD ORDERAB LES Final Result [facility] [address] [place] [phone] [phone] * Immunoglobulin G Subclasses Panel (05/04/2025 1:34 PM EDT) Pathologist [facility] IgG Subclass 1 428 382 - 929 mg/dL [facility] IgG Subclass 2 259 241 - 700 mg/dL [facility] IgG Subclass 3 48 22 - 178 mg/dL [facility] IgG Subclass 4 58.4 4 - 86 mg/dL [facility] Immunoglobulin G, Serum 801 600 - 1640 mg/dL [facility] Comment:THIS TEST WAS PERFOR MED AT:[employer] [address] [address]WPNIWNATALIE JONES MD 05/04/2025 1:34 PM EDT 05/04/2025 1:34 PM EDT us Generic External Data Provider LAB BLOOD ORDERAB LES Final Result Performing Organization Address [facility] Co de Phone Number [facility] [address] [place] [phone] * (ABNORMAL) Immunoglobulins, Quantitative, IgA, IgG, IgM (05/04/2025 1:34 PM EDT) IMMUNOGLOBULIN G 918 600 - 1640 mg/dL [facility] IMMUNOGLOBULIN A 242 47 - 310 mg/dL [facility] Immunoglobulin M 48(A) 50 - 300 mg/dL [facility] Comment:THIS TEST WAS PERFOR MED AT:[employer] [place] [id number] JONES MD 05/04/2025 1:34 PM EDT 05/04/2025 1:34 PM EDT us Generic External Data Provider LAB BLOOD ORDERAB LES Final Result Performing Organization Address [facility] Co de Phone Number [facility] [address] [place] [phone] * C-reactive Protein (05/04/2025 1:34 PM EDT) C Reactive Protein 0.17 < or = 0.50 mg/dL [facility] 05/04/2025 1:34 PM EDT 05/04/2025 1:34 PM EDT Generic External Data Provider LAB BLOOD ORDERAB LES Final Result Performing Organization Address [facility] Co de Phone Number [facility] [address] [place] [phone] * Thyroid Peroxidase Antibodies (03/23/2025 10:37 AM EDT) Thyroid Peroxidase Antibodies <1 <9 IU/mL [facility] Comment:THIS TEST WAS PERFOR MED AT:[employer] [place] [id number] JONES MD 03/23/2025 10:3 7 AM EDT 03/23/2025 10:37 AM EDT us Generic External Data Provider LAB BLOOD ORDERAB LES Final Result [facility] [address] [place] [phone] * TSI (Thyroid Stimulating Immunoglobulin) (03/23/2025 10:37 AM EDT) Thyroid Stimulating Immunoglobulin <89 <140 % baseline [facility] Comment: Thyroid stimulating immunoglobulins (TSI) can [...] hCG concentrationfalls below 40,625 mIU/mL (usually after [id number]-jmasz gestation).The analytical performance characteristics of thisassay have been determined by [facility], [place], [place]. The modificationshave not been cleared or approved by the FDA. Thisassay has been validated pursuant to the CLIAregulations and is used for clinical purposes.THIS TEST WAS PERFORMED AT:[employer]/[facility] [place] [address]ZCYWHDJKANWAL RIBERA MD,PHD 03/23/2025 10:3 7 AM EDT 03/23/2025 10:37 AM EDT Generic External Data Provider LAB BLOOD ORDERAB LES Final Result Performing Organization Address [facility] Co de Phone Number [facility] [address] [place] [phone] * TRAb (TSH Receptor Binding Antibody) (03/23/2025 10:37 AM EDT) TRAb (TSH Receptor Binding Antibody) <1.00 <=2.00 IU/L [facility] Comment:This test was perfor med using the TRAb Antibody ELISAmethod which is standardized against the [address] [place] [address] Standard 90/672 and is reported inInternational Units (IU/L). The reference rangereported was established specifically for this testmethod.THIS TEST WAS PERFORMED AT:[employer] [place] [address]NSRAVQJKANWAL RIBERA MD,PHD 03/23/2025 10:3 7 AM EDT 03/23/2025 10:37 AM EDT Generic External Data Provider LAB BLOOD ORDERAB LES Final Result Performing Organization Address [facility] Phone Number [facility] [address] [place] [phone] * T3, Total (03/23/2025 10:37 AM EDT) T3, Total 139 76 - 181 ng/dL [facility] Comment:THIS TEST WAS PERFOR MED AT:[employer] [address] [address]LCUOWISELA JONES MD 03/23/2025 10:3 7 AM EDT 03/23/2025 10:37 AM EDT Generic External Data Provider LAB BLOOD ORDERAB LES Final Result Performing Organization Address [facility] de Phone Number [facility] [address] [place] [phone] * (ABNORMAL) TSH (03/23/2025 10:37 AM EDT) Thyroid Stimulating Hormone 0.24(L) 0.32 - 4.0 uIU/mL [facility] Comment:TSH 3rd Generation ( [facility]) 03/23/2025 10:3 7 AM EDT 03/23/2025 10:37 AM EDT us Generic External Data Provider LAB BLOOD ORDERAB LES Final Result Performing Organization Address [facility] de Phone Number [facility] [address] [place] [phone] * T4, Free (03/23/2025 10:37 AM EDT) Free T4 (Free Thyroxine) 0.93 0.71 - 1.85 ng/dL [facility] 03/23/2025 10:3 7 AM EDT 03/23/2025 10:37 AM EDT us [facility] External Data Provider LAB BLOOD ORDERAB LES Final Result Performing Organization Address [facility] de Phone Number [facility] [address] [place] [phone] * Hepatitis C Antibody with Reflex to HCV, RNA, Quantitative, Real-Time PCR (11/02/2024 3:18 PM EST) Hepatitis C Antibody Nonreactive Nonreactive [facility] Comment:Antibodies to HCV no t detected; does not exclude early acuteHCV infection. Blood Venous blood specimen / Unknown 11/02/2024 3:18 PM EST 11/02/2024 4:23 PM EST us Patricia Storm MD LAB BLOOD ORDERABLES Final Result Performing Organization Address [facility]/ZIP Co de Phone Number [facility] [address] [place] [phone] * HIV-1/2 Antigen and Antibodies, Fourth Generation, with Reflexes (11/02/2024 3:18 PM EST) HIV AB/AG Nonreactive Nonreactive [facility] Comment:HIV-1 p24 Ag and/or HIV-1/HIV-2 Ab not detected.A test result that is nonreactive does not exclude thepossibility of exposure to or infection with HIV-1 and/orHIV-2. Nonreactive results in this assay for individualswith prior exposure to HIV-1 and/or HIV-2 may be due toantigen and antibody levels that are below the limit ofdetection of this assay.The [employer]UM HIV Ag/Ab Combo assay result andsupplemental assay results should be interpreted inconjunction with the patient's clinical presentation,history and other laboratory results. If the results areinconsistent with clinical evidence, additional testing issuggested to confirm the result. Blood Venous blood specimen / Unknown 11/02/2024 3:18 PM EST 11/02/2024 4:23 PM EST us Patricia Storm MD LAB BLOOD ORDERABLES Final Result Performing Organization Address [facility] Co de Phone Number [facility] [address] [place] [phone] * Hemoglobin A1c (11/02/2024 3:18 PM EST) Hemoglobin A1c 5.8 <6.0 % [facility] Comment:Hemoglobin A1C Refer ence Range Adults: 4.8 - 6.0 % Non diabetic: < 6.0 % Goal: < 7.0 %Additional Action Suggested: > 8.0 %Note: Hemoglobin A1c results are invalid for patients with abnormal amounts of HbF. Blood transfusions may impact the HbA1c concentration in the patient sample. Estimated Average Glucose 120 mg/dL [facility] Comment:eAG = Estimated ave rage glucose which is %A1C expressed asaverage glucose, using the formula of the P5S-JuufffvTrgeqfj Glucose study (ADAG), Diabetes Care, Vol.31,#8,May. 2007 Blood Venous blood specimen / Unknown 11/02/2024 3:18 PM EST 11/02/2024 4:23 PM EST us Patricia Storm MD LAB BLOOD ORDERABLES Final Result Performing Organization Address [facility]/ZIP Co de Phone Number [facility] [address] [place] [phone] * (ABNORMAL) Lipid Panel, Standard (11/02/2024 3:18 PM EST) Triglycerides 139 <150 mg/dL [facility] Comment:Desirable Triglyceri de: less than 150 mg/dLBorderline High Triglyceride 150-199 mg/dLHigh Triglyceride: 200-499 mg/dLVery High Triglyceride: greater than or equal to 5OO mg/dL Cholesterol 209(H) <200 mg/dL [facility] Comment:Desirable Cholestero l: less than 200 mg/dLBorderline High Cholesterol: 200-239 mg/dLHigh Cholesterol: greater than 239 mg/dL LDL Cholesterol Calculated 139(H) <100 mg/dL [facility] Comment:Desirable LDL: less than 100 mg/dLNear Optimal/Above Optimal LDL: 110- 129 mg/dLBorderline High LDL: 130-159 mg/dLHigh LDL: 160-189 mg/dLVery High LDL: greater than or equal to 190 mg/dL HDL Cholesterol 43 >40 mg/dL [facility] Comment:Desirable HDL: great er than 40 mg/dL Note: This HDL assay may give artificially low results in patients with liver disease. Blood Venous blood specimen / Unknown 11/02/2024 3:18 PM EST 11/02/2024 4:23 PM EST us Patricia Stomr MD LAB BLOOD ORDERABLES Final Result Performing Organization Address [facility]/ZIP Co de Phone Number [facility] [address] [place] [phone] from Last 3 Months or Most Recently Relevant to Health Maintenance [place] [address] Care Teams Seam Checker Relationship Specialty Start Date End Date Patricia Damon MD [address] [place] [phone] PCP - General Family Medicine 05/24/20
--- OUTSIDE RECORDS SUMMARY | 2025-06-22 07:59 | XMS_ITS | Encounter Summary ---
Author Organization [facility] Address [id number] [place] [phone] Care Team Providers Care Meter Engineer Name Role Phone Patricia Damon MD Primary Care Provide r Reason for Visit * Reason Onset Date Comments Prior Authorization Surgery 07/0906/17/2025 Encounter Details Date Type Department Care Team (Late st Contact Info) Description 06/17/2025 Telephone Orthopedic Surgery - [place] [address] [phone] Jose Luis Phelps DPM [address] [address] Social History Tobacco Use Types Packs/Day Years Used Date Smoking Tobacco: Never Assessed Sex and Gender Information Value Date Recorded Sex Assigned at Not on file Legal Sex Male 1:19 PM EST Gender Identity Not on file Sexual Orientation Not on file documented as of this encounter Progress Notes * Kaushik Fong - 06/17/2025 12:16 PM EDT Outreach made to patients health plan and no prior authorization is required per Suzette Authorization # [id number] documented in this encounter Plan of Treatment Upcoming Encounters Date Type Department Care Team (Latest Contact Info) Description 07/09/2025 9:30 AM EDT Hospital Encounter [facility] Main OR [address] [place] [phone] Jose Luis Phelps DPM [address] [address] 07/09/2025 9:30 AM EDT - 07/09/2025 11:00 AM EDT Surgery [facility] Main OR [address] [place] [phone] Jose Luis Phelps DPM [address] [address] BUNIONECTOMY LEFT [[id number] (CPT )] 07/15/2025 11:00 AM EDT Office Visit Orthopedic Surgery - [place] [address] [phone] Jose Luis Phelps DPM [address] [address] Scheduled Procedures Name Priority Associated Diagnoses Date/Ti me BUNIONECTOMY Bunion of left foot 07/09/2025 9:30 AM EDT documented as of this encounter Visit Diagnoses Not on filedocumented in this encounter Care Teams Meter Engineer Relationship Specialty Start Date End Date Patricia Damon MD [address] [phone] PCP - General Internal Medicine 10/29/24 documented as of this encounter
--- OUTSIDE RECORDS SUMMARY | 2025-06-22 07:59 | XMS_ITS | Clinical Summary ---
Author Organization [address] [facility] Address 175 [place] [address] Phone Care Team Providers Care System Support Administrator Name Role Phone Patricia Damon MD Primary [...] Encounters Date Type Department Care Team Description 06/17/2025 Telephone Orthopedic Surgery [place] [address] [phone] Jose Luis Phelps DPM 06/16/2025 [place] [facility] [place] [address] [phone] Jose Luis Phelps DPM 03/26/2025 [place] [facility] [address] [phone] Jose Luis Phelps DPM from Last 3 Months Social History Tobacco [...] Description 07/09/2025 9:30 AM EDT Hospital Encounter [facility] Main OR [address] [place] [phone] Jose Luis Phelps DPM [address] [address] 07/09/2025 9:30 AM EDT - 07/09/2025 11:00 AM EDT Surgery [facility] Main OR [address] [place] [phone] Jose Luis Phelps DPM [address] [address] BUNIONECTOMY LEFT [[id number] (CPT )] 07/15/2025 11:00 AM EDT Office Visit Orthopedic Surgery - [place] [address] [phone] Jose Luis Phelps DPM [address] [address] Scheduled Procedures Name Priority Associated Diagnoses Date/Ti [...] patient's age to complete this topic Insurance [facility] [employer] Care Teams System Support Administrator Relationship Specialty Start Date End Date Patricia Damon MD [address] [place] [phone] PCP - General Internal Medicine 10/29/24
--- OUTSIDE RECORDS SUMMARY | 2025-06-22 07:59 | XMS_ITS | Encounter Summary ---
Author Organization [employer] Address [address] [place] [address] 7 [place] [address] Care Team Providers Care Cloth Cutting Machine Operator Name Role Phone Patricia Damon MD Primary Care Provide r Encounter Details Date Type Department Care Team (Late Contact Info) Description 02/19/2025 Orders Only [facility] MEDICINE 230 [place] [address] Patricia Damon MD 230 [place] [address] Social History Tobacco Use Types Packs/Day Years [...] Encounters Date Type Department Care Team (Late Contact Info) Description 07/06/2025 11:30 AM EDT Clinical Support [facility] DIABETES/NUTRITION [address] [place], [place] [phone] Tata Woo, IAN 230 [place] [address] documented as of this encounter Visit Diagnoses Not on filedocumented in this encounter Additional Health Concerns Assessment Noted Time PHQ-9 Depression Total Score: 0 09/29/20 24 11:50 AM EST documented as of this encounter Care Teams Cloth Cutting Machine Operator Relationship Specialty Start Date End Date Patricia Damon MD 230 [place] [address] PCP - General Family Medicine 05/24/20 documented as of this encounter
== END 2025-06-22 07:54 | disposition home or self-care (01) ==
LOC: HO.CT 07:53
PROVIDERS: PCP Internal Medicine; Visit Provider Internal Medicine
DX: Z13.89 Encounter for screening for other disorder (principal)

== ENCOUNTER 2025-07-26 16:01 | Outpatient (REF) | payer OTHER, SELFPAY ==
--- OUTSIDE RECORDS SUMMARY | 2025-07-26 20:21 | XMS_ITS | Encounter Summary ---
Author Organization [employer] Address [address] [place] [address] 7 [place] [address] Care Team Providers Care Brick Loader Name Role Phone Patricia Damon MD Primary Care Provide r Encounter Details Date Type Department Care Team (Late Contact Info) Description 02/19/2025 Orders Only [facility] MEDICINE 230 [place] [address] Patricia Damon MD 230 [place] [address] Social History Tobacco Use Types Packs/Day Years [...] Department Care Team (Late Contact Info) Description 08/03/2025 2:00 PM EDT Clinical Support [facility] DIABETES/NUTRITION 230 [place], [place] [phone] Tata Woo, IAN [address] [place] [address] 08/24/2025 11:30 AM EST Office Visit [facility] MEDICINE [address] [place], [place] [phone] Patricia Damon MD 230 [place], [place] [phone] documented as of this encounter Visit Diagnoses Not on filedocumented in this encounter Additional Health Concerns Assessment Noted Time PHQ-9 Depression Total Score: 0 09/29/20 24 11:50 AM EST documented as of this encounter Care Teams Brick Loader Relationship Specialty Start Date End Date Patricia Damon MD [address] [place] [phone] PCP - General Family Medicine 05/24/20 documented as of this encounter
--- OUTSIDE RECORDS SUMMARY | 2025-07-26 20:21 | XMS_ITS | Clinical Summary ---
Author Organization [employer] Address [address] [place] [address] [address] [place] [address] Care Team Providers Care Production Cost Estimator Name Role Phone Patricia Damon MD Primary Care Provide r Allergies No known active allergies Medications esomeprazole (NexIUM) [address] capsuleIndicat ions:Gastroeso phageal reflux disease, unspecified whether esophagitis present Take 1 capsule (40 mg) by mouth 2 times daily. Do not open capsule. 60 capsule 1 04/26/20 23 Active verapamil (Calan) 80 MG tablet TAKE 1 TABLET BY MOUTH AT BEDTIME 90 tablet 1 12/24/19 25 Active Avodart 0.5 MG capsuleIndicat ions:Benign prostatic hyperplasia, unspecified whether lower urinary tract symptoms present TAKE 1 CAPSULE BY MOUTH EVERY MORNING 30 capsule 5 02/02/20 25 Active fluticasone (Flonase) 50 MCG/ACT nasal spray Administer 1-2 sprays into each nostril Once per day. Shake gently. Before first use, prime pump. After use, clean tip and replace cap. 16 g 2 05/17/20 25 026 Active pentosan polysulfate (Elmiron) 100 MG capsuleIndicat ions:Bladder pain Take 2 capsules (200 mg) by mouth 2 times daily. No further refills from PCP-have to come from urologist 32 capsule 07/12/20 25 Active pentosan polysulfate (Elmiron) 100 MG capsuleIndicat ions:Bladder pain TAKE 2 CAPSULES BY MOUTH TWICE DAILY 120 capsule 3 02/23/20 25 025 Discontinued(Re order (will not trigger notification to Pharmacy)) Active Problems Problem Noted Date Diagnosed Date [...] ordered, patient will be contacted with results Recreational Leader referral done today Prediabetes 11/19/2024 Assessment & [...] Encounters Date Type Department Care Team Description 07/12/2025 Orders Only [facility] MEDICINE [address] [place] [address] Patricia Damon MD Gastroesophageal reflux disease, unspecified whether esophagitis present (Primary Dx); Irritable bowel syndrome, unspecified type 07/12/2025 Refill [facility] CHC MED & PEDS [address] [place] [address] Patricia Damon MD Bladder pain 07/08/2025 Refill [facility] CHC MED & PEDS [address] [place] [address] Patricia Damon MD Bladder pain 07/06/2025 11:30 AM EDT Clinical Support [facility] DIABETES/NUTRITION [address] [place] [phone] Elevated LFTs (Primary Dx) 07/06/2025 Travel 06/24/2025 Orders Only [facility] MEDICINE [address] [place] [phone] Patricia Damon MD Interstitial cystitis (Primary Dx) 06/23/2025 Refill [facility] CHC MED & PEDS [address] [place] [address] Patricia Damon MD Bladder pain 06/14/2025 10:00 AM EDT Office Visit [facility] WALK-IN CENTER [address] [place] [address] Rosi Verma NP Chronic sinusitis of both maxillary sinuses (Primary Dx); Cough in adult patient 06/14/2025 Travel 05/28/[address] [address] Patricia Damon MD Referral 05/18/2025 10:00 AM EDT Nutrition [facility] DIABETES/NUTRITION [address] [place] [address] Elevated LFTs 05/18/2025 Travel 05/17/2025 3:15 PM EDT Office Visit [address] [address] Rosi Verma NP Other non-recurrent acute nonsuppurative otitis media of right ear (Primary Dx); Seasonal allergic rhinitis due to pollen 05/17/2025 Telephone [facility] MEDICINE [address] [place] [address] Rosi Verma NP 05/17/2025 Travel 05/14/[address] [address] Patricia Damon MD Care Coordination; Referral 05/10/[address] [address] Patricia Damon MD TELEPHONE CALL 05/04/2025 Orders [...] Care Team (Late st Contact Info) Description 08/03/2025 2:00 PM EDT Clinical Support [facility] DIABETES/NUTRITION [address] [place] [address] [place] [address] 08/24/2025 11:30 AM EST Office Visit [facility] MEDICINE [address] [place] [address] Patricia Damon MD 230 [place] [address] Health Maintenance Due Date Last Done Comments [...] 07/19/2023, 2021 Depression Screening 09/29/2025 09/29/2024, 09/29/20 Diabetes: Hemoglobin A1C 11/02/2025 025, 01/04/2023, 08/09/2020 [...] Procedure Name Priority Date/Time Associated Diagnosis Comments AMB REFERRAL TO UROLOGY Urgent 07/20/2025 Interstitial cystitis AMB REFERRAL TO ENT Routine 06/24/2025 Dysfunction of right eustachian tube POCT INFLUENZA B (ID NOW RAPID MOLECULAR) [...] PROTEIN Routine 05/04/2025 1: 34 PM EDT HEPATITIS C AB W/REFL TO HCV RNA, QN, PCR Routine 11/02/2024 3:18 PM EST Subclinical hyperthyroidism HIV 1/2 ANTIGEN/ANTIBODY, FOURTH GENERATION W/RFL Routine 11/02/2024 3:18 PM EST Subclinical hyperthyroidism HEMOGLOBIN A1C Routine 11/02/2024 3:18 PM EST Subclinical hyperthyroidism LIPID PANEL, STANDARD Routine 11/02/2024 3:18 PM EST Subclinical hyperthyroidism from Last 3 Months or Most Recently Relevant to Health Maintenance Results * Referral to Urology (07/20/2025) us Patricia Storm MD OUTPATIENT REFERRAL O RDERABLES Final Result * Referral to ENT (06/24/2025) Rosi Verma NP OUTPATIENT REFERRAL ORDERABLES F inal Result * Influenza B (ID NOW Rapid Molecular) (06/14/2025 9:57 AM EDT) [facility] Influenza B Negative Negative, Indeterminate [facility] Swab 06/14/2025 9:57 AM EDT Rosi Verma JUDICIAL LAW CLERK POINT OF CARE TEST ENTER/EDIT OR DERABLES Final Result Performing Organization Address [facility]/ZIP Co de Phone Number [facility] [address] [place] [phone] * Influenza A (ID NOW Rapid Molecular) (06/14/2025 9:57 AM EDT) [facility] Influenza A Negative Negative, Indeterminate [facility] Swab 06/14/2025 9:57 AM EDT Rosi Verma JUDICIAL LAW CLERK POINT OF CARE TEST ENTER/EDIT OR DERABLES Final Result Performing Organization Address [facility]/ZIP Co de Phone Number [facility] [address] [place] [phone] * POCT Rapid COVID Ag (06/14/2025 9:52 AM EDT) [facility] Rapid COVID Ag Negative Swab 06/14/2025 9:52 AM EDT Rosi Verma NP POINT OF CARE TEST ENTER/EDIT OR DERABLES Final Result * Tryptase (05/04/2025 1:34 PM EDT) [facility] Tryptase 5.9 <11.0 mcg/L [facility] Comment:The Tryptase test, f luorescent enzyme immunoassay(FEIA), measures both the Alpha and Beta forms ofTryptase. Measuring both forms of Tryptase increasessensitivity for the diagnosis of mastocytosis, andmast cell degranulation as a cause of anaphylaxis.THIS TEST WAS PERFORMED AT:[email or web address] [place] [phone] JONES MD 05/04/2025 1:34 PM EDT 05/04/2025 1:34 PM EDT Generic External Data Provider LAB BLOOD ORDERAB LES Final Result Performing Organization Address [facility]/ZIP Co de Phone Number [facility] [address] [place] [phone] * Immunoglobulin G Subclasses Panel (05/04/2025 1:34 PM EDT) IgG Subclass 1 428 382 - 929 mg/dL [facility] IgG Subclass 2 259 241 - 700 mg/dL [facility] IgG Subclass 3 48 22 - 178 mg/dL [facility] IgG Subclass 4 58.4 4 - 86 mg/dL [facility] Immunoglobulin G, Serum 801 600 - 1640 mg/dL [facility] Comment:THIS TEST WAS PERFOR MED AT:[facility] [address] [id number] JONES MD 05/04/2025 1:34 PM EDT 05/04/2025 1:34 PM EDT Generic External Data Provider LAB BLOOD ORDERAB LES Final Result Performing Organization Address [facility]/ZIP Co de Phone Number [facility] [address] [place] [phone] * (ABNORMAL) Immunoglobulins, Quantitative, IgA, IgG, IgM (05/04/2025 1:34 PM EDT) IMMUNOGLOBULIN G 918 600 - 1640 mg/dL [facility] IMMUNOGLOBULIN A 242 47 - 310 mg/dL [facility] Immunoglobulin M 48(A) 50 - 300 mg/dL [facility] Comment:THIS TEST WAS PERFOR MED AT:[email or web address] [place] [phone] JONES MD 05/04/2025 1:34 PM EDT 05/04/2025 1:34 PM EDT us Generic External Data Provider LAB BLOOD ORDERAB LES Final Result Performing Organization Address [facility] Co de Phone Number [facility] [address] [place] [phone] * C-reactive Protein (05/04/2025 1:34 PM EDT) C Reactive Protein 0.17 < or = 0.50 mg/dL [facility] 05/04/2025 1:34 PM EDT 05/04/2025 1:34 PM EDT us Generic External Data Provider LAB BLOOD ORDERAB LES Final Result Performing Organization Address [facility] de Phone Number [facility] [address] [place] [phone] * Hepatitis C Antibody with Reflex to HCV, RNA, Quantitative, Real-Time PCR (11/02/2024 3:18 PM EST) Hepatitis C Antibody Nonreactive Nonreactive [facility] Comment:Antibodies to HCV no t detected; does not exclude early acuteHCV infection. Blood Venous blood specimen / Unknown 11/02/2024 3:18 PM EST 11/02/2024 4:23 PM EST us Patricia Storm MD LAB BLOOD ORDERABLES Final Result Performing Organization Address [facility] Co de Phone Number [facility] [address] [place] [phone] * HIV-1/2 Antigen and Antibodies, Fourth Generation, with Reflexes (11/02/2024 3:18 PM EST) HIV AB/AG Nonreactive Nonreactive [facility] Comment:HIV-1 p24 Ag and/or HIV-1/HIV-2 Ab not detected.A test result that is nonreactive does not exclude thepossibility of exposure to or infection with HIV-1 and/orHIV-2. Nonreactive results in this assay for individualswith prior exposure to HIV-1 and/or HIV-2 may be due toantigen and antibody levels that are below the limit ofdetection of this assay.The Enevate HIV Ag/Ab Combo assay result andsupplemental assay results should be interpreted inconjunction with the patient's clinical presentation,history and other laboratory results. If the results areinconsistent with clinical evidence, additional testing issuggested to confirm the result. Blood Venous blood specimen / Unknown 11/02/2024 3:18 PM EST 11/02/2024 4:23 PM EST us Patricia Storm MD LAB BLOOD ORDERABLES Final Result [facility] [address] [place] [phone] * Hemoglobin A1c (11/02/2024 3:18 PM EST) Hemoglobin A1c 5.8 <6.0 % [facility] Comment:Hemoglobin A1C Refer ence Range Adults: 4.8 - 6.0 % Non diabetic: < 6.0 % Goal: < 7.0 %Additional Action Suggested: > 8.0 %Note: Hemoglobin A1c results are invalid for patients with abnormal amounts of HbF. Blood transfusions may impact the HbA1c concentration in the patient sample. Estimated Average Glucose 120 mg/dL [facility] Comment:eAG = Estimated ave rage glucose which is %A1C expressed asaverage glucose, using the formula of the P1O-BmdianzEmrrmup Glucose study (ADAG), Diabetes Care, Vol.31,#8,2007 Blood Venous blood specimen / Unknown 11/02/2024 3:18 PM EST 11/02/2024 4:23 PM EST us Patricia Storm MD LAB BLOOD ORDERABLES Final Result Performing Organization Address [facility] Co de Phone Number [facility] [address] [place] [phone] [phone] * (ABNORMAL) Lipid Panel, Standard (11/02/2024 3:18 PM EST) Triglycerides 139 <150 mg/dL [facility] Comment:Desirable Triglyceri de: less than 150 mg/dLBorderline High Triglyceride 150-199 mg/dLHigh Triglyceride: 200-499 mg/dLVery High Triglyceride: greater than or equal to 5OO mg/dL Cholesterol 209(H) <200 mg/dL [facility] Comment:Desirable Cholestero l: less than 200 mg/dLBorderline High Cholesterol: 200-239 mg/dLHigh Cholesterol: greater than 239 mg/dL LDL Cholesterol Calculated 139(H) <100 mg/dL [facility] Comment:Desirable LDL: less than 100 mg/dLNear Optimal/Above Optimal LDL: 110- 129 mg/dLBorderline High LDL: 130-159 mg/dLHigh LDL: 160-189 mg/dLVery High LDL: greater than or equal to 190 mg/dL HDL Cholesterol 43 >40 mg/dL [facility] Comment:Desirable HDL: great er than 40 mg/dL Note: This HDL assay may give artificially low results in patients with liver disease. Blood Venous blood specimen / Unknown 11/02/2024 3:18 PM EST 11/02/2024 4:23 PM EST us Patricia Storm MD LAB BLOOD ORDERABLES Final Result Performing Organization Address [facility]/ZIP Co de Phone Number [facility] [address] [place] [phone] from Last 3 Months or Most Recently Relevant to Health Maintenance Insurance [facility] Care Teams Production Cost Estimator Relationship Specialty Start Date End Date Patricia Damon MD [address] [place] [phone] PCP - General Family Medicine 05/24/20
--- OUTSIDE RECORDS SUMMARY | 2025-07-26 20:21 | XMS_ITS | Encounter Summary ---
Author Organization [employer] Address [address] [place] [address] 7 [place] [address] Care Team Providers Care Ballroom Dance Instructor Name Role Phone Patricia Damon MD Primary Care Provide r Reason for Visit * Reason Comments Med Refill Encounter Details Date Type Department Care Team ([facility] st Contact Info) Description 06/23/2025 Refill [facility] CHC MED & PEDS [address] [place] [address] Patricia Damon MD [address] [place] [address] Bladder pain Social History Tobacco Use Types Packs/Day Years [...] AM EDT documented as of this encounter Miscellaneous Notes * Telephone Encounter - Patricia Storm MD - 06/24/2025 12:32 PM EDT Patient needs to follow with urology documented in this encounter Plan of Treatment Upcoming Encounters Date Type Department Care Team (Late st Contact Info) Description 08/03/2025 2:00 PM EDT Clinical Support [facility] DIABETES/NUTRITION [address] [place], [place] [phone] Tata [address] [place] [address] 08/24/2025 11:30 AM EST Office Visit [facility] MEDICINE [address] [place], [place] [phone] Patricia Damon MD [address] [place] [address] [phone] documented as of this encounter Visit Diagnoses Diagnosis Bladder pain Other symptoms involving urinary system documented in this encounter Additional Health Concerns Assessment Noted Time PHQ-9 Depression Total Score: 0 09/29/20 24 11:50 AM EST documented as of this encounter Care Teams Ballroom Dance Instructor Relationship Specialty Start Date End Date Patricia Damon MD [address] [place] [address] [phone] PCP - General Family Medicine 05/24/20 documented as of this encounter
--- OUTSIDE RECORDS SUMMARY | 2025-07-26 20:21 | XMS_ITS | Encounter Summary ---
Author Organization [employer] Address [address] [place] [address] Care Team Providers Care Associate Doctor Name Role Phone Patricia Damon MD Primary Care Provide r Encounter Details Date Type Department Care Team (Late st Contact Info) Description 09/21/2022 Orders Only [facility] [address] [place] [phone] Maya Hernandez MD [address] [place] [phone] Bunion of left foot (Primary Dx) Social [...] Description 08/03/2025 2:00 PM EDT Clinical Support [facility] DIABETES/NUTRITION [address] [place] [phone] [place] [address] 08/24/2025 11:30 AM EST Office Visit [facility] [address] [place] [phone] Patricia Damon MD [address] [place] [phone] documented as of this encounter Procedures Procedure [...] 8:08 AM EDT 02/27/2023 9:45 AM EDT [facility] LABS - 03/01/2023 2:17 PM EDT ----- ------- Name: Rosas Francisco Age/Sex: 47/M : 1975 Unit#: [id number] Attend Dr: Kevin Tafoya MD Re02/27/23 Status: [facility] Location: [place] Disch: ----- ------- SPEC : [id number] RECD: 02/27/23 STATUS: CARMEN ARREDONDO NUM: [id number] JAZMYN: 02/27/[address] [facility] [address]: Kevin Tafoya MD ENTERED: 02/27/23 SP [...] formalin. CEDS Copies To: Patricia Damon MD [address] [place] [phone] Kevin Tafoya MD [address] [place] [address] [place] [address] CONTINUED ON NEXT PAGE ----- ------- Name: Rosas Francisco Age/Sex: 47/M : 1975 Unit#: [id number] Attend Dr: Kevin Tafoya MD Re02/27/23 Status: [facility] Location: [place] Disch: ----- ------- SPEC : [id number] RECD: 02/27/23 STATUS: CARMEN ARREDONDO NUM: [id number] JAZMYN: 02/27/[address] [facility] [address]: Kevin Tafoya MD ENTERED: 02/27/23 SP TYPE: Surgical OTHR DR: Patricia Damon MD ORDERED: Reva Bartlett L3 ----- ------- Signed (signature on file) Tereso Mejias MD 03/01/23 1417 ----- ------- END OF REPORT [facility] External Provider LAB CYT OLOGParam ORDERABLES Final Result [facility] [address] [place] [phone] * Pancreatic elastase, fecal (01/09/2023 8:51 PM EDT) Pathologist [facility] Pancreatic Elastase 1 >500 mcg/g [facility] Comment:Adult and Pediatric Reference Ranges for Pancreatic Elastase-1: Normal: >200 mcg/gModerate Pancreatic Insufficiency: 100-200 mcg/g Severe Pancreatic Insufficiency: <100 mcg/gElastase-1 (E-1) assay results are expressedin mcg/g, which represent mcg E1/g feces.It is not necessary to interrupt enzymesubstitution therapy.THIS TEST WAS PERFORMED AT:[employer]! [id number] [place] [address]QLDGAJEANIE SHERIDAN MD,PHD,MACHELLE 01/09/2023 8:51 PM EDT 01/11/2023 8:52 AM EDT [facility] Exter nal Provider LAB BODY FLUIDS AND STOOLS ORDERABLES Final Result Performing Organization Address [facility] Co de Phone Number [facility] [address] [place] [phone] * Lipase (01/04/2023 2:04 PM EDT) Pathologist [facility] Lipase 38 8 - 78 U/L [facility] 01/04/2023 2:04 PM EDT 01/04/2023 2:04 PM EDT [facility] External Provider LAB BLO OD ORDERABLES Final Result Performing Organization Address [facility] Co de Phone Number [facility] [address] [place] [address] [phone] * Hemoglobin A1c (01/04/2023 2:04 PM EDT) Pathologist [facility] Hemoglobin A1c 6.0 % [facility] Comment:Hemoglobin A1C Refer ence Range Adults: 4.8 - 6.0 % Non diabetic: < 6.0 % Goal: < 7.0 %Additional Action Suggested: > 8.0 %Note: Hemoglobin A1c results are invalid for patients with abnormal amounts of HbF. Blood transfusions may impact the HbA1c concentration in the patient sample. Estimated Average Glucose 126 mg/dL [facility] Comment:eAG = Estimated ave rage glucose which is %A1C expressed asaverage glucose, using the formula of the B8T-LmjyqazXnelhxr Glucose study (ADAG), Diabetes Care, Vol.31,#8,May. 2007 01/04/2023 2:04 PM EDT 01/04/2023 2:04 PM EDT us [facility] External Provider LAB BLO OD ORDERABLES Final Result Performing Organization Address City/State/[facility] Co de Phone Number [facility] [address] [place] [phone] documented in this encounter Visit Diagnoses Diagnosis Bunion of left foot- Primary Bunion documented in this encounter Care Teams Associate Doctor Relationship Specialty Start Date End Date Patricia Damon MD [address] [place] [phone] PCP - General Family Medicine 05/24/20 documented as of this encounter
--- OUTSIDE RECORDS SUMMARY | 2025-07-26 20:21 | XMS_ITS | Patient Health Record ---
Author Organization [facility] Address [address] [place] [phone] Care Team Providers Care Certified Juvenile Probation Officer Name Role Phone Yimi Ulloa Unavailable [phone] Reason For Referral No Information Plan Of Treatment No Information
[2025-07-27 14:32] LABS: Immunoglobulin A 267 mg/dL (47-310)
== END 2025-07-26 16:02 | disposition home or self-care (01) ==
LOC: HO.HHCL 16:01
PROVIDERS: PCP Internal Medicine; Visit Provider Internal Medicine
DX: Z01.84 Encounter for antibody response examination (principal); K21.9 Gastro-esophageal reflux disease without esophagitis; K58.9 Irritable bowel syndrome, unspecified
CPT/HCPCS: 36415; 82784; 86364

== ENCOUNTER 2025-09-10 16:16 | Outpatient (REF) | payer OTHER, SELFPAY ==
--- OUTSIDE RECORDS SUMMARY | 2025-09-06 15:00 | XMS_ITS | Encounter Summary ---
Author Organization [facility] Address [address] [place] [address] Care Team Providers Care Grocery Specialist Name Role Phone Patricia Damon MD Primary Care Provide r Reason for Visit * Reason Comments Foot Pain Left foot painStatus post surgery Encounter Details Date Type Department Care Team (Late st Contact Info) Description 09/06/2025 3:00 PM EST Office Visit Orthopedic Surgery - [place] [address] [phone] Jose Luis Phelps DPM [address] [phone] Contusion of left foot, initial encounter (Primary Dx) Social History Tobacco Use Types Packs/Day Years Used Date Smoking Tobacco: Every Day Cigarettes Smokeless Tobacco: Never Alcohol Use Standard Drinks/Week Comments Not Currently 0 (1 standard drink = 0.6 oz pur e alcohol) Interpersonal Safety Answer Date Record ed Physical Abuse Unrecognized value 07/09/2025 Verbal Abuse Unrecognized value 07/09/2025 Sex and Gender Information Value Date Recorded Sex Assigned at Not on file Legal Sex Male 1:19 PM EST Gender Identity Not on file Sexual Orientation Not on file documented as of this encounter Progress Notes * Jose Luis Phelps DPM - 09/06/2025 3:00 PM EST Referring MD: noah Last PCP visit: 06/14/2025 IDENTIFIER: Maryam is a 50 y.o. year old male who presents for consultation. CC: Left foot postop HPI: 50-year-old male returns office 8-week status post bunionectomy to the left foot. Patient notes he was attempting to go without the cam boot and lost his balance bumping the surgical foot against a table. Patient relates has been having some increased swelling and redness around the area. Patient is here for evaluation and treatment ROS: GENERAL: Pt denies nausea, fever, [...] of systems is noncontributory PAST MEDICAL HISTORY: Problem List[1] SOCIAL HISTORY: Social History Tobacco Use Smoking status: Every Day Current packs/day: 1.00 Types: Cigarettes Smokeless tobacco: Never Substance Use Topics Alcohol use: Not Currently ACTIVE MEDICATIONS: Medications Taking[2] ALLERGIES: Iodinated contrast media and Nickel PHYSICAL EXAM: There were no vitals taken for this visit. PODIATRIC EXAMINATION: GENERAL: Patient appears well nourished, with NAD. VASCULAR: Dorsalis pedis pulses are 2/4 bilaterally and Posterior tibial pulses are 2/4 bilaterally. Capillary filling time within normal limits the digits. No pallor on elevation or rubor on dependency. Positive hair growth. No varicosities. Denies rest pain or claudication pain. NEUROLOGICAL: Sharp/dull sensation intact, protective sensation intact 10/10 with 5.07 semmes louis bilaterally, vibratory sensation with tuning fork intact to the tibial tuberosity. ORTHOPEDIC: Good muscle strength 5/5 of all flexors and extensors. Dorsi flexion of ankle ,10 degrees, plantar flexion WNL. No muscle atrophy. Alignment of the great toe is within normal limits. There is increased redness and swelling around the surgical site DERMATOLOGICAL: No open wounds or clinical signs of infection BIOMECHANICS: STJ ROM wnl, MTJ ROM wnl, 1st MPJ ROM wnl. IMAGING: Some change in positioning of the capital fragment since previous contusion with concern for split in the capital fragment where the screw is inserted through. IMPRESSION: 1. Contusion of left foot, initial encounter PLAN: Pt was seen and examined, history reviewed. Patient was educated that he is contusion has led to some breaking of the bone and the capital fragment he needs to move back into the cam boot. Patient will be in the cam boot for another 8 weeks. Patient definitely paperwork was updated to the second week of November and will be ready evaluated in the first week of November with new x-rays. Jose Luis Phelps DPM [1] Patient Active Problem List Diagnosis Allergic rhinitis Benign prostatic hyperplasia Bunion Folliculitis Chronic interstitial cystitis Foot pain Hypercholesterolemia GERD (gastroesophageal reflux disease) Iron deficiency OAB (overactive bladder) Subclinical hyperthyroidism Vitamin D deficiency Dysfunction of right eustachian tube Neuropathy Chronic pain of left knee [2] No outpatient medications have been marked as taking for the 09/06/25 encounter (Office Visit) with Jose Luis Phelps DPM. documented in this encounter Plan of Treatment Upcoming Encounters Date Type Department Care Team (Late st Contact Info) Description 11/09/2025 3:00 PM EST Office Visit Orthopedic Surgery - [place] [address] [phone] Jose Luis Phelps DPM [address] [address] documented as of this encounter Results * XR Foot 3+ Views Left (09/06/2025 3:18 PM EST) Anatomical Region Laterality Modality Lower Extremities, Foot Left Computed Radiography Narrative 09/06/2025 5:28 PM EST Left foot 3 views weightbearing: Some change in positioning of the capital fragment since previous contusion with concern for split in the capital fragment where the screw is inserted through. us Jose Luis Phelps DPM IMG XR PROCEDURES Final Res ult documented in this encounter Visit Diagnoses Diagnosis Contusion of left foot, initial encounter- Primary documented in this encounter Care Teams Grocery Specialist Relationship Specialty Start Date End Date Patricia Damon MD [address] [phone] PCP - General Internal Medicine 10/29/24 documented as of this encounter
[2025-09-10 19:21] LABS: Alanine Aminotransferase 28 U/L (0-40); Albumin Level 4.3 g/dL (3.5-5.0); Alkaline Phosphatase 131 U/L (39-117); Aspartate Amino Transferase 26 U/L (5-37); Total Protein 7.0 g/dL (6.5-8.0)
--- OUTSIDE RECORDS SUMMARY | 2025-09-10 19:51 | XMS_ITS | Clinical Summary ---
Author Organization [address] [facility] Address [address] [place] [address] Phone Care Team Providers Care Sterilization Specialist Name Role Phone Patricia Damon MD Primary Care Provide r Allergies Active Allergy Reactions Criticality Noted Date Comments Iodinated Contrast Media 07/09/2025 Nickel Skin Problems 07/06/2025 Skin turns green Medications Avodart 0.5 mg capsule Take 1 capsule (0.5 mg total) by mouth 1 (one) time each day in the morning. 01/08/[address] capsule Take 1 capsule (40 mg total) by mouth 2 (two) times a day. 01/08/2025 Active loperamide (IMODIUM) 2 mg capsule TAKE 1 CAPSULE BY MOUTH EVERY 6 HOURS NEEDED FOR DIARRHEA 01/08/2025 Active Elmiron 100 mg capsule Take 2 capsules (200 mg total) by mouth 2 (two) times a day. 01/08/2025 Active sucralfate (CARAFATE) 1 gram tablet TAKE 1 TABLET BY MOUTH TWICE DAILY ON AN EMPTY STOMACH 01/08/2025 Active verapamiL (CALAN) 80 mg tablet Take 1 tablet (80 mg total) by mouth at bedtime. at bedtime. 10/01/2024 Active Active Problems Problem Noted Date Diagnosed Date Allergic rhinitis 02/04/2025 Benign prostatic hyperplasia 02/04/2025 Bunion 02/04/2025 Folliculitis 02/04/2025 Chronic interstitial cystitis 02/04/2025 Foot pain 02/04/2025 Hypercholesterolemia 02/04/2025 GERD (gastroesophageal reflux disease) Iron deficiency 02/04/2025 OAB (overactive bladder) 02/04/2025 Subclinical hyperthyroidism 02/04/2025 Vitamin D deficiency 02/04/2025 Dysfunction of right eustachian tube 02/04/2025 Neuropathy 02/04/2025 Chronic pain of left knee 02/04/2025 Resolved Problems Problem Noted Date Diagnosed Date Resolved Date Bunion of left foot 02/04/2025 07/09/20 25 Encounters Date Type Department Care Team Description 09/06/2025 3:00 PM EST Office Visit Orthopedic Surgery [facility] [address] [phone] Jose Luis Phelps DPM Contusion of left foot, initial encounter (Primary Dx) 08/23/2025 Telephone Orthopedic Surgery [place] [address] [phone] Jose Luis Phelps DPM 08/19/2025 10:00 AM EST Office Visit Orthopedic Surgery [facility] [address] [phone] Jose Luis Phelps DPM Postoperative examination (Primary Dx) 08/05/2025 10:45 AM EDT Office Visit Orthopedic Surgery [facility] [address] [phone] Jose Luis Phelps DPM Post-operative state (Primary Dx) 07/22/2025 11:00 AM EDT Office Visit Orthopedic Surgery [facility] [address] [phone] Jose Luis Phelps DPM Left foot pain (Primary Dx); Status post surgery 07/12/2025 Telephone Orthopedic Surgery [facility] [address] [phone] Joanne Wang 07/09/2025 7:30 AM EDT - 07/09/2025 9:00 AM EDT Surgery [facility] [place] [address] [place] [phone] Jose Luis Phelps DPM LEFT BUNIONECTOMY [00157 (CPT )] 07/09/2025 7:26 AM EDT Anesthesia Event [facility] [place] [address] [place] [phone] Wilder Elaine DO 07/09/2025 6:07 AM EDT - 07/09/2025 10:04 AM EDT Hospital Encounter [facility] OR [address] [place] [phone] Jose Luis Phelps, TAMI Discharge Disposition: Home or Self Care 07/07/2025 Telephone Orthopedic Surgery [facility] [address] [phone] Jose Luis Phelps DPM 07/06/2025 Telephone Orthopedic Surgery [facility] [address] [phone] Jose Luis Phelps DPM 06/17/2025 Telephone Orthopedic Surgery [facility] [address] [phone] Jose Luis Phelps DPM 06/16/2025 Telephone Orthopedic Surgery [facility] [address] [phone] Jose Luis Phelps DPM from Last 3 Months Surgical History Surgery Date Site/Laterality Comments OTHER SURGICAL HISTORY COLONOSCOPY UPPER GASTROINTESTINAL ENDOSCOPY Medical History Medical History Date Comments Disease of thyroid gland GERD (gastroesophageal reflux disease) Irritable bowel syndrome Gallbladder anomaly BPH (benign prostatic hyperplasia) interstitial cystritis Urgency of urination Anemia hx of Chronic pain disorder Arthritis Joint pain Migraines Social History Tobacco Use Types Packs/Day Years Used Date Smoking Tobacco: Every Day Cigarettes Smokeless Tobacco: Never Tobacco Cessation:Ready to Q uit: Not Asked; Counseling Given: Not Answered Alcohol Use Standard Drinks/Week Comments Not Currently 0 (1 standard drink = 0.6 oz pur e alcohol) Interpersonal Safety Answer Date Record ed Physical Abuse Unrecognized value 07/09/2025 Verbal Abuse Unrecognized value 07/09/2025 Sex and Gender Information Value Date Recorded Sex Assigned at Not on file Legal Sex Male 1:19 PM EST Gender Identity Not on file Sexual Orientation Not on file Obstetrics History Last Filed Vital Signs Vital Sign Reading Time Taken Comments Blood Pressure 116/77 07/09/2025 9:09 AM EDT Pulse 62 07/09/2025 9:03 AM EDT Temperature 36.2 C (97.2 F) 07/09/2025 8:44 AM EDT Respiratory Rate 18 07/09/2025 6:27 AM EDT Oxygen Saturation 98% 07/09/2025 8:38 AM EDT Inhaled Oxygen Concentration - - Weight 75.3 kg (166 lb) 07/09/2025 6:27 AM EDT Height 177.8 cm (5' 10 ) 07/09/2025 6:27 AM EDT Body Mass Index 23.82 07/09/2025 6:27 AM EDT Plan of Treatment Upcoming Encounters Date Type Department Care Team (Late st Contact Info) Description 11/09/2025 3:00 PM EST Office Visit Orthopedic Surgery - [place] [address] [phone] Jose Luis Phelps, DPJuni [address] [address] Health Maintenance Due Date Last Done Comments Colorectal Cancer Screening: Colonoscopy 1975 DTaP,Tdap,and Td Vaccines (1 - Tdap) 1994 Hepatitis B Vaccines (1 of 3 - 19+ 3-dose series) 1994 Depression Screening 10/07/2024 Social Influencers of Health Screening 10/30/2024 Zoster Vaccines (1 of 2) 2025 COVID-19 Vaccine ( season) 2025 08/01/2024, 08/16/2023, 07/18/2022, Additional history exists Influenza Vaccine (#1) 2025 07/19/2023, 2021 Cholesterol Screening (Lipid Panel) 11/02/2029 11/02/2024 RSV Immunization Adult Patients (1 - 1-dose 75+ series) 2050 Pneumococcal Vaccine: 50+ Years Completed 08/01/2024 HIV [...] on patient's age to complete this topic Medical Devices Implanted Type Area Antique Finisher Device Identifier Shelf Expiration Date Model / Serial / Lot Nail Minibunion Offset Short 3.5mm - Sna - [id number] Implanted:Qty: 1 on 07/09/2025 by Jose Luis Phelps DPM at [facility] Internal and External Fixation Left: First Toe [employer] [id number] 02/10/2029 3100-003 0 / NA / [id number] Screw Locking Minibunion 3x22mm - Sna - [id number] Implanted:Qty: 1 on 07/09/2025 by Jose Luis Phelps DPM at [facility] Spinal Hardware Left: First Toe [employer] [id number] 02/02/2029 3100-302 2LK / NA / [id number] Non Locking Screw 2.7 X 20mm Implanted:Qty: 1 on 07/09/2025 by Jose Luis Phelps DPM at [facility] Left: First Toe [employer] [facility] [id number] 11/30/2028 3100-272 0NL / NA / [id number] Procedures Procedure Name Priority Date/Time Associated Diagnosis Comments XR FOOT 3+ VIEWS LEFT Routine 09/06/2025 3:18 PM EST Post-operative state XR FOOT 3+ VIEWS LEFT Routine 08/05/2025 10:46 AM EDT Post-operative state XR FOOT 3+ VIEWS LEFT Routine 07/22/2025 12:16 PM EDT Foot pain XR FOOT 2 VIEWS LEFT Routine 07/09/2025 9:15 AM EDT NJ CORRECTION HALLUX VALGUS W SESAMOIDECTOMY W DOUBLE OSTEOTOMY 07/09/2025 7:26 AM EDT Bunion of left foot Case Notes MINI C-ARM, CONMED, [employer] FIRST MPJ FUSION, VILLARREAL & NEPHEW 3.5 MM SCREW from Last 3 Months Results * XR Foot 3+ Views Left (09/06/2025 3:18 PM EST) Only the most recent of3 resultswithin the time period is included. Anatomical Region Laterality Modality Lower Extremities, Foot Left Computed Radiography Narrative 09/06/2025 5:28 PM EST Left foot 3 views weightbearing: Some change in positioning of the capital fragment since previous contusion with concern for split in the capital fragment where the screw is inserted through. Jose Luis Phelps DPM IMG XR PROCEDURES Final Res ult * XR Foot 2 Views Left (07/09/2025 9:15 AM EDT) Anatomical Region Laterality Modality Lower Extremities, Foot Left Radiogra phic Imaging 07/09/2025 9:29 AM EDT Impressions 07/09/2025 9:31 AM EDT Evidence of osteotomy and instrumentation of the first metatarsal -------- FINAL REPORT -------- Dictated By: Alphonse Coelho Dictated Date: 07/09/2025 09:29 ET Assigned Physician: Alphonse Coelho Reviewed and Electronically Signed By: Alphonse Coelho Signed Date: 07/09/2025 09:31 ET Workstation ID: [id number] Transcribed By: Self Edit Transcribed Date: 07/09/2025 09:29 ET Narrative 07/09/2025 9:31 AM EDT EXAMINATION: LEFT FOOT CLINICAL INFORMATION: Postop bunion COMPARISON: None. TECHNIQUE: Portable frontal and lateral views of the left foot FINDINGS: Bulky dressing obscures detail. There has been osteotomy and instrumentation involving the junction of middle and distal thirds of the first metatarsal. The distal aspect of the first metatarsal is fixed in a plantar position by approximately 4 mm. The hardware appears intact. Plantar calcaneal spur. Procedure Note Alphonse Coelho MD - 07/09/2025 EXAMINATION: LEFT FOOT CLINICAL INFORMATION: Postop bunion COMPARISON: None. TECHNIQUE: Portable frontal and lateral views of the left foot FINDINGS: Bulky dressing obscures detail. There has been osteotomy andinstrumentation involving the junction of middle and distal thirds of thefirst metatarsal. The distal aspect of the first metatarsal is fixed in aplantar position by approximately 4 mm. The hardware appears intact. Plantar calcaneal spur. IMPRESSION: Evidence of osteotomy and instrumentation of the first metatarsal -------- FINAL REPORT -------- Dictated By: Alphonse Coelho Dictated Date: 07/09/2025 09:29 ET Assigned Physician: Alphonse Coelho Reviewed and Electronically Signed By: Alphonse Coelho Signed Date: 07/09/2025 09:31 ET Workstation ID: [id number] Transcribed By: Self Edit Transcribed Date: 07/09/2025 09:29 ET Jose Luis Phelps DPM IMG XR PROCEDURES Final Res ult from Last 3 Months Insurance [facility] Advance Directives * Full Code - Default (Latest Code Status on File) Date Activated Date Inactivated Comments 07/09/2025 6:39 AM 07/09/2025 12:09 PM This is ord er is used when code status has not been discussed with the patient, or code status is otherwise unknown/unconfirmed To update the patient's code status, place a code status order. Do not modify or discontinue any currently active code status orders. Care Teams Sterilization Specialist Relationship Specialty Start Date End Date Patricia Damon MD [address] [place] [phone] PCP - General Internal Medicine 10/29/24
--- OUTSIDE RECORDS SUMMARY | 2025-09-10 19:51 | XMS_ITS | Encounter Summary ---
Author Organization [employer] Address [address] [place] [address] [address] [place] [address] Care Team Providers Care Skiver Machine Name Role Phone Patricia Damon MD Primary Care Provide r Reason for Visit * Reason Comments Med Refill Encounter Details Date Type Department Care Team ([facility] st Contact Info) Description 06/23/2025 Refill [facility] MED & PEDS [address] [place] [address] Patricia Damon MD [address] [place] [address] Bladder pain Social History Tobacco Use Types [...] Care Team (Late st Contact Info) Description 09/20/2025 10:00 AM EST Clinical Support [facility] DIABETES/NUTRITION [address] [place] [phone] [place] [address] 12/01/2025 11:15 AM EST Office Visit [facility] MEDICINE [address] [place] [phone] Patricia Damon MD [address] [place] [address] [phone] documented as of this encounter Visit Diagnoses Diagnosis Bladder pain Other symptoms involving urinary system documented in this encounter Additional Health Concerns Assessment Noted Time PHQ-9 Depression Total Score: 0 09/29/20 24 11:50 AM EST documented as of this encounter Care Teams Skiver Machine Relationship Specialty Start Date End Date Patricia Damon MD [address] [place] [address] [phone] PCP - General Family Medicine 05/24/20 documented as of this encounter
--- OUTSIDE RECORDS SUMMARY | 2025-09-10 19:51 | XMS_ITS | Encounter Summary ---
Author Organization [employer] Address [address] [facility] 7t [place] [address] Care Team Providers Care Hassock Maker Name Role Phone Patricia Damon MD Primary Care Provide r Encounter Details Date Type Department Care Team ([facility] st Contact Info) Description 09/08/2025 Population Health Risk Score [facility] (C3) Department [address] [place] [phone] Provider, Population Health Generic Social History Tobacco Use Types Packs/Day Years Used Date Smoking Tobacco: Every Day Cigarettes Passive Smoke Exposure: Current Smokeless Tobacco: Never Alcohol Use Standard Drinks/Week Comments Yes 1 (1 standard drink = 0.6 oz pur e alcohol) oc once a week Depression Answer Date Recorded Patient Health Questionnaire-9 Score 1 08/24/2025 Patient Health Questionnaire-9 Score 1 08/24/2025 Last PHQ-9: Questionnaire Data Not on file 1 10/24/2024 Housing Stability Answer Date Recorded What is your housing situation today? Not on betina e 08/24/[address] you li ve. Do you have problems with any of the following? None of the above 08/24/2025 Food Insecurity Answer Date Recorded Within the past 12 months, y ou worried that your food would run out before you got money to buy more: Never True 08/24/2025 Within the past 12 months,th e food you bought just didn't last and you didn't have enough money to get more: Never True Transportation Answer Date Recorded In the past 12 months, has l ack of transportation kept you from medical appts, meetings, work or from getting things needed for daily living? No 08/24/2025 Utilities Answer Date Recorded In the past 12 months, has t he electric, gas, oil or water company threatened to shut off services in your home? No 08/24/2025 Depression Answer Date Recorded Patient Health Questionnaire-2 Score 0 08/24/2025 Internet Access Answer Date Recorded Internet Access Q1 Yes 08/24/2025 Internet Access Q2 Not on file 08/24/2025 Sex and Gender Information Value Date Recorded [...] Description 09/20/2025 10:00 AM EST Clinical Support [facility] DIABETES/NUTRITION [address] [place] [address] [place] [address] 12/01/2025 11:15 AM EST Office Visit [facility] MEDICINE [address] [place] [address] Patricia Damon MD [address] [place] [address] documented as of this encounter Visit Diagnoses Not on filedocumented in this encounter Additional Health Concerns Assessment Noted Time PHQ-9 Depression Total Score: 1 08/24/20 25 12:28 PM EST documented as of this encounter Care Teams Hassock Maker Relationship Specialty Start Date End Date Patricia Damon MD [address] [place] [phone] PCP - General Family Medicine 05/24/20 documented as of this encounter
--- OUTSIDE RECORDS SUMMARY | 2025-09-10 19:51 | XMS_ITS | Encounter Summary ---
Author Organization [employer] Address [address] [place] [address] Care Team Providers Care Teacher Visually Impaired Name Role Phone Patricia Damon MD Primary Care Provide r Encounter Details Date Type Department Care Team (Late st Contact Info) Description 09/21/2022 Orders Only [facility] MEDICINE [address] [place] [phone] Maya Hernandez MD [address] [place] [phone] Bunion of left foot (Primary Dx) Social [...] Description 09/20/2025 10:00 AM EST Clinical Support [facility] DIABETES/NUTRITION [address] [place] [phone] [place] [address] 12/01/2025 11:15 AM EST Office Visit [facility] MEDICINE [address] [place] [phone] Patricia Damon MD [address] [place] [phone] documented as of this encounter Procedures Procedure [...] 8:08 AM EDT 02/27/2023 9:45 AM EDT [facility] LABS - 03/01/2023 2:17 PM EDT ----- ------- Name: Rosas Francisco Age/Sex: 47/M : 1975 Unit#: [id number] Attend Dr: Kevin Tafoya MD Re02/27/23 Status: [facility] Disch: ----- ------- SPEC : [id number] RECD: 02/27/23 STATUS: CARMEN ARREDONDO NUM: [id number] JAZMYN: 02/27/[address] [facility] [address]: Kevin Tafoya MD ENTERED: 02/27/23 [...] formalin. CEDS Copies To: Patricia Damon MD [address] [place] [phone] Kevin Tafoya MD [address] [place] [address] [place] [address] CONTINUED ON NEXT PAGE ----- ------- Name: Rosas Francisco Partha Age/Sex: 47/M : 1975 Unit#: [id number] Attend Dr: Kevin Tafoya MD Re02/27/23 Status: [facility] Location: [facility] Disch: ----- ------- SPEC : [id number] RECD: 02/27/23 STATUS: CARMEN ARREDONDO NUM: [id number] JAZMYN: 02/27/[address] [facility] [address]: Kevin Tafoya MD ENTERED: 02/27/23 SP TYPE: Surgical OTHR DR: Patricia Damon MD ORDERED: Reva Bartlett L3 ----- ------- Signed (signature on file) Tereso Mejias MD 03/01/23 1417 ----- ------- END OF REPORT [facility] External Provider LAB CYT OLOGY ORDERABLES Final Result [facility] [address] [place] [phone] * Pancreatic elastase, fecal (01/09/2023 8:51 PM EDT) Pancreatic Elastase 1 >500 mcg/g [facility] Comment:Adult and Pediatric Reference Ranges for Pancreatic Elastase-1: Normal: >200 mcg/gModerate Pancreatic Insufficiency: 100-200 mcg/g Severe Pancreatic Insufficiency: <100 mcg/gElastase-1 (E-1) assay results are expressedin mcg/g, which represent mcg E1/g feces.It is not necessary to interrupt enzymesubstitution therapy.THIS TEST WAS PERFORMED AT:[employer] [id number] [place] [address]SPBMPJEANIE SHERIDAN MD,PHD,MACHELLE 01/09/2023 8:51 PM EDT 01/11/2023 8:52 AM EDT [facility] Exter nal Provider LAB BODY FLUIDS AND STOOLS ORDERABLES Final Result Performing Organization Address [facility] Co de Phone Number [facility] [address] [place] [phone] * Lipase (01/04/2023 2:04 PM EDT) Pathologist [facility] Lipase 38 8 - 78 U/L [facility] 01/04/2023 2:04 PM EDT 01/04/2023 2:04 PM EDT [facility] External Provider LAB BLO OD ORDERABLES Final Result Performing Organization Address [facility] Co de Phone Number [facility] [address] [place] [address] [phone] * Hemoglobin A1c (01/04/2023 2:04 PM EDT) Pathologist [facility] Hemoglobin A1c 6.0 % [facility] Comment:Hemoglobin A1C Refer ence Range Adults: 4.8 - 6.0 % Non diabetic: < 6.0 % Goal: < 7.0 %Additional Action Suggested: > 8.0 %Note: Hemoglobin A1c results are invalid for patients with abnormal amounts of HbF. Blood transfusions may impact the HbA1c concentration in the patient sample. Estimated Average Glucose 126 mg/dL [facility] Comment:eAG = Estimated ave rage glucose which is %A1C expressed asaverage glucose, using the formula of the U0M-OiitdmeTozhtcy Glucose study (ADAG), Diabetes Care, Vol.31,#8,May. 2007 01/04/2023 2:04 PM EDT 01/04/2023 2:04 PM EDT us [facility] External Provider LAB BLO OD ORDERABLES Final Result Performing Organization Address City/State/[facility] Co de Phone Number [facility] [address] [place] [phone] documented in this encounter Visit Diagnoses Diagnosis Bunion of left foot- Primary Bunion documented in this encounter Care Teams Teacher Visually Impaired Relationship Specialty Start Date End Date Patricia Damon MD [address] [place] [phone] PCP - General Family Medicine 05/24/20 documented as of this encounter
--- OUTSIDE RECORDS SUMMARY | 2025-09-10 19:51 | XMS_ITS | Encounter Summary ---
Author Organization [employer] Address [address] [place] [address] 7 [place] [address] Care Team Providers Care Second Language Tutor Name Role Phone Patricia Damon MD Primary Care Provide r Encounter Details Date Type Department Care Team (Late Contact Info) Description 02/19/2025 Orders Only [facility] MEDICINE [address] [place] [address] Patricia Damon MD [address] [place] [address] Social History Tobacco Use Types Packs/Day Years [...] Department Care Team (Late Contact Info) Description 09/20/2025 10:00 AM EST Clinical Support [facility] DIABETES/NUTRITION [address] [place] [address] Tata Woo, IAN [address] [place] [address] 12/01/2025 11:15 AM EST Office Visit [facility] MEDICINE [address] [place] [address] Patricia Damon MD [address] [place] [address] documented as of this encounter Visit Diagnoses Not on filedocumented in this encounter Additional Health Concerns Assessment Noted Time PHQ-9 Depression Total Score: 0 09/29/20 24 11:50 AM EST documented as of this encounter Care Teams Second Language Tutor Relationship Specialty Start Date End Date Patricia Damon MD [address] [place] [address] [phone] PCP - General Family Medicine 05/24/20 documented as of this encounter
--- OUTSIDE RECORDS SUMMARY | 2025-09-10 19:51 | XMS_ITS | Clinical Summary ---
Author Organization [employer] Address [address] [place] [address] 7t [place] [address] Care Team Providers Care Community Engagement Manager Name Role Phone Patricia Damon MD [...] EVERY MORNING 30 capsule 5 5 Active fluticasone (Flonase) 50 MCG/ACT nasal spray Administer 1-2 sprays into each nostril Once per day. Shake gently. Before first use, prime pump. After use, clean tip and replace cap. 16 g 2 5 05/17/20 26 Active pentosan polysulfate (Elmiron) 100 MG capsuleIndicatio ns:Bladder pain Take 2 capsules (200 mg) by mouth 2 times daily. No further refills from PCP-have to come from urologist 32 capsule 5 Active Active Problems Problem Noted Date Diagnosed Date Acute paronychia of finger 08/24/2025 Feeling tired 08/24/2025 Irritable bowel syndrome 08/24/2025 Pilonidal cyst of cleft 08/24/2025 Tubular adenoma 08/24/2025 Microcytic anemia 08/24/2025 Hemiplegic migraine without status migrainosus, not intractable 08/24/2025 Sensorineural hearing loss (SNHL) of both ears 0 06/24/2025 Tinnitus of right ear 06/24/2025 Chronic rhinitis 06/24/2025 Chronic sinusitis of both maxillary sinuses 05/2025 [...] for worsening pain or failure to resolve Iron deficiency 02/04/2025 Neuropathy 02/04/2025 GERD (gastroesophageal reflux disease) Low TSH level 11/19/2024 Elevated LFTs 11/19/2024 Assessment & Plan (11/19/2024 1:38 PM EST): Extensive counseling about healthy diet and cardiovascular exercise done today Abdominal ultrasound ordered, patient will be contacted with results Shrub Planter referral done today Prediabetes 11/19/2024 Assessment & [...] session of IV iron Hypercholesterolemia 09/24/2018 10/11/2023 Assessment & Plan (08/24/2025 4:38 PM EST): Patient declines to start statin, he is aware he has an ACSVD risk of 9% Subclinical hyperthyroidism 09/24/201802/2024 Assessment & Plan (11/19/2024 [...] Encounters Date Type Department Care Team Description 09/08/2025 Population Health Risk Score Community [facility] (C3) Department [address] [place] [phone] Provider, Population Health Generic 08/24/2025 11:30 AM EST Office Visit [address] [address] Patricia Damon MD Elevated LFTs (Primary Dx); Prediabetes; Hemiplegic migraine without status migrainosus, not intractable; Hypercholesterolemia; Subclinical hyperthyroidism 08/24/2025 Travel 08/23/[address] [address] Patricia Damon MD Chart Prep 08/17/2025 Patient Outreach [address] [address] Patricia Damon MD Pre-visit Planning ((Unable to reach for PVP screening, LVM) to be completed in office ) 08/03/2025 2:00 PM EDT Clinical Support [facility] DIABETES/NUTRITION [address] [place] [phone] Elevated LFTs (Primary Dx) 08/03/2025 Travel 07/12/2025 Orders Only [address] [address] Patricia Damon MD Gastroesophageal reflux disease, unspecified whether esophagitis present (Primary Dx); Irritable bowel syndrome, unspecified type 07/12/2025 Refill [facility] MED & PEDS [address] [place], [place] [phone] Patricia Damon MD Bladder pain 07/08/2025 Refill [facility] MED [facility] [address] [place], [place] [phone] Patricia Damon MD Bladder pain 07/06/2025 11:30 AM EDT Clinical Support [facility] DIABETES/NUTRITION [address] [place] [phone] Elevated LFTs (Primary Dx) 07/06/2025 Travel 06/24/2025 Orders Only [address] [address] Patricia Damon MD Interstitial cystitis (Primary Dx) 06/23/[address] [facility] MED & PEDS [address] [place], [place] [phone] Patricia Damon MD Bladder pain 06/14/2025 10:00 AM EDT Office Visit [facility] [address] [place] [address] Rosi Verma NP Chronic sinusitis of both maxillary sinuses (Primary Dx); Cough in adult patient 06/14/2025 Travel from Last 3 Months Social History [...] Sign Reading Time Taken Comments Blood Pressure 124/72 08/24/2025 11:45 AM EST Pulse 85 08/24/2025 11:45 AM EST Temperature 36 C (96.8 F) 08/24/2025 11:45 AM EST Respiratory Rate 16 08/24/2025 11:45 AM EST Oxygen Saturation 98% 08/24/2025 11:45 AM EST Inhaled Oxygen Concentration - - Weight 75.8 kg (167 lb) 08/24/2025 11:45 AM EST Height 172.7 cm (5' 8 ) 08/24/2025 11:45 AM EST Body Mass Index 25.39 08/24/2025 11:45 AM EST Plan of Treatment Upcoming Encounters Date Type Department Care Team (Late st Contact Info) Description 09/20/2025 10:00 AM EST Clinical Support [facility] DIABETES/NUTRITION [address] [place] [address] [place] [address] 12/01/2025 11:15 AM EST Office Visit [facility] MEDICINE [address] [place] [address] Patricia Damon MD [address] [place] [address] Health Maintenance Due Date Last Done Comments CT Colonography 1975 Colonoscopy 1975 Colorectal Cancer Screening 1975 FIT DNA/Cologuard 1975 FIT 1975 FOBT 1975 SDOH Screening 1975 Sigmoidoscopy 1975 Family Planning (PISQ) 1990 DTaP/Tdap/Td Vaccines (1 - Tdap) 1994 Hepatitis B Vaccines (1 of 3 - 19+ 3-dose series) 1994 Zoster Vaccines (1 of 2) 2025 COVID-19 Vaccine ( season) 2025 08/01/2024, 08/16/2023, 07/18/2022, Additional history exists Influenza Vaccine (#1) 2025 07/19/2023, 2021 Alcohol/Substance Use Screening 08/24/2026 08/24/2025 Depression Screening 08/24/2026 08/24/2025, 08/24/20 25 Diabetes: Hemoglobin A1C 08/24/2026 025, 11/02/2024, 01/04/2023, Additional history exists Disability Screening 08/24/2026 08/24/2025 Tobacco Screening 08/24/2026 08/24/2025 Lipid Panel 11/02/2029 11/02/2024 RSV Patients and Patients Aged 60 years or older (1 - 1-dose 75+ series) 2050 Pneumococcal [...] Procedure Name Priority Date/Time Associated Diagnosis Comments HEPATIC FUNCTION PANEL Routine 09/10/2025 4:20 PM EST Elevated LFTs POCT GLYCATED HEMOGLOBIN, TOTAL Routine 08/24/2025 11:50 AM EST Prediabetes CELIAC DISEASE COMPREHENSIVE PANEL Routine 07/26/2025 4:10 PM EDT Gastroesophageal reflux disease, unspecified whether esophagitis present Irritable bowel syndrome, unspecified type AMB REFERRAL TO UROLOGY Urgent 07/20/2025 Interstitial [...] 9:52 AM EDT Cough in adult patient HEPATITIS C AB W/REFL TO HCV RNA, QN, PCR Routine 11/02/2024 3:18 PM EST Subclinical hyperthyroidism HIV 1/2 ANTIGEN/ANTIBODY, FOURTH GENERATION W/RFL Routine 11/02/2024 3:18 PM EST Subclinical hyperthyroidism LIPID PANEL, STANDARD Routine 11/02/2024 3:18 PM EST Subclinical hyperthyroidism from Last 3 Months or Most Recently Relevant to Health Maintenance Results * (ABNORMAL) Hepatic Function Panel (09/10/2025 4:20 PM EST) Bilirubin, Total 0.3 0.0 - 1.0 mg/dL [facility] Bilirubin, Direct 0.1 0.0 - 0.5 mg/dL [facility] Aspartate Amino Transferase 26 5 - 37 U/L [facility] Alanine Aminotransferase 28 0 - 40 U/L [facility] Total Protein 7.0 6.5 - 8.0 g/dL [facility] Albumin Level 4.3 3.5 - 5.0 g/dL [facility] Alkaline Phosphatase 131(H) 39 - 117 U/L [facility] Blood Venous blood specimen / Unknown 09/10/2025 4:20 PM EST 09/10/2025 6:09 PM EST Patricia Storm MD LAB BLOOD ORDERABLES Final Result [facility] [address] [place] [address] [phone] * (ABNORMAL) POCT Hgb A1c (08/24/2025 11:50 AM EST) Pathologist [facility] Hemoglobin A1C 5.9(A) 4.0 - 5.7 % QC Media Lot # [id number] Lot# Expiration Date Blood 08/24/2025 11:5 0 AM EST Patricia Storm MD POINT OF CARE TEST EN TER/EDIT ORDERABLES Final Result * Celiac Disease Comprehensive Panel (07/26/2025 4:10 PM EDT) Immunoglobulin A, Qn, Serum 267 47 - 310 mg/dL [facility] Comment:THIS TEST WAS PERFOR MED AT:[employer] [place] [phone] JONES MD Transglutaminase IgA <1.0 U/mL [facility] Comment:Value Interpretation ----- <15.0 Antibody not detected> or = 15.0 Antibody detected Interpretation SEE NOTE [facility] Comment:No serological evide nce of celiac disease.tTG IgA may normalize in individuals with celiac diseasewho maintain a gluten-free diet. Consider HLA DQ2 andDQ8 testing to rule out celiac disease. Celiac diseaseis extremely rare in the absence of DQ2 or DQ8. Blood Venous blood specimen / Unknown 07/26/2025 4:10 PM EDT 07/26/2025 5:11 PM EDT Patricia Storm MD LAB BLOOD ORDERABLES Final Result [facility] [address] [place] [phone] * Referral to Urology (07/20/2025) Patricia Storm MD OUTPATIENT REFERRAL O RDERABLES Final Result * Referral to ENT (06/24/2025) Rosi Verma NP OUTPATIENT REFERRAL ORDERABLES F inal Result * Influenza B (ID NOW Rapid Molecular) (06/14/2025 9:57 AM EDT) [facility] Influenza B Negative Negative, Indeterminate [facility] Swab 06/14/2025 9:57 AM EDT Rois Verma GOLD LETTERER POINT OF CARE TEST ENTER/EDIT OR DERABLES Final Result Performing Organization Address [facility]/ZIP Co de Phone Number [facility] [address] [place] [phone] * Influenza A (ID NOW Rapid Molecular) (06/14/2025 9:57 AM EDT) [facility] Influenza A Negative Negative, Indeterminate [facility] Swab 06/14/2025 9:57 AM EDT Rosi Verma GOLD LETTERER POINT OF CARE TEST ENTER/EDIT OR DERABLES Final Result Performing Organization Address City/[facility]/ZIP Co de Phone Number [facility] [address] [place] [phone] * POCT Rapid COVID Ag (06/14/2025 9:52 AM EDT) [facility] Rapid COVID Ag Negative Swab 06/14/2025 9:52 AM EDT Rosi Verma NP POINT OF CARE TEST ENTER/EDIT OR DERABLES Final Result * Hepatitis C Antibody with Reflex to HCV, RNA, Quantitative, Real-Time PCR (11/02/2024 3:18 PM EST) Hepatitis C Antibody Nonreactive Nonreactive [facility] Comment:Antibodies to HCV no t detected; does not exclude early acuteHCV infection. Blood Venous blood specimen / Unknown 11/02/2024 3:18 PM EST 11/02/2024 4:23 PM EST us Patricia Storm MD LAB BLOOD ORDERABLES Final Result Performing Organization Address City/[facility]/ZIP Co de Phone Number [facility] [address] [place] [phone] * HIV-1/2 Antigen and Antibodies, Fourth Generation, with Reflexes (11/02/2024 3:18 PM EST) HIV AB/AG Nonreactive Nonreactive [facility] Comment:HIV-1 p24 Ag and/or HIV-1/HIV-2 Ab not detected.A test result that is nonreactive does not exclude thepossibility of exposure to or infection with HIV-1 and/orHIV-2. Nonreactive results in this assay for individualswith prior exposure to HIV-1 and/or HIV-2 may be due toantigen and antibody levels that are below the limit ofdetection of this assay.The [employer] HIV Ag/Ab Combo assay result andsupplemental assay results should be interpreted inconjunction with the patient's clinical presentation,history and other laboratory results. If the results areinconsistent with clinical evidence, additional testing issuggested to confirm the result. Blood Venous blood specimen / Unknown 11/02/2024 3:18 PM EST 11/02/2024 4:23 PM EST us Patricia Storm MD LAB BLOOD ORDERABLES Final Result Performing Organization Address City/[facility]/ZIP Co de Phone Number [facility] [address] [place] [phone] * (ABNORMAL) Lipid Panel, Standard (11/02/2024 3:18 PM EST) Triglycerides 139 <150 mg/dL [facility] Comment:Desirable Triglyceri de: less than 150 mg/dLBorderline High Triglyceride 150-199 mg/dLHigh Triglyceride: 200-499 mg/dLVery High Triglyceride: greater than or equal to 5OO mg/dL Cholesterol 209(H) <200 mg/dL [facility] Comment:Desirable Cholestero l: less than 200 mg/dLBorderline High Cholesterol: 200-239 mg/dLHigh Cholesterol: greater than 239 mg/dL LDL Cholesterol Calculated 139(H) <100 mg/dL [facility] Comment:Desirable LDL: less than 100 mg/dLNear Optimal/Above Optimal LDL: 110- 129 mg/dLBorderline High LDL: 130-159 mg/dLHigh LDL: 160-189 mg/dLVery High LDL: greater than or equal to 190 mg/dL HDL Cholesterol 43 >40 mg/dL [facility] Comment:Desirable HDL: great er than 40 mg/dL Note: This HDL assay may give artificially low results in patients with liver disease. Blood Venous blood specimen / Unknown 11/02/2024 3:18 PM EST 11/02/2024 4:23 PM EST us Patricia Storm MD LAB BLOOD ORDERABLES Final Result [facility] [address] [place] [phone] [phone] from Last 3 Months or Most Recently Relevant to Health Maintenance Insurance [facility] Care Teams Community Engagement Manager Relationship Specialty Start Date End Date Patricia Damon MD [address] [place] [phone] PCP - General Family Medicine 05/24/20
[2025-09-11 08:14] LABS: HBS Num1 0.81 mIU/mL (0-7.99); HBc Num1 0.06 S/CO (0.00-0.79); HBsAGNum1 0.49 S/CO (0.00-0.99); Hepatitis B Surface Antigen Negative (Negative); ~Hepatitis B Surface Antibody NONREACTIVE (Nonreactive)
== END 2025-09-10 16:17 | disposition home or self-care (01) ==
LOC: HO.HHCL 16:16
PROVIDERS: PCP Internal Medicine; Visit Provider Internal Medicine
DX: Z11.59 Encounter for screening for other viral diseases (principal); R79.89 Other specified abnormal findings of blood chemistry
CPT/HCPCS: 36415; 80076; 86704; 86706; 87340

== ENCOUNTER 2025-09-20 13:57 | Outpatient (AMB) | payer OTHER, SELFPAY ==
--- NOTE | 2025-09-20 14:03 | MHC.OFFVIS ---
Vital Signs 09/20/25 14:05 Height 5 ft 9 in Weight 163 lb 2.273 oz BMI 24.1 Blood Pressure Location Lt brachial Position Sitting Intake Visit Reasons: Abdominal Pains Intake Note: Rosas presents in the office as a follow up. CC: States that he wants Bryce to join in on the meeting - states that he is supposed to have a procedure - he has had so many denials and he is not sure why. He did not want to cancel the Carafate but was switched to MyLanta. He states he needs a medication for his gall bladder and state that MyLanta will not do anything about his gall bladder. Chalky taste in his mouth, stomach and headaches. Unable to eat til afternoon and has changed diet sincefinding out he has sensitivity of gluten. Sagger Maker Required: No Allergies esomeprazole Adverse Reaction (Mild, Verified 09/20/25 14:05) urinating trouble HPI Comments Details: This is a 50-year-old gentleman with medical history of hyperthyroidism, history of polyps, interstitial cystitis, who presents to the office today for ?2nd opinion?. Patient reports years of GI symptoms. Reports that main symptoms are increased abdominal bloating, cramping in the lower abdomen with increased frequency of bowel movements. Does not notice blood in the bowel movement, but frequently has mucus passage. Endorses occasional tenesmus. Nighttime symptoms positive. EGD/colonoscopy 2022: With large ascending colon adenoma as well as to more tubular adenoma in transverse colon. Colon biopsies were not positive for definitive colitis, but did show architectural distortion with prominent histiocytes. Duodenum biopsies were normal. To note patient also has microcytic anemia with low ferritin And frequently low vitamin-D unless he takes active replacement. 09/20/25: Here for follow up. Danis urgent basis due to pt grievances. Again wishes to review poor care by previous providers. Respectfully reviewed that if he has any grievances against a colleague of mine, he can discuss that with office management or patient advocacy however I am happy to review any medical concerns today. To recap, due to concern for small bowel crohns, a CTE was ordered which the pt had declined. Clarified - had side effect of diarrhea after. No allergic sx such as palpitations, shortness of breath etc reported. Insurance did not approve MRE. He is agreeable to CTE today after indication and possible s/e were outlined. He was also reminded to submit stool sample this week which is pending since last appt. In terms of sucralfate prescription, reports was Rxed by previous GI for gallbladder problems . CHANNINGA reviewed - borderline biliary hyperkinesia. However unclear indication for sucralfate at this time. In any case, pt would like this to be refilled as is (had prev requested an alternative - see workload 08/20 - but states that may have been a miscommunication). From GI standpoint, has been seeing a public utilities sales representative and has worked positively towards his diet which has been helping. Reports avoidance of gluten has also made an impact despite neg celiac serology and bx - possibly gluten intolerant. [facility] Medical History Subclinical hyperthyroidism Tubular adenoma Hemiplegic migraine Interstitial cystitis Irritable bowel syndrome Gastroesophageal reflux disease Surgical History (Updated 09/20/25 @ 14:05 by ARLINE Farfan) Hx of foot surgery History of excision of pilonidal cyst (02/27/23) History of esophagogastroduodenoscopy (EGD) H/O colonoscopy Hx of cystoscopy History of vasectomy H/O removal of cyst Family History Father COVID-19 COPD (chronic obstructive pulmonary disease) Stroke Paternal Grandmother Cancer of unknown origin Sister MGUS (monoclonal gammopathy of unknown significance) Social History Household Members: Family Alcohol intake: current Alcohol intake frequency: a few times a week Patient Tobacco Use Status: Current everyday Tobacco user Tobacco use type: Cigarette service: No Current occupational status: employed Review of Systems Const All systems reviewed & are unremarkable except as noted in HPI and below Physical Exam Exam Exam: No apparent distress Nonicteric Abdomen soft, nondistended Alert and oriented x3, normal gait Vital Signs: BMI result Body Mass Index 24.1 Assessment & Plan Assessment & Plan (1) Change in bowel habit: Code(s): R19.4 - Change in bowel habit Category: Medical (2) Microcytic anemia: Code(s): D50.9 - Iron deficiency anemia, unspecified Category: Medical (3) Abdominal pain: Code(s): R10.9 - Unspecified abdominal pain Plan Pt with chronic sx of abdominal pain, cramping, change in bowel habits alongside subtle changes on colon biopsies with iron deficiency - can not rule out Crohn's disease, especially of the small bowel. plan: - CTE - reordered - Repeat fecal piero - reordered - Low threshold for push enteroscopy with colo based on results +/- VCE Pt declined [facility] a follow up today as he is waiting to review his new work schedule starting Oct 2025. Will call our office to [facility] OV. Orders: Orders CT enterography Today D50.9 - Iron deficiency anemia, unspecified, R19.4 - Change in bowel habit Calprotectin, Fecal Today D50.9 - Iron deficiency anemia, unspecified Medications: New sucralfate 1 g PO BID 60 tabs 1RF 30 days Coding Level of Care Code Est Pt Level 5 (61434) Diagnoses Change in bowel habit R19.4 Microcytic anemia D50.9 Abdominal pain R10.9
[2025-09-20 14:05] VITALS: BMI 24.1
--- OUTSIDE RECORDS SUMMARY | 2025-09-20 20:18 | XMS_ITS | Clinical Summary ---
Author Organization [employer] Address [address] [place] [address] [address] [place] [address] Care Team Providers Care Guest Service Representative Name Role Phone Patricia Damon MD Primary [...] ordered, patient will be contacted with results Client Service Manager referral done today Prediabetes 11/19/2024 Assessment & [...] Encounters Date Type Department Care Team Description 09/17/[address] [address] Patricia Damon MD Results 09/08/2025 Population Health Risk Score Community [facility] ([facility]) [address] [phone] Provider, Population Health Generic 08/24/2025 11:30 AM EST Office Visit [address] [address] Patricia Damon MD Elevated LFTs (Primary Dx); Prediabetes; Hemiplegic migraine without status migrainosus, not intractable; Hypercholesterolemia; Subclinical hyperthyroidism 08/24/2025 Travel 08/23/[address] [address] Patricia Damon MD Chart Prep 08/17/2025 Patient Outreach [address] [address] Patricia Damon MD Pre-visit Planning ((Unable to reach for PVP screening, LVM) to be completed in office ) 08/03/2025 2:00 PM EDT Clinical Support [facility] DIABETES/NUTRITION [address] [place] [phone] Elevated LFTs (Primary Dx) 08/03/2025 Travel 07/12/2025 Orders Only [address] [address] Patricia Damon MD Gastroesophageal reflux disease, unspecified whether esophagitis present (Primary Dx); Irritable bowel syndrome, unspecified type 07/12/2025 Refill [facility] & PEDS [address], [place] [phone] Patricia aDmon MD Bladder pain 07/08/2025 Refill [facility] [address], [place] [phone] Patricia Damon MD Bladder pain 07/06/2025 11:30 AM EDT Clinical Support [facility] DIABETES/NUTRITION [address] [place] [phone] Elevated LFTs (Primary Dx) 07/06/2025 Travel 06/24/2025 Orders Only [facility] MEDICINE [address] [place] [address] Patricia Damon MD Interstitial cystitis (Primary Dx) 06/23/2025 Refill [facility] [address] [place], [place] [phone] Patricia Damon MD Bladder pain from Last 3 Months Social History Tobacco [...] Care Team (Late st Contact Info) Description 12/01/2025 11:15 AM EST Office Visit [facility] MEDICINE [address] [place] [address] Patricia Damon MD [address] [place] [address] Health Maintenance Due Date Last Done Comments CT Colonography 1975 Colonoscopy 1975 Colorectal Cancer Screening 1975 FIT DNA/Cologuard 1975 FIT 1975 FOBT 1975 SDOH Screening 1975 Sigmoidoscopy 1975 Family Planning (PISQ) 1990 DTaP/Tdap/Td Vaccines (1 - Tdap) 1994 Hepatitis B Vaccines (1 of 3 - 19+ 3-dose series) 1994 Zoster Vaccines (1 of 2) 2025 COVID-19 Vaccine ( - season) 2025 08/01/2024, 08/16/2023, 07/18/2022, Additional history exists Influenza Vaccine (#1) 2025 07/19/2023, 2021 Alcohol/Substance Use Screening 08/24/2026 08/24/2025 Depression Screening 08/24/2026 08/24/2025, 08/24/20 Diabetes: Hemoglobin A1C 08/24/2026 025, 11/02/2024, 01/04/2023, [...] Routine 09/10/2025 4:20 PM EST Elevated LFTs HEPATITIS B CORE AB TOTAL Routine 09/10/2025 4:20 PM EST Elevated LFTs HEPATITIS B SURFACE ANTIGEN, EIA Routine 09/10/2025 4:20 PM EST Elevated LFTs HEPATITIS B SURFACE ANTIBODY, QUALITATIVE Routine 09/10/2025 4:20 PM EST Elevated LFTs POCT GLYCATED HEMOGLOBIN, TOTAL Routine 08/24/2025 11:50 AM EST Prediabetes CELIAC DISEASE COMPREHENSIVE PANEL Routine 07/26/2025 4:10 PM EDT Gastroesophageal reflux disease, unspecified whether esophagitis present Irritable bowel syndrome, unspecified type AMB REFERRAL TO UROLOGY Urgent 07/20/2025 Interstitial cystitis AMB REFERRAL TO ENT Routine 06/24/2025 Dysfunction of right eustachian tube HEPATITIS C AB W/REFL TO HCV RNA, QN, PCR Routine 11/02/2024 3:18 PM EST Subclinical hyperthyroidism HIV 1/2 ANTIGEN/ANTIBODY, FOURTH GENERATION W/RFL Routine 11/02/2024 3:18 PM EST Subclinical hyperthyroidism LIPID PANEL, STANDARD Routine 11/02/2024 3:18 PM EST Subclinical hyperthyroidism from Last 3 Months or Most Recently Relevant to Health Maintenance Results * Hepatitis B surface antigen, EIA (09/10/2025 4:20 PM EST) Hepatitis B Surface Ag Negative Negative [facility] Blood Venous blood specimen / Unknown 09/10/2025 4:20 PM EST 09/10/2025 6:09 PM EST us Patricia Storm MD LAB BLOOD ORDERABLES Final Result Performing Organization Address [facility]/ZIP Co de Phone Number [facility] [address] [place] [phone] * Hepatitis B Core Antibody, Total (09/10/2025 4:20 PM EST) Hepatitis B Core Antibody Nonreactive Nonreactive [facility] Blood Venous blood specimen / Unknown 09/10/2025 4:20 PM EST 09/10/2025 6:09 PM EST us Patricia Storm MD LAB BLOOD ORDERABLES Final Result Performing Organization Address [facility]/ZIP Co de Phone Number [facility] [address] [place] [phone] * Hepatitis B Surface Antibody, Qualitative (09/10/2025 4:20 PM EST) Pathologist [facility] ~Hepatitis B Surface Antibody NONREACTIVE Nonreactive [facility] Comment:Nonreactive: < 8.00 mIU/mL Blood Venous blood specimen / Unknown 09/10/2025 4:20 PM EST 09/10/2025 6:09 PM EST Patricia Storm MD LAB BLOOD ORDERABLES Final Result Performing Organization Address City/[facility] Co de Phone Number [facility] [address] [place] [phone] * (ABNORMAL) Hepatic Function Panel (09/10/2025 4:20 PM EST) Pathologist [facility] Bilirubin, Total 0.3 0.0 - 1.0 mg/dL [facility] Bilirubin, Direct 0.1 0.0 - 0.5 mg/dL [facility] Aspartate Amino Transferase 26 5 - 37 U/L [facility] Alanine Aminotransferase 28 0 - 40 U/L [facility] Total Protein 7.0 6.5 - 8.0 g/dL [facility] Albumin Level 4.3 3.5 - 5.0 g/dL [facility] Alkaline Phosphatase 131(H) 39 - 117 U/L [facility] Blood Venous blood specimen / Unknown 09/10/2025 4:20 PM EST 09/10/2025 6:09 PM EST Patricia Storm MD LAB BLOOD ORDERABLES Final Result Performing Organization Address City/[facility] Co de Phone Number [facility] [address] [place] [phone] * (ABNORMAL) POCT Hgb A1c (08/24/2025 11:50 AM EST) Pathologist [facility] Hemoglobin A1C 5.9(A) 4.0 - 5.7 % QC Media Lot # [id number] Lot# Expiration Date [id number] Blood 08/24/2025 11:5 0 AM EST Patricia Storm MD POINT OF CARE TEST EN TER/EDIT ORDERABLES Final Result * Celiac Disease Comprehensive Panel (07/26/2025 4:10 PM EDT) Immunoglobulin A, Qn, Serum 267 47 - 310 mg/dL [facility] Comment:THIS TEST WAS PERFOR MED AT:[employer] [place] [phone] JONES MD Transglutaminase IgA <1.0 U/mL [facility] Comment:Value Interpretation ----- <15.0 Antibody not detected> or = 15.0 Antibody detected Interpretation SEE NOTE [facility] Comment:No serological evide nce of celiac disease.tTG IgA may normalize in individuals with celiac diseasewho maintain a gluten-free diet. Consider HLA DQ2 andDQ8 testing to rule out celiac disease. Celiac diseaseis extremely rare in the absence of DQ2 or DQ8. Blood Venous blood specimen / Unknown 07/26/2025 4:10 PM EDT 07/26/2025 5:11 PM EDT Patricia Storm MD LAB BLOOD ORDERABLES Final Result [facility] [address] [place] [phone] * Referral to Urology (07/20/2025) aPtricia Storm MD OUTPATIENT REFERRAL O RDERABLES Final Result * Referral to ENT (06/24/2025) Rosi Verma NP OUTPATIENT REFERRAL ORDERABLES F inal Result * Hepatitis C Antibody with Reflex to HCV, RNA, Quantitative, Real-Time PCR (11/02/2024 3:18 PM EST) Hepatitis C Antibody Nonreactive Nonreactive [facility] Comment:Antibodies to HCV no t detected; does not exclude early acuteHCV infection. Blood Venous blood specimen / Unknown 11/02/2024 3:18 PM EST 11/02/2024 4:23 PM EST us Patricia Storm MD LAB BLOOD ORDERABLES Final Result [facility] [address] [place] [phone] * HIV-1/2 Antigen and Antibodies, Fourth Generation, with Reflexes (11/02/2024 3:18 PM EST) HIV AB/AG Nonreactive Nonreactive [facility] Comment:HIV-1 p24 Ag and/or HIV-1/HIV-2 Ab not detected.A test result that is nonreactive does not exclude thepossibility of exposure to or infection with HIV-1 and/orHIV-2. Nonreactive results in this assay for individualswith prior exposure to HIV-1 and/or HIV-2 may be due toantigen and antibody levels that are below the limit ofdetection of this assay.The [employer]ize HIV Ag/Ab Combo assay result andsupplemental assay results should be interpreted inconjunction with the patient's clinical presentation,history and other laboratory results. If the results areinconsistent with clinical evidence, additional testing issuggested to confirm the result. Blood Venous blood specimen / Unknown 11/02/2024 3:18 PM EST 11/02/2024 4:23 PM EST us Patricia Storm MD LAB BLOOD ORDERABLES Final Result Performing Organization Address City/[facility]/ZIP Co de Phone Number [facility] [address] [place] [phone] * (ABNORMAL) Lipid Panel, Standard (11/02/2024 3:18 PM EST) Triglycerides 139 <150 mg/dL [facility] Comment:Desirable Triglyceri de: less than 150 mg/dLBorderline High Triglyceride 150-199 mg/dLHigh Triglyceride: 200-499 mg/dLVery High Triglyceride: greater than or equal to 5OO mg/dL Cholesterol 209(H) <200 mg/dL [facility] Comment:Desirable Cholestero l: less than 200 mg/dLBorderline High Cholesterol: 200-239 mg/dLHigh Cholesterol: greater than 239 mg/dL LDL Cholesterol Calculated 139(H) <100 mg/dL [facility] Comment:Desirable LDL: less than 100 mg/dLNear Optimal/Above Optimal LDL: 110- 129 mg/dLBorderline High LDL: 130-159 mg/dLHigh LDL: 160-189 mg/dLVery High LDL: greater than or equal to 190 mg/dL HDL Cholesterol 43 >40 mg/dL [facility] Comment:Desirable HDL: great er than 40 mg/dL Note: This HDL assay may give artificially low results in patients with liver disease. Blood Venous blood specimen / Unknown 11/02/2024 3:18 PM EST 11/02/2024 4:23 PM EST Patricia Storm MD LAB BLOOD ORDERABLES Final Result [facility] [address] [place] [phone] from Last 3 Months or Most Recently Relevant to Health Maintenance Insurance [facility] Care Teams Guest Service Representative Relationship Specialty Start Date End Date Patricia Damon MD [address] [place] [phone] PCP - General Family Medicine 05/24/20
--- OUTSIDE RECORDS SUMMARY | 2025-09-20 20:18 | XMS_ITS | Encounter Summary ---
Author Organization [employer] Address [address] [place] [address] [address] [place] [address] Care Team Providers Care Dust Brush Assembler Name Role Phone Patricia Damon MD Primary Care Provide r Reason for Visit * Reason Comments Med Refill Encounter Details Date Type Department Care Team ([facility] st Contact Info) Description 06/23/2025 Refill [facility] MED & PEDS [address] [place] [address] Patricia Damon MD [address] [place] [address] Bladder pain Social History Tobacco Use Types [...] Description 12/01/2025 11:15 AM EST Office Visit [facility] MEDICINE [address] [place] [phone] Patricia Damon MD [address] [place] [phone] documented as of this encounter Visit Diagnoses Diagnosis Bladder pain Other symptoms involving urinary system documented in this encounter Additional Health Concerns Assessment Noted Time PHQ-9 Depression Total Score: 0 09/29/20 24 11:50 AM EST documented as of this encounter Care Teams Dust Brush Assembler Relationship Specialty Start Date End Date Patricia Damon MD [address] [place] [phone] PCP - General Family Medicine 05/24/20 documented as of this encounter
--- OUTSIDE RECORDS SUMMARY | 2025-09-20 20:18 | XMS_ITS | Encounter Summary ---
Author Organization [employer] Address [address] [place] [address] Care Team Providers Care Electricians Top Helper Name Role Phone Patricia Damon MD Primary Care Provide r Encounter Details Date Type Department Care Team (Late st Contact Info) Description 09/21/2022 Orders Only [facility] MEDICINE [address] [place] [phone] Maya Hernandez MD [address] [place] [address] [phone] Bunion of left foot (Primary Dx) Social [...] Description 12/01/2025 11:15 AM EST Office Visit [facility] [address] [place] [phone] Patricia Damon MD [address] [place] [address] [phone] documented as of this encounter Procedures Procedure [...] 8:08 AM EDT 02/27/2023 9:45 AM EDT [facility] - 03/01/2023 2:17 PM EDT ----- ------- Name: Rosas Francisco Age/Sex: 47/M : 1975 Unit#: [id number] Attend Dr: Kevin Tafoya MD Re02/27/23 Status: [facility] Location: [facility] Disch: ----- ------- SPEC : [id number] RECD: 02/27/23 STATUS: CARMEN ARREDONDO NUM: [id number] JAZMYN: 02/27/23 [facility] DR: Kevin Tafoya MD ENTERED: 02/27/23 SP [...] formalin. CEDS Copies To: Patricia Damon MD [address] [place] [address] Kevin Tafoya MD [address] [place] [address] Dr. Fox, [place] [address] CONTINUED ON NEXT PAGE ----- ------- Name: Rosas Francisco Age/Sex: 47/M : 1975 Unit#: [id number] Attend Dr: Kevin Tafoya MD Re02/27/23 Status: [facility] Location: [facility] Disch: ----- ------- SPEC : [id number] RECD: 02/27/23 STATUS: CARMEN ARREDONDO NUM: [id number] JAZMYN: 02/27/23 [facility] DR: Kevin Tafoya MD ENTERED: 02/27/23 SP TYPE: Surgical OTHR DR: Patricia Damon MD ORDERED: Reva Bartlett L3 ----- ------- Signed (signature on file) Tereso Mejias MD 03/01/23 1417 ----- ------- END OF REPORT [facility] External Provider LAB CYT OLKIM ORDERABLES Final Result [facility] [address] [place] [phone] [phone] * Pancreatic elastase, fecal (01/09/2023 8:51 PM EDT) Pancreatic Elastase 1 >500 mcg/g [facility] Comment:Adult and Pediatric Reference Ranges for Pancreatic Elastase-1: Normal: >200 mcg/gModerate Pancreatic Insufficiency: 100-200 mcg/g Severe Pancreatic Insufficiency: <100 mcg/gElastase-1 (E-1) assay results are expressedin mcg/g, which represent mcg E1/g feces.It is not necessary to interrupt enzymesubstitution therapy.THIS TEST WAS PERFORMED AT:[employer] [id number] [place] [address]XIXUQJEANIE SHERIDAN MD,PHD,MACHELLE 01/09/2023 8:51 PM EDT 01/11/2023 8:52 AM EDT [facility] Exter nal Provider LAB BODY FLUIDS AND STOOLS ORDERABLES Final Result Performing Organization Address [facility]ZIP Co de Phone Number [facility] [address] [place] [phone] * Lipase (01/04/2023 2:04 PM EDT) Lipase 38 8 - 78 U/L [facility] 01/04/2023 2:04 PM EDT 01/04/2023 2:04 PM EDT [facility] External Provider LAB BLO OD ORDERABLES Final Result Performing Organization Address [facility] Co de Phone Number [facility] [address] [place] [phone] * Hemoglobin A1c (01/04/2023 2:04 PM EDT) Hemoglobin A1c 6.0 % [facility] Comment:Hemoglobin A1C Refer ence Range [...] asaverage glucose, using the formula of the D8V-UstzaemJldwtoy Glucose study (ADAG), Diabetes Care, Vol.31,#8,2007 01/04/2023 2:04 PM EDT 01/04/2023 2:04 PM EDT [facility] External Provider LAB BLO OD ORDERABLES Final Result [facility] [address] [place] [phone] [phone] documented in this encounter Visit Diagnoses Diagnosis Bunion of left foot- Primary Bunion documented in this encounter Care Teams Electricians Top Helper Relationship Specialty Start Date End Date Patricia Damon MD [address] [place] [phone] PCP - General Family Medicine 05/24/20 documented as of this encounter
--- OUTSIDE RECORDS SUMMARY | 2025-09-20 20:18 | XMS_ITS | Encounter Summary ---
Author Organization [facility] Address [address] [place] [address] Care Team Providers Care Leno Sewer Name Role Phone Patricia Damon MD Primary Care Provide r Reason for Visit * Reason Onset Date Comments FMLA 09/16/2025 Encounter Details Date Type Department Care Team (Late st Contact Info) Description 09/16/2025 Telephone Orthopedic Surgery - [place] [address] [phone] Jose Luis Phelps, DPM [address] [address] Social History Tobacco Use Types Packs/Day Years [...] as of this encounter Progress Notes * Miriam Michaud MA - 09/17/2025 12:51 PM EST Sent letter to [facility] regarding 8 week extension * Rowan Guallpa - 09/16/2025 2:05 PM EST Patient is requesting a call back regarding his [place] and extending the date. Please advise, He can be reached @ [phone] . Thanks. documented in this encounter Plan of Treatment Upcoming Encounters Date Type Department Care Team (Late st Contact Info) Description 10/19/2025 10:00 AM EST Office Visit Orthopedic Surgery [place] [address] [phone] Jose Luis Phelps DPM [address] [address] 11/09/2025 3:00 PM EST Office Visit Orthopedic Surgery [facility] [address] [phone] Jose Luis Phelps DPM [address] [address] documented as of this encounter Visit Diagnoses Not on filedocumented in this encounter Care Teams Leno Sewer Relationship Specialty Start Date End Date Patricia Damon MD [address] [phone] PCP - General Internal Medicine 10/29/24 documented as of this encounter
--- OUTSIDE RECORDS SUMMARY | 2025-09-20 20:18 | XMS_ITS | Clinical Summary ---
Author Organization 175 [facility] Address [address] [place] [address] Phone Care Team Providers Care Tool Design Checker Name Role Phone Patricia Damon MD [...] Encounters Date Type Department Care Team Description 09/16/2025 Telephone Orthopedic [place] [address] [phone] Jose Luis Phelps DPM 09/06/2025 3:00 PM EST Office Visit Orthopedic [place] [address] [phone] Jose Luis Phelps DPM Contusion of left foot, initial encounter (Primary Dx) 08/23/2025 Telephone Orthopedic [place] [address] [phone] Jose Luis Phelps DPM 08/19/2025 10:00 AM EST Office Visit Orthopedic [facility] [address] [phone] Jose Luis Phelps DPM Postoperative examination (Primary Dx) 08/05/2025 10:45 AM EDT Office Visit [place] [address] [address] Jose Luis Phelps DPM Post-operative state (Primary Dx) 07/22/2025 11:00 AM EDT Office Visit Orthopedic [facility] [address] [phone] Jose Luis Phelps DPM Left foot pain (Primary Dx); Status post surgery 07/12/2025 Telephone Orthopedic [place] [address] [phone] Joanne Wang 07/09/2025 7:30 AM EDT - 07/09/2025 9:00 AM EDT Surgery [facility] Main OR [address] [place] [phone] Jose Luis Phelps DPM LEFT BUNIONECTOMY [55447 (CPT )] 07/09/2025 7:26 AM EDT Anesthesia Event [facility] Main OR [address] [place] [phone] Wilder Elaine DO 07/09/2025 6:07 AM EDT - 07/09/2025 10:04 AM EDT Hospital Encounter [facility] Main OR [address] [place] [phone] Jose Luis Phelps DPM Discharge Disposition: Home or Self Care 07/07/2025 Telephone Orthopedic Surgery [facility] [address] [phone] Jose Luis Phelps DPM 07/06/2025 Telephone Orthopedic Surgery [facility] [address] [phone] Jose Luis Phelps DPM from Last 3 [...] 10:00 AM EST Office Visit Orthopedic Surgery [place] [address] [phone] Jose Luis Phelps DPM [address] [address] 11/09/2025 3:00 PM EST Office Visit Orthopedic [place] [address] [phone] Jose Luis Phelps DPM [address] [address] Health Maintenance Due Date Last Done Comments [...] this topic Medical Devices Implanted Type Area Blister Pack Operator Device Identifier Shelf Expiration Date Model / Serial / Lot Nail Minibunion Offset Short 3.5mm - Sna - [id number] Implanted:Qty: 1 on 07/09/2025 by Jose Luis Phelps DPM at [facility] Internal and External Fixation Left: First Toe [employer] [id number] 02/10/2029 3100-003 0 / NA / [id number] Screw Locking Minibunion 3x22mm - Sna - [id number] Implanted:Qty: 1 on 07/09/2025 by Jose Luis Phelps DPM at [facility] Spinal Hardware Left: First [employer] [id number] 02/02/2029 3100-302 2LK / NA / [id number] Non Locking Screw 2.7 X 20mm Implanted:Qty: 1 on 07/09/2025 by Jose Luis Phelps DPM at [facility] Left: First Toe [employer] [facility] [id number] 11/30/2028 3100-272 0NL / NA / [id number] Procedures Procedure Name Priority Date/Time Associated Diagnosis Comments XR FOOT 3+ VIEWS LEFT Routine 09/06/2025 3:18 PM EST Post-operative state XR FOOT 3+ VIEWS LEFT Routine 08/05/2025 10:46 AM EDT Post-operative state XR FOOT 3+ VIEWS LEFT Routine 07/22/2025 12:16 PM EDT Foot pain XR FOOT 2 VIEWS LEFT Routine 07/09/2025 9:15 AM EDT IA CORRECTION HALLUX VALGUS W SESAMOIDECTOMY W DOUBLE [...] Signed Date: 07/09/2025 09:31 ET Workstation ID: [id number] Transcribed By: Self Edit Transcribed Date: 07/09/2025 [...] Signed Date: 07/09/2025 09:31 ET Workstation ID: [id number] Transcribed By: Self Edit Transcribed Date: 07/09/2025 09:29 ET Jose Luis Phelps DPM IMG XR PROCEDURES Final Res ult from Last 3 Months Insurance [facility] [employer] Advance Directives * Full Code [...] currently active code status orders. Care Teams Tool Design Checker Relationship Specialty Start Date End Date Patricia Damon MD [address] [place] [phone] PCP - General Internal Medicine 10/29/24
--- OUTSIDE RECORDS SUMMARY | 2025-09-20 20:18 | XMS_ITS | Encounter Summary ---
Author Organization [employer] Address [address] [place] [address] [place] [address] Care Team Providers Care Finishing Range Operator Name Role Phone Patricia Damon MD Primary Care Provide r Reason for Visit * Reason Onset Date Comments Results 09/17/2025 Encounter Details Date Type Department Care Team ([facility] Contact Info) Description 09/17/2025 Telephone [facility] [address] [place], [place] [phone] Patricia Damon MD [address] [place] [address] Results Social History Tobacco Use Types Packs/Day Years [...] encounter Miscellaneous Notes * Telephone Encounter - Courtney Jules RN - 09/20/2025 11:41 AM EST Incoming call from patient in regards to below message. RN advised patient of bloodwork results andPOC. Patient reports he is still working on his dietary changes (he is consuming a gluten free diet). Patient inquired if he tested positive for hep B and was informed he did not. Patient to f/u PRN. * Telephone Encounter - Courtney Jules RN - 09/20/2025 11:33 AM EST TC placed to patient [phone] however no answer, RN left VM requesting CB to red team nurses. Patient to f/u PRN. * Telephone Encounter - Nash Hammonds - 09/17/2025 3:44 PM EST TC from pt requesting call back regarding Results. Type of results: Labs Date when done: 09/10/25 Facility: [facility] Please contact pt at [phone]. documented in this encounter Plan of Treatment Upcoming Encounters Date Type Department Care Team (Late st Contact Info) Description 12/01/2025 11:15 AM EST Office Visit [facility] [address] [place] [address] Patricia Damon MD [address] [place] [address] documented as of this encounter Visit Diagnoses Not on filedocumented in this encounter Additional Health Concerns Assessment Noted Time PHQ-9 Depression Total Score: 1 08/24/20 25 12:28 PM EST documented as of this encounter Care Teams Finishing Range Operator Relationship Specialty Start Date End Date Patricia Damon MD [address] [place] [address] PCP - General Family Medicine 05/24/20 documented as of this encounter
--- OUTSIDE RECORDS SUMMARY | 2025-09-20 20:18 | XMS_ITS | Encounter Summary ---
Author Organization [employer] Address [address] [place] [address] 7 [place] [address] Care Team Providers Care Day Care Director Name Role Phone Patricia Damon MD Primary Care Provide r Encounter Details Date Type Department Care Team (Late Contact Info) Description 02/19/2025 Orders Only [facility] [address] [place] [phone] Patricia Damon MD [address] [place] [phone] Social History Tobacco Use Types Packs/Day Years [...] Department Care Team (Late Contact Info) Description 12/01/2025 11:15 AM EST Office Visit [facility] [address] [place] [phone] Patricia Damon MD [address] [place] [address] documented as of this encounter Visit Diagnoses Not on filedocumented in this encounter Additional Health Concerns Assessment Noted Time PHQ-9 Depression Total Score: 0 09/29/20 24 11:50 AM EST documented as of this encounter Care Teams Day Care Director Relationship Specialty Start Date End Date Patricia Damon MD [address] [place] [address] PCP - General Family Medicine 05/24/20 documented as of this encounter
--- OUTSIDE RECORDS SUMMARY | 2025-09-20 20:18 | XMS_ITS | Patient Health Record ---
Author Organization [facility] Address [address] [place] [phone] Care Team Providers Care Stallion Keeper Name Role Phone Yimi Ulloa Unavailable [phone] Reason For Referral No Information Plan Of Treatment No Information
== END 2025-09-20 14:36 | disposition home or self-care (01) ==
LOC: HO.HGI 13:57
PROVIDERS: PCP Internal Medicine; Visit Provider Internal Medicine
DX: R19.4 Change in bowel habit (principal); D50.9 Iron deficiency anemia, unspecified; R10.9 Unspecified abdominal pain
CPT/HCPCS: 99214

== ENCOUNTER → 2025-09-20 13:57 | Outpatient (BNVA) | payer OTHER, SELFPAY | PROVIDERS: PCP Internal Medicine; Visit Provider Internal Medicine | DX: R19.4 Change in bowel habit (principal); R10.30 Lower abdominal pain, unspecified; D50.9 Iron deficiency anemia, unspecified | CPT/HCPCS: 99212 ==